=== PATIENT | female | born 1960 | race Caucasian/White ===

== ENCOUNTER → 2017-08-24 12:14 | Outpatient (CLI) | payer MEDICAID, SELFPAY ==
--- NOTE | 2017-08-24 12:15 | STE_ITS ---
Reason For Study: CHF/SOB Stress Results Protocol: Art Protocol Maximum Predicted HR: 164 bpm Target HR: 139 bpm% Max imum Predicted HR: 109 % DurationHeart Rate Stage (mm:ss) (bpm) BP BASELINE 96 142/88 STAGE 1 3:00 15 7 180/92 STAGE 2 3:00 17 9 182/90 RECOVERY 115 152/9 8 Stress Duration: 6:00 mm:ss Maximum Stress HR: 179 bpm Baseline Echocardiogram Findings The estimated ejection fraction is 40 %. Stress Echo Wall motion Data Resting WMIntermediate WMStress WM Wall Motion Stress Anterio-Basal: Severely hypokinetic. Mid-Anterior : Severely Hypokinetic. Anterior [place] : Severly Hypokinetic. EKG Data Normal intervals are noted. The patient exercised according to the regular Art protocol for a total duration of 6:00. The maximum heart rate attained was 179 beats per minute. This was 109% of maximum predicted heart rate. The patient exercised into stage 3 of the Art protocol. During stress, there were no ST or T wave changes noted to suggest ischemia. No clinical angina was noted. Interpretation Summary The estimated ejection fraction is 40 %. Mid-Anterior : Severely Hypokinetic. Anterior [place] : Severly Hypokinetic. Abnormal, adequate, treadmill echocardiogram. Positive for ischemia of the anterior, anteroseptal and apical parish at peak exercise. Below average exercise capacity for age. Hypertensive blood pressure response to exercise. Rare PACs during exercise and into recovery. Baseline abnormal echocardiogram with an EF around 40%. Test terminated due to leg fatigue. No anginal symptoms noted. Final LVEF of 30%. Ordering Physician: Good Sparrow Referring Physician: Good Sparrow Performed By: Scarlet Castillo, RDCS, RVT
== END ==
PROVIDERS: Visit Provider Internal Medicine Cardiovascular Disease
DX: I11.0 Hypertensive heart disease with heart failure (principal); I50.21 Acute systolic (congestive) heart failure; I43 Cardiomyopathy in diseases classified elsewhere; E78.5 Hyperlipidemia, unspecified
CPT/HCPCS: 93017; 93350; Q9957; A4216

== ENCOUNTER → 2017-09-07 15:44 | Outpatient (CLI) | payer MEDICAID, SELFPAY ==
--- NOTE | 2017-09-07 15:46 | RAD_ITS ---
STUDY: X-RAY CHEST REASON FOR EXAM: Female, 56 years old. Shortness of breath TECHNIQUE: Frontal and lateral views of the chest COMPARISON: None. FINDINGS: The lungs are clear. There are no pleural effusions. There is no pneumothorax. The heart is normal in size. The visualized osseous structures are within normal limits. RAD/Chest PA and Lateral IMPRESSION: Clear lungs. Electronically Signed: Priyank Bae, at 23:34 EDT Tel , Service support ,
== END ==
PROVIDERS: Visit Provider Internal Medicine Cardiovascular Disease
DX: R06.02 Shortness of breath (principal)
CPT/HCPCS: 71046

== ENCOUNTER → 2017-09-16 07:43 | Day surgery (SDC) | payer MEDICAID, SELFPAY ==
[2017-09-14 09:04] VITALS: BMI 27.8
--- NOTE | 2017-09-16 10:37 | CL.D_ITS ---
Patient Name: YULIYA KENDALL Study Date: 09/16/2017 Performing: Good Sparrow MD Ht: 59.05 inches 150 cm : 1960 Wt: 138.89 lbs 63 kg Age: 56 Gender: female BSA: 1.58 PROCEDURE(S) PERFORMED CR91-DII/COR/LV CLINICAL PROFILE AND INDICATIONS Indications: New Onset Angina <= 2 months, Worsening Angina, Suspected CAD, LV Dysfunction Heart Failure: NYHA Class: 2, Newly Diagnosed: Yes, Heart Failure Type: Systolic Stress/Imaging Stress Echocardiogram: Yes Result: Positive Intermediate RiskStress Echocardiogram : Positive Intermediate Risk Angina Classification Anginal Classification w/in 2 Weeks: CCS II CAD Presentations: Unstable angina. CONCLUSIONS Non obstructive coronary arteries Global LV systolic dysfunction- Mild Elevated Left Ventricular End Diastolic Pressure RECOMMENDATIONS Risk factor modification Increase toprol to 25mg po bid. Start cozaar 25mg po daily. BP check in 2 weeks. D/c plavix. DESCRIPTION OF PROCEDURE The patient arrived to the procedure lab. The risks and benefits of the procedure as well as a full d escription of our services here and current unavailability of surgical backup were fully explained to the patient and/or their significant other prior to the catheterization. The Timeout was completed, verifying the correct patient and procedure. The patient's procedural site was prepped and draped in the usual fashion. Local anesthetic was given subcutaneously to right groin region with Lidocaine 2%. Using a modified Seldinger technique, arterial access was obtained via the right femoral artery, a 4 Fr sheath was inserted Left Coronary Artery selective angiography was performed in multiple views us ing a 4 Fr. JL5 catheter. Right Coronary Artery selective angiography was then performed in multiple views using a 4 Fr. 3DRC catheter. Left Ventriculography was performed in ESTRADA projection using a 4 Fr . Pigtail catheter. LV to AO pullback pressures were then recorded.The arterial sheath was pulled and manual compression applied until hemostasis is achieved. CORONARY ANGIOGRAPHY DOMINANCE: Right Dominant LEFT HEART ASSESSMENT Left Ventricular Ejection Fraction: by LV Gram 45-50 % Global Hypokinesis - Mild Depressed Left Ventricular systolic function LVEDP: 24 mmHg LEFT MAIN: Angiographically normal LEFT ANTERIOR DECENDING ARTERY: Angiographically normal CIRCUMFLEX ARTERY: PROX CIRC: Mild luminal irregularities less than 30% RIGHT CORONARY ARTERY: Angiographically normal COMPLICATIONS No Complications PROCEDURE MEDICATIONS Oxygen: 2 L/min via nasal cannula SUMMARY OF HEMODYNAMIC DATA Time AIR REST ECG 08:08:54 AO 134/86 (108) SA 10:18:17 LV 131/-3, 20 10:24:05 LV 128/0, 24 10:24:11 LVp 125/0, 20 10:24:16 AOp 124/68 (91) 10:24:22 Signed By Good Sparrow MD On 09/16/2017 10:36:40 Good Sparrow MD
== END ==
PROVIDERS: Visit Provider Internal Medicine Cardiovascular Disease
DX: I50.21 Acute systolic (congestive) heart failure (principal); E78.5 Hyperlipidemia, unspecified; I10 Essential (primary) hypertension; Z85.3 Personal history of malignant neoplasm of breast; Z90.13 Acquired absence of bilateral breasts and nipples; I42.9 Cardiomyopathy, unspecified
CPT/HCPCS: 93458; J7040; A4216; C1769; C1894; Q9967

== ENCOUNTER 2018-05-10 05:25 | Day surgery (SDC) | payer MEDICAID, SELFPAY ==
[2018-04-06 15:54] VITALS: BMI 28.9
--- NOTE | 2018-05-09 15:19 | RAD_ITS ---
STUDY: X-RAY CHEST REASON FOR EXAM: Female, 57 years old. Preoperative evaluation. TECHNIQUE: PA and lateral views of the chest. COMPARISON: Comparison is made with prior study dated September 07, 2017. FINDINGS: The patient is status post left mastectomy and left axillary karyna dissection. Stable mild degree of increased markings in the lingular segment of the left upper lobe suggestive of probable scarring. The right lung is clear. There is no demonstrated pleural abnormality. Normal size heart. Normal mediastinum and jer[place]. Normal visualized pulmonary arteries. Normal visualized aortic arch and descending thoracic aorta. Normal visualized thoracic spine. Normal visualized ribs, clavicles, and shoulders. There is no demonstrated abnormality of the visualized soft tissue structures of the upper abdomen. RAD/Chest PA and Lateral IMPRESSION: The patient is status post left mastectomy and left axillary karyna dissection. Stable increased markings in the lingular segment of the left upper lobe suggesting mild scarring. Electronically Signed: Boby Hamilton MD at 15:54 EST , Service support ,
[2018-05-09 16:28] LABS: Hematocrit 45.6 % (37-47); Hemoglobin 14.3 g/dl (12.0-15.0); Mean Corp Hgb Conc 31.4 g/gl (32-36); Mean Corpuscular Hgb 29.1 pg (27.0-32.0); Mean Corpuscular Volume 92.7 fL (81-99); Mean Platelet Vol. 11.3 fl (6.2-12.0); Platelet Count 252 K/mm3 (150-450); RBC Distribution Width SD 47.3 fl (35.1-43.9); Red Blood Count 4.92 M/mm3 (4.2-5.4)
[2018-05-09 16:33] LABS: Prothrombin Time (Protime)PT. 12.7 SECONDS (11.7-14.9)
[2018-05-09 16:34] LABS: Partial Thromboplast Time 26.9 Seconds (24.1-36.2)
[2018-05-09 16:41] LABS: Scan Indicated on CBC? Y/N NO
[2018-05-09 16:50] LABS: AST(SGOT) 23 U/L (15-37); Alanine Aminotransfer ALT/SGPT 35 U/L (13-56); Albumin, Serum 3.7 g/dL (3.2-5.0); Alkaline Phosphatase 107 U/L (45-117); Anion Gap 9 (5-15); BUN 18 mg/dL (7-18); BUN/Creat Ratio 20.4 RATIO (10-20); Bilirubin, Direct 0.08 mg/dL (0.00-0.30); Calcium,Total 9.4 mg/dL (8.5-10.1); Chloride 105 mmol/L (98-107); Creatinine, Serum 0.88 mg/dL (0.55-1.02); EST Glomerular Filtration Rate 70 mL/min (>60); Est Glom Filt Rate - Afr Amer 85 mL/min (>60); Glucose 104 mg/dL (74-106); Potassium 3.8 mmol/L (3.5-5.1); Protein, Total 7.7 g/dL (6.4-8.2); Sodium Level 142 mmol/L (136-145)
--- NOTE | 2018-05-09 22:01 | PCM.HP.BLA ---
History and Physical Date of Admission: 05/10/18 HISTORY OF PRESENT ILLNESS 57 year old female who presents for evaluation for breast reconstruction. She developed left breast cancer in July 2015. She underwent bilateral mastectomies in August 2015 with a prophylactic one on the right. Pathology showed invasive ductal carcinoma left breast with positive lymph nodes and focal angiolymphatic invasion noted. 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 She then proceeded with chemotherapy and radiation therapy for the left breast cancer. At present, she denies fever. She denies breast pain. She is currently taking Anastrozole. PAST MEDICAL HISTORY Hypertension Hyperlipidemia Acute systolic congestive heart failure Bilateral pleural effusion Cardiomyopathy in diseases classified elsewhere Estrogen receptor positive status (ER+) Malignant neoplasm of left female breast Asthma Back problem Bone fracture GERD (gastroesophageal reflux disease) Hearing problem PAST SURGICAL HISTORY bilateral mastectomy ALLERGIES lisinopril Penicillins MEDICATIONS Loratadine [Claritin] acyclovir albuterol sulfate anastrozole venlafaxine ER fluticasone-vilanterol calcium carbonate furosemide metoprolol succinate ER potassium chloride ER losartan alendronate atorvastatin clopidogrel FAMILY HISTORY Mother - Diabetes Sister - Breast cancer, Diabetes Sister - Cancer Other - Asthma SOCIAL HISTORY Smoking Status: Never smoker alcohol intake: never substance use type: does not use REVIEW OF SYSTEMS General - Denies fever, fatigue, and weight loss. Eyes - Denies cataracts and glaucoma. ENT - Denies nasal congestion. Has sore throat. Endocrine - Denies excessive thirst and urination. Has a history of left breast cancer with bilateral mastectomy 08/28. Has had chemotherapy and radiation therapy. Skin - Denies suspicious lesions and skin cancer. Musculoskeletal - Complains of joint pain, joint stiffness, weakness of muscles and joints, back pain. Denies arthritis. Neuro - Denies headaches. Cardiovascular - Denies chest pain, fatigue. Has a history of CHF, hypertension and hyperlipidemia. Has shortness of breath with activity. Psych - Denies anxiety and depression. Respiratory - Denies chronic cough. Has history of asthma and sleep apnea and shortness of breath. Gastrointestinal - Denies nausea, vomiting, diarrhea. Has a history of constipation and GERD. Hematologic - Has a history of easily bruising and bleeding easily. Is on Plavix. Genitourinary - Denies hematuria and urinary frequency. PHYSICAL EXAMINATION General - Alert and oriented. Bra size was 38 D prior to the mastectomies. HEENT - PERRL. EOMI. Throat is clear. Neck - Supple and non-tender. No cervical adenopathy. Breasts - Bilateral mastectomy incisions are well healed. Minimal discoloration seen on the left breast after the radiation therapy. Some firmness noted on the left breast due to radiation fibrosis. Skin is not adherent to the chest wall on the left. No breast masses palpable. No axillary adenopathy. Breast width is 15 cm bilaterally. Some redundant skin contour deformity present bilaterally. Lungs- Clear to auscultation. Heart - Regular rate and rhythm. Abdomen - Soft and non distended. There is redundant skin and subcutaneous tissue between the umbilicus and the pubic area. There is a lower midline scar from previous hysterectomy. Extremities - FROM. No axillary adenopathy. Radial pulses are palpable. Neuro - CN II-XII grossly intact. Psych - Normal mood and affect. ASSESSMENT 1. Invasive ductal carcinoma left breast, s/p mastectomy. 2. Ductal carcinoma in situ right breast, s/p mastectomy. 3. Acquired absence bilateral breasts. 4. Disproportion reconstructed breasts. 5. Deformity reconstructed breasts. 6. Late effect radiation left breast. 7. Soft tissue radionecrosis left breast. 8. Estrogen receptor positive status. 9. Family history of breast cancer. PLAN Discussed the various breast reconstruction options with the patient. These include a range between using a saline tissue gummed tape press operator followed by cohesive gel implants or using your own tissue such as the TRAM flap or the latissimus dorsi flap or a combination of the two. Since she has had radiation therapy to the left breast, will need to bring in nonradiated tissue for the reconstruction. She is interested in the TRAM flap. Because of the radiation therapy, will proceed initially with a TRAM flap delay to increase the vascularity to the flap. Due to the potential defect that is created after excising any radiation soft tissue necrosis, a bipedicled flap may be necessary to help provide additional tissue. After healing has occurred, will determine at that time if enough tissue is present when combined with the opposite left breast or if a small cohesive gel implant may be necessary for symmetry. For the opposite left breast, will initially place a submuscular saline tissue gummed tape press operator along with acellular dermal matrix graft for inferior coverage. After expansion has occurred, will remove the gummed tape press operator with replacement cohesive gel implant. After healing has occurred, can discuss further nipple reconstruction. The initial surgery will be done under general anesthesia and an overnight stay at the hospital. She will have drains in for a few days and be maintained on antibiotics until the drains are removed. She will wear an SIRISHA wrap for chest wall compression and be maintained on a lifting restriction as well during the healing process. After the first stage delay, will wait at least 3 weeks before proceeding with the TRAM flap surgery. That surgery will be done under general anesthesia and a 5-7 day inpatient stat in the hospital. She will have drains for several days and be maintained on antibiotics until the drains are removed. She will wear an abdominal binder and a surgical bra as well. She will have dietary restrictions with no chocolate, no caffeine, no coffee, no decaf, no tea, for 6 weeks. Also there is no smoking for 6 weeks. The patient was informed of the risks and complications of the procedure including alternatives to surgery. These were discussed with the patient personally. The patient voices understanding and wishes to proceed. Some of the risks and complications were included in a form from the [employer].
[2018-05-10] VITALS (13 sets, daily range): BP systolic 95–163; BP diastolic 47–87; PULSE 63–94; RESP 14–18; TEMP 36–37; O2SAT 94–100; BMI 24.5; BMI 35.7
[2018-05-10] MEDS: Methylene Blue 1% 100 MG/10 ML VIAL (08:50)
--- NOTE | 2018-05-10 10:38 | PCM.OPRPT ---
Report of Operation Date of Procedure: 05/10/18 Pre-Operative Diagnosis: 1. Invasive ductal carcinoma left breast, s/p mastectomy. 2. Ductal carcinoma in situ right breast, s/p mastectomy. 3. Acquired absence bilateral breasts. 4. Disproportion reconstructed breasts. 5. Deformity reconstructed breasts. 6. Late effect radiation left breast. 7. Soft tissue radionecrosis left breast. 8. Estrogen receptor positive status. 9. Family history of breast cancer. Post-Operative Diagnosis: Same. Surgery/Procedure Performed:: 1. First stage delayed left breast reconstruction with bipedicled TRAM flap delay. 2. First stage delayed right breast reconstruction with placement of submuscular saline tissue 4 h youth development specialist (650 ml). Description of Surgical Findings:: 57 year old female who presents for evaluation for breast reconstruction. She developed left breast cancer in July 2015. She underwent bilateral mastectomies in August 2015 with a prophylactic one on the right. Pathology showed invasive ductal carcinoma left breast with positive lymph nodes and focal angiolymphatic invasion noted. 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 She then proceeded with chemotherapy and radiation therapy for the left breast cancer. At present, she denies fever. She denies breast pain. She is currently taking Anastrozole. Patient was informed of the risks and complications of the procedure including alternatives to surgery. These were discussed with the patient personally. Patient voices understanding and wishes to proceed. Some of the risks and complications were included in a form from the [employer]. IV Fluids - 1700 ml. Urine Output - 170 ml. I used [employer] Ultra High Profile, Smooth, Breast Tissue Scheduling Analyst, Suture Tabs, Integral Injection Dome, (650 ml). Reference Number - [id number]. Lot Number - [id number]. Serial Number - [id number]. Expiration - November 15, 2021. I used Rosina absorbable hemostat, (I used 2 vials, one in the right breast and one in the abdominal wall). Reference Number - [id number]. Lot Number - [id number]. Expiration - February 09, 2023. warehouse associate driver: Anna Peoples. Type of Anesthesia:: General Specimen's removed: None. Drains: Jemal. Estimated Blood Loss (mL): 50 ml. Fluids Replaced: 1870 ml (IV Fluids 1700 ml, Urine Output 170 ml). Description of Procedure: Patient was taken to OR in supine position and was placed under general anesthesia. The breasts and abdomen were prepped and draped in the usual fashion. SCD's were placed for DVT prophylaxis. Perioperative antibiotics were given intravenously. A baker catheter was placed. Using xylocaine with epinephrine, the mastectomy incision on the right was infiltrated and the abdominal wall skin crease was infiltrated. After waiting 5 minutes for the anesthetic to take effect, I made an incision through the horizontal mastectomy incision on the right down through the subcutaneous tissue until the muscle was seen. I dissected underneath the pectoralis muscle superiorly to the clavicle, medially to the sternum, inferiorly to the inframammary fold, and laterally to the anterior axillary line. I freed up some of the inferior muscle fibers to aid in creating the submuscular pocket. Hemostasis was obtained with electrocautery. The wound was irrigated with saline. I measured the pocket and felt a 650 ml [place] [employer] Ultra High Profile Smooth Breast Tissue Scheduling Analyst would fit. The air was removed from the 4 h youth development specialist. I injected 30 ml of saline and squeezed the 4 h youth development specialist. No leaks were noted. I placed a size 15 Jemal drain into the breast wound through a separate stab incision inferiorly and laterally and secured to the skin with 3-0 Nylon suture. The wound was sprayed with Rosina absorbable hemostat to minimize seroma formation. When I placed the 4 h youth development specialist into the submuscular pocket, I secured the 4 h youth development specialist to the chest wall through the suture tabs inferiorly with 3-0 Vicryl sutures. There were 5 suture tabs. The pocket was secure enough that I felt I didn't need an acellular dermal matrix graft sling at this time. At the time of the implant replacement, I will place this sling. The wound was then closed in a layered fashion with 3-0 Vicryl interrupted sutures for the deep subcutaneous tissue at the level of the muscle. The deep dermis and subcutaneous tissue was approximated with 3-0 Monocryl interrupted sutures. The skin was approximated with 4-0 V-lock unidirectional barbed running subcuticular suture. This was followed by Histoacryl skin tissue adhesive. Gauze dressing was applied. This will be followed by an SIRISHA wrap for compression at the end of the procedure. I then made a horizontal incision in the abdominal wall skin crease for the delay procedure. Incisions were carried down through Kareem's fascia until the abdominal wall fascia was seen. The superficial epigastric veins were ligated with 3-0 Silk suture. I made horizontal incisions in the rectus abdominis fascia until the muscle was seen. I retracted the muscle medially on both the left and right sides. I dissected out the inferior epigastric vascular pedicles. There were two veins and one artery on each side. They were individually dissected free and ligated with 3-0 Silk suture and surgical clips. The wound was irrigated with saline. Hemostasis was obtained with electrocautery. The fascia was then closed with 0 Novafil simple running suture. I then sprayed the wound with Rosina absorbable hemostat to minimize seroma formation. Kareem's fascia was approximated with 3-0 Vicryl simple running suture. The deep dermis and subcutaneous tissue was approximated with 3-0 Monocryl sutures. The skin was approximated with 3-0 V-lock unidirectional barbed running subcuticular suture. This was followed by Histoacryl skin tissue adhesive. Gauze dressing was applied. This was followed by an abdominal wall binder. Patient tolerated the procedure well and was sent to PACU in satisfactory condition. Patient will be sent upstairs for continued postop care. Grafts/Implants Used: [place] saline tissue 4 h youth development specialist. - Complications None. - Admit VTE Documentation VTE Present on Admission: No VTE Mechan Device Prophylaxis: SCD's VTE Pharm Prophylaxis ordered?: Yes Code Visit Surgery Charges CPT - 83470 ICD-10 - C50.912, D05.11, Z90.13, N65.1, N65.0, T66.xxxS, L59.8, Z80.3, Z17.0 [id number] C50.912, D05.11, Z90.13, N65.1, N65.0, T66.xxxS, L59.8, Z80.3, Z17.0
[2018-05-10] MEDS: Lactated Ringers 1,000 ML 60 ML IV (12:08)
--- NOTE | 2018-05-10 12:43 | CON.PCM_ITS ---
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 (5) Hypertension Status: Chronic Qualifiers: Hypertension type: essential hypertension Qualified Code(s): I10 - Essential (primary) hypertension (6) Hyperlipidemia Status: Chronic (7) Acute systolic congestive heart failure Status: Chronic Comment: may 2017 (8) Bilateral pleural effusion Status: Chronic (9) Cardiomyopathy in diseases classified elsewhere Status: Chronic Comment: EF decreased from 62% per echo 2015 to 30-35% per echo May 2017 @ [place], [place] (10) History of bilateral mastectomy Status: Chronic Comment: August 2015 (11) Estrogen receptor positive status (ER+) Status: Chronic Comment: Z17.0 (12) Disproportion of reconstructed breast Status: Chronic Comment: N65.1 disproportion reconstructed breasts (13) Family history of breast cancer Status: Chronic Comment: Z80.3 (14) 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 Comment: Z90.13 modified radical mastectomy on the left prophylactic mastectomy on the right (15) Malignant neoplasm of left female breast Status: Chronic Qualifiers: Breast location: unspecified site of breast Qualified Code(s): C50.912 - Malignant neoplasm of unspecified site of left female breast Comment: C50.912 Reason for Consult Date of Consultation: 05/10/18 Reason for Consultation: Management of patient medical comorbidities History of Present Illness: The patient is a 57 year old F with history of breast CA diagnosed in July 2015 for which she underwent bilateral mastectomies in August 2015 with subsequent neoadjuvant chemo and radiation therapy currently on anastrozole admitted by 's lady for first stage delayed left breast reconstruction. The hospitalist service was consulted to assist in management of patient medical comorbidities including nonischemic cardiomyopathy and hypertension. 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 Hypertension (Chronic) Hyperlipidemia (Chronic) Acute systolic congestive heart failure (Chronic) may 2017 Bilateral pleural effusion (Chronic) Cardiomyopathy in diseases classified elsewhere (Chronic) EF decreased from 62% per echo 2016 to 30-35% per echo May 2017 @ [place], [place] History of bilateral mastectomy (Chronic) August 2015 Estrogen receptor positive status (ER+) (Chronic) Z17.0 Disproportion of reconstructed breast (Chronic) N65.1 disproportion reconstructed breasts Family history of breast cancer (Chronic) Z80.3 Acquired absence of bilateral breasts and nipples (Chronic) Z90.13 modified radical mastectomy on the left prophylactic mastectomy on the right Malignant neoplasm of left female breast (Chronic) C50.912 Medical History: Medical History (Last Reviewed 05/10/18 @ 13:24 by Alberto Dueñas MD) Hypertension (Chronic) I10 Hyperlipidemia (Chronic) E78.5 Acute systolic congestive heart failure (Chronic) I50.02 june 2017 Bilateral pleural effusion (Chronic) J90 Cardiomyopathy in diseases classified elsewhere (Chronic) I43 EF decreased from 62% per echo 2016 to 30-35% per echo May 2017 @ [place], [place] Estrogen receptor positive status (ER+) (Chronic) Z17.0 Z17.0 Malignant neoplasm of left female breast (Chronic) C50.912 C50.912 Asthma J45.909 Back problem M53.9 Bone fracture T14.8XXA GERD (gastroesophageal reflux disease) K21.9 Hearing problem H91.90 Allergies lisinopril Allergy (Severe, Verified 05/10/18 06:11) tongue and face swelling Penicillins Allergy (Verified 05/10/18 06:11) Anaphylaxis Home Medications: Ambulatory Orders Medication Instructions Recorded Loratadine [Claritin] 10 mg PO DAILY 08/22/15 acyclovir 200 mg capsule 200 mg PO QDAY cap 07/03/17 albuterol sulfate 2.5 mg/3 mL 2.5 mg INHALATION TID PRN ml 07/03/17 (0.083 %) solution for nebulization anastrozole 1 mg tablet 1 mg PO QDAY 07/03/17 venlafaxine ER 37.5 mg 37.5 mg PO BID cap 07/03/17 capsule,extended release 24 hr fluticasone 100 mcg-vilanterol 25 1 puff INHALATION DAILY 07/06/17 mcg/dose powder for inhalation calcium carbonate 500 mg (1,250 1 tab PO BID 01/13/18 mg)-vitamin D3 200 unit tablet furosemide 20 mg tablet 20 mg PO QDAY PRN 01/13/18 metoprolol succinate ER 25 mg 37.5 mg PO DAILY tab 01/13/18 tablet,extended release 24 hr potassium chloride ER 20 mEq 20 meq PO QDAY PRN 01/13/18 tablet,extended release losartan 25 mg tablet 50 mg PO QDAY tab 01/14/18 alendronate 70 mg tablet 70 mg PO QWEEK 03/28/18 atorvastatin 20 mg tablet 40 mg PO DAILY tab 03/28/18 clopidogrel 75 mg tablet 75 mg PO DAILY 03/28/18 Surgical History: Surgical History (Last Reviewed 05/10/18 @ 12:42 by Alberto Dueñas MD) History of bilateral mastectomy (Chronic) Z90.26 August 2015 Smoking Status: Never smoker Tobacco Use: Non-smoker - *Family History Sibling Family History: Family History (Last Reviewed 05/10/18 @ 12:44 by Alberto Dueñas MD) Father No problems noted. Mother Diabetes Sister Breast cancer Diabetes Sister Cancer Other Asthma Paternal Family History: Family History (Last Reviewed 05/10/18 @ 12:44 by Alberto Dueñas MD) Father No problems noted. Mother Diabetes Sister Breast cancer Diabetes Sister Cancer Other Asthma Review of Systems Constitutional: Denies: Anorexia, Chills, Fever, Night Sweats, Weight Change HEENT: Denies: Head Aches, Sinus Congestion, Sinus Drainage Cardiovascular: Denies: Chest Pain, Orthopnea, Palpitations, Paroxysmal Noc. Dyspnea Respiratory: Denies: Cough, Shortness of breath at rest, Shortness of breath upon exertion, Sputum production Gastrointestinal: Denies: Abdominal Pain, Hematemesis, Hematochezia, Nausea, Melena, Vomiting Genitourinary: Denies: Dysuria, Frequency, Hematuria, Urgency Musculoskeletal: Denies: Joint Pain, Joint Tenderness Skin: Denies: Rash Neurological: Reports: Numbness. Denies: Focal weakness, Tingling Psychiatric: Denies: Homicidal Ideations, Suicidal Ideations Hematologic/ Lymphatic: Denies: Easy Bruising, Easy Bleeding Objective: GENERAL: cooperative HEENT: Atraumatic; EYES; Anicteric, Normal Conjunctiva NECK; supple, normal thyroid, RESPIRATORY: Diminished to auscultation bilaterally, CARDIOVASCULAR: Regular S1 S2, GI: soft, non-tender, normoactive bowel sounds, : No Renal angle tenderness; EXTREMITIES: No edema, no clubbing, no cyanosis. NEURO: Awake; no lateralizing signs. SKIN: No Rash PSYCH; flat affect - Physical Exam Vital Signs Temp Pulse Resp BP Pulse Ox 96.9 F L 63 14 97/65 96 05/10/18 12:02 05/10/18 12:02 05/10/18 12:02 05/10/18 12:02 05/10/18 12:02 Oxygen Flow Rate (L/min) 4 Oxygen Delivery Method Room Air Weight: 64.8 kg Body Mass Index (BMI) 24.5 Intake and Output for Last 24 Hours 05/08/18 05/09/18 05/10/18 23:59 23:59 23:59 Intake Total 1999 / 1999 Output Total 207 / 207 Balance 1793 / 1793 Laboratory Tests Past 24 Hrs 05/09/18 05/09/18 05/09/18 14:46 14:46 14:46 WBC 6.0 RBC 4.92 Hgb 14.3 Hct 45.6 MCV 92.7 MCH 29.1 MCHC 31.4 L RDW 14.0 RDW Differential 47.3 H Plt Count 252 MPV 11.3 PT 12.7 INR 1.0 APTT 26.9 Sodium 142 Potassium 3.8 Chloride 105 Carbon Dioxide 28.0 Anion Gap 9 BUN 18 Creatinine 0.88 Est GFR (MDRD) Af Amer 85 Est GFR (MDRD) Non-Af 70 BUN/Creatinine Ratio 20.4 H Glucose 104 Calcium 9.4 Total Bilirubin 0.30 Direct Bilirubin 0.08 AST 23 ALT 35 Alkaline Phosphatase 107 Total Protein 7.7 Albumin 3.7 Globulin 4.0 Assessment/Plan The patient is a 57 year old F with history of breast CA diagnosed in July 2015 for which she underwent bilateral mastectomies in August 2015 with subsequent neoadjuvant chemo and radiation therapy currently on anastrozole admitted by Dr. Murillo for first stage delayed left breast reconstruction. The hospitalist service was consulted to assist in management of patient medical comorbidities including nonischemic cardiomyopathy and hypertension. 1. Status post First stage delayed left breast reconstruction with bipedicled TRAM flap delay. 2. First stage delayed right breast reconstruction with placement of submuscular saline tissue extractor filler on 05/10/[address] Murillo. Patient postoperative orders regarding pain management and wound care deferred to primary service 2. History of breast CA initially involving the left breast and later found to be present in the right diagnosed in July 2015 patient underwent bilateral mastectomy with neoadjuvant chemo and radiation therapy. Patient remains on anastrozole 3. History of nonischemic cardiomyopathy 4. Hypertension-blood pressure controlled, home medications continued with dose adjustment as needed 5. Dyslipidemia-patient is on statin therapy, continued at home dose 6. Depression patient is on SSRI 7. DVT prophylaxis will recommend low molecular weight heparin if there is no contraindication will defer decision to start chemoprophylaxis to admitting service Code Visit Office Visits / Consults: [id number] IP Consult L5
[2018-05-10] MEDS: oxyCODONE 5 MG Tablet 10 MG PO ×2 (12:48→23:30)
[2018-05-10] MEDS: Albuterol 2.5 MG/3 ML VIAL.NEB. INHALATION ×2 (13:46→18:50)
[2018-05-10] MEDS: Acyclovir 200 MG Capsule PO (15:08)
[2018-05-10] MEDS: Loratadine 10 MG Tablet PO (15:08)
[2018-05-10] MEDS: Anastrozole 1 MG Tablet PO (15:10)
[2018-05-10] MEDS: HYDROmorphone 1 MG/ML Syringe IV (15:20)
[2018-05-10] MEDS: 0.9% NaCl Peripheral Flush Adult/Peds IV (15:21)
[2018-05-10] MEDS: Calcium Carb/Vitamin D 1 TABLET Tablet PO (16:51)
[2018-05-10] MEDS: Budesonide Respules 0.5 MG/2 ML AMPUL.NEB. INHALATION (18:50)
[2018-05-10] MEDS: Venlafaxine HCl 25 MG Tablet 37.5 MG PO (21:36)
[2018-05-10] MEDS: Docusate Sodium 100 MG Capsule PO (21:36)
[2018-05-10] MEDS: Atorvastatin Calcium 40 MG Tablet PO (21:36)
[2018-05-11] MEDS: oxyCODONE 5 MG Tablet 10 MG PO ×2 (05:39→13:30)
[2018-05-11] MEDS: Lactated Ringers 1,000 ML 60 ML IV (05:39)
[2018-05-11] MEDS: Enoxaparin 30 MG/0.3 ML Syringe SC (05:40)
[2018-05-11 06:00] VITALS: BP 141/72; PULSE 86; RESP 16; TEMP 36.6; O2SAT 94
[2018-05-11 06:08] LABS: Hematocrit 41.9 % (37-47); Hemoglobin 13.1 g/dl (12.0-15.0); Mean Corp Hgb Conc 31.3 g/gl (32-36); Mean Corpuscular Hgb 29.7 pg (27.0-32.0); Mean Platelet Vol. 11.1 fl (6.2-12.0); Platelet Count 200 K/mm3 (150-450); RBC Distribution Width CV 14.5 % (11.6-14.6); RBC Distribution Width SD 50.9 fl (35.1-43.9); Red Blood Count 4.41 M/mm3 (4.2-5.4); White Blood Count 12.3 K/mm3 (4.4-11.0)
[2018-05-11 06:10] LABS: Scan Indicated on CBC? Y/N NO
[2018-05-11 06:51] VITALS: PULSE 79; RESP 16; O2SAT 94
[2018-05-11] MEDS: Albuterol 2.5 MG/3 ML VIAL.NEB. INHALATION ×2 (06:51→14:08)
[2018-05-11] MEDS: Budesonide Respules 0.5 MG/2 ML AMPUL.NEB. INHALATION (06:51)
[2018-05-11 07:03] LABS: Anion Gap 10 (5-15); BUN 17 mg/dL (7-18); BUN/Creat Ratio 23.9 RATIO (10-20); Calcium,Total 9.1 mg/dL (8.5-10.1); Chloride 107 mmol/L (98-107); Creatinine, Serum 0.71 mg/dL (0.55-1.02); EST Glomerular Filtration Rate 90 mL/min (>60); Est Glom Filt Rate - Afr Amer 109 mL/min (>60); Estimated Creatinine Clearance 89.43 ml/min; Glucose 115 mg/dL (74-106); Potassium 4.7 mmol/L (3.5-5.1); Prealbumin 23.4 mg/dL (20.0-40.0); Sodium Level 139 mmol/L (136-145)
[2018-05-11 07:53] VITALS: BP 136/67; PULSE 78; RESP 18; TEMP 36.6; O2SAT 95
--- NOTE | 2018-05-11 07:56 | PN_ITS ---
Subjective: The patient is a 57 year old F with history of breast CA diagnosed in July 2015 for which she underwent bilateral mastectomies in August 2015 with subsequent neoadjuvant chemo and radiation therapy currently on anastrozole admitted by Dr. Murillo for first stage delayed left breast reconstruction. The hospitalist service was consulted to assist in management of patient medical comorbidities including nonischemic cardiomyopathy and hypertension. 05/11/2018: Patient seen complains of itching all over. There is also a slight bump in her WBC count. An order was given for Benadryl to be used as needed. Objective: GENERAL: cooperative HEENT: Atraumatic; EYES; Anicteric, Normal Conjunctiva NECK; supple, normal thyroid, RESPIRATORY: Diminished to auscultation bilaterally, CARDIOVASCULAR: Regular S1 S2, GI: soft, non-tender, normoactive bowel sounds, : No Renal angle tenderness; EXTREMITIES: No edema, no clubbing, no cyanosis. NEURO: Awake; no lateralizing signs. SKIN: No Rash PSYCH; flat affect Vitals/I&O's: Vital Signs Temp Pulse Resp BP Pulse Ox 97.9 F 78 18 136/67 H 95 05/11/18 07:53 05/11/18 07:53 05/11/18 07:53 05/11/18 07:53 05/11/18 07:53 Oxygen Flow Rate (L/min) 1 Oxygen Delivery Method Room Air Weight: 64.8 kg Body Mass Index (BMI) 35.7 Intake and Output for Last 24 Hours 05/09/18 05/10/18 05/11/18 23:59 23:59 23:59 Intake Total 3435 / 3435 492 / 492 Output Total 1087 / 1087 630 / 630 Balance 2348 / 2348 -138 / -138 Laboratory Results 05/11/18 05:35: WBC 12.3 H, RBC 4.41, Hgb 13.1, Hct 41.9, MCV 95.0, MCH 29.7, MCHC 31.3 L, RDW 14.5, RDW Differential 50.9 H, Plt Count 200, MPV 11.1 05/11/18 05:35: Sodium 139, Potassium 4.7, Chloride 107, Carbon Dioxide 22.0, Anion Gap 10, BUN 17, Creatinine 0.71, Estim Creat Clear Calc 89.43, Est GFR (MDRD) Af Amer 109, Est GFR (MDRD) Non-Af 90, BUN/Creatinine Ratio 23.9 H, Glucose 115 H, Calcium 9.1, Prealbumin 23.4 Current Medications Acyclovir (Zovirax) 200 mg PO DAILY [facility] Last Admin: 05/10/18 15:08 Dose: 200 mg Albuterol Sulfate (Ventolin Aerosols) 2.5 mg INHALATION .TID PRN PRN Reason: Bronchospasm Albuterol Sulfate (Ventolin Aerosols) 2.5 mg INHALATION Q6HWA.RT [facility] Last Admin: 05/11/18 06:51 Dose: 2.5 mg Alendronate Sodium (Fosamax) 70 mg PO Mo@0600 [facility] Anastrozole (Arimidex) 1 mg PO DAILY [facility] Last Admin: 05/10/18 15:10 Dose: 1 mg Atorvastatin Calcium (Lipitor) 40 mg PO DAILY@2200 [facility] Last Admin: 05/10/18 21:36 Dose: 40 mg Budesonide (Pulmicort Aerosol) 0.5 mg INHALATION Q12H.RT [facility] Last Admin: 05/11/18 06:51 Dose: 0.5 mg Calcium/Vitamin D (Os-Lavon 500mg + D) 1 tablet PO BIDCM [facility] Last Admin: 05/10/18 16:51 Dose: 1 tablet Clopidogrel Bisulfate (Plavix) 75 mg PO DAILY [facility] Diazepam (Valium) 5 mg PO 4X/DAY PRN PRN PRN Reason: SPASMS Docusate Sodium (Colace) 100 mg PO BID [facility] Last Admin: 05/10/18 21:36 Dose: 100 mg Enoxaparin Sodium (Lovenox) 30 mg SC DAILY@0600 [facility] Last Admin: 05/11/18 05:40 Dose: 30 mg Furosemide (Lasix) 20 mg PO DAILY PRN PRN Reason: EDEMA Hydromorphone HCl (Dilaudid Inj) 1 mg IV Q3H PRN PRN PRN Reason: SEVERE PAIN (6-10/10) Last Admin: 05/10/18 15:20 Dose: 1 mg Clindamycin Phosphate 600 mg/ (Dextrose) 54 mls @ 162 mls/hr IV Q8 [facility] Last Admin: 05/11/18 05:40 Dose: 162 mls/hr Lactated Ringer's () 1,000 mls @ 60 mls/hr IV .[id number] [facility] Last Admin: 05/11/18 05:39 Dose: 60 mls/hr Loratadine (Claritin) 10 mg PO DAILY [facility] Last Admin: 05/10/18 15:08 Dose: 10 mg Losartan Potassium (Cozaar) 50 mg PO DAILY [facility] Metoprolol Succinate (Toprol Xl (Beta Qi)) 37.5 mg PO DAILY [facility] Nutritional Formula ([place] - [place] Flavor) [facility] Last Admin: 05/10/18 16:51 Dose: 1 packet Ondansetron HCl (Zofran) 4 mg IV Q6H PRN PRN PRN Reason: NAUSEA Oxycodone HCl (Oxyir) 10 mg PO Q4H PRN PRN PRN Reason: SEVERE PAIN (6-10/10) Last Admin: 05/11/18 05:39 Dose: 10 mg Potassium Chloride (K-Dur) 20 meq PO DAILY PRN PRN Reason: takes with lasix Promethazine HCl (Phenergan Tablet) 25 mg PO Q4H PRN PRN PRN Reason: NAUSEA/VOMITING Sodium Chloride () 5 - 15 ml IV UD PRN PRN Reason: SALINE FLUSH Last Admin: 05/10/18 15:21 Dose: 10 ml Venlafaxine HCl (Effexor) 37.5 mg PO BID [facility] Last Admin: 05/10/18 21:36 Dose: 37.5 mg Medical Necessity - Tobacco Use Smoking Status: Never smoker Tobacco Use: Non-smoker Assessment/Plan The patient is a 57 year old F with history of breast CA diagnosed in July 2015 for which she underwent bilateral mastectomies in August 2015 with subsequent neoadjuvant chemo and radiation therapy currently on anastrozole admitted by Dr. Murillo for first stage delayed left breast reconstruction. The hospitalist service was consulted to assist in management of patient medical comorbidities including nonischemic cardiomyopathy and hypertension. 1. Status post First stage delayed left breast reconstruction with bipedicled TRAM flap delay. 2. First stage delayed right breast reconstruction with placement of submuscular saline tissue accounting officer on 05/10/[address] Murillo. Patient postoperative orders regarding pain management and wound care deferred to primary service 2. History of breast CA initially involving the left breast and later found to be present in the right diagnosed in July 2015 patient underwent bilateral mastectomy with neoadjuvant chemo and radiation therapy. Patient remains on anastrozole 3. History of nonischemic cardiomyopathy 4. Hypertension-blood pressure controlled, home medications continued with dose adjustment as needed 5. Dyslipidemia-patient is on statin therapy, continued at home dose 6. Depression patient is on SSRI 7. DVT prophylaxis SC Lovenox Active Medications Acyclovir (Zovirax) 200 mg PO DAILY [facility] Last Admin: 05/10/18 15:08 Dose: 200 mg Albuterol Sulfate (Ventolin Aerosols) 2.5 mg INHALATION .TID PRN PRN Reason: Bronchospasm Albuterol Sulfate (Ventolin Aerosols) 2.5 mg INHALATION Q6HWA.RT [facility] Last Admin: 05/11/18 06:51 Dose: 2.5 mg Alendronate Sodium (Fosamax) 70 mg PO Mo@0600 [facility] Anastrozole (Arimidex) 1 mg PO DAILY [facility] Last Admin: 05/10/18 15:10 Dose: 1 mg Atorvastatin Calcium (Lipitor) 40 mg PO DAILY@2200 [facility] Last Admin: 05/10/18 21:36 Dose: 40 mg Budesonide (Pulmicort Aerosol) 0.5 mg INHALATION Q12H.RT [facility] Last Admin: 05/11/18 06:51 Dose: 0.5 mg Calcium/Vitamin D (Os-Lavon 500mg + D) 1 tablet PO BIDCM [facility] Last Admin: 05/10/18 16:51 Dose: 1 tablet Clopidogrel Bisulfate (Plavix) 75 mg PO DAILY [facility] Diazepam (Valium) 5 mg PO 4X/DAY PRN PRN PRN Reason: SPASMS Docusate Sodium (Colace) 100 mg PO BID [facility] Last Admin: 05/10/18 21:36 Dose: 100 mg Enoxaparin Sodium (Lovenox) 30 mg SC DAILY@0600 [facility] Last Admin: 05/11/18 05:40 Dose: 30 mg Furosemide (Lasix) 20 mg PO DAILY PRN PRN Reason: EDEMA Hydromorphone HCl (Dilaudid Inj) 1 mg IV Q3H PRN PRN PRN Reason: SEVERE PAIN (6-10/10) Last Admin: 05/10/18 15:20 Dose: 1 mg Clindamycin Phosphate 600 mg/ (Dextrose) 54 mls @ 162 mls/hr IV Q8 [facility] Last Admin: 05/11/18 05:40 Dose: 162 mls/hr Lactated Ringer's () 1,000 mls @ 60 mls/hr IV .[id number] [facility] Last Admin: 05/11/18 05:39 Dose: 60 mls/hr Loratadine (Claritin) 10 mg PO DAILY [facility] Last Admin: 05/10/18 15:08 Dose: 10 mg Losartan Potassium (Cozaar) 50 mg PO DAILY [facility] Metoprolol Succinate (Toprol Xl (Beta Qi)) 37.5 mg PO DAILY [facility] Nutritional Formula ([place] - [place] Flavor) [facility] Last Admin: 05/10/18 16:51 Dose: 1 packet Ondansetron HCl (Zofran) 4 mg IV Q6H PRN PRN PRN Reason: NAUSEA Oxycodone HCl (Oxyir) 10 mg PO Q4H PRN PRN PRN Reason: SEVERE PAIN (6-10/10) Last Admin: 05/11/18 05:39 Dose: 10 mg Potassium Chloride (K-Dur) 20 meq PO DAILY PRN PRN Reason: takes with lasix Promethazine HCl (Phenergan Tablet) 25 mg PO Q4H PRN PRN PRN Reason: NAUSEA/VOMITING Sodium Chloride () 5 - 15 ml IV UD PRN PRN Reason: SALINE FLUSH Last Admin: 05/10/18 15:21 Dose: 10 ml Venlafaxine HCl (Effexor) 37.5 mg PO BID [facility] Last Admin: 05/10/18 21:36 Dose: 37.5 mg Code Visit Inpatient E&M: [id number] [facility] Hosp L3
[2018-05-11] MEDS: Docusate Sodium 100 MG Capsule PO (09:42)
[2018-05-11] MEDS: Loratadine 10 MG Tablet PO (09:42)
[2018-05-11] MEDS: Calcium Carb/Vitamin D 1 TABLET Tablet PO (09:42)
[2018-05-11] MEDS: Anastrozole 1 MG Tablet PO (09:42)
[2018-05-11 09:43] VITALS: BP 136/67; PULSE 78
[2018-05-11] MEDS: Metoprolol(XL)Succ 25 MG Tablet 37.5 MG PO (09:43)
[2018-05-11] MEDS: Venlafaxine HCl 25 MG Tablet 37.5 MG PO (09:43)
[2018-05-11] MEDS: Losartan Potassium 50 MG Tablet PO (09:43)
[2018-05-11] MEDS: Clopidogrel Bisulfate 75 MG Tablet PO (09:43)
[2018-05-11] MEDS: DiphenhydrAMINE 25 MG Capsule PO (09:44)
[2018-05-11] MEDS: Acyclovir 200 MG Capsule PO (09:44)
--- NOTE | 2018-05-11 12:18 | PCM.PN.SRG ---
Subjective: Postop #1 Patient is resting comfortably. - Physical Exam General: Alert, Oriented x3 HEENT: PERRLA, EOMI Oral: Moist Mucosa Neck: Supple Abdomen: Soft, Non-Distended Skin: Incision - right breast incision dry and intact. No clinical evidence of hematoma. lower anterior abdominal wall incision dry and intact. No clinical evidence of hematoma. Neurological: Cranial nerves II-XII grossly intact Psych/Mental Status: Normal Affect, Appropriate Vital Signs Temp Pulse Resp BP Pulse Ox 97.9 F 78 18 136/67 H 95 05/11/18 07:53 05/11/18 09:43 05/11/18 07:53 05/11/18 09:43 05/11/18 07:53 Oxygen Flow Rate (L/min) 1 Oxygen Delivery Method Room Air Weight: 142 lb 13.753 oz Body Mass Index (BMI) 35.7 Intake and Output for Last 24 Hours 05/09/18 05/10/18 05/11/18 23:59 23:59 23:59 Intake Total 3435 / 3435 492 / 492 Output Total 1087 / 1087 630 / 630 Balance 2348 / 2348 -138 / -138 Drainage 65 ml yesterday, 30 ml today. Laboratory Tests Past 24 Hrs 05/11/18 05/11/18 05:35 05:35 WBC 12.3 H RBC 4.41 Hgb 13.1 Hct 41.9 MCV 95.0 MCH 29.7 MCHC 31.3 L RDW 14.5 RDW Differential 50.9 H Plt Count 200 MPV 11.1 Sodium 139 Potassium 4.7 Chloride 107 Carbon Dioxide 22.0 Anion Gap 10 BUN 17 Creatinine 0.71 Estim Creat Clear Calc 89.43 Est GFR (MDRD) Af Amer 109 Est GFR (MDRD) Non-Af 90 BUN/Creatinine Ratio 23.9 H Glucose 115 H Calcium 9.1 Prealbumin 23.4 Medical Necessity - Tobacco Use Smoking Status: Never smoker Tobacco Use: Non-smoker Assessment/Plan 1. Invasive ductal carcinoma left breast, s/p mastectomy. 2. Ductal carcinoma in situ right breast, s/p mastectomy. 3. Acquired absence bilateral breasts. 4. Disproportion reconstructed breasts. 5. Deformity reconstructed breasts. 6. Late effect radiation left breast. 7. Soft tissue radionecrosis left breast. 8. Estrogen receptor positive status. 9. Family history of breast cancer. 10. s/p first stage delayed left breast reconstruction with bipedicled TRAM flap delay and first stage delayed right breast reconstruction with placement of submuscular saline tissue coupon collection clerk (650 ml). Incisions are dry and intact. No clinical evidence of hematoma. She is tolerating po analgesia. Prealbumin was 23.4. Encourage nutritional supplementation with protein to help the healing process. Continue SIRISHA wrap chest wall compression and abdominal binder. Discharge home. Keep head elevated. Continue lifting restriction. Followup office one week. Will maintain on antibiotics until the drain is removed in the office. Wrote scripts for Cleocin for 10 days and for Acidophilus. Wrote scripts for Percocet for pain (50 tabs) and for Valium for spasm (30 tabs). Wrote scripts for Phenergan for nausea (30 tabs) with a refill and for Colace for constipation (60 tabs). Next stage TRAM flap is tentatively scheduled for 3 weeks. Will discuss HBO treatments after her surgery for her radiation damage to the left breast.
--- NOTE | 2018-05-11 12:41 | PCM.DC ---
You will use the following diet at home:: No restrictions Discharge Activity: May not drive while taking narcotic pain medications., May Not Shower - until the drain is removed., - - keep head elevated. no heavy lifting. May shower in (days): 10 - may shower after the drain is removed. May resume sexual activity in: 10-14 days Weight Bearing Status: Weight bearing as tolerated Lifting Restrictions: 20 lbs. Keep extremity elevated above heart level: - - elevate head. Call your doctor if your incision/area has: Continuous Slow Oozing, Sudden Increased Bleeding, Increased Pain/ Swelling, Increased Redness, Foul Smelling Discharge, Swelling at the incision site Call your doctor if you observe: Fever of 101 or Higher, Coldness, Increased Pain, Shortness of breath, Chest pain, Calf discomfort, Uncontrolled pain Suture Line Care: - - dry dressing to incisions daily. May also wear t-shirt underneath the ligia wrap and binder as well. Change Dressing in (Days):: 1 Drain: Suction - sheridan drain to bulb suction. empty and record output daily. Allergies/Adverse Reactions: Allergies lisinopril Allergy (Severe, Verified 05/10/18 06:11) tongue and face swelling Penicillins Allergy (Verified 05/10/18 06:11) Anaphylaxis Medications to take at Discharge Loratadine [Claritin] 10 mg PO DAILY 08/22/15 acyclovir 200 mg capsule 200 mg PO QDAY cap 07/03/17 albuterol sulfate 2.5 mg/3 mL (0.083 %) solution for nebulization 2.5 mg INHALATION TID PRN ml 07/03/17 anastrozole 1 mg tablet 1 mg PO QDAY 07/03/17 venlafaxine ER 37.5 mg capsule,extended release 24 hr 37.5 mg PO BID cap 07/03/17 fluticasone 100 mcg-vilanterol 25 mcg/dose powder for inhalation 1 puff INHALATION DAILY 07/06/17 calcium carbonate 500 mg (1,250 mg)-vitamin D3 200 unit tablet 1 tab PO BID 01/13/18 furosemide 20 mg tablet 20 mg PO QDAY PRN 01/13/18 metoprolol succinate ER 25 mg tablet,extended release 24 hr 37.5 mg PO DAILY tab 01/13/18 potassium chloride ER 20 mEq tablet,extended release 20 meq PO QDAY PRN 01/13/18 losartan 25 mg tablet 50 mg PO QDAY tab 01/14/18 alendronate 70 mg tablet 70 mg PO QWEEK 03/28/18 atorvastatin 20 mg tablet 40 mg PO DAILY tab 03/28/18 clopidogrel 75 mg tablet 75 mg PO DAILY 03/28/18 Albuterol Aerosols [Ventolin Aerosols] 2.5 mg INHALATION Q6HWA.RT vial.neb. 05/11/18 Budesonide Aerosol [Pulmicort Respules] 0.5 mg INHALATION Q12H.RT ampul.neb. 05/11/18 Clindamycin HCl [Cleocin] 300 mg PO TID #30 cap 05/11/18 Diazepam [Valium] 5 mg PO 4X/DAY PRN PRN #30 tab 05/11/18 Docusate Sodium [Colace] 100 mg PO BID #60 cap 05/11/18 Lactobacillus Acidophilus/Fos [Acidophilus Probiotic Tablet] 1 ea PO BID #20 tab 05/11/18 Oxycodone HCl/Acetaminophen [Percocet 5/325] 1 - 2 tab PO 4X/DAY PRN PRN 7 Days #50 tab 05/11/18 proMETHazine tablet [Phenergan tablet] 25 mg PO 4X/DAY PRN PRN #30 tab 05/11/18 The following prescriptions were given: Diazepam [Valium] 5 mg PO 4X/DAY PRN PRN #30 tab PRN Reason: Spasms Oxycodone HCl/Acetaminophen [Percocet 5/325] 1 - 2 tab PO 4X/DAY PRN PRN 7 Days #50 tab PRN Reason: Pain proMETHazine tablet [Phenergan tablet] 25 mg PO 4X/DAY PRN PRN #30 tab PRN Reason: NAUSEA/VOMITING Docusate Sodium [Colace] 100 mg PO BID #60 cap Lactobacillus Acidophilus/Fos [Acidophilus Probiotic Tablet] 1 ea PO BID #20 tab Clindamycin HCl [Cleocin] 300 mg PO TID #30 cap Primary Care Physician: Nevaeh Hawkins DO [Primary Care Provider] - Test Results: Test results from this visit will be discussed in further detail at your follow-up appointment, if applicable. Please Follow Up With: Jann Murillo MD When: one week. call [phone] for appt. Proposed Discharge Date: 05/11/18
--- NOTE | 2018-05-11 12:44 | DCINST_ITS ---
You will use the following diet at home:: No restrictions Discharge Activity: May not drive while taking narcotic pain medications., May Not Shower - until the drain is removed., - - keep head elevated. no heavy lifting. May shower in (days): 10 - may shower after the drain is removed. May resume sexual activity in: 10-14 days Weight Bearing Status: Weight bearing as tolerated Lifting Restrictions: 20 lbs. Keep extremity elevated above heart level: - - elevate head. Call your doctor if your incision/area has: Continuous Slow Oozing, Sudden Increased Bleeding, Increased Pain/ Swelling, Increased Redness, Foul Smelling Discharge, Swelling at the incision site Call your doctor if you observe: Fever of 101 or Higher, Coldness, Increased Pain, Shortness of breath, Chest pain, Calf discomfort, Uncontrolled pain Suture Line Care: - - dry dressing to incisions daily. May also wear t-shirt underneath the ligia wrap and binder as well. Change Dressing in (Days):: 1 Drain: Suction - sheridan drain to bulb suction. empty and record output daily. Allergies/Adverse Reactions: Allergies lisinopril Allergy (Severe, Verified 05/10/18 06:11) tongue and face swelling Penicillins Allergy (Verified 05/10/18 06:11) Anaphylaxis Medications to take at Discharge Loratadine [Claritin] 10 mg PO DAILY 08/22/15 acyclovir 200 mg capsule 200 mg PO QDAY cap 07/03/17 albuterol sulfate 2.5 mg/3 mL (0.083 %) solution for nebulization 2.5 mg I NHALATION TID PRN ml 07/03/17 anastrozole 1 mg tablet 1 mg PO QDAY 07/03/17 venlafaxine ER 37.5 mg capsule,extended release 24 hr 37.5 mg PO BID cap 07/03/17 fluticasone 100 mcg-vilanterol 25 mcg/dose powder for inhalation 1 puff INHALATION DAILY 07/06/17 calcium carbonate 500 mg (1,250 mg)-vitamin D3 200 unit tablet 1 tab PO BID 01/13/18 furosemide 20 mg tablet 20 mg PO QDAY PRN 01/13/18 metoprolol succinate ER 25 mg tablet,extended release 24 hr 37.5 mg PO DAILY tab 01/13/18 potassium chloride ER 20 mEq tablet,extended release 20 meq PO QDAY PRN 01/13/18 losartan 25 mg tablet 50 mg PO QDAY tab 01/14/18 alendronate 70 mg tablet 70 mg PO QWEEK 03/28/18 atorvastatin 20 mg tablet 40 mg PO DAILY tab 03/28/18 clopidogrel 75 mg tablet 75 mg PO DAILY 03/28/18 Albuterol Aerosols [Ventolin Aerosols] 2.5 mg INHALATION Q6HWA.RT vial.neb. 05/11/18 Budesonide Aerosol [Pulmicort Respules] 0.5 mg INHALATION Q12H.RT ampul.neb. 05/11/18 Clindamycin HCl [Cleocin] 300 mg PO TID #30 cap 05/11/18 Diazepam [Valium] 5 mg PO 4X/DAY PRN PRN #30 tab 05/11/18 Docusate Sodium [Colace] 100 mg PO BID #60 cap 05/11/18 Lactobacillus Acidophilus/Fos [Acidophilus Probiotic Tablet] 1 ea PO BID #20 tab 05/11/18 Oxycodone HCl/Acetaminophen [Percocet 5/325] 1 - 2 tab PO 4X/DAY PRN PRN 7 Days #50 tab 05/11/18 proMETHazine tablet [Phenergan tablet] 25 mg PO 4X/DAY PRN PRN #30 tab 05/11/18 The following prescriptions were given: Diazepam [Valium] 5 mg PO 4X/DAY PRN PRN #30 tab PRN Reason: Spasms Oxycodone HCl/Acetaminophen [Percocet 5/325] 1 - 2 tab PO 4X/DAY PRN PRN 7 Days #50 tab PRN Reason: Pain proMETHazine tablet [Phenergan tablet] 25 mg PO 4X/DAY PRN PRN #30 tab PRN Reason: NAUSEA/VOMITING Docusate Sodium [Colace] 100 mg PO BID #60 cap Lactobacillus Acidophilus/Fos [Acidophilus Probiotic Tablet] 1 ea PO BID #20 tab Clindamycin HCl [Cleocin] 300 mg PO TID #30 cap Primary Care Physician: Nevaeh Hawkins DO [Primary Care Provider] - Test Results: Test results from this visit will be discussed in further detail at your follow- up appointment, if applicable. Please Follow Up With: Jann Murillo MD When: one week. call [phone] for appt. Proposed Discharge Date: 05/11/18
[2018-05-11 13:25] VITALS: BP 117/64; PULSE 82; RESP 18; TEMP 36.7; O2SAT 96
[2018-05-11 15:20] VITALS: BP 117/64; PULSE 82; RESP 18; TEMP 36.7; O2SAT 96
== END 2018-05-11 15:20 | disposition home or self-care (01) ==
LOC: SDC 05:25 → AC 05:25 → MS2 09:24
PROVIDERS: Anesthesiology; Referring Provider Surgery; Visit Provider Internal Medicine
PROC: (CPT 15600; principal; 2018-05-10 07:45)
DX: C50.912 Malignant neoplasm of unspecified site of left female breast (principal); Z90.13 Acquired absence of bilateral breasts and nipples; N65.1 Disproportion of reconstructed breast; N65.0 Deformity of reconstructed breast; N64.1 Fat necrosis of breast; L59.8 Other specified disorders of the skin and subcutaneous tissue related to radiation; Z17.0 Estrogen receptor positive status [ER+]; Z80.3 Family history of malignant neoplasm of breast; I42.9 Cardiomyopathy, unspecified; I10 Essential (primary) hypertension; E78.5 Hyperlipidemia, unspecified; F32.9 Major depressive disorder, single episode, unspecified; C50.011 Malignant neoplasm of nipple and areola, right female breast; I50.21 Acute systolic (congestive) heart failure; J90 Pleural effusion, not elsewhere classified; H91.90 Unspecified hearing loss, unspecified ear; K21.9 Gastro-esophageal reflux disease without esophagitis; J45.909 Unspecified asthma, uncomplicated
CPT/HCPCS: 15600; 19357; 36415; 71046; 80048; 80076; 84134; 85027; 85610; 85730; 93005; 94640; 94762; J7120; A4216

== ENCOUNTER 2018-05-31 06:17 | Inpatient (IN) | payer MEDICAID, SELFPAY ==
[2018-05-10 06:13] VITALS: BMI 24.5
[2018-05-26 16:26] VITALS: BMI 35.7
[2018-05-31] VITALS (13 sets, daily range): BP systolic 69–138; BP diastolic 46–75; PULSE 67–91; RESP 16–18; TEMP 36.1–36.7; O2SAT 87–100; BMI 24.2; BMI 35.3
--- NOTE | 2018-05-31 08:00 | BREAST_PTH ---
PATIENT: YULIYA KENDALL LOC: [facility] U#:[id number] AGE/SX: 57/F ROOM: [facility] RE05/31/[address]: Dr. Jann Murillo MD : 1960 BED: 1 DIS: 06/07/2018 SPEC #: [id number] RECD: 06/01/18 07:25 STATUS: [place] REQ #: [id number] KISHOR: 05/31/18 08:[address]: Jann Murillo DEPT: SURGICAL PATHOLOGY RECD BY: Ricco Laughlin ENTERED: 06/01/18 13:37 SP TYPE: BREAST OTHR DR: Dr. 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 See comment. VALDO:peng 06/02/18 COMMENT Breast tissue is not identified in the sections examined. MICROSCOPIC DESCRIPTION Slides are reviewed. GROSS DESCRIPTION Received in fixative is one container labeled with the patient's name and designated left breast radiation fibrosis. The specimen consists of 18 fragments of torres-yellow fibrofatty tissue with several containing adherent fragments of light torres skin with no cutaneous lesions. Serial sections do not reveal mass lesions. Primary Care Physician sections are submitted in five cassettes. / AM:peng 06/01/18 TC:5 CPT: 86464
[2018-05-31] MEDS: MethylPREDNISolone 125 MG/2 ML Vial (11:25)
--- NOTE | 2018-05-31 18:17 | PCM.OPRPT ---
Report of Operation Date of Procedure: 05/31/18 Pre-Operative Diagnosis: 1. Invasive ductal carcinoma left breast, s/p mastectomy. 2. Ductal carcinoma in situ right breast, s/p mastectomy. 3. Acquired absence bilateral breasts. 4. Disproportion reconstructed breasts. 5. Deformity reconstructed breasts. 6. Late effect radiation left breast. 7. Soft tissue radionecrosis left breast. 8. Estrogen receptor positive status. 9. Family history of breast cancer. Post-Operative Diagnosis: 1. Invasive ductal carcinoma left breast, s/p mastectomy. 2. Ductal carcinoma in situ right breast, s/p mastectomy. 3. Acquired absence bilateral breasts. 4. Disproportion reconstructed breasts. 5. Deformity reconstructed breasts. 6. Late effect radiation left breast. 7. Soft tissue radionecrosis left breast. 8. Estrogen receptor positive status. 9. Family history of breast cancer. 10. Abdominal wall hernia from bipedicled TRAM flap breast reconstruction. Surgery/Procedure Performed:: 1. Revision left breast reconstruction with excision radiation fibrosis scar contour deformity and multiple W-plasty (18 cm2). 2. Second stage delayed left breast reconstruction with bipedicled TRAM flap. 3. Complex abdominal wall reconstruction with repair of fascial defects with components separation technique using bilateral external oblique myofascial advancement flaps and placement MTF FlexHD acellular dermal matrix graft (320 cm2). 4. Saline injection 300 ml into tissue mica paster right breast reconstruction (650 ml mica paster). Description of Surgical Findings:: 57 year old female who presents for evaluation for breast reconstruction. She developed left breast cancer in July 2015. She underwent bilateral mastectomies in August 2015 with a prophylactic one on the right. Pathology showed invasive ductal carcinoma left breast with positive lymph nodes and focal angiolymphatic invasion noted. 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 She then proceeded with chemotherapy and radiation therapy for the left breast cancer. At present, she denies fever. She denies breast pain. She is currently taking Anastrozole. On 05/10/18 she underwent first stage delayed left breast reconstruction with bipedicled TRAM flap delay and first stage delayed right breast reconstruction with placement of submuscular saline tissue mica paster (650 ml). Today she will continue the next stage of her breast reconstruction process. Patient was informed of the risks and complications of the procedure including alternatives to surgery. These were discussed with the patient personally. Patient voices understanding and wishes to proceed. Some of the risks and complications were included in a form from the [employer]. IV Fluids - 4500 ml. Urine Output - 520 ml. I used MTF FlexHD Acellular Dermal Matrix Graft, (16 x 20 cm, thick). Item Number - [id number]. Serial Number - [id number]. Expiration - April 12, 2021. I used Rosina absorbable hemostat, (I used 4 vials, 2 in the abdomen and 2 in the left breast). Reference Number - [id number]. Lot Number - [id number]. Expiration - February 09, 2023. Size of the multiple W-plasties left breast reconstruction - 12 x 1.5 cm. television tube inspector: Nevaeh Garza. television tube inspector: Carmelita Schuster. Type of Anesthesia:: General Specimen's removed: Left breast radiation fibrosis tissue to Pathology. Drains: Jemal x4 (2 in the left breast and 2 in the abdomen). Estimated Blood Loss (mL): 150 ml. Fluids Replaced: 5020 ml (IV Fluids 4500 ml, Urine Output 520 ml). Description of Procedure: In the preop area, the patient stood up and in the standing position, preoperative markings were made. The sternum midline was marked down to the umbilicus. The inframammary folds were marked bilaterally. I then francis a horizontal ellipse on the abdominal wall for the TRAM flap. I francis a superior line in the supraumbilical area and the inferior line in the pubic area. Lower line will be determined by the ability to close the superior line down with the patient in the sitting position during the procedure. The patient was then taken to the OR in the supine position and placed under general anesthesia and her breasts and abdomen were prepped and draped in usual fashion. SCDs were placed for DVT prophylaxis. Perioperative antibiotics were given intravenously. The antibiotics were repeated later in the case. A Miller catheter was then placed. Initially, I infiltrated the previous scar on the left breast. I also infiltrated the markings on the abdominal wall with 1% Xylocaine and epinephrine. I initially made an incision through the horizontal scar on the radiated left breast. In order to have a better contour between the radiated skin and the TRAM flap, I went ahead and marked in a zigzag fashion the skin edges on the left breast reconstruction, which will soften up the skin edges from the radiation fibrosis and allow better contour. I dissected down to the chest wall. There was a lot of fibrosis in the subcutaneous tissue and on the muscle and the fibrotic tissue was excised and sent to Pathology for analysis to rule out carcinoma. Some of the dense radiation fibrosis had extended lateral to the pectoralis muscle up toward the axilla. The breast pocket was a lot softer after the excision of the dense fibrotic radiation tissue. No evidence of infection was noted in the breast pocket. Hemostasis was obtained with electrocautery. Dry gauze was placed in the left breast pocket. I then made a horizontal incision in the supraumbilical area down through Kareem's fascia down to the abdominal wall fascia. I then elevated the abdominal wall skin flap up toward the inframammary fold on the left side. I made a subcutaneous pocket extending up to the inframammary fold on the left in the medial aspect. When I connected the abdominal wall area with the breast pocket, the subcutaneous tunnel was able to fit all five fingers in there and I felt that it was a large enough tunnel for the placement of the TRAM. I then sat the patient up and I was not able to bring the leading edge of the abdominal wall flap down to the abdominal wall skin crease that I marked in the standing position. This was the incision that I used for the initial delay procedure three weeks ago. I felt there was too much tension and I was able to close the abdominal wall flap to an area just superior to the previous incision about 2 cm. I was able to suture it together temporarily without too much tension. I went ahead and made the inferior incision. I then made a ian-shaped incision in the umbilical area. I then took out a Doppler to ivory out the placement of the vascular perforators on both of the rectus muscles. I was able to locate vascular perforators on both sides. The patient has good skin elasticity. I will start with using the unilateral left sided pedicle first. Once I place the tissue into the breast pocket, if that is enough soft tissue, then will not use the contralateral right sided pedicle as a combined double pedicle flap. The reason I am them is because there is a vertical scar in the flap. Therefore I cannot use any tissue on the other side of the scar with one pedicle. Both pedicles would have to be used if additional tissue is needed. Since the scar needs to be revised anyway, I will incise it now and it will be a little easier to inset the tissue independently on both pedicles. Therefore, I made a vertical incision in the left rectus sheath and dissected off the rectus muscle on the left side down to the TRAM flap. I then elevated the TRAM flap on the left side from the lateral side in toward the lateral rectus sheath. Vascular perforators were ligated using surgical clips. After elevating the portion of the TRAM flap to the lateral side of the muscle, I then carefully went a little bit more medially and dissected out the perforators and ligated them with surgical clips. I also went a little bit laterally from the midline and ligated any vascular perforators with surgical clips. I then francis a vertical ellipse from my initial vertical incision on the rectus sheath to encompass the TRAM flap to the lower portion of the incision. Incision was made and I then continued to dissect out the rectus muscle from the rectus sheath, but that a portion of the rectus muscle was still attached to the TRAM flap skin and subcutaneous tissue. I then incised the rectus muscle on the left side in the pubic area. I dissected out the deep inferior epigastric artery and ligated using surgical clips. Also, I dissected out the accompanying veins and ligated that with surgical clips as well. There were 2 veins accompanying the artery. Once the muscle was incised distally, I then elevated it off of the posterior rectus sheath to the subcostal margin. I placed some 3-0 Vicryl sutures from the TRAM flap through the fascia into the muscle to give extra security to this flap to minimize shearing when I transfer the flap through the subcutaneous tunnel into the left breast pocket. I then dissected around the umbilicus to free up the TRAM flap. Care was taken to leave some tissue to keep the umbilicus from necrosing, but I did not want to leave too much tissue because I wanted to take some of the umbilical perforators with the TRAM flap. Once this was completed, the patient was given 250 mg of Solu-Medrol IV to minimize swelling in the vascular pedicle. I then rotated the TRAM flap through the subcutaneous tissue into the left breast wound in a counterclockwise direction. I looked to see that there was no kinking on the muscles and the vascular pedicle. Once, I rotated it into the breast pocket, I secured the skin edges to the TRAM flap temporally using 3-0 Monocryl suture. I then made a vertical incision in the right rectus sheath and dissected off the rectus muscle on the right side down to the TRAM flap. I then elevated the TRAM flap on the right side from the lateral side in toward the lateral rectus sheath. Vascular perforators were ligated using surgical clips. After elevating the portion of the TRAM flap to the lateral side of the muscle, I then carefully went a little bit more medially and dissected out the perforators and ligated them with surgical clips. I also went a little bit laterally from the midline and ligated any vascular perforators with surgical clips. I then francis a vertical ellipse from my initial vertical incision on the rectus sheath to encompass the TRAM flap to the lower portion of the incision. Incision was made and I then continued to dissect out the rectus muscle from the rectus sheath, but that a portion of the rectus muscle was still attached to the TRAM flap skin and subcutaneous tissue. I then incised the rectus muscle on the right side in the pubic area. I dissected out the deep inferior epigastric artery and ligated using surgical clips. Also, I dissected out the accompanying veins and ligated that with surgical clips as well. There were 2 veins accompanying the artery. Once the muscle was incised distally, I then elevated it off of the posterior rectus sheath to the subcostal margin. I placed some 3-0 Vicryl sutures from the TRAM flap through the fascia into the muscle to give extra security to this flap to minimize shearing when I transfer the flap through the subcutaneous tunnel into the left breast pocket. I then dissected around the umbilicus to free up the TRAM flap. Care was taken to leave some tissue to keep the umbilicus from necrosing, but I did not want to leave too much tissue because I wanted to take some of the umbilical perforators with the TRAM flap. I then rotated the TRAM flap through the subcutaneous tissue into the left breast wound in a counterclockwise direction. I looked to see that there was no kinking on the muscles and the vascular pedicle. Once, I rotated it into the breast pocket, I secured the skin edges to the TRAM flap temporally using 3-0 Monocryl suture. I then closed the bilateral fascial defects using 0 Surgipro [id number] interrupted sutures. Prior to closing the rectus fascial defects, I made sure that the inferior rectus muscle stump was dry with no evidence of bleeding problems. Any bleeding seen was cauterized. Her fascia was weak and there was some ripping with the sutures. Also I could not close some of the fascial defects bilaterally inferior to the umbilicus. These fascial defects need to be repaired, I proceeded with complex abdominal wall reconstruction with repair of fascial defects with components separation technique using bilateral external oblique myofascial advancement flaps. Will re-enforce this complex abdominal wall reconstruction with MTF FlexHD acellular dermal matrix graft. I made longitudinal incisions lateral to the lateral rectus sheath in the area of the external oblique muscles. By mobilizing the external oblique myofascial flaps, I was able to close the central defects primarily with 0 Surgipro figure of eight interrupted sutures. This maneuver transferred the defects from the central area to the lateral flank areas. I freed up the lateral fascia and was able to close these lateral fascial defects with 0 Surgipro figure of eight interrupted sutures. The right lateral fascial defect was able to be closed. The left lateral fascial defect was almost closed as there was a residual 2 cm defect in the left lateral fascial area. Therefore I re-enforced the abdominal wall reconstruction with a piece of MTF FlexHD acellular dermal matrix graft. It was a size 16 x 20 cm. I was able to close the abdominal wall from lateral to lateral and from superior to inferior with the superior edge located at the level of the muscle transfer through the subcutaneous tissue. This should help to minimize hernia formation in this area. The acellular dermal matrix graft was secured to the fascia using 2-0 Novafil and Prolene simple interrupted sutures. A ian shaped cutout was made in the center for the umbilicus. I then excised the sub-Kareem's fat inferiorly where the delay procedure was done. There was some fat necrosis present which was excised as well as the previous operative cavity which had started to form serous tissue which was excised as well. This lower abdominal area was irrigated with saline and hemostasis was obtained with electrocautery. I then placed two size 15 Jemal drains through separate stab incisions inferiorly to the abdominal incision and secured to the skin with 3-0 Nylon sutures. I elevated the abdominal wall skin flap and removed some of the excess sub Kareem's fat to aid in the contouring of the abdominal wall at wound closure. I then irrigated the abdominal wall with Irrisept which is 0.05% Chlorhexidine and let it sit for 60 seconds before irrigating with saline. Hemostasis was obtained using electrocautery. I then placed the patient in the sitting position about 40-50 degrees and I temporarily closed the abdominal wall incision centrally using 2-0 Vicryl suture. I then made an upside down cruciate incision where the umbilicus is to be brought through. An incision was made and some of the excess subcutaneous tissue was also removed to help with the inward appearance of the umbilicus. I then placed 4 stay sutures from the dermis of the abdominal wall flap to the abdominal rectus abdominal wall fascia and then to the dermis of the umbilicus. These sutures will be sutured later. I then removed the sutures in the abdominal wall closure to free up the abdominal wall flap at this time and then I sprayed the abdominal wall with Rosina absorbable hemostat. I used 2 vials for the abdomen and I will use 2 vials for the left breast. Once again, I looked up where the muscle went through the subcutaneous tunnel, and there was no evidence of kinking of the muscle and no evidence of bleeding. I then closed the abdominal wall in multiple layers using 2-0 Vicryl [id number] interrupted sutures for Kareem's fascia layer. The deep dermis and subcutaneous tissue was approximated using 2-0 Vicryl interrupted sutures Skin was approximated using 3-0 V-Loc unidirectional barbed running subcuticular suture. The 3-0 Vicryl sutures were used to cinch down the umbilicus. Between these 4 stay sutures, I used a 3-0 Vicryl suture for simple interrupted sutures. Good inward appearance was noted on the umbilicus. I then reshaped the TRAM flap in the breast pocket. The radiated skin edges were excised in a zigzag fashion in preparation for a W-plasties reconstruction. The size of the W-plasties reconstruction is 12 x 1.5 cm or 18 cm2. The W-plasties are being done to minimize the radiation scar contour deformity that develops between radiated skin and non-radiated skin. I went ahead and made markings on the TRAM flap after it was reshaped in the breast pocket. Good shape and contour were noted. No evidence of vascular compromise was seen on the flap. I then cut out my sutures and made incisions where there was excess skin that was covered up the breast skin. This excess skin was deepithelialized. Once the TRAM flap was out of the breast wall pocket, I then irrigated out the breast pocket with Irrisept 0.05% Chlorhexidine for 60 seconds and then irrigated with saline. Any bleeding was controlled with hemostasis with electrocautery. I placed a 2 Jemal drains through separate stab incisions laterally and secured to the skin using 3-0 nylon suture. Good hemostasis was noted. No bleeding was noted in the subcutaneous tunnel. Good bleeding was noted in the epithelized areas. No vascular compromise was noted on the TRAM flap. I then sprayed Rosina absorbable hemostat into the breast wound. I used 2 vials. I then placed the TRAM flap back into the wound and closed the breast incisions with 3-0 Monocryl interrupted sutures for deep dermis and subcutaneous tissue. The skin incisions both in the abdomen and the breasts were then reinforced with Histoacryl skin tissue adhesive. Antibiotic ointment was applied to the drain sites. Dry gauze dressings were applied both to the abdomen and the TRAM flap. At the end of the procedure, the TRAM flap was pink and soft with no evidence of vascular compromise. I then placed an SIRISHA wrap for compression on the breast and abdominal wall binder. The patient tolerated the procedure well and will be sent to the recovery room in satisfactory condition. She will be admitted for several days. Initially, she will stay in bed tonight and she will then dangle at the bedside in the morning. The next step will be ambulating within the room and then after that will be ambulating in the hallway with assistance. She will have the drains in for several days and be maintained on antibiotics until the drains are removed. She will be on a lifting restriction as well and wearing her SIRISHA wrap as a compression bra and abdominal binder. She will keep her head elevated during the initial postoperative care. It is important that she is on no caffeine, no decaf, no tea, no chocolate diet for 6 weeks. I will continue the Solumedrol for 24 hours to minimize swelling on the vascular pedicle. Also postoperatively as long as the BP > 110, I will give daily Procardia XL to minimize spasm in the vascular pedicle. At the end of the procedure before placing the operative dressing, I went ahead and injected saline into the right breast saline tissue mica paster to minimize how many times it is done in the office before the next breast reconstruction surgery. I located the port without difficulty and injected 300 ml saline into the mica paster for a total of 300 ml in a 650 ml mica paster. Grafts/Implants Used: MTF FlexHD acellular dermal matrix graft. - Complications None. - Admit VTE Documentation VTE Present on Admission: No VTE Mechan Device Prophylaxis: SCD's VTE Pharm Prophylaxis ordered?: Yes Code Visit Surgery Charges CPT - 14722-33 ICD-10 - C50.912, D05.11, Z90.13, N65.1, N65.0, T66.xxxS, L59.8, Z80.3, Z17.0 [id number] C50.912, D05.11, Z90.13, N65.1, N65.0, T66.xxxS, L59.8, Z80.3, Z17.0 [id number] C50.912, D05.11, Z90.13, N65.1, N65.0, T66.xxxS, L59.8, Z80.3, Z17.0 [id number] C50.912, D05.11, K43.9, Z90.13, N65.1, N65.0, T66.xxxS, L59.8, Z80.3, Z17.0 32707 C50.912, D05.11, K43.9, Z90.13, N65.1, N65.0, T66.xxxS, L59.8, Z80.3, Z17.0
--- NOTE | 2018-05-31 18:20 | OP.PCM_ITS ---
Report of Operation Date of Procedure: 05/31/18 Pre-Operative Diagnosis: 1. Invasive ductal carcinoma left breast, s/p ma stectomy. 2. Ductal carcinoma in situ right breast, s/p mastectomy. 3. Acquired absence bilateral breasts. 4. Disproportion reconstructed breasts. 5. Deformity reconstructed breasts. 6. Late effect radiation left breast. 7. Soft tissue radionecrosis left breast. 8. Estrogen receptor positive status. 9. Family history of breast cancer. Post-Operative Diagnosis: 1. Invasive ductal carcinoma left breast, s/p mastectomy. 2. Ductal carcinoma in situ right breast, s/p mastectomy. 3. Acquired absence bilateral breasts. 4. Disproportion reconstructed breasts. 5. Deformity reconstructed breasts. 6. Late effect radiation left breast. 7. Soft tissue radionecrosis left breast. 8. Estrogen receptor positive status. 9. Family history of breast cancer. 10. Abdominal wall hernia from bipedicled TRAM flap breast reconstruction. Surgery/Procedure Performed:: 1. Revision left breast reconstruction with excision radiation fibrosis scar contour deformity and multiple W-plasty (18 cm2). 2. Second stage delayed left breast reconstruction with bipedicled TRAM flap. 3. Complex abdominal wall reconstruction with repair of fascial defects with components separation technique using bilateral external oblique myofascial advancement flaps and placement MTF FlexHD acellular dermal matrix graft (320 cm2). 4. Saline injection 300 ml into tissue emt intermediate right breast reconstruction (650 ml emt intermediate). Description of Surgical Findings:: 57 year old female who presents for evaluation for breast reconstruction. She developed left breast cancer in July 2015. She underwent bilateral mastectomies in August 2015 with a prophylactic one on the right. Pathology showed invasive ductal carcinoma left breast with positive lymph nodes and focal angiolymphatic invasion noted. 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 She then proceeded with chemotherapy and radiation therapy for the left breast cancer. At present, she denies fever. She denies breast pain. She is currently taking Anastrozole. On 05/10/18 she underwent first stage delayed left breast reconstruction with bipedicled TRAM flap delay and first stage delayed right breast reconstruction with placement of submuscular saline tissue emt intermediate (650 ml). Today she will c ontinue the next stage of her breast reconstruction process. Patient was informed of the risks and complications of the procedure including alternatives to surgery. These were discussed with the patient personally. Patient voices understanding and wishes to proceed. Some of the risks and complications were included in a form from the [employer]. IV Fluids - 4500 ml. Urine Output - 520 ml. I used MTF FlexHD Acellular Dermal Matrix Graft, (16 x 20 cm, thick). Item Number - [id number]. Serial Number - [id number]. Expiration - April 12, 2021. I used Rosina absorbable hemostat, (I used 4 vials, 2 in the abdomen and 2 in the left breast). Reference Number - [id number]. Lot Number - [id number]. Expiration - February 09, 2023. Size of the multiple W-plasties left breast reconstruction - 12 x 1.5 cm. selling underwriter: Nevaeh Garza. selling underwriter: Carmelita Schuster. Type of Anesthesia:: General Specimen's removed: Left breast radiation fibrosis tissue to Pathology. Drains: Jemal x4 (2 in the left breast and 2 in the abdomen). Estimated Blood Loss (mL): 150 ml. Fluids Replaced: 5020 ml (IV Fluids 4500 ml, Urine Output 520 ml). Description of Procedure: In the preop area, the patient stood up and in the standing position, preoperative markings were made. The sternum midline was marked down to the umbilicus. The inframammary folds were marked bilaterally. I then francis a horizontal ellipse on the abdominal wall for the TRAM flap. I francis a superior line in the supraumbilical area and the inferior line in the pubic area. Lower line will be determined by the ability to close the superior line down with the patient in the sitting position during the procedure. The patient was then taken to the OR in the supine position and placed under general anesthesia and her breasts and abdomen were prepped and draped in usual fashion. SCDs were placed for DVT prophylaxis. Perioperative antibiotics were given intravenously. The antibiotics were repeated later in the case. A Miller catheter was then placed. Initially, I infiltrated the previous scar on the left breast. I also infiltrated the markings on the abdominal wall with 1% Xylocaine and epinephrine. I initially made an incision through the horizontal scar on the radiated left breast. In order to have a better contour between the radiated skin and the TRAM flap, I went ahead and marked in a zigzag fashion the skin edges on the left breast reconstruction, which will soften up the skin edges from the radiation fibrosis and allow better contour. I dissected down to the chest wall. There was a lot of fibrosis in the subcutaneous tissue and on the muscle and the fibrotic tissue was excised and sent to Pathology for analysis to rule out carcinoma. Some of the dense radiation fibrosis had extended lateral to the pectoralis muscle up toward the axilla. The breast pocket was a lot softer after the excision of the dense fibrotic radiation tissue. No evidence of infection was noted in the breast pocket. Hemostasis was obtained with electrocautery. Dry gauze was placed in the left breast pocket. I then made a horizontal incision in the supraumbilical area down through Kareem's fascia down to the abdominal wall fascia. I then elevated the abdominal wall skin flap up toward the inframammary fold on the left side. I made a subcutaneous pocket extending up to the inframammary fold on the left in the medial aspect. When I connected the abdominal wall area with the breast pocket, the subcutaneous tunnel was able to fit all five fingers in there and I felt that it was a large enough tunnel for the placement of the TRAM. I then sat the patient up and I was not able to bring the leading edge of the abdominal wall flap down to the abdominal wall skin crease that I marked in the standing position. This was the incision that I used for the initial delay procedure three weeks ago. I felt there was too much tension and I was able to close the abdominal wall flap to an area just superior to the previous incision about 2 cm. I was able to suture it together temporarily without too much tension. I went ahead and made the inferior incision. I then made a ian-shaped incision in the umbilical area. I then took out a Doppler to ivory out the placement of the vascular perforators on both of the rectus muscles. I was able to locate vascular perforators on both sides. The patient has good skin elasticity. I will start with using the unilateral left sided pedicle first. Once I place the tissue into the breast pocket, if that is enough soft tissue, then will not use the contralateral right sided pedicle as a combined double pedicle flap. The reason I am them is because there is a vertical scar in the flap. Therefore I cannot use any tissue on the other side of the scar with one pedicle. Both pedicles would have to be used if additional tissue is needed. Since the scar needs to be revised anyway, I will incise it now and it will be a little easier to inset the tissue independently on both pedicles. Therefore, I made a vertical incision in the left rectus sheath and dissected off the rectus muscle on the left side down to the TRAM flap. I then elevated the TRAM flap on the left side from the lateral side in toward the lateral rectus sheath. Vascular perforators were ligated using surgical clips. After elevating the portion of the TRAM flap to the lateral side of the muscle, I then carefully went a little bit more medially and dissected out the perforators and ligated them with surgical clips. I also went a little bit laterally from the midline and ligated any vascular perforators with surgical clips. I then francis a vertical ellipse from my initial vertical incision on the rectus sheath to encompass the TRAM flap to the lower portion of the incision. Incision was made and I then continued to dissect out the rectus muscle from the rectus sheath, but that a portion of the rectus muscle was still attached to the TRAM flap skin and subcutaneous tissue. I then incised the rectus muscle on the left side in the pubic area. I dissected out the deep inferior epigastric artery and ligated using surgical clips. Also, I dissected out the accompanying veins and ligated that with surgical clips as well. There were 2 veins accompanying the artery. Once the muscle was incised distally, I then elevated it off of the posterior rectus sheath to the subcostal margin. I placed some 3- 0 Vicryl sutures from the TRAM flap through the fascia into the muscle to give extra security to this flap to minimize shearing when I transfer the flap through the subcutaneous tunnel into the left breast pocket. I then dissected around the umbilicus to free up the TRAM flap. Care was taken to leave some tissue to keep the umbilicus from necrosing, but I did not want to leave too much tissue because I wanted to take some of the umbilical perforators with the TRAM flap. Once this was completed, the patient was given 250 mg of Solu-Medrol IV to minimize swelling in the vascular pedicle. I then rotated the TRAM flap through the subcutaneous tissue into the left breast wound in a counterclockwise direction. I looked to see that there was no kinking on the muscles and the vascular pedicle. Once, I rotated it into the breast pocket, I secured the skin edges to the TRAM flap temporally using 3-0 Monocryl suture. I then made a vertical incision in the right rectus sheath and dissected off the rectus muscle on the right side down to the TRAM flap. I then elevated the TRAM flap on the right side from the lateral side in toward the lateral rectus sheath. Vascular perforators were ligated using surgical clips. After elevating the portion of the TRAM flap to the lateral side of the muscle, I then carefully went a little bit more medially and dissected out the perforators and ligated them with surgical clips. I also went a little bit laterally from the midline and ligated any vascular perforators with surgical clips. I then francis a vertical ellipse from my initial vertical incision on the rectus sheath to encompass the TRAM f lap to the lower portion of the incision. Incision was made and I then continued to dissect out the rectus muscle from the rectus sheath, but that a portion of the rectus muscle was still attached to the TRAM flap skin and subcutaneous tissue. I then incised the rectus muscle on the right side in the pubic area. I dissected out the deep inferior epigastric artery and ligated using surgical clips. Also, I dissected out the accompanying veins and ligated that with surgical clips as well. There were 2 veins accompanying the artery. Once the muscle was incised distally, I then elevated it off of the posterior rectus sheath to the subcostal margin. I placed some 3-0 Vicryl sutures from the TRAM flap through the fascia into the muscle to give extra security to this flap to minimize shearing when I transfer the flap through the subcutaneous tunnel into the left breast pocket. I then dissected around the umbilicus to free up the TRAM flap. Care was taken to leave some tissue to keep the umbilicus from necrosing, but I did not want to leave too much tissue because I wanted to take some of the umbilical perforators with the TRAM flap. I then rotated the TRAM flap through the subcutaneous tissue into the left breast wound in a counterclockwise direction. I looked to see that there was no kinking on the muscles and the vascular pedicle. Once, I rotated it into the breast pock et, I secured the skin edges to the TRAM flap temporally using 3-0 Monocryl suture. I then closed the bilateral fascial defects using 0 Surgipro [id number] interrupted sutures. Prior to closing the rectus fascial defects, I made sure that the inferior rectus muscle stump was dry with no evidence of bleeding problems. Any bleeding seen was cauterized. Her fascia was weak and there was some ripping with the sutures. Also I could not close some of the fascial defects bilaterally inferior to the umbilicus. These fascial defects need to be repaired, I proceeded with complex abdominal wall reconstruction with repair of fascial defects with components separation technique using bilateral external oblique myofascial advancement flaps. Will re-enforce this complex abdominal wall reconstruction with MTF FlexHD acellular dermal matrix graft. I made longitudinal incisions lateral to the lateral rectus sheath in the area of the external oblique muscles. By mobilizing the external oblique myofascial flaps, I was able to close the central defects primarily with 0 Surgipro figure of eight interrupted sutures. This maneuver transferred the defects from the central area to the lateral flank areas. I freed up the lateral fascia and was able to close these lateral fascial defects with 0 Surgipro figure of eight interrupted sutures. The right lateral fascial defect was able to be closed. The left lateral fascial defect was almost closed as there was a residual 2 cm defect in the left lateral fascial area. Therefore I re-enforced the abdominal wall reconstruction with a piece of MTF FlexHD acellular dermal matrix graft. It was a size 16 x 20 cm. I was able to close the abdominal wall from lateral to lateral and from superior to inferior with the superior edge located at the level of the muscle transfer through the subcutaneous tissue. This should help to minimize hernia formation in this area. The acellular dermal matrix graft was secured to the fascia using 2-0 Novafil and Prolene simple interrupted sutures. A ian shaped cutout was made in the center for the umbilicus. I then excised the sub-Kareem's fat inferiorly where the delay procedure was done. There was some fat necrosis present which was excised as well as the previous operative cavity which had started to form serous tissue which was excised as well. This lower abdominal area was irrigated with saline and hemostasis was obtained with electrocautery. I then placed two size 15 Jemal drains through separate stab incisions inferiorly to the abdominal incision and secured to the skin with 3-0 Nylon sutures. I elevated the abdominal wall skin flap and removed some of the excess sub Kareem's fat to aid in the contouring of the abdominal wall at wound closure. I then irrigated the abdominal wall with Irrisept which is 0.05% Chlorhexidine and let it sit for 60 seconds before irrigating with saline. Hemostasis was obtained using electrocautery. I then placed the patient in the sitting position about 40-50 degrees and I temporarily closed the abdominal wall incision centrally using 2-0 Vicryl suture. I then made an upside down cruciate incision where the umbilicus is to be brought through. An incision was made and some of the excess subcutaneous tissue was also removed to help with the inward appearance of the umbilicus. I then placed 4 stay sutures from the dermis of the abdominal wall flap to the abdominal rectus abdominal wall fascia and then to the dermis of the umbilicus. These sutures will be sutured later. I then removed the sutures in the abdominal wall closure to free up the abdominal wall flap at this time and then I sprayed the abdominal wall with Rosina absorbable hemostat. I used 2 vials for the abdomen and I will use 2 vials for the left breast. Once again, I looked up where the muscle went through the subcutaneous tunnel, and there was no evidence of kinking of the muscle and no evidence of bleeding. I then closed the abdominal wall in mul tiple layers using 2-0 Vicryl [id number] interrupted sutures for Kareem's fascia layer. The deep dermis and subcutaneous tissue was approximated using 2- 0 Vicryl interrupted sutures Skin was approximated using 3-0 V-Loc unidirectional barbed running subcuticular suture. The 3-0 Vicryl sutures were used to cinch down the umbilicus. Between these 4 stay sutures, I used a 3-0 Vicryl suture for simple interrupted sutures. Good inward appearance was noted on the umbilicus. I then reshaped the TRAM flap in the breast pocket. The radiated skin edges were excised in a zigzag fashion in preparation for a W- plasties reconstruction. The size of the W-plasties reconstruction is 12 x 1.5 cm or 18 cm2. The W-plasties are being done to minimize the radiation scar contour deformity that develops between radiated skin and non-radiated skin. I went ahead and made markings on the TRAM flap after it was reshaped in the breast pocket. Good shape and contour were noted. No evidence of vascular compromise was seen on the flap. I then cut out my sutures and made incisions where there was excess skin that was covered up the breast skin. This excess skin was deepithelialized. Once the TRAM flap was out of the breast wall pocket, I then irrigated out the breast pocket with Irrisept 0.05% Chlorhexidine for 60 seconds and then irrigated with saline. Any bleeding was controlled with hemostasis with electrocautery. I placed a 2 Jemal drains through separate stab incisions laterally and secured to the skin using 3-0 nylon suture. Good hemostasis was noted. No bleeding was noted in the subcutaneous tunnel. Good bleeding was noted in the epithelized areas. No vascular compromise was noted on the TRAM flap. I then sprayed Rosina absorbable hemostat into the breast wound. I used 2 vials. I then placed the TRAM flap back into the wound and closed the breast incisions with 3-0 Monocryl interrupted sutures for deep dermis and subcutaneous tissue. The skin incisions both in the abdomen and the breasts were then reinforced with Histoacryl skin tissue adhesive. Antibiotic ointment was applied to the drain sites. Dry gauze dressings were applied both to the abdomen and the TRAM flap. At the end of the procedure, the TRAM flap was pink and soft with no evidence of vascular compromise. I then placed an SIRISHA wrap for compression on the breast and abdominal wall binder. The patient tolerated the procedure well and will be sent to the recovery room in satisfactory condition. She will be admitted for several days. Initially, she will stay in bed tonight and she will then dangle at the bedside in the morning. The next step will be ambulating within the room and then after that will be ambulating in the hallway with assistance. She will have the drains in for several days and be maintained on antibiotics until the drains are removed. She will be on a lifting restriction as well and wearing her SIRISHA wrap as a compression bra and abdominal binder. She will keep her head elevated during the initial postoperative care. It is important that she is on no caffeine, no decaf, no tea, no chocolate diet for 6 weeks. I will continue the Solumedrol for 24 hours to minimize swelling on the vascular pedicle. Also postoperatively as long as the BP > 110, I will give daily Procardia XL to minimize spasm in the vascular pedicle. At the end of the procedure before placing the operative dressing, I went ahead and injected saline into the right breast saline tissue emt intermediate to minimize how many times it is done in the office before the next breast reconstruction surgery. I located the port without difficulty and injected 300 ml saline into the emt intermediate for a total of 300 ml in a 650 ml emt intermediate. Grafts/Implants Used: MTF FlexHD acellular dermal matrix graft. - Complications None. - Admit VTE Documentation VTE Present on Admission: No VTE Mechan Device Prophylaxis: SCD's VTE Pharm Prophylaxis ordered?: Yes Code Visit Surgery Charges CPT - 17040-28 ICD-10 - C50.912, D05.11, Z90.13, N65.1, N65.0, T66.xxxS, L59.8, Z80.3, Z17.0 [id number] C50.912, D05.11, Z90.13, N65.1, N65.0, T66.xxxS, L59.8, Z80.3, Z17.0 [id number] C50.912, D05.11, Z90.13, N65.1, N65.0, T66.xxxS, L59.8, Z80.3, Z17.0 [id number] C50.912, D05.11, K43.9, Z90.13, N65.1, N65.0, T66.xxxS, L59.8, Z80.3, Z17.0 [id number] C50.912, D05.11, K43.9, Z90.13, N65.1, N65.0, T66.xxxS, L59.8, Z80.3, Z17.0
[2018-05-31] MEDS: Lactated Ringers 1,000 ML 60 ML IV (20:10)
[2018-05-31] MEDS: HYDROmorphone 1 MG/ML Syringe IV (22:38)
[2018-05-31] MEDS: Albuterol 2.5 MG/3 ML VIAL.NEB. INHALATION (23:09)
[2018-06-01] VITALS (10 sets, daily range): BP systolic 92–143; BP diastolic 58–99; PULSE 78–98; RESP 16–18; TEMP 36.4–37.2; O2SAT 90–97
[2018-06-01] MEDS: oxyCODONE 5 MG Tablet 10 MG PO ×2 (00:44→21:50)
[2018-06-01] MEDS: diazePAM 5 MG Tablet PO (01:40)
[2018-06-01] MEDS: HYDROmorphone 1 MG/ML Syringe IV ×3 (04:23→23:17)
[2018-06-01 05:33] LABS: Hematocrit 31.5 % (37-47); Hemoglobin 9.8 g/dl (12.0-15.0); Mean Corp Hgb Conc 31.1 g/gl (32-36); Mean Corpuscular Hgb 28.8 pg (27.0-32.0); Mean Corpuscular Volume 92.6 fL (81-99); Mean Platelet Vol. 10.5 fl (6.2-12.0); Platelet Count 336 K/mm3 (150-450); RBC Distribution Width CV 14.2 % (11.6-14.6); RBC Distribution Width SD 46.6 fl (35.1-43.9); White Blood Count 14.9 K/mm3 (4.4-11.0)
[2018-06-01 05:50] LABS: Scan Indicated on CBC? Y/N NO
[2018-06-01 05:54] LABS: Anion Gap 7 (5-15); BUN 17 mg/dL (7-18); BUN/Creat Ratio 15.9 RATIO (10-20); Calcium,Total 8.2 mg/dL (8.5-10.1); Chloride 106 mmol/L (98-107); Creatinine, Serum 1.07 mg/dL (0.55-1.02); EST Glomerular Filtration Rate 56 mL/min (>60); Est Glom Filt Rate - Afr Amer 68 mL/min (>60); Estimated Creatinine Clearance 58.65 ml/min; Glucose 150 mg/dL (74-106); Potassium 4.7 mmol/L (3.5-5.1); Prealbumin 18.7 mg/dL (20.0-40.0); Sodium Level 137 mmol/L (136-145)
[2018-06-01] MEDS: Enoxaparin 30 MG/0.3 ML Syringe SC (05:57)
--- NOTE | 2018-06-01 11:15 | CASEMGMT ---
RN CM Face to Face with patient for initial transition planning/care coordination assessment. RN CM introduced self and role at [facility]. Patient lying in bed, alert and oriented. Patient willing to participate in assessment and is able to answer all questions appropriately. Care providers, pharmacy, and demographics verified. Patient wishes to discharge home will monitor for needs at discharge, patient unsure of needs at this time. Patient states she has no further needs or concerns at this time. CM to follow for discharge planning needs that may arise. PCP: Shruthi Specialists: Chidi Correia Pharmacy: [facility] Insurance: [facility] Community plan Prescription Benefit: yes Living Will/HPOA: none LNOK: Significant Other Living Arrangements: Patient lives with significant other in 2 story home with bed and bath on first floor. Patient states she was independent at home. Transportation: Significant Other DME/HHC: Patient states she has cane, crutches, and nebulizer at home. No previous HHC or SNF. Patient not sure of needs at this time Disposition Plan: Patient to discharge home with family support and follow-up plans in place. Will monitor for HHC or DME at discharge. Abi CANDELARIAN, RN, CM
[2018-06-01] MEDS: Acyclovir 200 MG Capsule PO (11:17)
[2018-06-01] MEDS: Venlafaxine HCl 25 MG Tablet 37.5 MG PO ×2 (11:17→21:50)
[2018-06-01] MEDS: NIFEdipine 30 MG Tablet PO (11:17)
[2018-06-01] MEDS: Docusate Sodium 100 MG Capsule PO ×2 (11:18→21:51)
[2018-06-01] MEDS: Calcium Carb/Vitamin D 1 TABLET Tablet PO ×2 (11:18→17:38)
[2018-06-01] MEDS: Loratadine 10 MG Tablet PO (11:18)
[2018-06-01] MEDS: Metoprolol(XL)Succ 25 MG Tablet 37.5 MG PO (11:21)
[2018-06-01] MEDS: Losartan Potassium 50 MG Tablet PO (11:22)
[2018-06-01] MEDS: 0.9% NaCl Peripheral Flush Adult/Peds IV (11:23)
[2018-06-01] MEDS: Lactated Ringers 1,000 ML 60 ML IV (13:11)
--- NOTE | 2018-06-01 14:27 | NURSING ---
student nurses charting reviewed and used for educational learning purposes. adrianne
--- NOTE | 2018-06-01 15:18 | PCA ---
in with pt
--- NOTE | 2018-06-01 17:09 | PCM.PN.SRG ---
Subjective: Postop #1 Patient is resting comfortably. Dangled at the bedside today without difficulty. - Physical Exam General: Alert, Oriented x3 HEENT: PERRLA, EOMI Oral: Moist Mucosa Neck: Supple Abdomen: Soft, Non-Distended Extremities: Edema - mild edema in lower extremities. Skin: Incision - Breast incision dry and intact. Flap is pink and soft and viable. No clinical evidence of hematoma. Abdominal incision dry and intact. Neurological: Cranial nerves II-XII grossly intact Psych/Mental Status: Normal Affect, Appropriate Vital Signs Temp Pulse Resp BP Pulse Ox 97.7 F L 98 18 107/58 L 93 06/01/18 13:35 06/01/18 13:35 06/01/18 13:35 06/01/18 13:35 06/01/18 13:37 Oxygen Flow Rate (L/min) 1 Oxygen Delivery Method Room Air Weight: 141 lb 3 oz Body Mass Index (BMI) 35.3 Intake and Output for Last 24 Hours 05/30/18 05/31/18 06/01/18 23:59 23:59 23:59 Intake Total 5342 / 5342 1490 / 1490 Output Total 1085 / 1085 885 / 885 Balance 4257 / 4257 605 / 605 Drainage 225 ml yesterday, 185 ml today. Laboratory Tests Past 24 Hrs 06/01/18 06/01/18 05:08 05:08 WBC 14.9 H RBC 3.40 L Hgb 9.8 L Hct 31.5 L MCV 92.6 MCH 28.8 MCHC 31.1 L RDW 14.2 RDW Differential 46.6 H Plt Count 336 MPV 10.5 Sodium 137 Potassium 4.7 Chloride 106 Carbon Dioxide 24.0 Anion Gap 7 BUN 17 Creatinine 1.07 H Estim Creat Clear Calc 58.65 Est GFR (MDRD) Af Amer 68 Est GFR (MDRD) Non-Af 56 L BUN/Creatinine Ratio 15.9 Glucose 150 H Calcium 8.2 L Prealbumin 18.7 L Medical Necessity - Tobacco Use Smoking Status: Never smoker Tobacco Use: Non-smoker Assessment/Plan 1. Invasive ductal carcinoma left breast, s/p mastectomy. 2. Ductal carcinoma in situ right breast, s/p mastectomy. 3. Acquired absence bilateral breasts. 4. Disproportion reconstructed breasts. 5. Deformity reconstructed breasts. 6. Late effect radiation left breast. 7. Soft tissue radionecrosis left breast. 8. Estrogen receptor positive status. 9. Family history of breast cancer. 10. s/p revision left breast reconstruction with excision radiation fibrosis scar contour deformity and multiple W-plasty (18 cm2) and second stage delayed left breast reconstruction with bipedicled TRAM flap and complex abdominal wall reconstruction with repair of fascial defects with components separation technique using bilateral external oblique myofascial advancement flaps and placement MTF FlexHD acellular dermal matrix graft (320 cm2) and saline injection 300 ml into tissue dynamite shooter right breast reconstruction (650 ml dynamite shooter). Patient is resting comfortably. Breast incision is dry and intact. Breast is soft and pink and viable. No clinical evidence of hematoma. Abdominal wall incision is dry and intact. Dangling at the bedside today. Plan on ambulation with assist in the room tomorrow. Prealbumin is 18.7. Encourage nutritional supplementation with protein to help the healing process.
[2018-06-01] MEDS: Atorvastatin Calcium 40 MG Tablet PO (21:51)
--- NOTE | 2018-06-01 23:40 | NURSING ---
continuous SpO2 85% on R/A after Dilaudid, placed on 2l nc
[2018-06-02] VITALS (9 sets, daily range): BP systolic 93–145; BP diastolic 53–73; PULSE 84–116; RESP 16–20; TEMP 36.8–37.2; O2SAT 92–100
[2018-06-02] MEDS: Enoxaparin 30 MG/0.3 ML Syringe SC (06:27)
--- NOTE | 2018-06-02 06:30 | NURSING ---
Increased swelling right arm with redness and warm to touch. Dr. Murillo notified. Doppler ordered
[2018-06-02] MEDS: Albuterol 2.5 MG/3 ML VIAL.NEB. INHALATION ×3 (06:40→19:05)
[2018-06-02] MEDS: Budesonide Respules 0.5 MG/2 ML AMPUL.NEB. INHALATION ×2 (06:40→19:06)
[2018-06-02] MEDS: Calcium Carb/Vitamin D 1 TABLET Tablet PO (08:24)
[2018-06-02] MEDS: Acyclovir 200 MG Capsule PO (08:25)
[2018-06-02] MEDS: Loratadine 10 MG Tablet PO (08:25)
[2018-06-02] MEDS: Venlafaxine HCl 25 MG Tablet 37.5 MG PO ×2 (08:25→21:32)
[2018-06-02] MEDS: Metoprolol(XL)Succ 25 MG Tablet 37.5 MG PO (08:25)
[2018-06-02] MEDS: Losartan Potassium 50 MG Tablet PO (08:26)
[2018-06-02] MEDS: NIFEdipine 30 MG Tablet PO (08:26)
[2018-06-02] MEDS: Docusate Sodium 100 MG Capsule PO ×2 (08:27→21:31)
[2018-06-02] MEDS: Lactated Ringers 1,000 ML 60 ML IV (08:27)
[2018-06-02] MEDS: Anastrozole 1 MG Tablet PO (08:28)
--- NOTE | 2018-06-02 13:25 | PCM.PN.SRG ---
Subjective: Postop #2 Patient is resting comfortably. - Physical Exam General: Alert, Oriented x3 HEENT: PERRLA, EOMI Oral: Moist Mucosa Neck: Supple Abdomen: Soft, Non-Distended Extremities: Edema - mild edema in lower extremities. Skin: Incision - Breast incision dry and intact. Flap is pink and soft and viable. Minor bruising is seen at some areas of the suture line probably from suture manipulation during closure. Will observe. No clinical evidence of hematoma. Abdominal incision dry and intact. No clinical evidence of hematoma. Neurological: Cranial nerves II-XII grossly intact Psych/Mental Status: Normal Affect, Appropriate Vital Signs Temp Pulse Resp BP Pulse Ox 98.5 F 98 18 93/53 L 93 06/02/18 08:18 06/02/18 13:00 06/02/18 13:00 06/02/18 08:18 06/02/18 08:18 Oxygen Flow Rate (L/min) 2 Oxygen Delivery Method Room Air Weight: 141 lb 3 oz Body Mass Index (BMI) 35.3 Intake and Output for Last 24 Hours 05/31/18 06/01/18 06/02/18 23:59 23:59 23:59 Intake Total 5342 / 5342 2045 / 2045 1374 / 1374 Output Total 1085 / 1085 1305 / 1305 1205 / 1205 Balance 4257 / 4257 740 / 740 169 / 169 Drainage 305 ml yesterday, 355 ml today. Medical Necessity - Tobacco Use Smoking Status: Never smoker Tobacco Use: Non-smoker Assessment/Plan 1. Invasive ductal carcinoma left breast, s/p mastectomy. 2. Ductal carcinoma in situ right breast, s/p mastectomy. 3. Acquired absence bilateral breasts. 4. Disproportion reconstructed breasts. 5. Deformity reconstructed breasts. 6. Late effect radiation left breast. 7. Soft tissue radionecrosis left breast. 8. Estrogen receptor positive status. 9. Family history of breast cancer. 10. s/p revision left breast reconstruction with excision radiation fibrosis scar contour deformity and multiple W-plasty (18 cm2) and second stage delayed left breast reconstruction with bipedicled TRAM flap and complex abdominal wall reconstruction with repair of fascial defects with components separation technique using bilateral external oblique myofascial advancement flaps and placement MTF FlexHD acellular dermal matrix graft (320 cm2) and saline injection 300 ml into tissue fuel testing technician right breast reconstruction (650 ml fuel testing technician). Patient is resting comfortably. Pain is reasonably controlled. Breast incision is dry and intact. Breast is soft and pink and viable. No clinical evidence of hematoma. Abdominal wall incision is dry and intact. No clinical evidence of hematoma. Dangling at the bedside today. Can ambulate with assist in the room today. Will do later today. Prealbumin is 18.7. Encourage nutritional supplementation with protein to help the healing process.
[2018-06-02] MEDS: Metoprolol(XL)Succ 25 MG Tablet PO (21:31)
[2018-06-02] MEDS: Atorvastatin Calcium 40 MG Tablet PO (21:31)
[2018-06-02] MEDS: oxyCODONE 5 MG Tablet 10 MG PO (23:26)
[2018-06-03] VITALS (10 sets, daily range): BP systolic 106–127; BP diastolic 46–86; PULSE 93–116; RESP 16–20; TEMP 36.7–37.3; O2SAT 93–100
[2018-06-03] MEDS: oxyCODONE 5 MG Tablet 10 MG PO ×2 (05:45→13:30)
[2018-06-03 06:02] LABS: Mean Corpuscular Hgb 29.5 pg (27.0-32.0); Mean Corpuscular Volume 92.3 fL (81-99); Mean Platelet Vol. 11.1 fl (6.2-12.0); Platelet Count 258 K/mm3 (150-450); RBC Distribution Width CV 14.9 % (11.6-14.6); RBC Distribution Width SD 49.6 fl (35.1-43.9); Red Blood Count 2.71 M/mm3 (4.2-5.4); White Blood Count 11.4 K/mm3 (4.4-11.0)
[2018-06-03] MEDS: Enoxaparin 30 MG/0.3 ML Syringe SC (06:09)
[2018-06-03 06:10] LABS: Anion Gap 8 (5-15); BUN 29 mg/dL (7-18); BUN/Creat Ratio 37.2 RATIO (10-20); Calcium,Total 8.8 mg/dL (8.5-10.1); Chloride 106 mmol/L (98-107); Creatinine, Serum 0.78 mg/dL (0.55-1.02); EST Glomerular Filtration Rate 81 mL/min (>60); Est Glom Filt Rate - Afr Amer 98 mL/min (>60); Estimated Creatinine Clearance 80.45 ml/min; Glucose 106 mg/dL (74-106); Sodium Level 140 mmol/L (136-145)
[2018-06-03 06:11] LABS: Scan Indicated on CBC? Y/N NO
[2018-06-03] MEDS: HYDROmorphone 1 MG/ML Syringe IV (06:37)
--- NOTE | 2018-06-03 06:56 | VDUE_ITS ---
Reason For Study: RUE swelling Right Proximal Right jugular vein is spontaneous, widely patent, phasic, with no intraluminal echogenicity noted. Right subclavian vein is spontaneous, widely patent, phasic, with no intraluminal echogenicity noted. Right Lower Arm Right radial vein is compressible. Right ulnar vein is very small, had to rely on color doppler for assessment. Flow was noted in Right ulnar vein. Right Arm Right axillary vein is spontaneous, patent, phasic, competent, compressible and demonstrates augmentation. Right brachial vein is compressible. Right cephalic vein is compressible. Right basilic vein is compressible. Interpretation Summary Deep veins of the right upper extremity are patent and compressible segmentally. There is no evidence of deep vein thrombosis. The superficial veins of the right upper extremity, the basilic and cephalic veins, are patent and compressible. There is no evidence of right upper extremity superficial thrombophlebitis involving the veins imaged. The right ulnar vein is small, but appears to be patent. Ordering Physician: Jann Murillo Referring Physician: Nevaeh Hawkins Performed By: Ramona Dailey, ENMA, RVT ?
[2018-06-03] MEDS: Budesonide Respules 0.5 MG/2 ML AMPUL.NEB. INHALATION ×2 (07:01→17:30)
[2018-06-03] MEDS: Albuterol 2.5 MG/3 ML VIAL.NEB. INHALATION ×3 (07:02→17:31)
[2018-06-03] MEDS: Calcium Carb/Vitamin D 1 TABLET Tablet PO ×2 (08:47→16:11)
[2018-06-03] MEDS: Metoprolol(XL)Succ 25 MG Tablet PO (08:47)
[2018-06-03] MEDS: Anastrozole 1 MG Tablet PO (08:48)
[2018-06-03] MEDS: Venlafaxine HCl 25 MG Tablet 37.5 MG PO ×2 (08:48→21:40)
[2018-06-03] MEDS: Docusate Sodium 100 MG Capsule PO ×2 (08:48→21:39)
[2018-06-03] MEDS: Loratadine 10 MG Tablet PO (08:48)
[2018-06-03] MEDS: NIFEdipine 30 MG Tablet PO (08:48)
[2018-06-03] MEDS: Acyclovir 200 MG Capsule PO (08:49)
[2018-06-03] MEDS: Lactated Ringers 1,000 ML 60 ML IV (08:51)
[2018-06-03] MEDS: Losartan Potassium 25 MG Tablet PO (08:52)
[2018-06-03] MEDS: Furosemide 20 MG Tablet PO (16:11)
[2018-06-03] MEDS: diazePAM 5 MG Tablet PO ×2 (16:11→22:21)
--- NOTE | 2018-06-03 17:25 | PCM.PN.SRG ---
Subjective: Postop #3 Patient complains of some right upper extremity swelling. - Physical Exam General: Alert, Oriented x3 HEENT: PERRLA, EOMI Oral: Moist Mucosa Neck: Supple Abdomen: Soft, Non-Distended Extremities: Edema - mild edema in lower extremities. Right upper extremity shows a little more swelling., - - She can make a fist. Her rocket propellant plant supervisor is a little weaker secondary to the swelling. Skin: Incision - Breast incision dry and intact. Flap is pink and soft and viable laterally. The medial flap is soft and a little less pink. Will apply Nitropaste to the medial aspect of the flap. Minor bruising is seen at some areas of the suture line probably from suture manipulation during closure. Will observe. No clinical evidence of hematoma. Abdominal incision dry and intact. No clinical evidence of hematoma. Neurological: Cranial nerves II-XII grossly intact Psych/Mental Status: Normal Affect, Appropriate Vital Signs Temp Pulse Resp BP Pulse Ox 98.5 F 99 16 106/61 97 06/03/18 16:09 06/03/18 16:09 06/03/18 16:09 06/03/18 16:09 06/03/18 16:09 Oxygen Flow Rate (L/min) 2 Oxygen Delivery Method Room Air Weight: 141 lb 3 oz Body Mass Index (BMI) 35.3 Intake and Output for Last 24 Hours 06/01/18 06/02/18 06/03/18 23:59 23:59 23:59 Intake Total 2045 / 2045 1851 / 1851 1743 / 1743 Output Total 1305 / 1305 1335 / 1335 1370 / 1370 Balance 740 / 740 516 / 516 373 / 373 Drainage 485 ml yesterday, 220 ml today. Laboratory Tests Past 24 Hrs 06/03/18 06/03/18 05:00 05:00 WBC 11.4 H RBC 2.71 L Hgb 8.0 L Hct 25.0 L MCV 92.3 MCH 29.5 MCHC 32.0 RDW 14.9 H RDW Differential 49.6 H Plt Count 258 MPV 11.1 Sodium 140 Potassium 4.0 Chloride 106 Carbon Dioxide 26.0 Anion Gap 8 BUN 29 H Creatinine 0.78 Estim Creat Clear Calc 80.45 Est GFR (MDRD) Af Amer 98 Est GFR (MDRD) Non-Af 81 BUN/Creatinine Ratio 37.2 H Glucose 106 Calcium 8.8 Medical Necessity - Tobacco Use Smoking Status: Never smoker Tobacco Use: Non-smoker Assessment/Plan 1. Invasive ductal carcinoma left breast, s/p mastectomy. 2. Ductal carcinoma in situ right breast, s/p mastectomy. 3. Acquired absence bilateral breasts. 4. Disproportion reconstructed breasts. 5. Deformity reconstructed breasts. 6. Late effect radiation left breast. 7. Soft tissue radionecrosis left breast. 8. Estrogen receptor positive status. 9. Family history of breast cancer. 10. s/p revision left breast reconstruction with excision radiation fibrosis scar contour deformity and multiple W-plasty (18 cm2) and second stage delayed left breast reconstruction with bipedicled TRAM flap and complex abdominal wall reconstruction with repair of fascial defects with components separation technique using bilateral external oblique myofascial advancement flaps and placement MTF FlexHD acellular dermal matrix graft (320 cm2) and saline injection 300 ml into tissue special certificate dictator right breast reconstruction (650 ml special certificate dictator). 11. Anemia of chronic disease, acute on chronic. Patient had complaints of increasing right upper extremity swelling. A Venous Doppler study was done today which was negative for blood clot. Will give Lasix daily to help with the edema. Pain is reasonably controlled. Using less IV analgesia. Breast incision dry and intact. Flap is pink and soft and viable laterally. The medial flap is soft and a little less pink. Will apply Nitropaste to the medial aspect of the flap as long as SBP < 110. Minor bruising is seen at some areas of the suture line probably from suture manipulation during closure. Will observe. No clinical evidence of hematoma. Abdominal incision dry and intact. No clinical evidence of hematoma. Hgb has decreased from 9.8 to 8.0. Has anemia of chronic disease, acute on chronic. There is no clinical evidence of hematoma. There was 150 ml blood loss during surgery. Most of her decrease is from IV dilution as her I's/O's are positive 5900 ml. She was started on Iron supplementation. Ambulate with assist today. Did ok. She is a little unsteady on her feet today. Prealbumin is 18.7. Encourage nutritional supplementation with protein to help the healing process.
[2018-06-03] MEDS: Atorvastatin Calcium 40 MG Tablet PO (21:40)
[2018-06-03] MEDS: Nitroglycerin Oint 1 INCH PACKET 0.5 INCH TRANSDERM. (23:42)
[2018-06-04] VITALS (22 sets, daily range): BP systolic 98–139; BP diastolic 52–80; PULSE 100–117; RESP 16–20; TEMP 36.5–37.5; O2SAT 91–100
[2018-06-04] MEDS: Lactated Ringers 1,000 ML 60 ML IV (03:34)
[2018-06-04] MEDS: oxyCODONE 5 MG Tablet 10 MG PO ×3 (03:49→14:42)
[2018-06-04] MEDS: Enoxaparin 30 MG/0.3 ML Syringe SC (06:49)
[2018-06-04] MEDS: Albuterol 2.5 MG/3 ML VIAL.NEB. INHALATION ×3 (07:01→18:58)
[2018-06-04] MEDS: Budesonide Respules 0.5 MG/2 ML AMPUL.NEB. INHALATION ×2 (07:01→18:58)
[2018-06-04 07:05] LABS: Hematocrit 26.1 % (37-47); Hemoglobin 7.7 g/dl (12.0-15.0); Mean Corp Hgb Conc 29.5 g/gl (32-36); Mean Corpuscular Hgb 28.2 pg (27.0-32.0); Mean Corpuscular Volume 95.6 fL (81-99); Mean Platelet Vol. 11.3 fl (6.2-12.0); Platelet Count 270 K/mm3 (150-450); RBC Distribution Width CV 14.4 % (11.6-14.6); RBC Distribution Width SD 47.3 fl (35.1-43.9); Red Blood Count 2.73 M/mm3 (4.2-5.4); White Blood Count 8.7 K/mm3 (4.4-11.0)
[2018-06-04 07:40] LABS: Scan Indicated on CBC? Y/N NO
[2018-06-04] MEDS: Venlafaxine HCl 25 MG Tablet 37.5 MG PO ×2 (08:47→22:02)
[2018-06-04] MEDS: Furosemide 20 MG Tablet PO (08:48)
[2018-06-04] MEDS: Metoprolol(XL)Succ 25 MG Tablet PO (08:48)
[2018-06-04] MEDS: Loratadine 10 MG Tablet PO (08:48)
[2018-06-04] MEDS: Acyclovir 200 MG Capsule PO (08:48)
[2018-06-04] MEDS: NIFEdipine 30 MG Tablet PO (08:48)
[2018-06-04] MEDS: Calcium Carb/Vitamin D 1 TABLET Tablet PO ×2 (08:48→16:03)
[2018-06-04] MEDS: Losartan Potassium 25 MG Tablet PO (08:48)
[2018-06-04] MEDS: Docusate Sodium 100 MG Capsule PO ×2 (08:48→22:02)
[2018-06-04] MEDS: Iron Polysaccharide Complex 150 MG CAPSULE PO (08:49)
[2018-06-04] MEDS: Anastrozole 1 MG Tablet PO (08:51)
--- NOTE | 2018-06-04 12:54 | PCM.PN.SRG ---
Subjective: Postop #4 Patient is resting comfortably. She feels tired after ambulation. She also has chronic back pain that is being aggravated by her lack of mobility from the surgery. - Physical Exam General: Alert, Oriented x3 HEENT: PERRLA, EOMI Oral: Moist Mucosa Neck: Supple Abdomen: Soft, Non-Distended Skin: Incision - Breast incision dry and intact. Flap is pink and soft and viable laterally. The medial flap is soft and a little less pink. Will apply Nitropaste to the medial aspect of the flap. Minor bruising is seen at some areas of the suture line probably from suture manipulation during closure. Some bruising is seen inferiorly in the inframammary fold. The abdominal binder had been pushing on the inframammary fold area. It is a four panel binder. I cut one of the panels to make it less likely to ride up and put undue compression on the inframammary fold area. Will observe. No clinical evidence of hematoma. Abdominal incision dry and intact. No clinical evidence of hematoma. Neurological: Cranial nerves II-XII grossly intact Psych/Mental Status: Normal Affect, Appropriate Vital Signs Temp Pulse Resp BP Pulse Ox 97.7 F L 110 H 18 128/75 H 98 06/04/18 09:10 06/04/18 09:10 06/04/18 09:10 06/04/18 09:10 06/04/18 09:10 Oxygen Flow Rate (L/min) 1 Oxygen Delivery Method Room Air Weight: 141 lb 3 oz Body Mass Index (BMI) 35.3 Intake and Output for Last 24 Hours 06/02/18 06/03/18 06/04/18 23:59 23:59 23:59 Intake Total 1851 / 1851 2509 / 2509 454 / 454 Output Total 1335 / 1335 2140 / 2140 610 / 610 Balance 516 / 516 369 / 369 -156 / -156 Drainage 390 ml yesterday Laboratory Tests Past 24 Hrs 06/04/18 06/04/18 06:10 10:35 WBC 8.7 RBC 2.73 L Hgb 7.7 L Hct 26.1 L MCV 95.6 MCH 28.2 MCHC 29.5 L RDW 14.4 RDW Differential 47.3 H Plt Count 270 MPV 11.3 Blood Type Pending Antibody Screen Pending Crossmatch See Detail Medical Necessity - Tobacco Use Smoking Status: Never smoker Tobacco Use: Non-smoker Assessment/Plan All Active Problems (Last Reviewed 05/10/18 @ 13:24 by Alberto Dueñas MD) Abdominal wall hernia (Acute) 1. Invasive ductal carcinoma left breast, s/p mastectomy. 2. Ductal carcinoma in situ right breast, s/p mastectomy. 3. Acquired absence bilateral breasts. 4. Disproportion reconstructed breasts. 5. Deformity reconstructed breasts. 6. Late effect radiation left breast. 7. Soft tissue radionecrosis left breast. 8. Estrogen receptor positive status. 9. Family history of breast cancer. 10. s/p revision left breast reconstruction with excision radiation fibrosis scar contour deformity and multiple W-plasty (18 cm2) and second stage delayed left breast reconstruction with bipedicled TRAM flap and complex abdominal wall reconstruction with repair of fascial defects with components separation technique using bilateral external oblique myofascial advancement flaps and placement MTF FlexHD acellular dermal matrix graft (320 cm2) and saline injection 300 ml into tissue rail switchman right breast reconstruction (650 ml rail switchman). 11. Anemia of chronic disease, acute on chronic. Continue Lasix daily to help with the edema. Her I's/O's are positive over 5 liters. Pain is reasonably controlled. Using less IV analgesia. Breast incision dry and intact. Flap is pink and soft and viable laterally. The medial flap is soft and a little less pink. Will apply Nitropaste to the medial aspect of the flap as long as SBP < 110. Minor bruising is seen at some areas of the suture line probably from suture manipulation during closure. Some bruising is seen inferiorly in the inframammary fold. The abdominal binder had been pushing on the inframammary fold area. It is a four panel binder. I cut one of the panels to make it less likely to ride up and put undue compression on the inframammary fold area. Will observe. No clinical evidence of hematoma. Abdominal incision dry and intact. No clinical evidence of hematoma. Hgb has decreased from 8.0 to 7.7. Has anemia of chronic disease, acute on chronic. There is no clinical evidence of hematoma. There was 150 ml blood loss during surgery. Most of her decrease is from IV dilution as her I's/O's are positive over 5 liters. She was started on Iron supplementation. She has cardiomyopathy. A low Hgb will affect healing as well. Will transfuse PRBC to take stress off her heart and to improve her energy level and improve healing. Ambulate with assist today. Did ok. She is a little unsteady on her feet today. Prealbumin is 18.7. Encourage nutritional supplementation with protein to help the healing process.
[2018-06-04] MEDS: Nitroglycerin Oint 1 INCH PACKET 0.5 INCH TRANSDERM. ×2 (17:07→23:56)
[2018-06-04] MEDS: Atorvastatin Calcium 40 MG Tablet PO (22:02)
[2018-06-05] VITALS (10 sets, daily range): BP systolic 120–142; BP diastolic 59–73; PULSE 101–114; RESP 14–18; TEMP 36.8–37.4; O2SAT 94–96
[2018-06-05] MEDS: oxyCODONE 5 MG Tablet 10 MG PO ×3 (00:34→17:42)
[2018-06-05] MEDS: Enoxaparin 30 MG/0.3 ML Syringe SC (05:48)
[2018-06-05] MEDS: Nitroglycerin Oint 1 INCH PACKET 0.5 INCH TRANSDERM. ×3 (05:49→17:43)
[2018-06-05 06:13] LABS: Hematocrit 33.3 % (37-47); Hemoglobin 10.5 g/dl (12.0-15.0); Mean Corp Hgb Conc 31.5 g/gl (32-36); Mean Corpuscular Hgb 28.8 pg (27.0-32.0); Mean Corpuscular Volume 91.2 fL (81-99); Platelet Count 240 K/mm3 (150-450); RBC Distribution Width CV 14.8 % (11.6-14.6); RBC Distribution Width SD 47.9 fl (35.1-43.9); Red Blood Count 3.65 M/mm3 (4.2-5.4); White Blood Count 8.3 K/mm3 (4.4-11.0)
[2018-06-05 06:17] LABS: Scan Indicated on CBC? Y/N NO
[2018-06-05] MEDS: Budesonide Respules 0.5 MG/2 ML AMPUL.NEB. INHALATION ×2 (07:04→19:08)
[2018-06-05] MEDS: Albuterol 2.5 MG/3 ML VIAL.NEB. INHALATION ×2 (07:04→19:07)
[2018-06-05] MEDS: Acyclovir 200 MG Capsule PO (08:36)
[2018-06-05] MEDS: NIFEdipine 30 MG Tablet PO (08:37)
[2018-06-05] MEDS: Metoprolol(XL)Succ 25 MG Tablet PO (08:37)
[2018-06-05] MEDS: Loratadine 10 MG Tablet PO (08:37)
[2018-06-05] MEDS: Venlafaxine HCl 25 MG Tablet 37.5 MG PO ×2 (08:38→21:49)
[2018-06-05] MEDS: Furosemide 20 MG Tablet PO (08:38)
[2018-06-05] MEDS: Losartan Potassium 25 MG Tablet PO (08:39)
[2018-06-05] MEDS: Anastrozole 1 MG Tablet PO (08:40)
[2018-06-05] MEDS: Iron Polysaccharide Complex 150 MG CAPSULE PO (08:41)
[2018-06-05] MEDS: Calcium Carb/Vitamin D 1 TABLET Tablet PO ×2 (08:41→17:43)
[2018-06-05] MEDS: Docusate Sodium 100 MG Capsule PO ×2 (08:43→21:49)
--- NOTE | 2018-06-05 13:15 | PN.SURG_ITS ---
Subjective: Postop #5 Patient is resting comfortably. She feels unsteady on her feet with ambulation. She feels tired after ambulation. Her chronic back pain that is aggravated by her lack of mobility from the surgery is better with the use of a heating pad. - Physical Exam General: Alert, Oriented x3 HEENT: PERRLA, EOMI Oral: Moist Mucosa Neck: Supple Abdomen: Soft, Non-Distended Skin: Incision - Breast incision dry and intact. Flap is pink and soft and viable laterally. The medial flap is soft and is a little more pink since applying Nitropaste to the medial aspect of the flap. Minor bruising is seen at some areas of the suture line probably from suture manipulation during closure. Some bruising is seen inferiorly in the inframammary fold. The abdominal binder had been pushing on the inframammary fold area. It is a four panel binder. I cut one of the panels to make it less likely to ride up and put undue compression on the inframammary fold area. Will observe. No clinical evidence of hematoma. Abdominal incision dry and intact. No clinical evidence of hematoma. Neurological: Cranial nerves II-XII grossly intact Psych/Mental Status: Normal Affect, Appropriate Vital Signs Temp Pulse Resp BP Pulse Ox 98.3 F 113 H 16 138/65 H 96 06/05/18 08:34 06/05/18 08:45 06/05/18 08:34 06/05/18 11:42 06/05/18 08:45 Oxygen Flow Rate (L/min) 1 Oxygen Delivery Method Room Air Weight: 141 lb 3 oz Body Mass Index (BMI) 35.3 Intake and Output for Last 24 Hours 06/03/18 06/04/18 06/05/18 23:59 23:59 23:59 Intake Total 2509 / 2509 2563 / 2563 1593 / 1593 Output Total 2140 / 2140 3455 / 3455 1471 / 1471 Balance 369 / 369 -892 / -892 122 / 122 Drainage 1855 ml yesterday, 351 ml today Laboratory Tests Past 24 Hrs 06/04/18 06/05/18 10:35 05:23 WBC 8.3 RBC 3.65 L Hgb 10.5 L Hct 33.3 L MCV 91.2 MCH 28.8 MCHC 31.5 L RDW 14.8 H RDW Differential 47.9 H Plt Count 240 MPV 11.0 Blood Type O POSITIVE Antibody Screen NEGATIVE Crossmatch See Detail Medical Necessity - Tobacco Use Smoking Status: Never smoker Tobacco Use: Non-smoker Assessment/Plan All Active Problems (Last Reviewed 05/10/18 @ 13:24 by Alberto Dueñas MD) Abdominal wall hernia (Acute) 1. Invasive ductal carcinoma left breast, s/p mastectomy. 2. Ductal carcinoma in situ right breast, s/p mastectomy. 3. Acquired absence bilateral breasts. 4. Disproportion reconstructed breasts. 5. Deformity reconstructed breasts. 6. Late effect radiation left breast. 7. Soft tissue radionecrosis left breast. 8. Estrogen receptor positive status. 9. Family history of breast cancer. 10. s/p revision left breast reconstruction with excision radiation fibrosis scar contour deformity and multiple W-plasty (18 cm2) and second stage delayed left breast reconstruction with bipedicled TRAM flap and complex abdominal wall reconstruction with repair of fascial defects with components separation technique using bilateral external oblique myofascial advancement flaps and placement MTF FlexHD acellular dermal matrix graft (320 cm2) and saline injection 300 ml into tissue client services specialist right breast reconstruction (650 ml client services specialist). 11. Anemia of chronic disease, acute on chronic, stable after PRBC. Continue Lasix daily to help with the edema. Her positive I's/O's are slowly decreasing. Pain is reasonably controlled. Using less IV analgesia. Breast incision dry and intact. Flap is pink and soft and viable laterally. The medial flap is soft and is a little more pink since applying Nitropaste to the medial aspect of the flap as long as SBP < 110. Minor bruising is seen at some areas of the suture line probably from suture manipulation during closure. Some bruising is seen inferiorly in the inframammary fold. The abdominal binder had been pushing on the inframammary fold area. It is a four panel binder. I cut one of the panels to make it less likely to ride up and put undue compression on the inframammary fold area. Will observe. No clinical evidence of hematoma. Abdominal incision dry and intact. No clinical evidence of hematoma. Hgb has increased from 7.7 to 10.5 since getting the PRBC. Has anemia of chronic disease, acute on chronic. There is no clinical evidence of hematoma. There was 150 ml blood loss during surgery. Most of her decrease is from IV dilution as her I's/O's are positive about 5 liters and is slowly decreasing. She was started on Iron supplementation. Continue ambulation with assist today. She is a little unsteady on her feet today. Prealbumin is 18.7. Encourage nutritional supplementation with protein to help the healing process.
[2018-06-05] MEDS: Lactated Ringers 1,000 ML 30 ML IV (19:24)
[2018-06-05] MEDS: Atorvastatin Calcium 40 MG Tablet PO (21:49)
[2018-06-06] VITALS (10 sets, daily range): BP systolic 101–125; BP diastolic 60–77; PULSE 104–123; RESP 14–16; TEMP 37–37.7; O2SAT 94–95
[2018-06-06] MEDS: Nitroglycerin Oint 1 INCH PACKET 0.5 INCH TRANSDERM. ×4 (00:09→18:26)
[2018-06-06 05:14] LABS: Hematocrit 33.8 % (37-47); Hemoglobin 10.5 g/dl (12.0-15.0); Mean Corp Hgb Conc 31.1 g/gl (32-36); Mean Corpuscular Hgb 28.8 pg (27.0-32.0); Mean Corpuscular Volume 92.9 fL (81-99); Mean Platelet Vol. 10.4 fl (6.2-12.0); Platelet Count 244 K/mm3 (150-450); RBC Distribution Width CV 14.9 % (11.6-14.6); RBC Distribution Width SD 48.1 fl (35.1-43.9); Red Blood Count 3.64 M/mm3 (4.2-5.4); White Blood Count 8.6 K/mm3 (4.4-11.0)
[2018-06-06 05:21] LABS: Scan Indicated on CBC? Y/N NO
[2018-06-06 05:51] LABS: Anion Gap 6 (5-15); BUN 17 mg/dL (7-18); BUN/Creat Ratio 33.7 RATIO (10-20); Chloride 102 mmol/L (98-107); EST Glomerular Filtration Rate 133 mL/min (>60); Est Glom Filt Rate - Afr Amer 161 mL/min (>60); Glucose 111 mg/dL (74-106); Potassium 3.6 mmol/L (3.5-5.1); Sodium Level 139 mmol/L (136-145)
[2018-06-06] MEDS: Enoxaparin 30 MG/0.3 ML Syringe SC (06:02)
[2018-06-06] MEDS: Iron Polysaccharide Complex 150 MG CAPSULE PO (08:13)
[2018-06-06] MEDS: Calcium Carb/Vitamin D 1 TABLET Tablet PO ×2 (08:14→16:25)
[2018-06-06] MEDS: Acyclovir 200 MG Capsule PO (08:22)
[2018-06-06] MEDS: Metoprolol(XL)Succ 25 MG Tablet PO (08:22)
[2018-06-06] MEDS: Anastrozole 1 MG Tablet PO (08:22)
[2018-06-06] MEDS: NIFEdipine 30 MG Tablet PO (08:23)
[2018-06-06] MEDS: Losartan Potassium 25 MG Tablet PO (08:23)
[2018-06-06] MEDS: Furosemide 20 MG Tablet PO (08:23)
[2018-06-06] MEDS: Alendronate Sodium 70 MG Tablet PO (08:23)
[2018-06-06] MEDS: Docusate Sodium 100 MG Capsule PO ×2 (08:23→21:45)
[2018-06-06] MEDS: Venlafaxine HCl 25 MG Tablet 37.5 MG PO ×2 (08:24→21:45)
[2018-06-06] MEDS: Loratadine 10 MG Tablet PO (08:24)
[2018-06-06] MEDS: oxyCODONE 5 MG Tablet 10 MG PO ×2 (08:37→18:18)
--- NOTE | 2018-06-06 14:22 | PCM.PN.SRG ---
Subjective: Postop #6 Patient is resting comfortably. - Physical Exam General: Alert, Oriented x3 HEENT: PERRLA, EOMI Oral: Moist Mucosa Neck: Supple Abdomen: Soft, Non-Distended Skin: Incision - Breast incision dry and intact. Flap is pink and soft and viable laterally. The medial flap is soft and is a little more pink since applying Nitropaste to the medial aspect of the flap. Minor bruising is seen at some areas of the suture line probably from suture manipulation during closure. Some bruising is seen inferiorly in the inframammary fold. The abdominal binder had been pushing on the inframammary fold area. It is a four panel binder. I cut one of the panels to make it less likely to ride up and put undue compression on the inframammary fold area. Will observe. No clinical evidence of hematoma. Abdominal incision dry and intact. No clinical evidence of hematoma. Neurological: Cranial nerves II-XII grossly intact Psych/Mental Status: Normal Affect, Appropriate Vital Signs Temp Pulse Resp BP Pulse Ox 98.6 F 123 H 16 119/61 95 06/06/18 08:25 06/06/18 12:49 06/06/18 08:25 06/06/18 12:49 06/06/18 08:25 Oxygen Flow Rate (L/min) 1 Oxygen Delivery Method Room Air Weight: 141 lb 3 oz Body Mass Index (BMI) 35.3 Intake and Output for Last 24 Hours 06/04/18 06/05/18 06/06/18 23:59 23:59 23:59 Intake Total 2563 / 2563 2157 / 2157 880 / 880 Output Total 3455 / 3455 1551 / 1551 898 / 898 Balance -892 / -892 606 / 606 -18 / -18 Drainage 351 ml yesterday, 98 ml today. Laboratory Tests Past 24 Hrs 06/06/18 06/06/18 05:02 05:02 WBC 8.6 RBC 3.64 L Hgb 10.5 L Hct 33.8 L MCV 92.9 MCH 28.8 MCHC 31.1 L RDW 14.9 H RDW Differential 48.1 H Plt Count 244 MPV 10.4 Sodium 139 Potassium 3.6 Chloride 102 Carbon Dioxide 31.0 Anion Gap 6 BUN 17 Creatinine 0.50 L Estim Creat Clear Calc 125.50 Est GFR (MDRD) Af Amer 161 Est GFR (MDRD) Non-Af 133 BUN/Creatinine Ratio 33.7 H Glucose 111 H Calcium 9.0 Medical Necessity - Tobacco Use Smoking Status: Never smoker Tobacco Use: Non-smoker Assessment/Plan All Active Problems (Last Reviewed 05/10/18 @ 13:24 by Alberto Dueñas MD) Abdominal wall hernia (Acute) 1. Invasive ductal carcinoma left breast, s/p mastectomy. 2. Ductal carcinoma in situ right breast, s/p mastectomy. 3. Acquired absence bilateral breasts. 4. Disproportion reconstructed breasts. 5. Deformity reconstructed breasts. 6. Late effect radiation left breast. 7. Soft tissue radionecrosis left breast. 8. Estrogen receptor positive status. 9. Family history of breast cancer. 10. s/p revision left breast reconstruction with excision radiation fibrosis scar contour deformity and multiple W-plasty (18 cm2) and second stage delayed left breast reconstruction with bipedicled TRAM flap and complex abdominal wall reconstruction with repair of fascial defects with components separation technique using bilateral external oblique myofascial advancement flaps and placement MTF FlexHD acellular dermal matrix graft (320 cm2) and saline injection 300 ml into tissue clinical appeals specialist right breast reconstruction (650 ml clinical appeals specialist). 11. Anemia of chronic disease, acute on chronic, stable after PRBC. Continue Lasix daily to help with the edema. Her positive I's/O's are slowly decreasing. Pain is reasonably controlled. Using less IV analgesia. Breast incision dry and intact. Flap is pink and soft and viable laterally. The medial flap is soft and is a little more pink since applying Nitropaste to the medial aspect of the flap as long as SBP < 110. Minor bruising is seen at some areas of the suture line probably from suture manipulation during closure. Some bruising is seen inferiorly in the inframammary fold. The abdominal binder had been pushing on the inframammary fold area. It is a four panel binder. I cut one of the panels to make it less likely to ride up and put undue compression on the inframammary fold area. Will observe. No clinical evidence of hematoma. Abdominal incision dry and intact. No clinical evidence of hematoma. Hgb stable at 10.5 since getting the PRBC. Has anemia of chronic disease, acute on chronic. There is no clinical evidence of hematoma. There was 150 ml blood loss during surgery. Most of her decrease is from IV dilution as her I's/O's are positive about 5 liters and is slowly decreasing. She was started on Iron supplementation. Continue ambulation with assist today. She is a little unsteady on her feet today. I would like her to be more steady on her feet with ambulation for discharge. Anticipate discharge tomorrow. Prealbumin is 18.7. Encourage nutritional supplementation with protein to help the healing process.
[2018-06-06] MEDS: Lactated Ringers 1,000 ML 15 ML IV (16:24)
[2018-06-06] MEDS: diazePAM 5 MG Tablet PO (18:26)
[2018-06-06] MEDS: Atorvastatin Calcium 40 MG Tablet PO (21:45)
[2018-06-07] VITALS (11 sets, daily range): BP systolic 109–123; BP diastolic 62–68; PULSE 120–129; RESP 16–18; TEMP 36.8–37.7; O2SAT 94–96
[2018-06-07] MEDS: Nitroglycerin Oint 1 INCH PACKET 0.5 INCH TRANSDERM. ×3 (00:19→11:15)
[2018-06-07] MEDS: Enoxaparin 30 MG/0.3 ML Syringe SC (06:13)
[2018-06-07] MEDS: oxyCODONE 5 MG Tablet 10 MG PO ×2 (06:26→11:14)
[2018-06-07] MEDS: Venlafaxine HCl 25 MG Tablet 37.5 MG PO (08:34)
[2018-06-07] MEDS: Iron Polysaccharide Complex 150 MG CAPSULE PO (08:35)
[2018-06-07] MEDS: NIFEdipine 30 MG Tablet PO (08:35)
[2018-06-07] MEDS: Calcium Carb/Vitamin D 1 TABLET Tablet PO ×2 (08:35→16:58)
[2018-06-07] MEDS: Docusate Sodium 100 MG Capsule PO (08:36)
[2018-06-07] MEDS: Loratadine 10 MG Tablet PO (08:36)
[2018-06-07] MEDS: Anastrozole 1 MG Tablet PO (08:36)
[2018-06-07] MEDS: Acyclovir 200 MG Capsule PO (08:37)
[2018-06-07] MEDS: Furosemide 20 MG Tablet PO (08:37)
[2018-06-07] MEDS: Losartan Potassium 25 MG Tablet PO (08:37)
[2018-06-07] MEDS: Metoprolol(XL)Succ 25 MG Tablet PO (08:40)
[2018-06-07 08:58] LABS: Hematocrit 33.7 % (37-47); Hemoglobin 10.9 g/dl (12.0-15.0); Mean Corp Hgb Conc 32.3 g/gl (32-36); Mean Corpuscular Hgb 29.1 pg (27.0-32.0); Mean Corpuscular Volume 89.9 fL (81-99); Mean Platelet Vol. 10.3 fl (6.2-12.0); Platelet Count 292 K/mm3 (150-450); RBC Distribution Width CV 14.9 % (11.6-14.6); RBC Distribution Width SD 48.6 fl (35.1-43.9); Red Blood Count 3.75 M/mm3 (4.2-5.4); White Blood Count 8.8 K/mm3 (4.4-11.0)
[2018-06-07 08:59] LABS: Scan Indicated on CBC? Y/N NO
[2018-06-07 09:18] LABS: Anion Gap 6 (5-15); BUN 18 mg/dL (7-18); BUN/Creat Ratio 30.9 RATIO (10-20); Calcium,Total 9.2 mg/dL (8.5-10.1); Chloride 102 mmol/L (98-107); Creatinine, Serum 0.58 mg/dL (0.55-1.02); EST Glomerular Filtration Rate 113 mL/min (>60); Est Glom Filt Rate - Afr Amer 137 mL/min (>60); Estimated Creatinine Clearance 108.19 ml/min; Glucose 122 mg/dL (74-106); Potassium 3.8 mmol/L (3.5-5.1); Sodium Level 137 mmol/L (136-145)
[2018-06-07 10:24] LABS: Bacteria 0 SEEN /hpf (None Seen); Mucous, Urine 0 SEEN /hpf (<or=2+); Red Blood Cells-Urine 0 SEEN /hpf (0-5); Squamous Epithelial Cells - UA 0 SEEN /hpf (5-10)
[2018-06-07 10:28] LABS: Color, Urine Yellow (Yellow); Glucose, Dipstick Normal (Normal); Ketone-Dipstick 5 mg/dl (Negative); Leukocyte Esterase-Dipstick 100 /ul (Negative); Nitrite-Dipstick Negative (Negative); Occult Blood-Urine 25 /ul (Negative); Protein-Dipstick 30 mg/dl (Negative); Specific Gravity, Urine 1.015 (1.002-1.030); Urine Bilirubin Dipstick Negative (Negative); Urine Clarity Clear (Clear); Urine Urobilinogen Normal (Normal)
[2018-06-07 10:35] LABS: Amorphous Sediment 1+; White Blood Cells 5-10 SEEN /hpf (0-5)
--- NOTE | 2018-06-07 15:00 | RAD_ITS ---
STUDY: X-RAY CHEST REASON FOR EXAM: Female, 57 years old. Chest pain x1 week TECHNIQUE: PA and lateral views of the chest. COMPARISON: Prior study of 05/09/2018 FINDINGS: Tubes are seen overlying the left lower hemithorax. Implant is seen overlying the right lung base. The lungs are clear and expanded. There is no demonstrated pleural abnormality. Normal size heart. Normal mediastinum and jeramie. Normal visualized pulmonary arteries. Normal visualized aortic arch and descending thoracic aorta. Normal visualized thoracic spine. Normal visualized ribs, clavicles, and shoulders. There is no demonstrated abnormality of the visualized soft tissue structures of the upper abdomen. RAD/Chest PA and Lateral IMPRESSION: No acute cardiopulmonary disease process seen. Electronically Signed: Jesse Reynoso MD at 16:11 EDT , Service support ,
--- NOTE | 2018-06-07 17:36 | PCM.PN.SRG ---
Subjective: Postop #7 Patient is resting comfortably. Is more steady on her feet with ambulation. Has no respiratory complaints. Has no voiding problems. - Physical Exam General: Alert, Oriented x3 HEENT: PERRLA, EOMI Oral: Moist Mucosa Neck: Supple Lungs: Clear to auscultation Cardiovascular: Regular rate, Regular Rhythm Abdomen: Soft, Non-Distended Skin: Incision - Breast incision dry and intact. Flap is pink and soft and viable laterally. The medial flap is soft and is a little more pink since applying Nitropaste to the medial aspect of the flap. Minor bruising is seen at some areas of the suture line probably from suture manipulation during closure. Some bruising is seen inferiorly in the inframammary fold. The abdominal binder had been pushing on the inframammary fold area. It is a four panel binder. I cut one of the panels to make it less likely to ride up and put undue compression on the inframammary fold area. Will observe. No clinical evidence of hematoma. Abdominal incision dry and intact. No clinical evidence of hematoma. Mild swelling in pubic area. Umbilicus is viable. Neurological: Cranial nerves II-XII grossly intact Psych/Mental Status: Normal Affect, Appropriate Vital Signs Temp Pulse Resp BP Pulse Ox 98.3 F 120 H 18 109/68 95 06/07/18 16:55 06/07/18 16:55 06/07/18 16:55 06/07/18 16:55 06/07/18 16:55 Tmax 100 F 06/07/18 06:00 Oxygen Flow Rate (L/min) 1 Oxygen Delivery Method Room Air Weight: 141 lb 3 oz Body Mass Index (BMI) 35.3 Intake and Output for Last 24 Hours 06/05/18 06/06/18 06/07/18 23:59 23:59 23:59 Intake Total 2157 / 2157 880 / 880 1235 / 1235 Output Total 1551 / 1551 898 / 898 979 / 979 Balance 606 / 606 -18 / -18 256 / 256 Drainage 98 ml yesterday, 29 ml today. Laboratory Tests Past 24 Hrs 06/07/18 06/07/18 06/07/18 08:30 08:30 10:15 WBC 8.8 RBC 3.75 L Hgb 10.9 L Hct 33.7 L MCV 89.9 MCH 29.1 MCHC 32.3 RDW 14.9 H RDW Differential 48.6 H Plt Count 292 MPV 10.3 Sodium 137 Potassium 3.8 Chloride 102 Carbon Dioxide 29.0 Anion Gap 6 BUN 18 Creatinine 0.58 Estim Creat Clear Calc 108.19 Est GFR (MDRD) Af Amer 137 Est GFR (MDRD) Non-Af 113 BUN/Creatinine Ratio 30.9 H Glucose 122 H Calcium 9.2 Urine Color Yellow Urine Clarity Clear Urine pH 6.0 Ur Specific [place] 1.015 Urine Protein 30 H Urine Glucose (UA) Normal Urine Ketones 5 H Urine Occult Blood 25 H Urine Nitrite Negative Urine Bilirubin Negative Urine Urobilinogen Normal Ur Leukocyte Esterase 100 H Urine RBC 0 SEEN Urine WBC 5-10 SEEN Ur Squamous Epith Cells 0 SEEN Amorphous Sediment 1+ Urine Bacteria 0 SEEN Urine Mucus 0 SEEN Diagnostic Data Chest X-Ray 06/07/18 15:00 IMPRESSION: No acute cardiopulmonary disease process seen. Electronically Signed: Jesse Reynoso MD at 16:11 EDT , Service support , Medical Necessity - Tobacco Use Smoking Status: Never smoker Tobacco Use: Non-smoker Assessment/Plan All Active Problems (Last Reviewed 05/10/18 @ 13:24 by Alberto Dueñas MD) Abdominal wall hernia (Acute) 1. Invasive ductal carcinoma left breast, s/p mastectomy. 2. Ductal carcinoma in situ right breast, s/p mastectomy. 3. Acquired absence bilateral breasts. 4. Disproportion reconstructed breasts. 5. Deformity reconstructed breasts. 6. Late effect radiation left breast. 7. Soft tissue radionecrosis left breast. 8. Estrogen receptor positive status. 9. Family history of breast cancer. 10. s/p revision left breast reconstruction with excision radiation fibrosis scar contour deformity and multiple W-plasty (18 cm2) and second stage delayed left breast reconstruction with bipedicled TRAM flap and complex abdominal wall reconstruction with repair of fascial defects with components separation technique using bilateral external oblique myofascial advancement flaps and placement MTF FlexHD acellular dermal matrix graft (320 cm2) and saline injection 300 ml into tissue concrete finisher right breast reconstruction (650 ml concrete finisher). 11. Anemia of chronic disease, acute on chronic, stable after PRBC. 12. Early UTI. Patient had a Tmax of 100 early this morning. Now she is afebrile. CXR showed no acute cardiopulmonary disease process. Urinalysis showed some WBC and no Bacteria. Urine Culture is pending. She will be discharged on Levaquin. A positive culture may necessitate antibiotic modification. Will recheck a Urinalysis as an outpatient. Continue Lasix daily to help with the edema. Her positive I's/O's are slowly decreasing. Her K was 3.8. Will recheck her K while on Lasix as an outpatient. Pain is reasonably controlled. Tolerating po analgesia. Breast incision dry and intact. Flap is pink and soft and viable laterally. The medial flap is soft and is a little more pink since applying Nitropaste to the medial aspect of the flap as long as SBP < 110. Minor bruising is seen at some areas of the suture line probably from suture manipulation during closure. Some bruising is seen inferiorly in the inframammary fold. The abdominal binder had been pushing on the inframammary fold area. It is a four panel binder. I cut one of the panels to make it less likely to ride up and put undue compression on the inframammary fold area. Will observe. No clinical evidence of hematoma. Abdominal incision dry and intact. No clinical evidence of hematoma. Mild swelling noted in the pubic area which is not unexpected since this area is the most dependent. Hgb had slight increase from 10.5 to 10.9. Had received PRBC earlier in her hospital stay. Has anemia of chronic disease, acute on chronic, which is stable. There is no clinical evidence of hematoma. There was 150 ml blood loss during surgery. Most of her decrease is from IV dilution as her I's/O's are positive about 5 liters and is slowly decreasing. She will continue Iron supplementation as an outpatient. Prealbumin is 18.7. Encourage nutritional supplementation with protein to help the healing process. She is more steady on her feet with ambulation. Discharge home today. Wrote scripts for Levaquin and for Acidophilus. Wrote scripts for Percocet for pain (50 tabs) and for Valium for spasm (30 tabs). Wrote scripts for Phenergan for nausea (30 tabs) and a refill and for Colace for constipation (60 tabs). Wrote script for Lasix, 20mg, for 14 days. Wrote script for Iron supplementation (30 tabs) and 2 refills. Followup office Wednesday06/10/18. Will discuss postop HBO treatments at [facility] because of her radiation damage.
--- NOTE | 2018-06-07 17:53 | PCM.DC ---
You will use the following diet at home:: Other - No caffeine, No decaf, No tea, No chocolate diet for 6 weeks. Discharge Activity: May not drive while taking narcotic pain medications., May Not Shower - until the drains are removed. May shower in (days): 14 - may shower after the drains are removed. May resume sexual activity in: 10-14 days Weight Bearing Status: Weight bearing as tolerated Lifting Restrictions: 20 lbs. Keep extremity elevated above heart level: Legs, - - elevate head and elevate legs when sitting. Additional Activity Instructions:: Minimize standing around. When you get to your destination, please sit and elevate your legs. Call your doctor if your incision/area has: Continuous Slow Oozing, Sudden Increased Bleeding, Increased Pain/ Swelling, Increased Redness, Foul Smelling Discharge, Swelling at the incision site, - - skin turns black. Call your doctor if you observe: Fever of 101 or Higher, Coldness, Increased Pain, Shortness of breath, Chest pain, Uncontrolled pain Suture Line Care: - - dry dressings daily. apply small 2x2 gauze into umbilicus area after first wiping out any moisture with a cotton tipped applicator. Change Dressing in (Days):: 1 - dry dressings daily. Cleanse incision/area with: - - may get incisions wet in the shower after the drains are removed. Drain: Suction - sheridan drain x4 to bulb suction. empty and record output daily. Additional Dressing/Incision Instructions:: Wear abdominal binder. wear ligia wrap around the breasts. Allergies/Adverse Reactions: Allergies lisinopril Allergy (Severe, Verified 05/26/18 16:25) tongue and face swelling Penicillins Allergy (Verified 05/26/18 16:25) Anaphylaxis Medications to take at Discharge Loratadine [Claritin] 10 mg PO DAILY 08/22/15 acyclovir 200 mg capsule 200 mg PO QDAY cap 07/03/17 anastrozole 1 mg tablet 1 mg PO QDAY 07/03/17 venlafaxine ER 37.5 mg capsule,extended release 24 hr 37.5 mg PO BID cap 07/03/17 fluticasone 100 mcg-vilanterol 25 mcg/dose powder for inhalation 1 puff INHALATION DAILY 07/06/17 calcium carbonate 500 mg (1,250 mg)-vitamin D3 200 unit tablet 1 tab PO BID 01/13/18 metoprolol succinate ER 25 mg tablet,extended release 24 hr 25 mg PO DAILY tab 01/13/18 potassium chloride ER 20 mEq tablet,extended release 20 meq PO QDAY PRN 01/13/18 losartan 25 mg tablet 25 mg PO QDAY tab 01/14/18 alendronate 70 mg tablet 70 mg PO QWEEK 03/28/18 atorvastatin 20 mg tablet 40 mg PO DAILY tab 03/28/18 clopidogrel 75 mg tablet 75 mg PO DAILY 03/28/18 Albuterol Aerosols [Ventolin Aerosols] 2.5 mg INHALATION Q6HWA.RT PRN 05/26/18 Albuterol Inhaler [Ventolin Hfa] 1 puff INHALATION Q6H PRN PRN 05/26/18 Albuterol Aerosols [Ventolin Aerosols] 2.5 mg INHALATION Q6HWA.RT vial.neb. 06/07/18 Diazepam [Valium] 5 mg PO 4X/DAY PRN PRN #30 tab 06/07/18 Docusate Sodium [Colace] 100 mg PO BID #60 cap 06/07/18 Furosemide [Lasix] 20 mg PO QDAY PRN #14 tab 06/07/18 Iron Polysaccharide Complex [Ferrex 150] 150 mg PO DAILYCM #30 cap 06/07/18 Lactobacillus Acidophilus/Fos [Acidophilus Probiotic Tablet] 1 ea PO BID #60 tab 06/07/18 Oxycodone HCl/Acetaminophen [Oxycodone-Acetaminophen 5-325] 1 - 2 tab PO 4X/DAY PRN 7 Days #50 tab 06/07/18 levoFLOXacin tablet [Levaquin tablet] 500 mg PO DAILY #21 tab 06/07/18 proMETHazine tablet [Phenergan tablet] 25 mg PO 4X/DAY PRN PRN #30 tab 06/07/18 The following prescriptions were given: Diazepam [Valium] 5 mg PO 4X/DAY PRN PRN #30 tab PRN Reason: Spasms Furosemide [Lasix] 20 mg PO QDAY PRN #14 tab PRN Reason: edema Iron Polysaccharide Complex [Ferrex 150] 150 mg PO DAILYCM #30 cap levoFLOXacin tablet [Levaquin tablet] 500 mg PO DAILY #21 tab proMETHazine tablet [Phenergan tablet] 25 mg PO 4X/DAY PRN PRN #30 tab PRN Reason: NAUSEA/VOMITING Docusate Sodium [Colace] 100 mg PO BID #60 cap Lactobacillus Acidophilus/Fos [Acidophilus Probiotic Tablet] 1 ea PO BID #60 tab Oxycodone HCl/Acetaminophen [Oxycodone-Acetaminophen 5-325] 1 - 2 tab PO 4X/DAY PRN 7 Days #50 tab PRN Reason: pain Orders to be completed after discharge: Potassium Time Frame: 2 Weeks, [facility], Complete Time Frame: 1 Week, Facility: [facility], Location: [facility], [place] Primary Care Physician: Nevaeh Hawkins DO [Primary Care Provider] - Test Results: Test results from this visit will be discussed in further detail at your follow-up appointment, if applicable. Please Follow Up With: Jann Murillo MD When: wednesday06/10/18. call [phone] for appt. Please Follow Up With: Jann Murillo MD When: one week at wound center to discuss HBO. Proposed Discharge Date: 06/07/18
--- NOTE | 2018-06-07 17:57 | DCINST_ITS ---
You will use the following diet at home:: Other - No caffeine, No decaf, No tea, No chocolate diet for 6 weeks. Discharge Activity: May not drive while taking narcotic pain medications., May Not Shower - until the drains are removed. May shower in (days): 14 - may shower after the drains are removed. May resume sexual activity in: 10-14 days Weight Bearing Status: Weight bearing as tolerated Lifting Restrictions: 20 lbs. Keep extremity elevated above heart level: Legs, - - elevate head and elevate legs when sitting. Additional Activity Instructions:: Minimize standing around. When you get to your destination, please sit and elevate your legs. Call your doctor if your incision/area has: Continuous Slow Oozing, Sudden Increased Bleeding, Increased Pain/ Swelling, Increased Redness, Foul Smelling Discharge, Swelling at the incision site, - - skin turns black. Call your doctor if you observe: Fever of 101 or Higher, Coldness, Increased Pain, Shortness of breath, Chest pain, Uncontrolled pain Suture Line Care: - - dry dressings daily. apply small 2x2 gauze into umbilicus area after first wiping out any moisture with a cotton tipped applicator. Change Dressing in (Days):: 1 - dry dressings daily. Cleanse incision/area with: - - may get incisions wet in the shower after the drains are removed. Drain: Suction - sheridan drain x4 to bulb suction. empty and record output daily. Additional Dressing/Incision Instructions:: Wear abdominal binder. wear ligia wrap around the breasts. Allergies/Adverse Reactions: Allergies lisinopril Allergy (Severe, Verified 05/26/18 16:25) tongue and face swelling Penicillins Allergy (Verified 05/26/18 16:25) Anaphylaxis Medications to take at Discharge Loratadine [Claritin] 10 mg PO DAILY 08/22/15 acyclovir 200 mg capsule 200 mg PO QDAY cap 07/03/17 anastrozole 1 mg tablet 1 mg PO QDAY 07/03/17 venlafaxine ER 37.5 mg capsule,extended release 24 hr 37.5 mg PO BID cap 07/03/17 fluticasone 100 mcg-vilanterol 25 mcg/dose powder for inhalation 1 puff INHALATION DAILY 07/06/17 calcium carbonate 500 mg (1,250 mg)-vitamin D3 200 unit tablet 1 tab PO BID 01/13/18 metoprolol succinate ER 25 mg tablet,extended release 24 hr 25 mg PO DAILY tab 01/13/18 potassium chloride ER 20 mEq tablet,extended release 20 meq PO QDAY PRN 01/13/18 losartan 25 mg tablet 25 mg PO QDAY tab 01/14/18 alendronate 70 mg tablet 70 mg PO QWEEK 03/28/18 atorvastatin 20 mg tablet 40 mg PO DAILY tab 03/28/18 clopidogrel 75 mg tablet 75 mg PO DAILY 03/28/18 Albuterol Aerosols [Ventolin Aerosols] 2.5 mg INHALATION Q6HWA.RT PRN 05/26/18 Albuterol Inhaler [Ventolin Hfa] 1 puff INHALATION Q6H PRN PRN 05/26/18 Albuterol Aerosols [Ventolin Aerosols] 2.5 mg INHALATION Q6HWA.RT vial.neb. 06/07/18 Diazepam [Valium] 5 mg PO 4X/DAY PRN PRN #30 tab 06/07/18 Docusate Sodium [Colace] 100 mg PO BID #60 cap 06/07/18 Furosemide [Lasix] 20 mg PO QDAY PRN #14 tab 06/07/18 Iron Polysaccharide Complex [Ferrex 150] 150 mg PO DAILYCM #30 cap 06/07/18 Lactobacillus Acidophilus/Fos [Acidophilus Probiotic Tablet] 1 ea PO BID #60 tab 06/07/18 Oxycodone HCl/Acetaminophen [Oxycodone-Acetaminophen 5-325] 1 - 2 tab PO 4X/DAY PRN 7 Days #50 tab 06/07/18 levoFLOXacin tablet [Levaquin tablet] 500 mg PO DAILY #21 tab 06/07/18 proMETHazine tablet [Phenergan tablet] 25 mg PO 4X/DAY PRN PRN #30 tab 06/07/18 The following prescriptions were given: Diazepam [Valium] 5 mg PO 4X/DAY PRN PRN #30 tab PRN Reason: Spasms Furosemide [Lasix] 20 mg PO QDAY PRN #14 tab PRN Reason: edema Iron Polysaccharide Complex [Ferrex 150] 150 mg PO DAILYCM #30 cap levoFLOXacin tablet [Levaquin tablet] 500 mg PO DAILY #21 tab proMETHazine tablet [Phenergan tablet] 25 mg PO 4X/DAY PRN PRN #30 tab PRN Reason: NAUSEA/VOMITING Docusate Sodium [Colace] 100 mg PO BID #60 cap Lactobacillus Acidophilus/Fos [Acidophilus Probiotic Tablet] 1 ea PO BID #60 tab Oxycodone HCl/Acetaminophen [Oxycodone-Acetaminophen 5-325] 1 - 2 tab PO 4X/DAY PRN 7 Days #50 tab PRN Reason: pain Orders to be completed after discharge: Potassium Time Frame: 2 Weeks, [facility], Complete Time Frame: 1 Week, Facility: [facility], Location: [facility], [place] Primary Care Physician: Nevaeh Hawkins DO [Primary Care Provider] - Test Results: Test results from this visit will be discussed in further detail at your follow- up appointment, if applicable. Please Follow Up With: Jann Murillo MD When: wednesday06/10/18. call [phone] for appt. Please Follow Up With: Jann Murillo MD When: one week at wound center to discuss HBO. Proposed Discharge Date: 06/07/18
--- NOTE | 2018-06-07 18:07 | PCM.DC.SUM ---
Discharge Date and Diagnosis Date of Admission: 05/31/18 Date of Discharge: 06/07/18 - Primary Discharge Diagnosis Invasive ductal carcinoma left breast, s/p mastectomy. Ductal carcinoma in situ right breast, s/p mastectomy. Acquired absence bilateral breasts. Disproportion reconstructed breasts. Deformity reconstructed breasts. Late effect radiation left breast. Anemia of chronic disease, acute on chronic, stable after PRBC. Early UTI. - Secondary Discharge Diagnosis Hypertension Hyperlipidemia Acute systolic congestive heart failure Bilateral pleural effusion Cardiomyopathy in diseases classified elsewhere Estrogen receptor positive status (ER+) Family history of breast cancer Soft tissue radionecrosis left breast. Hospital Course and Treatment Imaging Results: Venous Duplex US, Unilateral 06/03/18 08:13 Deep veins of the right upper extremity are patent and compressible segmentally. There is no evidence of deep vein thrombosis. The superficial veins of the right upper extremity, the basilic and cephalic veins, are patent and compressible. There is no evidence of right upper extremity superficial thrombophlebitis involving the veins imaged. The right ulnar vein is small, but appears to be patent. Chest X-Ray 06/07/18 15:00 IMPRESSION: No acute cardiopulmonary disease process seen. Electronically Signed: Jesse Reynoso MD at 16:11 EDT , Service support , CONSULTATIONS None. Operations: - - 05/31/18 - 1. Revision left breast reconstruction with excision radiation fibrosis scar contour deformity and multiple W-plasty (18 cm2). 2. Second stage delayed left breast reconstruction with bipedicled TRAM flap. 3. Complex abdominal wall reconstruction with repair of fascial defects with components separation technique using bilateral external oblique myofascial advancement flaps and placement MTF FlexHD acellular dermal matrix graft (320 cm2). 4. Saline injection 300 ml into tissue pediatric immunologist right breast reconstruction (650 ml pediatric immunologist). Description of Surgical Findings:: Procedures: Blood transfusion Summary of Care Provided: 57 year old female who presents for evaluation for breast reconstruction. She developed left breast cancer in July 2015. She underwent bilateral mastectomies in August 2015 with a prophylactic one on the right. Pathology showed invasive ductal carcinoma left breast with positive lymph nodes and focal angiolymphatic invasion noted. 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 She then proceeded with chemotherapy and radiation therapy for the left breast cancer. At present, she denies fever. She denies breast pain. She is currently taking Anastrozole. She was taken to surgery on 05/31/18 where she underwent first stage delayed left breast reconstruction with bipedicled TRAM flap delay and first stage delayed right breast reconstruction with placement of submuscular saline tissue pediatric immunologist (650 ml). Patient tolerated the procedure well. She was treated with Cleocin perioperatively. The first postop day she dangled at the bedside and tolerated that. Her Prealbumin was 18.7. Encouraged nutritional supplementation with protein to help the healing process. The next day she was able to ambulate with assist. She was unsteady on her feet initially. With the ambulation the baker was removed. Initially the flap was pink and soft and viable. The abdominal incision was dry and intact. On the second postop day, there was some minor bruising seen at some areas of the suture line probably from suture manipulation during closure. On the third postop day, there was increased swelling in the right upper extremity. A venous duplex scan was done which was negative for DVT. With her increased edema, her I's/O's were positive 5 liters, Lasix was started. Her Potassium was stable during her hospital stay and it was 3.8 at discharge. Will repeat The flap was pink and soft and viable laterally. The medial flap is soft and a little less pink. Nitropaste was applied to the medial aspect of the flap to try and improve blood flow in the skin perforators. Her Hgb was 9.8 postop and decreased to 7.7 on the fourth postop day. She was given PRBC. Her Hgb increased to 10.5 and then increased to 10.9 at discharge. She was started on Iron supplementation and will continue them as an outpatient. On the 7th postop day early in the morning, her Temp increased to 100. Her WBC was normal throughout her postop course. CXR was done which showed no acute cardiopulmonary disease process. Urinalysis was done which showed some WBC and no Bacteria, an early UTI. Her antibiotics were changed to Levaquin. The Urine Culture was pending at discharge. A positive culture may necessitate antibiotic modification. Will repeat a Urinalysis as an outpatient. After her temp of 100 early in the morning, she was afebrile the rest of the day. She is more steady on her feet with ambulation and was discharged home. At discharge, the flap was pink and soft and viable laterally. The medial flap was soft and was a little more pink since applying Nitropaste to the medial aspect of the flap. Minor bruising was seen at some areas of the suture line probably from suture manipulation during closure. Some bruising was seen inferiorly in the inframammary fold. The abdominal binder had been pushing on the inframammary fold area. It is a four panel binder. I cut one of the panels to make it less likely to ride up and put undue compression on the inframammary fold area. Will observe. No clinical evidence of hematoma. Abdominal incision dry and intact. No clinical evidence of hematoma. Mild swelling noted in the pubic area which is not unexpected since this area is the most dependent. She will keep her head elevated at home with a lifting restriction. Will continue the SIRISHA wrap for breast compression and the abdominal binder. She will elevate her legs when sitting. She will continue her diet with no caffeine, no decaf, no tea, and no chocolate. Will remove her drains in the office. Wrote scripts for Levaquin and for Acidophilus. Wrote scripts for Percocet for pain (50 tabs) and for Valium for spasm (30 tabs). Wrote scripts for Phenergan for nausea (30 tabs) and a refill and for Colace for constipation (60 tabs). Wrote script for Lasix, 20mg, for 14 days. Wrote script for Iron supplementation (30 tabs) and 2 refills. Followup office Wednesday06/10/18. Will discuss postop HBO treatments at the [facility] because of her radiation damage. - Physical Exam General: Alert, Oriented x3 HEENT: PERRLA, EOMI Oral: Moist Mucosa Neck: Supple Lungs: Clear to auscultation Cardiovascular: Regular rate, Regular Rhythm Abdomen: Soft, Non-Distended Skin: Incision - Breast incision dry and intact. Flap is pink and soft and viable laterally. The medial flap is soft and is a little more pink since applying Nitropaste to the medial aspect of the flap. Minor bruising is seen at some areas of the suture line probably from suture manipulation during closure. Some bruising is seen inferiorly in the inframammary fold. The abdominal binder had been pushing on the inframammary fold area. It is a four panel binder. I cut one of the panels to make it less likely to ride up and put undue compression on the inframammary fold area. Will observe. No clinical evidence of hematoma. Abdominal incision dry and intact. No clinical evidence of hematoma. Mild swelling in pubic area. Umbilicus is viable. Neurological: Cranial nerves II-XII grossly intact Psych/Mental Status: Normal Affect, Appropriate Vital Signs Temp Pulse Resp BP Pulse Ox 98.3 F 120 H 18 109/68 95 06/07/18 16:55 06/07/18 16:55 06/07/18 16:55 06/07/18 16:55 06/07/18 16:55 Oxygen Flow Rate (L/min) 1 Oxygen Delivery Method Room Air Weight: 141 lb 3 oz Body Mass Index (BMI) 35.3 Intake and Output for Last 24 Hours 06/05/18 06/06/18 06/07/18 23:59 23:59 23:59 Intake Total 2157 / 2157 880 / 880 1235 / 1235 Output Total 1551 / 1551 898 / 898 979 / 979 Balance 606 / 606 -18 / -18 256 / 256 Laboratory Tests Past 24 Hrs 06/07/18 06/07/18 06/07/18 08:30 08:30 10:15 WBC 8.8 RBC 3.75 L Hgb 10.9 L Hct 33.7 L MCV 89.9 MCH 29.1 MCHC 32.3 RDW 14.9 H RDW Differential 48.6 H Plt Count 292 MPV 10.3 Sodium 137 Potassium 3.8 Chloride 102 Carbon Dioxide 29.0 Anion Gap 6 BUN 18 Creatinine 0.58 Estim Creat Clear Calc 108.19 Est GFR (MDRD) Af Amer 137 Est GFR (MDRD) Non-Af 113 BUN/Creatinine Ratio 30.9 H Glucose 122 H Calcium 9.2 Urine Color Yellow Urine Clarity Clear Urine pH 6.0 Ur Specific Bagley 1.015 Urine Protein 30 H Urine Glucose (UA) Normal Urine Ketones 5 H Urine Occult Blood 25 H Urine Nitrite Negative Urine Bilirubin Negative Urine Urobilinogen Normal Ur Leukocyte Esterase 100 H Urine RBC 0 SEEN Urine WBC 5-10 SEEN Ur Squamous Epith Cells 0 SEEN Amorphous Sediment 1+ Urine Bacteria 0 SEEN Urine Mucus 0 SEEN Discharge Diet: - - No caffeine, No decaf, No tea, No chocolate diet for 6 weeks. Discharge Activity: May not drive while taking narcotic pain medications., May Not Shower - until the drains are removed. May shower in (days): 14 - may shower after the drains are removed. May resume sexual activity in: 10-14 days Weight Bearing Status: Weight bearing as tolerated Keep extremity elevated above heart level: Legs, - - elevate head and elevate legs when sitting. Additional Activity Instructions:: Minimize standing around. When you get to your destination, please sit and elevate your legs. Call your doctor if your incision/area has: Continuous Slow Oozing, Sudden Increased Bleeding, Increased Pain/ Swelling, Increased Redness, Foul Smelling Discharge, Swelling at the incision site, - - skin turns black. Call your doctor if you observe: Fever of 101 or Higher, Coldness, Increased Pain, Shortness of breath, Chest pain, Uncontrolled pain Suture Line Care: - - dry dressings daily. apply small 2x2 gauze into umbilicus area after first wiping out any moisture with a cotton tipped applicator. Change Dressing in (Days):: 1 - dry dressings daily. Cleanse incision/area with: - - may get incisions wet in the shower after the drains are removed. Drain: Suction - sheridan drain x4 to bulb suction. empty and record output daily. Additional Dressing/Incision Instructions:: Wear abdominal binder. wear sirisha wrap around the breasts. Home Medications: Medications to take at Discharge Loratadine [Claritin] 10 mg PO DAILY 08/22/15 acyclovir 200 mg capsule 200 mg PO QDAY cap 07/03/17 anastrozole 1 mg tablet 1 mg PO QDAY 07/03/17 venlafaxine ER 37.5 mg capsule,extended release 24 hr 37.5 mg PO BID cap 07/03/17 fluticasone furoate 100 mcg-vilanterol 25 mcg/dose inhalation powder 1 puff INHALATION DAILY 07/06/17 calcium carbonate 500 mg (1,250 mg)-vitamin D3 200 unit tablet 1 tab PO BID 01/13/18 metoprolol succinate ER 25 mg tablet,extended release 24 hr 25 mg PO DAILY tab 01/13/18 potassium chloride ER 20 mEq tablet,extended release 20 meq PO QDAY PRN 01/13/18 losartan 25 mg tablet 25 mg PO QDAY tab 01/14/18 alendronate 70 mg tablet 70 mg PO QWEEK 03/28/18 atorvastatin 20 mg tablet 40 mg PO DAILY tab 03/28/18 clopidogrel 75 mg tablet 75 mg PO DAILY 03/28/18 Albuterol Aerosols [Ventolin Aerosols] 2.5 mg INHALATION Q6HWA.RT PRN 05/26/18 Albuterol Inhaler [Ventolin Hfa] 1 puff INHALATION Q6H PRN PRN 05/26/18 Albuterol Aerosols [Ventolin Aerosols] 2.5 mg INHALATION Q6HWA.RT vial.neb. 06/07/18 Diazepam [Valium] 5 mg PO 4X/DAY PRN PRN #30 tab 06/07/18 Docusate Sodium [Colace] 100 mg PO BID #60 cap 06/07/18 Furosemide [Lasix] 20 mg PO QDAY PRN #14 tab 06/07/18 Iron Polysaccharide Complex [Ferrex 150] 150 mg PO DAILYCM #30 cap 06/07/18 Lactobacillus Acidophilus/Fos [Acidophilus Probiotic Tablet] 1 ea PO BID #60 tab 06/07/18 Oxycodone HCl/Acetaminophen [Oxycodone-Acetaminophen 5-325] 1 - 2 tab PO 4X/DAY PRN 7 Days #50 tab 06/07/18 levoFLOXacin tablet [Levaquin tablet] 500 mg PO DAILY #21 tab 06/07/18 proMETHazine tablet [Phenergan tablet] 25 mg PO 4X/DAY PRN PRN #30 tab 06/07/18 doxycycline monohydrate 100 mg capsule 100 mg PO BID #60 cap 06/09/18 Following Prescrptions Were Given to Patient: Diazepam [Valium] 5 mg PO 4X/DAY PRN PRN #30 tab PRN Reason: Spasms Furosemide [Lasix] 20 mg PO QDAY PRN #14 tab PRN Reason: edema Iron Polysaccharide Complex [Ferrex 150] 150 mg PO DAILYCM #30 cap levoFLOXacin tablet [Levaquin tablet] 500 mg PO DAILY #21 tab proMETHazine tablet [Phenergan tablet] 25 mg PO 4X/DAY PRN PRN #30 tab PRN Reason: NAUSEA/VOMITING Docusate Sodium [Colace] 100 mg PO BID #60 cap Lactobacillus Acidophilus/Fos [Acidophilus Probiotic Tablet] 1 ea PO BID #60 tab Oxycodone HCl/Acetaminophen [Oxycodone-Acetaminophen 5-325] 1 - 2 tab PO 4X/DAY PRN 7 Days #50 tab PRN Reason: pain Other Amb Orders: Potassium Time Frame: 2 Weeks, [facility], Complete Time Frame: 1 Week, Facility: [facility], Location: Laboratory, [place] Primary Care Physician: Nevaeh Hawkins DO [Primary Care Provider] - Please Follow Up With: Jann Murillo MD When: wednesday06/10/18. call [phone] for appt. Please Follow Up With: Jann Murillo MD When: one week at wound center to discuss HBO. Disposition: Home Minutes spent on discharge:: 35 Patient Condition:: Stable Medical Necessity - Tobacco Use Smoking Status: Never smoker Tobacco Use: Non-smoker Meaningful Use Info Meaningful Use Diagnoses (Choose all that apply): None applicable
--- NOTE | 2018-06-08 13:44 | CASEMGMT ---
SHERRON SOLARES Discharge Follow-Up Phone Call. Zulema: Tracey Strata: 3 Discharge Date: 06/07/18 Adm Dx: Breast CA reconstruction. Call placed to pt to inquire about how she has been doing since she was discharged from the hospital. Pt states she's a little slow getting to where I need to go, but I'm handling it. She states she was able to get all of her prescriptions and denies having any questions about the discharge instructions or medications. She stated she did have a questions about a cream and if she should apply it, but that she has already called in to Dr Murillo's office and spoke with the nurse. She states she has no further questions. She has an appt with Dr Murillo on Wednesday @ 2 PM. Inquired if pt has any recommendations for [facility] and she stated, No, I was treated very well. I couldn't have asked for anything better. SHERRON SOLARES thanked pt for choosing [facility]. Angelia ODELL RN, CM
== END 2018-06-07 18:37 | disposition home or self-care (01) | DRG 363 ==
PROVIDERS: Admitting Provider Surgery; Referring Provider Surgery; Visit Provider Surgery
PROC: 0KXL0Z6 Transfer Left Abdomen Muscle, Transverse Rectus Abdominis Myocutaneous Flap, Open Approach (ICD-10-PCS; principal; 2018-05-31 07:30)
DX: N65.0 Deformity of reconstructed breast (principal); N65.1 Disproportion of reconstructed breast; Y84.2 Radiological procedure and radiotherapy as the cause of abnormal reaction of the patient, or of later complication, without mention of misadventure at the time of the procedure; L59.8 Other specified disorders of the skin and subcutaneous tissue related to radiation; C50.912 Malignant neoplasm of unspecified site of left female breast; Z17.0 Estrogen receptor positive status [ER+]; D05.11 Intraductal carcinoma in situ of right breast; Z79.811 Long term (current) use of aromatase inhibitors; Z80.3 Family history of malignant neoplasm of breast; I42.9 Cardiomyopathy, unspecified; D63.8 Anemia in other chronic diseases classified elsewhere; G89.29 Other chronic pain; M54.9 Dorsalgia, unspecified; N39.0 Urinary tract infection, site not specified; E78.5 Hyperlipidemia, unspecified; I10 Essential (primary) hypertension
CPT/HCPCS: 36415; 71046; 80048; 81001; 84134; 85027; 86850; 86900; 86920; 86922; 87077; 87086; 87088; 87186; 88304; 88305; 93971; 94640; 94762; J7120; P9016; A4216; J2405; J2930; J3475; J3490; Q9968

== ENCOUNTER → 2018-06-16 19:17 | Outpatient (CLI) | payer MEDICAID, SELFPAY ==
[2018-06-16 16:07] VITALS: BMI 35.3
== END ==
PROVIDERS: Referring Provider Surgery; Visit Provider Surgery
DX: C50.912 Malignant neoplasm of unspecified site of left female breast (principal); T81.89XA Other complications of procedures, not elsewhere classified, initial encounter; T66.XXXS Radiation sickness, unspecified, sequela; T86.828 Other complications of skin graft (allograft) (autograft)
CPT/HCPCS: 87070; 87075; 87077; 87186; 87205

== ENCOUNTER 2018-06-21 15:23 | Inpatient (IN) | payer MEDICAID, SELFPAY ==
[2018-06-20 16:58] VITALS: BMI 35.3
[2018-06-21] VITALS (11 sets, daily range): BP systolic 97–129; BP diastolic 37–70; PULSE 108–124; RESP 16–20; TEMP 36.3–37.1; O2SAT 94–100; BMI 24.6
--- NOTE | 2018-06-21 12:13 | HP.PCM_ITS ---
History and Physical Date of Admission: 06/21/18 HISTORY OF PRESENT ILLNESS 57 year old female initially presented for her delayed bilateral breast reconstruction on where she underwent first stage delayed left breast reconstruction with bipedicled TRAM flap delay and first stage delayed right breast reconstruction with placement of submuscular saline tissue donkey engine firer/fireman (650 ml). After waiting three weeks for the delay, she went back to surgery on 05/31/18 where she underwent revision left breast reconstruction with excision radiation fibrosis scar contour deformity and multiple W-plasty (18 cm2) and second stage delayed left breast reconstruction with bipedicled TRAM flap and complex abdominal wall reconstruction with repair of fascial defects with components separation technique using bilateral external oblique myofascial advancement flaps and placement MTF FlexHD acellular dermal matrix graft (320 cm2) and saline injection 300 ml into tissue donkey engine firer/fireman right breast reconstruction (650 ml donkey engine firer/fireman). She did well initially postop and was discharged from the hospital on 06/07/18. She states she was very tired postop and forgot some of the instructions that she was told such as using the abdominal binder and keeping her head elevated. About 2 weeks postop, she came to the office with some drainage from her abdominal incision and a small amount from her umbilical inicision. I opened up the central part of the incision where the drainage was in order to pack the wound easier. I started daily Saline Kerlix gauze dressing changes. Also reiterated the importance of the binder and keeping her head elevated. The wound stabilized as the swelling improved a little with the binder. However it was discussed with the patient that the rest of the incision would need to be opened up to get better control of the wound and to apply the VAC. The left breast reconstruction also developed some drainage issues as well. She had some bruising inferiorly on the flap at the inframammary fold possibly from the binder in the hospital riding up onto the breast and causing pressure on the inferior portion of the flap while in the hospital. The binder was then shortened which helped minimize the pressure problem. Some debridement of the inferior bruising was done in the office to help with wound care and control of the drainage. There was also a small area of eschar superiorly at the incision that also was debrided in the office to allow better control of the wound with packing. Saline gauze dressing was used for the breast packing as well as Silver dressing. Today when the abdominal wound has been opened up and stabilized, I will also debride the left breast reconstruction as well. She denies fever. At the time of the office debridements, wound cultures were done. The breast wound culture showed MRSE. The abdominal wound culture showed Corynebacterium amycolatum. At the time of the office debridement, she had been on Doxycycline for a hospital urine culture showing MRSE. Levaquin and Flagyl were added and are almost finished. PAST MEDICAL HISTORY Hypertension Hyperlipidemia Acute systolic congestive heart failure Bilateral pleural effusion Cardiomyopathy in diseases classified elsewhere Estrogen receptor positive status (ER+) Malignant neoplasm of left female breast Asthma Back problem Bone fracture GERD (gastroesophageal reflux disease) Hearing problem PAST SURGICAL HISTORY bilateral mastectomy first stage delayed left breast reconstruction with bipedicled TRAM flap delay and first stage delayed right breast reconstruction with placement of submuscular saline tissue donkey engine firer/fireman (650 ml) - 05/10/18 revision left breast reconstruction with excision radiation fibrosis scar contour deformity and multiple W-plasty (18 cm2) and second stage delayed left breast reconstruction with bipedicled TRAM flap and complex abdominal wall reconstruction with repair of fascial defects with components separation technique using bilateral external oblique myofascial advancement flaps and placement MTF FlexHD acellular dermal matrix graft (320 cm2) and saline injection 300 ml into tissue donkey engine firer/fireman right breast reconstruction (650 ml donkey engine firer/fireman) - 05/31/18 ALLERGIES lisinopril Penicillins MEDICATIONS Loratadine [Claritin] acyclovir albuterol sulfate anastrozole venlafaxine ER fluticasone-vilanterol calcium carbonate furosemide metoprolol succinate ER potassium chloride ER losartan alendronate atorvastatin clopidogrel Doxycycline Levaquin Flagyl FAMILY HISTORY Mother - Diabetes Sister - Breast cancer, Diabetes Sister - Cancer Other - Asthma SOCIAL HISTORY Smoking Status: Never smoker alcohol intake: never substance use type: does not use REVIEW OF SYSTEMS General - Denies fever, fatigue, and weight loss. Eyes - Denies cataracts and glaucoma. ENT - Denies nasal congestion. Has sore throat. Endocrine - Denies excessive thirst and urination. Has a history of left breast cancer with bilateral mastectomy 08/28. Has had chemotherapy and radiation therapy. Skin - Denies suspicious lesions and skin cancer. Musculoskeletal - Complains of joint pain, joint stiffness, weakness of muscles and joints, back pain. Denies arthritis. Neuro - Denies headaches. Cardiovascular - Denies chest pain, fatigue. Has a history of CHF, hypertension and hyperlipidemia. Has shortness of breath with activity. Psych - Denies anxiety and depression. Respiratory - Denies chronic cough. Has history of asthma and sleep apnea and shortness of breath. Gastrointestinal - Denies nausea, vomiting, diarrhea. Has a history of constipation and GERD. Hematologic - Has a history of easily bruising and bleeding easily. Is on Plavix. Genitourinary - Denies hematuria and urinary frequency. PHYSICAL EXAMINATION General - Alert and oriented. Bra size was 38 D prior to the mastectomies. HEENT - PERRL. EOMI. Throat is clear. Neck - Supple and non-tender. No cervical adenopathy. Breasts - Right breast incision healed. Left breast shows a TRAM flap with some compromise inferiorly and a small area superiorly, about 15% compromised. These areas of compromise were debrided in the office, and the wounds are stable with some residual skin edge eschar. Remaining breast flap is soft and pink and viable. Lungs- Clear to auscultation. Heart - Regular rate and rhythm. Abdomen - Soft and non distended. There is a nonhealing surgical wound on the lower abdominal wall TRAM donor incision in the central aspect. There is a small wound opening in the umbilicus as well. Serous drainage is noted on the dressing changes. Wounds are stable as the gauze dressing is absorbing the drainage thus keeping the surrounding skin dry. There is still draining seroma present. Extremities - FROM. No axillary adenopathy. Radial pulses are palpable. Neuro - CN II-XII grossly intact. Psych - Normal mood and affect. ASSESSMENT 1. Invasive ductal carcinoma left breast, s/p mastectomy. 2. Ductal carcinoma in situ right breast, s/p mastectomy. 3. Mild compromise left breast reconstruction TRAM flap wound(15%). 4. Nonhealing surgical wound lower abdominal wall TRAM donor incision. 5. Seroma abdominal wall. 6. MRSE. 7. Acquired absence bilateral breasts. 8. Disproportion reconstructed breasts. 9. Deformity reconstructed breasts. 10. Late effect radiation left breast. 11. Soft tissue radionecrosis left breast. 12. Estrogen receptor positive status. 13. Family history of breast cancer. PLAN The daily saline dressing changes and Silver dressing changes are stabilizing the wounds. But the wounds will not heal with continued seroma drainage. Recommend operative intervention with incision and drainage of the seroma. Doubt I will able to close the wound with a complex secondary wound closure because of the swelling and inflammation of the tissue. I don't think the sutures would hold in the inflamed tissue. The safer bet is to begin the wound care with the VAC. After the drainage has been controlled and the inflammation has subsided, may consider delayed secondary wound closure in the future. While under anesthesia, I will also debride the left breast reconstruction TRAM flap. Will then proceed with daily Silver dressing changes to the breast. Once the wounds are stabilized and the inflammation has subsided, may consider revision reconstructed breast with rotation of the TRAM flap and/or bringing in additional nonradiated tissue such as the latissimus dorsi flap. The wound culture showed MRSE and she has been on Doxycycline for that. Will treat her perioperatively with Vancomycin. Additional wound cultures will be obtained today. A positive culture may necessitate antibiotic modification. Patient was informed of the risks and complications of the procedure including alternatives to surgery. These were discussed with the patient personally. Patient voices understanding and wishes to proceed. Some of the risks and complications were included in a form from the [employer].
[2018-06-21] MEDS: Vancomycin IV 1,000 MG/200 ML BAG 200 MG IV (13:15)
--- NOTE | 2018-06-21 14:25 | BR_PTH ---
PATIENT: YULIYA KENDALL LOC: MS3 U#:[id number] AGE/SX: 57/F RO[facility]: [facility] RE[facility]/21/[address]: Dr. Jann Murillo MD : [id number] BED: 1 DIS: 06/24/2018 SPEC #: [id number] RECD: 06/22/18 07:17 STATUS: GATITO REMara #: [id number] KISHOR: 06/21/18 14:[address]: Jann Murillo DEPT: SURGICAL PATHOLOGY RECD BY: Rafael Grijalva ENTERED: 06/22/18 10:48 SP TYPE: MAMOPLASTY OTHR DR: Dr. 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 Abdominal wall seroma and tissue, B. Left breast tissue MICROSCOPIC DIAGNOSIS A. Tissue from abdominal wall seroma, biopsy: Fat necrosis, fibrosis and associated chronic and mild acute inflammation. Granulation and fibrinopurulent material. B. Left breast tissue, excision: Skin with ulceration and associated acute and chronic inflammation and granulation. Focal changes suggestive of microabscess formation. Fibrinopurulent material adherent to fibrous tissue. AM:peng 06/23/18 MICROSCOPIC DESCRIPTION Slides are reviewed. GROSS DESCRIPTION A - Received in fixative is one container labeled with the patient's name and designated abdominal wall seroma and tissue. The specimen consists of multiple irregular fragments of torres-white to light brown soft tissue that in aggregate measure 6 x 6 x 1.5 cm. No mass lesion is identified. Telegraph Service Clerk sections are submitted in two cassettes. B - Received in fixative is one container labeled with the patient's name and designated left breast tissue. The specimen consists of multiple pieces of skin and soft tissue that in aggregate measure 6 x 5 x 2 cm. The skin surface shows a focal area of ulceration with brownish-black surface. No mass lesion is identified. Telegraph Service Clerk sections are submitted in two cassettes. / SJ:peng 06/22/18 TC:2 CPT: 96038 x2
--- NOTE | 2018-06-21 15:22 | OP.PCM_ITS ---
Report of Operation Date of Procedure: 06/21/18 Pre-Operative Diagnosis: 1. Invasive ductal carcinoma left breast, s/p ma stectomy. 2. Ductal carcinoma in situ right breast, s/p mastectomy. 3. Mild compromise left breast reconstruction TRAM flap wound(15%). 4. Nonhealing surgical wound lower abdominal wall TRAM donor incision. 5. Seroma abdominal wall. 6. MRSE. 7. Acquired absence bilateral breasts. 8. Disproportion reconstructed breasts. 9. Deformity reconstructed breasts. 10. Late effect radiation left breast. 11. Soft tissue radionecrosis left breast. 12. Estrogen receptor positive status. 13. Family history of breast cancer. Post-Operative Diagnosis: Same. Surgery/Procedure Performed:: 1. Incision and drainage complex abdominal wall infected seroma. 2. Surgical preparation left breast with excisional debridement and revision reconstructed compromised TRAM flap wound infection (156 cm2). Description of Surgical Findings:: 57 year old female initially presented for her delayed bilateral breast reconstr uction on where she underwent first stage delayed left breast reconstruction with bipedicled TRAM flap delay and first stage delayed right breast reconstruction with placement of submuscular saline tissue licensed practical vocational nurse (650 ml). After waiting three weeks for the delay, she went back to surgery on 05/31/18 where she underwent revision left breast reconstruction with excision radiation fibrosis scar contour deformity and multiple W-plasty (18 cm2) and second stage delayed left breast reconstruction with bipedicled TRAM flap and complex abdominal wall reconstruction with repair of fascial defects with components separation technique using bilateral external oblique myofascial advancement flaps and placement MTF FlexHD acellular dermal matrix graft (320 cm2) and saline injection 300 ml into tissue licensed practical vocational nurse right breast reconstruction (650 ml licensed practical vocational nurse). She did well initially postop and was discharged from the hospital on 06/07/18. She states she was very tired postop and forgot some of the instructions that she was told such as using the abdominal binder and keeping her head elevated. About 2 weeks postop, she came to the office with some drainage from her abdominal incision and a small amount from her umbilical inicision. I opened up the central part of the incision where the drainage was in order to pack the wound easier. I started daily Saline Kerlix gauze dressing changes. Also reiterated the importance of the binder and keeping her head elevated. The wound stabilized as the swelling improved a little with the binder. However it was discussed with the patient that the rest of the incision would need to be opened up to get better control of the wound and to apply the VAC. The left breast reconstruction also developed some drainage issues as well. She had some bruising inferiorly on the flap at the inframammary fold possibly from the binder in the hospital riding up onto the breast and causing pressure on the inferior portion of the flap while in the hospital. The binder was then shortened which helped minimize the pressure problem. Some debridement of the inferior bruising was done in the office to help with wound care and control of the drainage. There was also a small area of eschar superiorly at the incision that also was debrided in the office to allow better control of the wound with packing. Saline gauze dressing was used for the breast packing as well as Silver dressing. Today when the abdominal wound has been opened up and stabilized, I will also debride the left breast reconstruction as well. She denies fever. At the time of the office debridements, wound cultures were done. The breast wound culture showed MRSE. The abdominal wound culture showed Corynebacterium amycolatum. At the time of the office debridement, she had been on Doxycycline for a hospital urine culture showing MRSE. Levaquin and Flagyl were added and are almost finished. Perioperatively will treat with Vancomycin along with Flagyl and Levaquin Patient was informed of the risks and complications of the procedure including alternatives to surgery. These were discussed with the patient personally. Patient voices understanding and wishes to proceed. Some of the risks and complications were included in a form from the [employer]. IV Fluids - 500 ml. Size of defect abdominal wall - 30 x 8 x 2 cm. Size of defect umbilical area - 2.5 x 1 x 2 cm. Size of defect left breast - 12 x 13 x 4 cm. supply chain technician: None Type of Anesthesia:: General Specimen's removed: 1. Abdominal wall tissue and infected seroma to Pathology and Microbiology. 2. Left breast reconstruction tissue to Pathology and Microbiology. Drains: None. Estimated Blood Loss (mL): 50 ml. Fluids Replaced: 500 ml IV Fluids. Description of Procedure: Patient was taken to OR in supine position and was placed under general anesthesia. The abdominal wall and left breast areas were prepped and draped in the usual fashion. SCD's were placed for DVT prophylaxis. Perioperative ant ibiotics were given intravenously. Using a scalpel I went through the abdominal wall incision to get access to the abdominal wall seroma. I also incised around the umbilicus as well. A lot of serous fluid was present. A lot of exudate was present. A lot of fat necrosis was noted laterally. Some of the fat necrosis was excised and debrided. Tissue was sent to Pathology for analysis and to Microbiology for culture. A positive culture may necessitate antibiotic modification. It was noted that most of the biologic graft was intact except for the central area inferior to the umbilicus. Either there was extra granulation tissue forming in the area secondary to the presence of the seroma or it was starting to breakdown secondary to the seroma fluid bathing the graft. Either way after the wound has stabilized and during a later breast reconstruction procedure, I anticipate increased weakness in this area or even a hernia and additional reinforcement with biologic graft would be necessary. In the meantime, the VAC and the abdominal binder will provide stability during the healing process. I then proceeded with revision of the reconstructed left breast with excision and debridement of the left breast wound of any residual areas of eschar. Using a curette the subcutaneous tissue was debrided and very good bleeding was noted. After the excision and debridement, the remaining TRAM flap (about 85%) was pink and soft and viable. Tissue that was debrided was sent to Pathology for analysis and to Microbiology for culture. A positive culture may necessitate antibiotic modification. The breast wound was irrigated with saline. Hemostasis was obtained with gentle pressure and mild electrocautery. The size of the abdominal wall wound was 30 x 8 x 2 cm. The size of the u mbilical wound was 2.5 x 1 x 2 cm. The size of the left breast wound was 12 x 13 x 4 cm. The wounds were dressed with Mepitel nonadherent dressing followed by Kerlix gauze and Betadine followed by dry Kerlix gauze and ABD pads for compression. SIRISHA wrap was applied for breast compression. An abdominal binder was applied. Patient tolerated the procedure well and was sent to PACU in satisfactory c ondition. Patient will be sent upstairs for continued postop care. The VAC will be applied tomorrow. With the presence of resistant Staph already, will plan on IV antibiotics after discharge. Will place a PICC line. Also after discharge, will have her evaluated for HBO treatments for radiation soft tissue radionecrosis. Grafts/Implants Used: None. - Complications None. - Admit VTE Documentation VTE Present on Admission: No VTE Mechan Device Prophylaxis: SCD's VTE Pharm Prophylaxis ordered?: Yes Code Visit Surgery Charges CPT - 77758 ICD-10 - C50.912, T86.828, T66.xxxS, L59.8, N65.0, N65.1, Z90.13, Z80.3, Z17.0 78345 C50.912, T81.89xA, T66.xxxS, L59.8, N65.0, N65.1, Z90.13, Z80.3, Z17.0
[2018-06-21] MEDS: Calcium Carb/Vitamin D 1 TABLET Tablet PO (18:41)
[2018-06-21] MEDS: Metoprolol(XL)Succ 25 MG Tablet PO (18:42)
[2018-06-21] MEDS: Budesonide Respules 0.5 MG/2 ML AMPUL.NEB. INHALATION (18:48)
[2018-06-21] MEDS: Albuterol 2.5 MG/3 ML VIAL.NEB. INHALATION (18:48)
[2018-06-21 19:42] LABS: Bacteria 0 SEEN /hpf (None Seen); Mucous, Urine 0 SEEN /hpf (<or=2+); Red Blood Cells-Urine 0 SEEN /hpf (0-5)
[2018-06-21 19:49] LABS: Color, Urine Yellow (Yellow); Glucose, Dipstick 50 mg/dl (Normal); Ketone-Dipstick Negative (Negative); Leukocyte Esterase-Dipstick 25 /ul (Negative); Nitrite-Dipstick Negative (Negative); Occult Blood-Urine 10 /ul (Negative); Protein-Dipstick 30 mg/dl (Negative); Urine Bilirubin Dipstick Negative (Negative); Urine Clarity Clear (Clear); Urine Urobilinogen Normal (Normal)
[2018-06-21 19:51] LABS: Squamous Epithelial Cells - UA 0-5 SEEN /hpf (5-10); White Blood Cells 0-5 SEEN /hpf (0-5)
[2018-06-21 19:52] LABS: Red Cell Cast 0-5 SEEN /lpf (None Seen)
--- NOTE | 2018-06-21 20:52 | PCM.RX.CS ---
Consult Pharmacy has been consulted to manage selected antiobiotic: Vancomycin Type of Consult: New start Suspected Infection: Skin/Soft tissue Prior Doses of Antibiotics Received/Current Regimen: Vancomycin 1000mg IV x1 preop 06/21/18 at 1315 Weight used for dosin kg Estimated Creatinine Clearance: 108ml/min Goal Trough: 10-15 mcg/mL Pharmacy Plan for Drug Dosin57 year old F receiving Vancomycin for MRSE + wound/surgery. Pt did receive Vancomycin 1gm preop on 06/21/18. Goal trough for the pt is 10-15. Initial dosing recommendation is for Vancomycin 1gm IV q12h starting 06/22/18 at 0100. A trough will be drawn before the 4th dose on 06/23/18. SrCr and CrCl were calculate using lab values from 14 days prior (06/07/18). Pharmacy Service will continue to monitor and adjust dosing as required. Follow-Up Labs: Trough Vancomycin - 06/23/18 at 0030
[2018-06-21] MEDS: metroNIDAZOLE 500 MG Tablet PO (22:44)
[2018-06-21] MEDS: Docusate Sodium 100 MG Capsule PO (22:44)
[2018-06-21] MEDS: Venlafaxine HCl 75 MG Tablet 37.5 MG PO (22:45)
[2018-06-21] MEDS: Losartan Potassium 25 MG Tablet PO (23:33)
[2018-06-21] MEDS: oxyCODONE 5 MG Tablet 10 MG PO (23:33)
[2018-06-22] VITALS (22 sets, daily range): BP systolic 88–137; BP diastolic 39–78; PULSE 102–140; RESP 16–18; TEMP 36.4–37.5; O2SAT 93–99
[2018-06-22] MEDS: Lactated Ringers 1,000 ML 100 ML IV ×2 (01:02→10:00)
[2018-06-22] MEDS: Vancomycin IV 1,000 MG/200 ML BAG 200 MG IV ×2 (01:04→13:01)
[2018-06-22] MEDS: Alendronate Sodium 70 MG Tablet PO (06:16)
[2018-06-22] MEDS: metroNIDAZOLE 500 MG Tablet PO ×3 (06:16→22:30)
[2018-06-22] MEDS: Enoxaparin 30 MG/0.3 ML Syringe SC (06:17)
[2018-06-22 06:21] LABS: Hematocrit 27.6 % (37-47); Hemoglobin 8.4 g/dl (12.0-15.0); Mean Corp Hgb Conc 30.4 g/gl (32-36); Mean Corpuscular Hgb 27.2 pg (27.0-32.0); Mean Corpuscular Volume 89.3 fL (81-99); Mean Platelet Vol. 9.7 fl (6.2-12.0); Platelet Count 520 K/mm3 (150-450); RBC Distribution Width CV 15.7 % (11.6-14.6); RBC Distribution Width SD 50.2 fl (35.1-43.9); Red Blood Count 3.09 M/mm3 (4.2-5.4); White Blood Count 10.6 K/mm3 (4.4-11.0)
[2018-06-22 06:22] LABS: Scan Indicated on CBC? Y/N NO
[2018-06-22 06:50] LABS: Anion Gap 7 (5-15); BUN 14 mg/dL (7-18); BUN/Creat Ratio 21.5 RATIO (10-20); Calcium,Total 8.5 mg/dL (8.5-10.1); Chloride 103 mmol/L (98-107); Creatinine, Serum 0.65 mg/dL (0.55-1.02); EST Glomerular Filtration Rate 99 mL/min (>60); Est Glom Filt Rate - Afr Amer 120 mL/min (>60); Estimated Creatinine Clearance 75.52 ml/min; Glucose 110 mg/dL (74-106); Potassium 3.8 mmol/L (3.5-5.1); Prealbumin 11.5 mg/dL (20.0-40.0); Sodium Level 138 mmol/L (136-145)
[2018-06-22] MEDS: Budesonide Respules 0.5 MG/2 ML AMPUL.NEB. INHALATION ×2 (06:55→18:44)
[2018-06-22] MEDS: Albuterol 2.5 MG/3 ML VIAL.NEB. INHALATION ×2 (06:55→18:44)
[2018-06-22] MEDS: Loratadine 10 MG Tablet PO (07:42)
[2018-06-22] MEDS: Calcium Carb/Vitamin D 1 TABLET Tablet PO ×2 (07:42→17:35)
[2018-06-22] MEDS: Venlafaxine HCl 75 MG Tablet 37.5 MG PO ×2 (07:42→22:29)
[2018-06-22] MEDS: Iron Polysaccharide Complex 150 MG CAPSULE PO (07:43)
[2018-06-22] MEDS: Docusate Sodium 100 MG Capsule PO ×2 (07:44→22:29)
[2018-06-22] MEDS: Atorvastatin Calcium 40 MG Tablet PO (07:44)
[2018-06-22] MEDS: levoFLOXacin 500 MG Tablet PO (07:44)
[2018-06-22] MEDS: Metoprolol(XL)Succ 25 MG Tablet PO (07:44)
[2018-06-22] MEDS: Anastrozole 1 MG Tablet PO (07:45)
[2018-06-22] MEDS: oxyCODONE 5 MG Tablet 10 MG PO (08:09)
--- NOTE | 2018-06-22 09:52 | NURSING ---
wound photo: lower abdomen
--- NOTE | 2018-06-22 09:53 | NURSING ---
wound photo: left breast
--- NOTE | 2018-06-22 14:08 | PN.SURG_ITS ---
Subjective: Postop #1 Patient is resting comfortably. VAC applied today. - Physical Exam General: Alert, Oriented x3 HEENT: PERRLA, EOMI Oral: Moist Mucosa Neck: Supple Abdomen: Soft, Non-Distended Skin: Ulcer/ Wound - abdominal wall and left breast wounds are stable. No active bleeding noted. VAC applied today. Neurological: Cranial nerves II-XII grossly intact Psych/Mental Status: Normal Affect, Appropriate Vital Signs Temp Pulse Resp BP Pulse Ox 99.1 F 119 H 16 95/39 L 93 06/22/18 13:01 06/22/18 13:01 06/22/18 13:01 06/22/18 13:01 06/22/18 13:01 Oxygen Flow Rate (L/min) 2 Oxygen Delivery Method Room Air Weight: 134 lb 14.766 oz Body Mass Index (BMI) 24.6 Intake and Output for Last 24 Hours 06/20/18 06/21/18 06/22/18 23:59 23:59 23:59 Intake Total 700 / 700 2857 / 2857 Output Total 850 / 850 Balance 700 / 700 2006 Microbiology Past 72 Hours 06/21/18 15:36 Gram Stain - Final Tissue - Breast Wound Culture - Preliminary Gram positive organism 06/21/18 15:36 Gram Stain - Final Tissue - Abdominal Wound Culture - Preliminary No growth-Final to follow Laboratory Tests Past 24 Hrs 06/21/18 06/22/18 06/22/18 19:30 05:25 05:25 WBC 10.6 RBC 3.09 L Hgb 8.4 L Hct 27.6 L MCV 89.3 MCH 27.2 MCHC 30.4 L RDW 15.7 H RDW Differential 50.2 H Plt Count 520 H MPV 9.7 Sodium 138 Potassium 3.8 Chloride 103 Carbon Dioxide 28.0 Anion Gap 7 BUN 14 Creatinine 0.65 Estim Creat Clear Calc 75.52 Est GFR (MDRD) Af Amer 120 Est GFR (MDRD) Non-Af 99 BUN/Creatinine Ratio 21.5 H Glucose 110 H Calcium 8.5 Prealbumin 11.5 L Urine Color Yellow Urine Clarity Clear Urine pH 7.0 Ur Specific [place] 1.010 Urine Protein 30 H Urine Glucose (UA) 50 H Urine Ketones Negative Urine Occult Blood 10 H Urine Nitrite Negative Urine Bilirubin Negative Urine Urobilinogen Normal Ur Leukocyte Esterase 25 H Urine RBC 0 SEEN Urine WBC 0-5 SEEN Ur Squamous Epith Cells 0-5 SEEN Urine Bacteria 0 SEEN RBC Casts 0-5 SEEN Urine Mucus 0 SEEN Medical Necessity - Tobacco Use Smoking Status: Never smoker Assessment/Plan All Active Problems (Last Reviewed 05/10/18 @ 13:24 by Alberto Dueñas MD) Partial loss of skin graft (Acute) Nonhealing surgical wound (Acute) Abdominal wall hernia (Acute) 1. Invasive ductal carcinoma left breast, s/p mastectomy. 2. Ductal carcinoma in situ right breast, s/p mastectomy. 3. Mild compromise left breast reconstruction TRAM flap wound(15%). 4. Nonhealing surgical wound lower abdominal wall TRAM donor incision. 5. Seroma abdominal wall. 6. MRSE. 7. Acquired absence bilateral breasts. 8. Disproportion reconstructed breasts. 9. Deformity reconstructed breasts. 10. Late effect radiation left breast. 11. Soft tissue radionecrosis left breast. 12. Estrogen receptor positive status. 13. Family history of breast cancer. 14. s/p incision and drainage complex abdominal wall infected seroma and surgical preparation left breast with excisional debridement and revision reconstructed compromised TRAM flap wound infection (156 cm2). 15. Anemia of chronic disease, acute on chronic. 16. Tachycardia. VAC applied today. To be changed three times per week at 150 mmHg continuous suction. Operative culture shows Gram positive organism. She had MRSE and Anaerobic cocci in a preop culture. Continue Vancomycin, Levaquin, and Flagyl. Will plan on IV antibiotics for at least 2 weeks. A PICC line will be placed. Will reassess after discharge at the Wound Center to determine if we should continue the IV antibiotics or switch to po antibiotics. Prealbumin was 11.5. Encourage nutritional supplementation with protein to help the healing process. Hgb today was 8.4. Patient has anemia of chronic disease, acute on chronic. There was only 50 ml blood loss from the surgery. Her I's/O's are positive 3 liters so there is some IV dilution. She would benefit from PRBC to help the healing process. She is already on Iron supplementation. Patient has persistent tachycardia. She takes Lopressor at home. Will consult Hospitalist Group to help with medical management. After discharge, followup at the Wound Center. Will have her evaluated for HBO treatments for her radiation soft tissue radionecrosis as well as compromised flap.
[2018-06-22] MEDS: Lactated Ringers 1,000 ML 125 ML IV (14:26)
--- NOTE | 2018-06-22 15:36 | PN_ITS ---
Addendum entered and electronically signed by ROSALBA Joseph 06/22/18 15:49: Code Visit addendum: prior wound cultures with MRSE and Corynebacterium amyolatum. Pt is on Vanc. PICC line is in place. Wound vac is in place. Original Note: Subjective: Pt resting comfortably in bed NAD. She is a 57 yo female with a pmhx of breast cancer s/p BL mastectomy, also with a hx of chemo-induced cardiomyopathy, iron deficiency, HTN, HLD, systolic CHF, who underwent surgical debridement of infected tissue following abdominal and breast surgery per Dr. Murillo. She has been on doxy as an outpatient after being found to have increased drainage from her surgical wounds, with levaquin and flagyl added recently. She was taken to the OR yesterday. Today she is more tachycardic. She does have significant anemia. Currently she is resting comfortably in bed NAD. The hospitalists were consulted regarding the tachycardia. - Physical Exam General: Alert, Oriented x3, Cooperative HEENT: Atraumatic, PERRLA, EOMI, Normocephalic Neck: Supple, No JVD, Negative Carotid Bruits Lungs: Clear to auscultation, Normal air movement Cardiovascular: No murmurs, Tachycardic Abdomen: Bowel Sounds Present, Soft, Non Tender Extremities: No edema, Capillary Refill Less than 3 Seconds Skin: No rashes, No breakdown Musculoskeletal: No Tenderness to Palpation of Joints or Extremities Neurological: Cranial nerves II-XII grossly intact Psych/Mental Status: Normal Affect, Appropriate, Alert and oriented to time, place, person, mood and affect Vital Signs Temp Pulse Resp BP Pulse Ox 98.5 F 113 H 16 95/47 L 94 06/22/18 14:37 06/22/18 14:37 06/22/18 14:37 06/22/18 14:37 06/22/18 14:37 Oxygen Flow Rate (L/min) 2 Oxygen Delivery Method Room Air Weight: 134 lb 14.766 oz Body Mass Index (BMI) 24.6 Intake and Output for Last 24 Hours 06/20/18 06/21/18 06/22/18 23:59 23:59 23:59 Intake Total 700 / 700 2857 / 2857 Output Total 850 / 850 Balance 700 / 700 2006 Microbiology Past 72 Hours 06/21/18 15:36 Gram Stain - Final Tissue - Breast Wound Culture - Preliminary Gram positive organism 06/21/18 15:36 Gram Stain - Final Tissue - Abdominal Wound Culture - Preliminary No growth-Final to follow Laboratory Tests Past 24 Hrs 06/21/18 06/22/18 06/22/18 19:30 05:25 05:25 WBC 10.6 RBC 3.09 L Hgb 8.4 L Hct 27.6 L MCV 89.3 MCH 27.2 MCHC 30.4 L RDW 15.7 H RDW Differential 50.2 H Plt Count 520 H MPV 9.7 Sodium 138 Potassium 3.8 Chloride 103 Carbon Dioxide 28.0 Anion Gap 7 BUN 14 Creatinine 0.65 Estim Creat Clear Calc 75.52 Est GFR (MDRD) Af Amer 120 Est GFR (MDRD) Non-Af 99 BUN/Creatinine Ratio 21.5 H Glucose 110 H Calcium 8.5 Prealbumin 11.5 L Urine Color Yellow Urine Clarity Clear Urine pH 7.0 Ur Specific [place] 1.010 Urine Protein 30 H Urine Glucose (UA) 50 H Urine Ketones Negative Urine Occult Blood 10 H Urine Nitrite Negative Urine Bilirubin Negative Urine Urobilinogen Normal Ur Leukocyte Esterase 25 H Urine RBC 0 SEEN Urine WBC 0-5 SEEN Ur Squamous Epith Cells 0-5 SEEN Urine Bacteria 0 SEEN RBC Casts 0-5 SEEN Urine Mucus 0 SEEN Medical Necessity - Tobacco Use Smoking Status: Never smoker Assessment/Plan All Active Problems (Last Reviewed 05/10/18 @ 13:24 by Alberto Dueñas MD) Partial loss of skin graft (Acute) Nonhealing surgical wound (Acute) Abdominal wall hernia (Acute) 1. Post op tachycardia - possibly 2/2 nonischemic CM, anemia. Cycle H/H. T/S. Continue IV fluids. Possibly increase beat nell but BP is borderline. 2. 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 heart cath with Dr. Sparrow 09/16/2017. EF40%. 3. nonhealing surgical wounds s/p debridement post op D#1. prior cx with [facility], was on doxy, now on levaquin/flagyl 4. Hx Breast cancer s/p BL mastectomy - on anastrozole 5. HTN - trending low 6. Hx chronic systolic CHF - restart home lasix when appropriate. Off O2, no SOB. 7. HLD - statin 8. Depression - effexor DVT ppx: lovenox Thank you for the opportunity to participate in the care of this patient. This patient was seen by Jed Edouard PA-C under the supervision of Dr. Morris.
[2018-06-23] VITALS (17 sets, daily range): BP systolic 120–138; BP diastolic 70–84; PULSE 103–117; RESP 16–18; TEMP 36.6–37.2; O2SAT 93–98
[2018-06-23 01:07] LABS: Vancomycin, Trough Level 10.6 ug/mL (5.0-15.0)
[2018-06-23] MEDS: Lactated Ringers 1,000 ML 125 ML IV ×3 (01:09→18:02)
[2018-06-23] MEDS: Vancomycin IV 1,000 MG/200 ML BAG 200 MG IV ×2 (01:09→12:59)
--- NOTE | 2018-06-23 01:28 | PCM.RX.CS ---
Consult Pharmacy has been consulted to manage selected antiobiotic: Vancomycin Type of Consult: Follow-up Suspected Infection: Skin/Soft tissue Prior Doses of Antibiotics Received/Current Regimen: Medications Vancomycin HCl (Vancomycin) 1,000 mg in 200 mls @ 200 mls/hr IV Q12H ADRIAN Last Admin: 06/23/18 01:09 Dose: 200 mls/hr Labs: Sodium 138 mmol/L (136-145) 06/22/18 05:25 Potassium 3.8 mmol/L (3.5-5.1) 06/22/18 05:25 Chloride 103 mmol/L (98-107) 06/22/18 05:25 Carbon Dioxide 28.0 mmol/L (21.0-32.0) 06/22/18 05:25 Anion Gap 7 (5-15) 06/22/18 05:25 BUN 14 mg/dL (7-18) 06/22/18 05:25 Creatinine 0.65 mg/dL (0.55-1.02) 06/22/18 05:25 Est GFR (MDRD) Af Amer 120 mL/min (>60) 06/22/18 05:25 Est GFR (MDRD) Non-Af 99 mL/min (>60) 06/22/18 05:25 BUN/Creatinine Ratio 21.5 RATIO (10-20) H 06/22/18 05:25 Glucose 110 mg/dL (74-106) H 06/22/18 05:25 Vancomycin Trough 10.6 ug/mL (5.0-15.0) 06/23/18 00:39 Microbiology: Microbiology 06/21/18 15:36 Tissue - Breast Gram Stain - Final 06/21/18 15:36 Tissue - Breast Wound Culture - Preliminary Gram positive organism 06/21/18 15:36 Tissue - Abdominal Gram Stain - Final 06/21/18 15:36 Tissue - Abdominal Wound Culture - Preliminary No growth-Final to follow Goal Trough: 10-15 mcg/mL Pharmacy Plan for Drug Dosing: A vancomycin trough was drawn which resulted in a value of 10.6 (drawn ~11.5hrs from last administered dose). This is within the therapeutic trough goal range for this patient. Will continue on current regimen and draw another trough in 4 days to assess dosing at that time. PLAN/RECOMMENDATIONS 1. Continue vancomycin 1000mg IV Q12hrs 2. Trough scheduled for 06/27/18 @0030 to reassess dosing 3. Pharmacy Service will continue to monitor and adjust dosing as required.
[2018-06-23] MEDS: Enoxaparin 30 MG/0.3 ML Syringe SC (05:48)
[2018-06-23] MEDS: metroNIDAZOLE 500 MG Tablet PO ×3 (05:48→21:09)
[2018-06-23] MEDS: Budesonide Respules 0.5 MG/2 ML AMPUL.NEB. INHALATION ×2 (07:14→19:18)
[2018-06-23] MEDS: Albuterol 2.5 MG/3 ML VIAL.NEB. INHALATION ×2 (07:15→19:18)
--- NOTE | 2018-06-23 08:33 | NURSING ---
Home VAC is approved. awaiting to see if patient will be sent home with IV antibiotics. patient can be switched to home VAC when ready for discharge. pt tolerated the VAC changes very well yesterday with PO pain medication. Case Management arranging home health care for home. pt sitting up in chair eating breakfast at this time. no needs voiced.
[2018-06-23] MEDS: Loratadine 10 MG Tablet PO (09:06)
[2018-06-23] MEDS: Calcium Carb/Vitamin D 1 TABLET Tablet PO ×2 (09:06→16:44)
[2018-06-23] MEDS: Losartan Potassium 25 MG Tablet PO (09:06)
[2018-06-23] MEDS: Metoprolol(XL)Succ 25 MG Tablet PO ×2 (09:06→21:10)
[2018-06-23] MEDS: Docusate Sodium 100 MG Capsule PO (09:06)
[2018-06-23] MEDS: Anastrozole 1 MG Tablet PO (09:07)
[2018-06-23] MEDS: Atorvastatin Calcium 40 MG Tablet PO (09:07)
[2018-06-23] MEDS: levoFLOXacin 500 MG Tablet PO (09:07)
[2018-06-23] MEDS: Iron Polysaccharide Complex 150 MG CAPSULE PO (09:07)
[2018-06-23] MEDS: Venlafaxine HCl 75 MG Tablet 37.5 MG PO ×2 (09:07→21:11)
[2018-06-23] MEDS: Acetaminophen 500 MG Tablet PO ×2 (09:33→21:15)
[2018-06-23 11:29] LABS: Hematocrit 34.6 % (37-47); Mean Corp Hgb Conc 31.8 g/gl (32-36); Mean Corpuscular Hgb 27.8 pg (27.0-32.0); Mean Corpuscular Volume 87.4 fL (81-99); Mean Platelet Vol. 8.9 fl (6.2-12.0); Platelet Count 397 K/mm3 (150-450); RBC Distribution Width CV 15.8 % (11.6-14.6); RBC Distribution Width SD 50.7 fl (35.1-43.9); Red Blood Count 3.96 M/mm3 (4.2-5.4); White Blood Count 8.2 K/mm3 (4.4-11.0)
[2018-06-23 11:31] LABS: Scan Indicated on CBC? Y/N NO
[2018-06-23 11:48] LABS: Anion Gap 4 (5-15); BUN 15 mg/dL (7-18); Calcium,Total 8.6 mg/dL (8.5-10.1); Chloride 105 mmol/L (98-107); Creatinine, Serum 0.52 mg/dL (0.55-1.02); EST Glomerular Filtration Rate 130 mL/min (>60); Est Glom Filt Rate - Afr Amer 157 mL/min (>60); Estimated Creatinine Clearance 94.41 ml/min; Glucose 133 mg/dL (74-106); Potassium 3.8 mmol/L (3.5-5.1); Sodium Level 137 mmol/L (136-145)
--- NOTE | 2018-06-23 12:00 | CASEMGMT ---
SHERRON SOLARES updated regarding that bhumika will need IV ATBs and wound vac at discharge. SHERRON SOLARES spoke with patient regarding need and HHC, patient stated she did not have a preference for HHC. Gemma is agreeable. Referral was made to [facility] for IV ATBs 06/22/18. SHERRON SOLARES comfirmed with Eli at [facility] that IV ATBs are covered at 100%. SHERRON SOLARES sent referral to [facility], who is in-network with patient's insurance and near patient. [facility] is able to accept the patient. SHERRON SOLARES spoke with Dr. Murillo regarding discharge. Plan is for patient to discharge Wednesday after [address] Murillo was okay for IV ATBs to start in the home on Sunday 06/25 at 0900 when HHC can initiate care. SHERRON SOLARES updated [facility] regarding planned discharge for Wednesday and start of care for HHC and IV ATBs for Weduday. I will deliver ATBs Wednesday afternoon/evening. SHERRON SOLARES updated patient regarding discharge plans, patient voiced understanding. CM will continue to folllow this patient and plan for a safe discharge.
--- NOTE | 2018-06-23 13:22 | PCM.PN.SRG ---
Subjective: Postop #2 Patient is resting comfortably. VAC in place. PICC line placed. - Physical Exam General: Alert, Oriented x3 HEENT: PERRLA, EOMI Oral: Moist Mucosa Neck: Supple Abdomen: Soft, Non-Distended Skin: Ulcer/ Wound - abdominal wall and left breast wounds are stable. No active bleeding noted. VAC in place. Minimal drainage in the canister. Neurological: Cranial nerves II-XII grossly intact Psych/Mental Status: Normal Affect, Appropriate Vital Signs Temp Pulse Resp BP Pulse Ox 99.0 F 108 H 16 138/72 H 93 06/23/18 08:20 06/23/18 08:20 06/23/18 08:20 06/23/18 08:20 06/23/18 08:20 Oxygen Flow Rate (L/min) 2 Oxygen Delivery Method Room Air Weight: 134 lb 14.766 oz Body Mass Index (BMI) 24.6 Intake and Output for Last 24 Hours 06/22/18 23:59 Intake Total 4807 / 4807 Output Total 1250 / 1250 Balance 3557 / 3557 Microbiology Past 72 Hours 06/21/18 15:36 Gram Stain - Final Tissue - Abdominal Wound Culture - Preliminary Mixed Gram Positive Organisms Anaerobic Culture - Preliminary Checking for anaerobes, further studies to follow. 06/21/18 15:36 Gram Stain - Final Tissue - Breast Wound Culture - Preliminary Mixed Gram Positive Organisms 06/21/18 19:30 Urine Culture - Preliminary Urine, Clean Catch Culture exhibits no growth. Laboratory Tests Past 24 Hrs 06/23/18 06/23/18 11:18 11:18 WBC 8.2 RBC 3.96 L Hgb 11.0 L Hct 34.6 L MCV 87.4 MCH 27.8 MCHC 31.8 L RDW 15.8 H RDW Differential 50.7 H Plt Count 397 MPV 8.9 Sodium 137 Potassium 3.8 Chloride 105 Carbon Dioxide 28.0 Anion Gap 4 L BUN 15 Creatinine 0.52 L Estim Creat Clear Calc 94.41 Est GFR (MDRD) Af Amer 157 Est GFR (MDRD) Non-Af 130 BUN/Creatinine Ratio 29.0 H Glucose 133 H Calcium 8.6 Medical Necessity - Tobacco Use Smoking Status: Never smoker Assessment/Plan All Active Problems (Last Reviewed 05/10/18 @ 13:24 by Alberto Dueñas MD) Partial loss of skin graft (Acute) Nonhealing surgical wound (Acute) Abdominal wall hernia (Acute) 1. Invasive ductal carcinoma left breast, s/p mastectomy. 2. Ductal carcinoma in situ right breast, s/p mastectomy. 3. Mild compromise left breast reconstruction TRAM flap wound(15%). 4. Nonhealing surgical wound lower abdominal wall TRAM donor incision. 5. Seroma abdominal wall. 6. MRSE. 7. Acquired absence bilateral breasts. 8. Disproportion reconstructed breasts. 9. Deformity reconstructed breasts. 10. Late effect radiation left breast. 11. Soft tissue radionecrosis left breast. 12. Estrogen receptor positive status. 13. Family history of breast cancer. 14. s/p incision and drainage complex abdominal wall infected seroma and surgical preparation left breast with excisional debridement and revision reconstructed compromised TRAM flap wound infection (156 cm2). 15. Anemia of chronic disease, acute on chronic, stable after PRBC. 16. Tachycardia, slowly improving. VAC in place. Minimal drainage in the canister. To be changed tomorrow. Operative culture shows mixed Gram positive organisms. She had MRSE and Anaerobic cocci in a preop culture. Continue Vancomycin, Levaquin, and Flagyl. Will plan on IV antibiotics for at least 2 weeks. A PICC line was placed. Will reassess after discharge at the [facility] to determine if we should continue the IV antibiotics or switch to po antibiotics. Prealbumin was 11.5. Encourage nutritional supplementation with protein to help the healing process. Hgb improved from 8.4 to 11.0 after the PRBC. Patient has anemia of chronic disease, acute on chronic. There was only 50 ml blood loss from the surgery. Her I's/O's are positive 3 liters so there is some IV dilution. She is already on Iron supplementation. Patient has persistent tachycardia that is slowly. Her Lopressor was increased. Hospitalist input appreciated. After discharge, followup at the Wound Center. Will have her evaluated for HBO treatments for her radiation soft tissue radionecrosis as well as compromised flap.
--- NOTE | 2018-06-23 18:04 | PCM.PROGNOTE ---
Subjective: Patient was seen and examined today, she still has some tachycardia with heart rates in the 110-120 range. Patient has no complaints of any pain, patient was given 2 units of red blood cells by plastic surgery yesterday. Hemoglobin today is 11 - Physical Exam General: Alert, Oriented x3, Cooperative, No apparent distress, Well developed, Well nourished HEENT: Atraumatic, PERRLA, EOMI, Normocephalic Oral: Moist Mucosa Neck: Supple, No JVD, Trachea Midline, Thyroid Normal Size and Texture Lungs: Clear to auscultation, Normal air movement, No rhonchi, No wheeze, No rales Cardiovascular: Regular rate, Regular Rhythm, Normal S1, Normal S2, No murmurs, No Ectopic Activity, PMI Normal, No rub noted, Tachycardic Abdomen: Bowel Sounds Present, - - There is surgical dressing noted over the abdominal wall Extremities: No clubbing, No cyanosis, No edema, Capillary Refill Less than 3 Seconds Skin: No rashes Neurological: Cranial nerves II-XII grossly intact, Neuro grossly intact, Sensory exam intact to light touch and pain, Coordination normal Psych/Mental Status: Normal Affect, Appropriate, Alert and oriented to time, place, person, mood and affect Vital Signs Temp Pulse Resp BP Pulse Ox 98.9 F 106 H 16 135/72 H 94 06/23/18 14:30 06/23/18 16:00 06/23/18 14:30 06/23/18 14:30 06/23/18 14:30 Oxygen Flow Rate (L/min) 2 Oxygen Delivery Method Room Air Weight: 61.2 kg Body Mass Index (BMI) 24.6 Intake and Output for Last 24 Hours 06/21/18 06/22/18 06/23/18 23:59 23:59 23:59 Intake Total 700 / 700 4807 / 4807 5170 / 5170 Output Total 1250 / 1250 1800 / 1800 Balance 700 / 700 3557 / 3557 3370 / 3370 Microbiology Past 72 Hours 06/21/18 15:36 Gram Stain - Final Tissue - Abdominal Wound Culture - Preliminary Mixed Gram Positive Organisms Anaerobic Culture - Preliminary Checking for anaerobes, further studies to follow. 06/21/18 15:36 Gram Stain - Final Tissue - Breast Wound Culture - Preliminary Mixed Gram Positive Organisms 06/21/18 19:30 Urine Culture - Preliminary Urine, Clean Catch Culture exhibits no growth. Laboratory Tests Past 24 Hrs 06/22/18 06/23/18 06/23/18 15:30 00:39 11:18 WBC 8.2 RBC 3.96 L Hgb 11.0 L Hct 34.6 L MCV 87.4 MCH 27.8 MCHC 31.8 L RDW 15.8 H RDW Differential 50.7 H Plt Count 397 MPV 8.9 Sodium Potassium Chloride Carbon Dioxide Anion Gap BUN Creatinine Estim Creat Clear Calc Est GFR (MDRD) Af Amer Est GFR (MDRD) Non-Af BUN/Creatinine Ratio Glucose Calcium Vancomycin Trough 10.6 Blood Type O POSITIVE Antibody Screen NEGATIVE Crossmatch See Detail 06/23/18 11:18 WBC RBC Hgb Hct MCV MCH MCHC RDW RDW Differential Plt Count MPV Sodium 137 Potassium 3.8 Chloride 105 Carbon Dioxide 28.0 Anion Gap 4 L BUN 15 Creatinine 0.52 L Estim Creat Clear Calc 94.41 Est GFR (MDRD) Af Amer 157 Est GFR (MDRD) Non-Af 130 BUN/Creatinine Ratio 29.0 H Glucose 133 H Calcium 8.6 Vancomycin Trough Blood Type Antibody Screen Crossmatch Medical Necessity - Tobacco Use Smoking Status: Never smoker Assessment/Plan All Active Problems (Last Reviewed 05/10/18 @ 13:24 by Alberto Dueñas MD) Partial loss of skin graft (Acute) Nonhealing surgical wound (Acute) Abdominal wall hernia (Acute) #1 chronic nonischemic cardiomyopathy secondary to radiation and or chemotherapy for breast cancer-patient's beta-nell was increased to metoprolol 25 mg twice daily today #2 essential hypertension #3 anemia secondary to expected blood loss from surgery-patient's hemoglobin today was 11 #4 hyperlipidemia #5 left breast wound infection with staph epidermidis-patient will be set up for IV vancomycin as an outpatient #6 abdominal wound infection with corynebacterium-patient will be set up with outpatient IV vancomycin and Flagyl #7 depression #8 Status post excisional debridement and revision of left breast wound with incision and drainage complex abdominal wall infected seroma-postop day #2 Code Visit Inpatient E&M: 65091 Subs Hosp L2
[2018-06-24] VITALS (9 sets, daily range): BP systolic 121–152; BP diastolic 71–78; PULSE 98–113; RESP 16–18; TEMP 36.6–36.7; O2SAT 92–98
[2018-06-24] MEDS: Vancomycin IV 1,000 MG/200 ML BAG 200 MG IV ×2 (01:20→13:19)
[2018-06-24] MEDS: Lactated Ringers 1,000 ML 125 ML IV (02:58)
[2018-06-24] MEDS: metroNIDAZOLE 500 MG Tablet PO ×2 (06:03→13:19)
[2018-06-24] MEDS: Enoxaparin 30 MG/0.3 ML Syringe SC (06:03)
[2018-06-24] MEDS: Budesonide Respules 0.5 MG/2 ML AMPUL.NEB. INHALATION (06:53)
[2018-06-24] MEDS: Albuterol 2.5 MG/3 ML VIAL.NEB. INHALATION ×2 (06:53→13:04)
--- NOTE | 2018-06-24 08:35 | NURSING ---
This RN called Dr. Hawkins's office at this time and spoke with nurse Reyna. Verified that patient is indeed ordered Plavix 75mg daily. This RN requested complete home med list-- Reyna states she will send same via fax.
[2018-06-24] MEDS: Calcium Carb/Vitamin D 1 TABLET Tablet PO ×2 (08:37→17:06)
[2018-06-24] MEDS: Acetaminophen 500 MG Tablet PO (08:42)
[2018-06-24] MEDS: oxyCODONE 5 MG Tablet 10 MG PO ×2 (09:19→10:27)
[2018-06-24] MEDS: 0.9% NaCl Peripheral Flush Adult/Peds IV ×3 (09:31→14:39)
[2018-06-24 09:50] LABS: Hematocrit 35.9 % (37-47); Hemoglobin 11.6 g/dl (12.0-15.0); Mean Corp Hgb Conc 32.3 g/gl (32-36); Mean Corpuscular Hgb 28.3 pg (27.0-32.0); Mean Corpuscular Volume 87.6 fL (81-99); Mean Platelet Vol. 9.3 fl (6.2-12.0); Platelet Count 418 K/mm3 (150-450); RBC Distribution Width CV 15.4 % (11.6-14.6); RBC Distribution Width SD 49.9 fl (35.1-43.9)
[2018-06-24 09:54] LABS: Scan Indicated on CBC? Y/N NO
[2018-06-24 10:03] LABS: Anion Gap 6 (5-15); BUN 14 mg/dL (7-18); BUN/Creat Ratio 24.4 RATIO (10-20); Calcium,Total 8.7 mg/dL (8.5-10.1); Chloride 107 mmol/L (98-107); Creatinine, Serum 0.57 mg/dL (0.55-1.02); EST Glomerular Filtration Rate 115 mL/min (>60); Est Glom Filt Rate - Afr Amer 139 mL/min (>60); Estimated Creatinine Clearance 86.12 ml/min; Glucose 175 mg/dL (74-106); Potassium 3.5 mmol/L (3.5-5.1); Sodium Level 141 mmol/L (136-145)
[2018-06-24 10:04] LABS: Erythrocyte Sedimentation Rate 94 mm/hr (0-30)
[2018-06-24] MEDS: Loratadine 10 MG Tablet PO (10:30)
[2018-06-24] MEDS: Venlafaxine HCl 75 MG Tablet 37.5 MG PO (10:30)
[2018-06-24] MEDS: levoFLOXacin 500 MG Tablet PO (10:30)
[2018-06-24] MEDS: Losartan Potassium 25 MG Tablet PO (10:30)
[2018-06-24] MEDS: Iron Polysaccharide Complex 150 MG CAPSULE PO (10:30)
[2018-06-24] MEDS: Atorvastatin Calcium 40 MG Tablet PO (10:31)
[2018-06-24] MEDS: Anastrozole 1 MG Tablet PO (10:31)
[2018-06-24] MEDS: Metoprolol(XL)Succ 25 MG Tablet PO (11:12)
--- NOTE | 2018-06-24 13:25 | PCM.DC ---
You will use the following diet at home:: Regular - no caffeine, no decaf, no tea, no chocolate., Other - encourage nutritional supplementation with protein to help the healing process. Discharge Activity: May not drive while taking narcotic pain medications., May Shower - on the days the vac is changed., - - keep head elevated. no heavy lifting. May shower in (days): 2 - on the days the vac is changed. May resume sexual activity in: No Restrictions Weight Bearing Status: Weight bearing as tolerated Lifting Restrictions: 20 lbs. Keep extremity elevated above heart level: - - elevate head. Call your doctor if your incision/area has: Continuous Slow Oozing, Sudden Increased Bleeding, Increased Pain/ Swelling, Increased Redness, Foul Smelling Discharge, Swelling at the incision site Call your doctor if you observe: Fever of 101 or Higher, Coldness, Increased Pain, Shortness of breath, Chest pain, Calf discomfort, Uncontrolled pain Suture Line Care: - - vac changes three times per week at 150 mmHg continuous suction. Change Dressing in (Days):: 2 - vac changes three times per week. Cleanse incision/area with: - - may cleanse the wounds with soap and water at the time of the vac dressing changes. may shower on the days the vac is changed. Additional Instructions: Patient has Percocet at home and will take them as directed. Patient had a medication change from Lopressor 25 mg daily to 25 mg twice a day. Allergies/Adverse Reactions: Allergies lisinopril Allergy (Severe, Verified 06/21/18 12:51) tongue and face swelling Penicillins Allergy (Verified 06/21/18 12:51) Anaphylaxis Medications to take at Discharge Loratadine [Claritin] 10 mg PO DAILY 08/22/15 acyclovir 200 mg capsule 200 mg PO QDAY cap 07/03/17 anastrozole 1 mg tablet 1 mg PO QDAY 07/03/17 venlafaxine ER 37.5 mg capsule,extended release 24 hr 37.5 mg PO BID cap 07/03/17 fluticasone furoate 100 mcg-vilanterol 25 mcg/dose inhalation powder 1 puff INHALATION DAILY 07/06/17 calcium carbonate 500 mg (1,250 mg)-vitamin D3 200 unit tablet 1 tab PO BID 01/13/18 potassium chloride ER 20 mEq tablet,extended release 20 meq PO QDAY PRN 01/13/18 losartan 25 mg tablet 25 mg PO QDAY tab 01/14/18 alendronate 70 mg tablet 70 mg PO QWEEK 03/28/18 atorvastatin 20 mg tablet 40 mg PO DAILY tab 03/28/18 clopidogrel 75 mg tablet 75 mg PO DAILY 03/28/18 Albuterol Aerosols [Ventolin Aerosols] 2.5 mg INHALATION Q6HWA.RT PRN 05/26/18 Albuterol Inhaler [Ventolin Hfa] 1 puff INHALATION Q6H PRN PRN 05/26/18 Docusate Sodium [Colace] 100 mg PO BID #60 cap 06/07/18 Furosemide [Lasix] 20 mg PO QDAY PRN #14 tab 06/07/18 Lactobacillus Acidophilus/Fos [Acidophilus Probiotic Tablet] 1 ea PO BID #60 tab 06/07/18 proMETHazine tablet [Phenergan tablet] 25 mg PO 4X/DAY PRN PRN #30 tab 06/07/18 Vancomycin IV [Vancomycin] 1,000 mg IV Q12H #80 bag 06/22/18 Acetaminophen [Tylenol] 500 mg PO Q4H PRN PRN tablet 06/24/18 Albuterol Aerosols [Ventolin Aerosols] 2.5 mg INHALATION Q6HWA.RT vial.neb. 06/24/18 Diazepam [Valium] 5 mg PO 4X/DAY PRN PRN #30 tab 06/24/18 Iron Polysaccharide Complex [Ferrex 150] 150 mg PO DAILYCM 30 Days #30 cap 06/24/18 Metoprolol(XL)Succ [Toprol Xl (Beta Qi)] 25 mg PO BID #60 tab 06/24/18 The following prescriptions were given: Diazepam [Valium] 5 mg PO 4X/DAY PRN PRN #30 tab PRN Reason: Spasms Iron Polysaccharide Complex [Ferrex 150] 150 mg PO DAILYCM 30 Days #30 cap Vancomycin IV [Vancomycin] 1,000 mg IV Q12H #80 bag Metoprolol(XL)Succ [Toprol Xl (Beta Qi)] 25 mg PO BID #60 tab Primary Care Physician: Nevaeh Hawkins DO [Primary Care Provider] - Test Results: Test results from this visit will be discussed in further detail at your follow-up appointment, if applicable. Please Follow Up With: Jann Murillo MD When: 06/30/18 at 430pm. call [phone] if questions. Please Follow Up With: Jann Murillo MD When: wednesday07/11/18 at [facility]. call [phone] for appt time. Please Follow Up With: Nevaeh Hawkins DO When: 4 weeks because of medication change - Lopressor Proposed Discharge Date: 06/24/18
--- NOTE | 2018-06-24 15:11 | PCM.PN.SRG ---
Subjective: Postop #3 Patient is resting comfortably. VAC changed today. - Physical Exam General: Alert, Oriented x3 HEENT: PERRLA, EOMI Oral: Moist Mucosa Neck: Supple Abdomen: Soft, Non-Distended Skin: Ulcer/ Wound - abdominal wall and left breast wounds are stable. No active bleeding noted. VAC changed today. Neurological: Cranial nerves II-XII grossly intact Psych/Mental Status: Normal Affect, Appropriate Vital Signs Temp Pulse Resp BP Pulse Ox 97.8 F 104 H 16 121/71 H 95 06/24/18 14:50 06/24/18 14:50 06/24/18 14:50 06/24/18 14:50 06/24/18 14:50 Oxygen Flow Rate (L/min) 2 Oxygen Delivery Method Room Air Weight: 134 lb 14.766 oz Body Mass Index (BMI) 24.6 Intake and Output for Last 24 Hours 06/22/18 06/23/18 06/24/18 23:59 23:59 23:59 Intake Total 4807 / 4807 5170 / 5170 2865 / 2865 Output Total 1250 / 1250 1800 / 1800 2400 / 2400 Balance 3557 / 3557 3370 / 3370 465 / 465 Microbiology Past 72 Hours 06/21/18 15:36 Gram Stain - Final Tissue - Abdominal Wound Culture - Preliminary Gram Positive Cocci Gram positive roberto Anaerobic Culture - Final No anaerobic bacteria isolated. 06/21/18 15:36 Gram Stain - Final Tissue - Breast Wound Culture - Preliminary Gram Positive Cocci Gram positive roberto Gram positive organism Anaerobic Culture - Preliminary Checking for anaerobes, further studies to follow. 06/21/18 19:30 Urine Culture - Final Urine, Clean Catch Culture exhibits no growth. Laboratory Tests Past 24 Hrs 06/24/18 06/24/18 04:25 04:25 WBC 8.0 RBC 4.10 L Hgb 11.6 L Hct 35.9 L MCV 87.6 MCH 28.3 MCHC 32.3 RDW 15.4 H RDW Differential 49.9 H Plt Count 418 MPV 9.3 ESR 94 H Sodium 141 Potassium 3.5 Chloride 107 Carbon Dioxide 28.0 Anion Gap 6 BUN 14 Creatinine 0.57 Estim Creat Clear Calc 86.12 Est GFR (MDRD) Af Amer 139 Est GFR (MDRD) Non-Af 115 BUN/Creatinine Ratio 24.4 H Glucose 175 H Calcium 8.7 C-React Prot Ext Range 98.10 H Medical Necessity - Tobacco Use Smoking Status: Never smoker Assessment/Plan All Active Problems (Last Reviewed 05/10/18 @ 13:24 by Alberto Dueñas MD) Partial loss of skin graft (Acute) Nonhealing surgical wound (Acute) Abdominal wall hernia (Acute) 1. Invasive ductal carcinoma left breast, s/p mastectomy. 2. Ductal carcinoma in situ right breast, s/p mastectomy. 3. Mild compromise left breast reconstruction TRAM flap wound(15%). 4. Nonhealing surgical wound lower abdominal wall TRAM donor incision. 5. Seroma abdominal wall. 6. MRSE. 7. Acquired absence bilateral breasts. 8. Disproportion reconstructed breasts. 9. Deformity reconstructed breasts. 10. Late effect radiation left breast. 11. Soft tissue radionecrosis left breast. 12. Estrogen receptor positive status. 13. Family history of breast cancer. 14. s/p incision and drainage complex abdominal wall infected seroma and surgical preparation left breast with excisional debridement and revision reconstructed compromised TRAM flap wound infection (156 cm2). 15. Anemia of chronic disease, acute on chronic, stable after PRBC. 16. Tachycardia, slowly improving. VAC changed today. Tolerated well. To be changed three times per week at 150 mmHg continuous suction. Operative culture shows Gram positive cocci and Gram positive roberto in both the abdomen and the breast. She had MRSE and Anaerobic cocci in a preop culture. Continue Vancomycin at discharge. Will stop the Levaquin, and Flagyl. Will plan on IV antibiotics for at least 2 weeks. A PICC line was placed. Will reassess after discharge at the [facility]ound Center to determine if we should continue the IV antibiotics or switch to po antibiotics. Prealbumin was 11.5. Encourage nutritional supplementation with protein to help the healing process. Hgb improved from 11.0 to 11.6. Patient has anemia of chronic disease, acute on chronic. There was only 50 ml blood loss from the surgery. Her I's/O's are positive 7 liters so there is some IV dilution. She is already on Iron supplementation. Patient has persistent tachycardia that is slowly improving. Her Lopressor was increased. Discharge home today. Vancomycin for at least 2 weeks. Will get weekly labs. Pharmacy to dose. Wrote script for Valium for spasm (30 tabs). She states she has Percocet at home for now. Wrote script for Iron supplementation with 2 refills. Wrote script for increased Lopressor to 25mg twice a day, (60 tabs) and a refill. She will followup with her PCP in 2-4 weeks to evaluate the change in medication. Followup office one week. Followup Wound Center in 2 weeks. Will have her evaluated for HBO treatments for her radiation soft tissue radionecrosis as well as compromised flap.
--- NOTE | 2018-06-24 15:18 | PCM.DC.SUM ---
Discharge Date and Diagnosis Date of Admission: 06/21/18 Date of Discharge: 06/24/18 - Primary Discharge Diagnosis Invasive ductal carcinoma left breast, s/p mastectomy. Mild compromise left breast reconstruction TRAM flap wound(15%). Nonhealing surgical wound lower abdominal wall TRAM donor incision. Seroma abdominal wall. MRSE. Acquired absence bilateral breasts. Disproportion reconstructed breasts. Deformity reconstructed breasts. Late effect radiation left breast. Soft tissue radionecrosis left breast. Anemia of chronic disease, acute on chronic. Tachycardia. - Secondary Discharge Diagnosis Ductal carcinoma in situ right breast, s/p mastectomy. Hypertension Hyperlipidemia Acute systolic congestive heart failure Bilateral pleural effusion Cardiomyopathy in diseases classified elsewhere Estrogen receptor positive status (ER+) Family history of breast cancer History of UTI. Hospital Course and Treatment Imaging Results: None. Consultations 06/22/18 06:35 Consult: Onc/Wound/director of parks and recreation Routine Comment: Reason for Consult:: wound [facility] Hospitalist Group - Dr. Morris. Operations: - - 06/21/18 - 1. Incision and drainage complex abdominal wall infected seroma. 2. Surgical preparation left breast with excisional debridement and revision reconstructed compromised TRAM flap wound infection (156 cm2). Procedures: Blood transfusion, PICC line placement, Wound vac placement Summary of Care Provided: 57 year old female initially presented for her delayed bilateral breast reconstruction on 05/10/18 where she underwent first stage delayed left breast reconstruction with bipedicled TRAM flap delay and first stage delayed right breast reconstruction with placement of submuscular saline tissue leadite man (650 ml). After waiting three weeks for the delay, she went back to surgery on 05/31/18 where she underwent revision left breast reconstruction with excision radiation fibrosis scar contour deformity and multiple W-plasty (18 cm2) and second stage delayed left breast reconstruction with bipedicled TRAM flap and complex abdominal wall reconstruction with repair of fascial defects with components separation technique using bilateral external oblique myofascial advancement flaps and placement MTF FlexHD acellular dermal matrix graft (320 cm2) and saline injection 300 ml into tissue leadite man right breast reconstruction (650 ml leadite man). She did well initially postop and was discharged from the hospital on 06/07/18. She states she was very tired postop and forgot some of the instructions that she was told such as using the abdominal binder and keeping her head elevated. About 2 weeks postop, she came to the office with some drainage from her abdominal incision and a small amount from her umbilical inicision. I opened up the central part of the incision where the drainage was in order to pack the wound easier. I started daily Saline Kerlix gauze dressing changes. Also reiterated the importance of the binder and keeping her head elevated. The wound stabilized as the swelling improved a little with the binder. However it was discussed with the patient that the rest of the incision would need to be opened up to get better control of the wound and to apply the VAC. The left breast reconstruction also developed some drainage issues as well. She had some bruising inferiorly on the flap at the inframammary fold possibly from the binder in the hospital riding up onto the breast and causing pressure on the inferior portion of the flap while in the hospital. The binder was then shortened which helped minimize the pressure problem. Some debridement of the inferior bruising was done in the office to help with wound care and control of the drainage. There was also a small area of eschar superiorly at the incision that also was debrided in the office to allow better control of the wound with packing. Saline gauze dressing was used for the breast packing as well as Silver dressing. Today when the abdominal wound has been opened up and stabilized, I will also debride the left breast reconstruction as well. She denies fever. At the time of the office debridements, wound cultures were done. The breast wound culture showed MRSE. The abdominal wound culture showed Corynebacterium amycolatum. At the time of the office debridement, she had been on Doxycycline for a hospital urine culture showing MRSE. Levaquin and Flagyl were added and are almost finished. Perioperatively will treat with Vancomycin along with Flagyl and Levaquin Patient was taken to surgery on 06/21/18 where she underwent incision and drainage complex abdominal wall infected seroma and surgical preparation left breast with excisional debridement and revision reconstructed compromised TRAM flap wound infection (156 cm2). She tolerated the procedure well. On the first postop day, her Hgb dropped to 8.4. She had 50 ml blood loss and has positive I's/O's with IV dilution. She was given PRBC. She also continued her Iron supplementation. She was treated perioperatively with Vancomycin, Levaquin, and Flagyl. Her preop culture showed MRSE and Anaerobic cocci. Because of the MRSE, will treat with IV Vancomycin after discharge for at least 2 weeks. At discharge her operative cultures showed Gram positive cocci and Gram positive roberto in both the breast and the abdomen. Her Prealbumin was 11.5. Encourage nutritional supplementation with protein to help the healing process. After her last surgery she had a UTI that was treated after discharge. A repeat Urinalysis was done which was ok. The urine culture was negative. Postoperatively she had persistent tachycardia as high as 140. She takes Lopressor at home. Hospitalist consult was obtained for medical management. They increased the Lopressor to twice a day. After discharge, the patient will followup with her PCP regarding this medication change. On the second postop day, her Hgb had improved to 11.0. A PICC line was placed. Her tachycardia improved a little. IV antibiotics were being arranged with the infusion [facility]. The VAC received approval and Home Health was arranged. So by the third postop day when all the arrangements were made, she was discharged home. Her Hgb continued to improve to 11.6. The antibiotic she will be discharged on is Vancomycin. Once the final culture is available, antibiotic modification may be necessary. With the Vancomycin, will check weekly labs (CBC, CMP, ESR, CRP,Vancomycin Trough). Pharmacy will dose the Vancomycin. She has pain meds at home. Wrote a script for Valium for spasm (30 tabs). Wrote script for Iron supplementation (30 tabs) with 2 refills. Wrote script for Lopressor twice a day (60 tabs) with a refill. She will followup with her PCP in 4 weeks because of this medication change. She will keep her head elevated. She will continue her SIRISHA wrap for breast compression and the abdominal binder. Continue 20 lb lifting restriction. Continue diet restrictions of no caffeine, no decaf, no tea, and no chocolate. Followup office one week. Followup Wound Center in 2 weeks. Will discuss HBO treatments to help with healing because of her soft tissue radionecrosis. Condition upon discharge is stable. - Physical Exam Vital Signs Temp Pulse Resp BP Pulse Ox 97.8 F 104 H 16 121/71 H 95 06/24/18 14:50 06/24/18 14:50 06/24/18 14:50 06/24/18 14:50 06/24/18 14:50 Oxygen Flow Rate (L/min) 2 Oxygen Delivery Method Room Air Weight: 134 lb 14.766 oz Body Mass Index (BMI) 24.6 Intake and Output for Last 24 Hours 06/22/18 06/23/18 06/24/18 23:59 23:59 23:59 Intake Total 4807 / 4807 5170 / 5170 2865 / 2865 Output Total 1250 / 1250 1800 / 1800 2400 / 2400 Balance 3557 / 3557 3370 / 3370 465 / 465 Microbiology Past 72 Hours 06/21/18 15:36 Gram Stain - Final Tissue - Abdominal Wound Culture - Preliminary Gram Positive Cocci Gram positive roberto Anaerobic Culture - Final No anaerobic bacteria isolated. 06/21/18 15:36 Gram Stain - Final Tissue - Breast Wound Culture - Preliminary Gram Positive Cocci Gram positive roberto Gram positive organism Anaerobic Culture - Preliminary Checking for anaerobes, further studies to follow. 06/21/18 19:30 Urine Culture - Final Urine, Clean Catch Culture exhibits no growth. Laboratory Tests Past 24 Hrs 06/24/18 06/24/18 04:25 04:25 WBC 8.0 RBC 4.10 L Hgb 11.6 L Hct 35.9 L MCV 87.6 MCH 28.3 MCHC 32.3 RDW 15.4 H RDW Differential 49.9 H Plt Count 418 MPV 9.3 ESR 94 H Sodium 141 Potassium 3.5 Chloride 107 Carbon Dioxide 28.0 Anion Gap 6 BUN 14 Creatinine 0.57 Estim Creat Clear Calc 86.12 Est GFR (MDRD) Af Amer 139 Est GFR (MDRD) Non-Af 115 BUN/Creatinine Ratio 24.4 H Glucose 175 H Calcium 8.7 C-React Prot Ext Range 98.10 H Discharge Diet: - - no caffeine, no decaf, no tea, no chocolate. Encourage nutritional supplementation with protein to help the healing process. Discharge Activity: May not drive while taking narcotic pain medications., May Shower - on the days the vac is changed., - - keep head elevated. no heavy lifting. May shower in (days): 2 - on the days the vac is changed. May resume sexual activity in: No Restrictions Weight Bearing Status: Weight bearing as tolerated Lifting Restrict to (lbs):: 20 Keep extremity elevated above heart level: - - elevate head. Call your doctor if your incision/area has: Continuous Slow Oozing, Sudden Increased Bleeding, Increased Pain/ Swelling, Increased Redness, Foul Smelling Discharge, Swelling at the incision site Call your doctor if you observe: Fever of 101 or Higher, Coldness, Increased Pain, Shortness of breath, Chest pain, Calf discomfort, Uncontrolled pain Suture Line Care: - - vac changes three times per week at 150 mmHg continuous suction. Change Dressing in (Days):: 2 - vac changes three times per week. Cleanse incision/area with: - - may cleanse the wounds with soap and water at the time of the vac dressing changes. may shower on the days the vac is changed. Additional Dressing/Incision Instructions:: Patient has Percocet at home and will take them as directed. Home Medications: Medications to take at Discharge Loratadine [Claritin] 10 mg PO DAILY 08/22/15 acyclovir 200 mg capsule 200 mg PO QDAY cap 07/03/17 anastrozole 1 mg tablet 1 mg PO QDAY 07/03/17 venlafaxine ER 37.5 mg capsule,extended release 24 hr 37.5 mg PO BID cap 07/03/17 fluticasone furoate 100 mcg-vilanterol 25 mcg/dose inhalation powder 1 puff INHALATION DAILY 07/06/17 calcium carbonate 500 mg (1,250 mg)-vitamin D3 200 unit tablet 1 tab PO BID 01/13/18 potassium chloride ER 20 mEq tablet,extended release 20 meq PO QDAY PRN 01/13/18 losartan 25 mg tablet 25 mg PO QDAY tab 01/14/18 alendronate 70 mg tablet 70 mg PO QWEEK 03/28/18 atorvastatin 20 mg tablet 40 mg PO DAILY tab 03/28/18 clopidogrel 75 mg tablet 75 mg PO DAILY 03/28/18 Albuterol Aerosols [Ventolin Aerosols] 2.5 mg INHALATION Q6HWA.RT PRN 05/26/18 Albuterol Inhaler [Ventolin Hfa] 1 puff INHALATION Q6H PRN PRN 05/26/18 Docusate Sodium [Colace] 100 mg PO BID #60 cap 06/07/18 Furosemide [Lasix] 20 mg PO QDAY PRN #14 tab 06/07/18 Lactobacillus Acidophilus/Fos [Acidophilus Probiotic Tablet] 1 ea PO BID #60 tab 06/07/18 proMETHazine tablet [Phenergan tablet] 25 mg PO 4X/DAY PRN PRN #30 tab 06/07/18 Vancomycin IV [Vancomycin] 1,000 mg IV Q12H #80 bag 06/22/18 Acetaminophen [Tylenol] 500 mg PO Q4H PRN PRN tablet 06/24/18 Albuterol Aerosols [Ventolin Aerosols] 2.5 mg INHALATION Q6HWA.RT vial.neb. 06/24/18 Diazepam [Valium] 5 mg PO 4X/DAY PRN PRN #30 tab 06/24/18 Iron Polysaccharide Complex [Ferrex 150] 150 mg PO DAILYCM 30 Days #30 cap 06/24/18 Metoprolol(XL)Succ [Toprol Xl (Beta Qi)] 25 mg PO BID #60 tab 06/24/18 Following Prescrptions Were Given to Patient: Diazepam [Valium] 5 mg PO 4X/DAY PRN PRN #30 tab PRN Reason: Spasms Iron Polysaccharide Complex [Ferrex 150] 150 mg PO DAILYCM 30 Days #30 cap Vancomycin IV [Vancomycin] 1,000 mg IV Q12H #80 bag Metoprolol(XL)Succ [Toprol Xl (Beta Qi)] 25 mg PO BID #60 tab Primary Care Physician: Nevaeh Hawkins DO [Primary Care Provider] - Please follow up with your Primary Care Physician in: 4 weeks because of medication change - Lopressor Please Follow Up With: Jann Murillo MD When: 06/30/18 at 430pm. call [phone] if questions. Please Follow Up With: Jann Murillo MD When: wednesday07/11/18 at [facility]. call [phone] for appt time. Please Follow Up With: Nevaeh Hawkins DO When: 4 weeks because of medication change - Lopressor Disposition: Home with Home Health Minutes spent on discharge:: 35 Patient Condition:: Stable Medical Necessity - Tobacco Use Smoking Status: Never smoker Meaningful Use Info Meaningful Use Diagnoses (Choose all that apply): None applicable
--- NOTE | 2018-06-24 16:40 | PCM.PROGNOTE ---
Subjective: Patient was seen and examined today, her heart rate has remained in the low 100s, she is asymptomatic. Patient is going to be released home by surgery. Patient has no complaints to this examiner of any chest pain or shortness of breath. - Physical Exam General: Alert, Oriented x3, Cooperative, No apparent distress, Well developed HEENT: Atraumatic, PERRLA, EOMI, Normocephalic Oral: Moist Mucosa Neck: Supple, No Nuchal Rigidity, Trachea Midline, Thyroid Normal Size and Texture Lungs: Clear to auscultation, Normal air movement, No rhonchi, No wheeze Cardiovascular: Regular rate, Regular Rhythm, Normal S1, Normal S2, No murmurs, No Ectopic Activity, PMI Normal, No rub noted, Tachycardic Abdomen: Bowel Sounds Present, Soft, Non-Distended Extremities: No clubbing, No cyanosis, No edema, Capillary Refill Less than 3 Seconds Skin: No rashes, No breakdown Musculoskeletal: No Tenderness to Palpation of Joints or Extremities Neurological: Cranial nerves II-XII grossly intact, Neuro grossly intact, Sensory exam intact to light touch and pain, Coordination normal Psych/Mental Status: Normal Affect, Appropriate, Alert and oriented to time, place, person, mood and affect Vital Signs Temp Pulse Resp BP Pulse Ox 97.8 F 104 H 16 121/71 H 95 06/24/18 14:50 06/24/18 14:50 06/24/18 14:50 06/24/18 14:50 06/24/18 14:50 Oxygen Flow Rate (L/min) 2 Oxygen Delivery Method Room Air Weight: 61.2 kg Body Mass Index (BMI) 24.6 Intake and Output for Last 24 Hours 06/22/18 06/23/18 06/24/18 23:59 23:59 23:59 Intake Total 4807 / 4807 5170 / 5170 2865 / 2865 Output Total 1250 / 1250 1800 / 1800 2400 / 2400 Balance 3557 / 3557 3370 / 3370 465 / 465 Microbiology Past 72 Hours 06/21/18 15:36 Gram Stain - Final Tissue - Abdominal Wound Culture - Preliminary Gram Positive Cocci Gram positive roberto Anaerobic Culture - Final No anaerobic bacteria isolated. 06/21/18 15:36 Gram Stain - Final Tissue - Breast Wound Culture - Preliminary Gram Positive Cocci Gram positive roberto Gram positive organism Anaerobic Culture - Preliminary Checking for anaerobes, further studies to follow. 06/21/18 19:30 Urine Culture - Final Urine, Clean Catch Culture exhibits no growth. Laboratory Tests Past 24 Hrs 06/24/18 06/24/18 04:25 04:25 WBC 8.0 RBC 4.10 L Hgb 11.6 L Hct 35.9 L MCV 87.6 MCH 28.3 MCHC 32.3 RDW 15.4 H RDW Differential 49.9 H Plt Count 418 MPV 9.3 ESR 94 H Sodium 141 Potassium 3.5 Chloride 107 Carbon Dioxide 28.0 Anion Gap 6 BUN 14 Creatinine 0.57 Estim Creat Clear Calc 86.12 Est GFR (MDRD) Af Amer 139 Est GFR (MDRD) Non-Af 115 BUN/Creatinine Ratio 24.4 H Glucose 175 H Calcium 8.7 C-React Prot Ext Range 98.10 H Medical Necessity - Tobacco Use Smoking Status: Never smoker Assessment/Plan All Active Problems (Last Reviewed 05/10/18 @ 13:24 by Alberto Dueñas MD) Partial loss of skin graft (Acute) Nonhealing surgical wound (Acute) Abdominal wall hernia (Acute) #1 chronic nonischemic cardiomyopathy secondary to radiation and or chemotherapy for breast cancer-patient remains stable at this time #2 essential hypertension #3 anemia secondary to expected blood loss from surgery-patient's hemoglobin today was 11.6 #4 hyperlipidemia #5 left breast wound infection with staph epidermidis-patient will be set up for IV vancomycin as an outpatient #6 abdominal wound infection with corynebacterium-patient was up with outpatient IV vancomycin #7 depression #8 Status post excisional debridement and revision of left breast wound with incision and drainage complex abdominal wall infected seroma-postop day #2 Code Visit Inpatient E&M: 67497 Subs Hosp L2
== END 2018-06-24 17:41 | disposition home health service (06) | DRG 721 ==
LOC: MS3 15:45
PROVIDERS: Admitting Provider Surgery; Referring Provider Surgery; Visit Provider Surgery
PROC: 0JB80ZZ Excision of Abdomen Subcutaneous Tissue and Fascia, Open Approach (ICD-10-PCS; CPT 19020; principal; 2018-06-21 14:10)
DX: T81.49XA Infection following a procedure, other surgical site, initial encounter (principal); L76.34 Postprocedural seroma of skin and subcutaneous tissue following other procedure; I11.0 Hypertensive heart disease with heart failure; I50.22 Chronic systolic (congestive) heart failure; C50.919 Malignant neoplasm of unspecified site of unspecified female breast; D63.8 Anemia in other chronic diseases classified elsewhere; E78.5 Hyperlipidemia, unspecified; F32.9 Major depressive disorder, single episode, unspecified; Y83.8 Other surgical procedures as the cause of abnormal reaction of the patient, or of later complication, without mention of misadventure at the time of the procedure; Z17.0 Estrogen receptor positive status [ER+]; Z79.811 Long term (current) use of aromatase inhibitors; Z92.3 Personal history of irradiation; Z92.21 Personal history of antineoplastic chemotherapy; Z80.3 Family history of malignant neoplasm of breast; Z87.440 Personal history of urinary (tract) infections; L59.8 Other specified disorders of the skin and subcutaneous tissue related to radiation; Y84.2 Radiological procedure and radiotherapy as the cause of abnormal reaction of the patient, or of later complication, without mention of misadventure at the time of the procedure; B95.7 Other staphylococcus as the cause of diseases classified elsewhere
CPT/HCPCS: 36415; 36569; 80048; 80202; 81001; 84134; 85027; 85652; 86140; 86850; 86900; 86920; 86922; 87015; 87070; 87075; 87077; 87086; 87102; 87116; 87186; 87205; 87206; 88305; 94640; 97802; J7040; J7120; P9016; A4216; J2405

== ENCOUNTER 2018-07-11 12:00 | Outpatient (RCR) | payer MEDICAID, SELFPAY ==
[2018-06-30 16:15] VITALS: BMI 24.6
[2018-07-05 14:02] VITALS: TEMP 37; BMI 24.6
--- NOTE | 2018-07-05 16:59 | PN.PCM_ITS ---
(1) Partial loss of skin graft Status: Acute Current Visit: Yes Code(s): T86.828 - Other complications of skin graft (allograft) (autograft) Comment: compromised TRAM flap left breast (2) Nonhealing surgical wound Status: Acute Current Visit: Yes Code(s): T81.89XA - Other complications of procedures, not elsewhere classified, initial encounter Comment: lower anterior abdominal wall wound left breast reconstruction wound (3) Soft tissue radionecrosis Status: Chronic Current Visit: Yes Code(s): L59.8 - Other specified disorders of the skin and subcutaneous tissue related to radiation; Y84.2 - Radiological procedure and radiotherapy as the cause of abnormal reaction of the patient, or of later complication, without mention of misadventure at the time of the procedure Comment: left breast (4) Late effect of radiation Status: Chronic Current Visit: Yes Code(s): T66.XXXS - Radiation sickness, unspecified, sequela Comment: left breast (5) Staphylococcus epidermidis infection Status: Acute Current Visit: Yes Code(s): B95.7 - Other staphylococcus as the cause of diseases classified elsewhere Comment: MRSE (6) Deformity of reconstructed breast Status: Acute Current Visit: Yes Code(s): N65.0 - Deformity of reconstructed breast Type of Wound Chief Complaint: Left breast and abdominal wound. History of Wound: Postop visit from her recent surgery on 06/21/18 where she underwent incision and drainage complex abdominal wall infected seroma and surgical preparation left breast with excisional debridement and revision reconstructed compromised TRAM flap wound infection (156 cm2). Her abdominal wall wound culture showed MRSE and Corynebacterium amycolatum/xer. Her left breast wound culture showed MRSE and Corynebacterium amycolatum/xer and Corynebacterium minutissimum. She is currently on Vancomycin. She was discharged from the hospital on 06/24/18. Postop visit from her recent surgery on 05/31/18 where she underwent revision left breast reconstruction with excision radiation fibrosis scar contour deformity and multiple W-plasty (18 cm2) and second stage delayed left breast reconstruction with bipedicled TRAM flap and complex abdominal wall reconstruction with repair of fascial defects with components separation technique using bilateral external oblique myofascial advancement flaps and placement MTF FlexHD acellular dermal matrix graft (320 cm2) and saline injection 300 ml into tissue seam press operator right breast reconstruction (650 ml seam press operator). She was discharged from the hospital on 06/07/18. Postop visit from her surgery on 05/10/18 where she underwent first stage delayed left breast reconstruction with bipedicled TRAM flap delay and first stage delayed right breast reconstruction with placement of submuscular saline tissue seam press operator (650 ml). She was discharged from the hospital on 05/11/18. Wound care is a wound VAC with home health helping change it 2-3 times per week. Progress of Wound: Stable. - Physical Exam Vital Signs Temp 98.6 F 07/05/18 14:02 General: Alert, Cooperative, No apparent distress HEENT: Atraumatic, PERRLA, TM's Clear Oral: Moist Mucosa Lungs: Clear to auscultation, Normal air movement Cardiovascular: Regular rate, Regular Rhythm Abdomen: Bowel Sounds Present, Soft Extremities: No edema, Capillary Refill Less than 3 Seconds Skin: Ulcer/ Wound - Left breast wound and lower abdominal opened surgical wound Wound Measurements and Assessment WC - Nurse 1 - General Ulcer Measurement Start: 07/05/18 13:38 Freq: Status: Active Protocol: Activity Type Activity Date Activity User E-Sign Co-Sign Detail Recorded Client Recorded Date Recorded By Document 07/05/18 14:02 DV [id number] 07/05/18 14:53 DV 07/05/18 14:02 Wound Center Nurse 1 [Ulcer Assessment] #2 Lower Abdomen -Combined with other wound No -Current Size (cm) - Length 30.0 -Current Size (cm) - Width 5.0 -Current Size (cm) - Depth 0.3 -Total Square Cm 150.00 -Date of Last Picture (Recall this 07/05/18 field) -Photo Taken Yes -Epithelialization Medium 34-66% -Tunneling No -Undermining/Tunneling No -Circular Undermining No -Classification - Thickness Full Thickness with Exposed Support Structure -Exudate Amt Large -Exudate Type Serosanguineous -Wound Margin Thickened & Rolled Under -Granulation Amt Medium (34-66%) -Granulation Quality Pale [place] Red -Slough/Fibrin Yes -Necrosis Amt Large (67-100%) -Necrotic Tissue Type Adherent Slough -Structure Exposed Fat Layer Exposed -Texture (Tierney-wound Skin Appearance) Assessed Scarring -Moisture (Tierney-wound Skin Appearance Assessed ) Weeping -Color (Tierney-wound Skin Appearance) Assessed Erythema -Temperature (Tierney-wound Skin No Abnormality Appearance) (Pt Warm) -Tenderness on Palpation (Tierney-wound No Skin Appearance) -Ulcer Cleansing Rinsed/ Irrigated with Saline -Foul Odor after Cleansing No -Anesthetic Used 4% Lidocaine Solution #1 Left Breast -Combined with other wound No -Current Size (cm) - Length 13.0 -Current Size (cm) - Width 13.5 -Current Size (cm) - Depth 4.5 -Total Square Cm 175.50 -Photo Taken No -Epithelialization Small 1-33% -Tunneling No -Undermining/Tunneling No -Circular Undermining No -Classification - Thickness Full Thickness with Exposed Support Structure -Exudate Amt Large -Exudate Type Serosanguineous -Wound Margin Thickened & Rolled Under -Granulation Amt Medium (34-66%) -Granulation Quality Pale Valencia Red -Slough/Fibrin Yes -Necrosis Amt Large (67-100%) -Necrotic Tissue Type Adherent Slough -Structure Exposed Fat Layer Exposed -Texture (Tierney-wound Skin Appearance) Assessed Scarring -Moisture (Tierney-wound Skin Appearance Assessed ) Weeping -Color (Tierney-wound Skin Appearance) Assessed Erythema -Temperature (Tierney-wound Skin No Abnormality Appearance) (Pt Warm) -Tenderness on Palpation (Tierney-wound No Skin Appearance) -Ulcer Cleansing Rinsed/ Irrigated with Saline -Foul Odor after Cleansing No -Anesthetic Used 4% Lidocaine Solution WC - Nurse 2 - General Ulcer CM Notes Start: 07/05/18 13:38 Freq: Status: Active Protocol: Activity Type Activity Date Activity User E-Sign Co-Sign Detail Recorded Client Recorded Date Recorded By Document 07/05/18 15:41 [email or web address] [id number] 07/05/18 15:44 BIRGIT 07/05/18 15:41 Wound Center Nurse 2 [Procedure/Treatment] #2 Lower Abdomen -Time 15:42 -Correct Patient Yes -Correct Side, Site, Position Yes -Correct Procedure Yes -Procedure Performed Yes -Type of Procedure Debridement -Clinical Debridement Subcutaneous -Post Debridement Size (cm) - Length 30.0 -Post Debridement Size (cm) - Width 5 -Post Debridement Size (cm) - Depth 3 -Total Square Cm 150.0 -Wound/Ulcer Outcome Not Healed -Ulcer Cleansing Rinsed/ Irrigated with Saline -Foul Odor after Cleansing No -Bioengineered Tissue No -Bleeding Controlled with Pressure -Offloading No -Treatment Response Procedure Tolerated Well #1 Left Breast -Time 15:42 -Correct Patient Yes -Correct Side, Site, Position Yes -Correct Procedure Yes -Procedure Performed Yes -Type of Procedure Debridement -Clinical Debridement Muscle -Post Debridement Size (cm) - Length 13.1 -Post Debridement Size (cm) - Width 13.5 -Post Debridement Size (cm) - Depth 4.5 -Total Square Cm 176.85 -Wound/Ulcer Outcome Not Healed -Ulcer Cleansing Rinsed/ Irrigated with Saline -Foul Odor after Cleansing No -Bioengineered Tissue No -Bleeding Controlled with Pressure -Offloading No -Treatment Response Procedure Tolerated Well [See Physician Procedure note for Specifics] Pain Scale: 0-10 Numeric [Pain] -Is Patient Pain Free? Yes Musculoskeletal: No Tenderness to Palpation of Joints or Extremities Neurological: Neuro grossly intact Psych/Mental Status: Normal Affect, Flat Affect Debridement Note Post-Debridement Measurements/Treatment WC - Nurse 2 - General Ulcer CM Notes Start: 07/05/18 13:38 Freq: Status: Active Protocol: Activity Type Activity Date Activity User E-Sign Co-Sign Detail Recorded Client Recorded Date Recorded By Document 07/05/18 15:41 BIRGIT [id number] 07/05/18 15:44 BIRGIT 07/05/18 15:41 Wound Center Nurse 2 #2 Lower Abdomen -Time 15:42 -Correct Patient Yes -Correct Side, Site, Position Yes -Correct Procedure Yes -Procedure Performed Yes -Type of Procedure Debridement -Clinical Debridement Subcutaneous -Post Debridement Size (cm) - Length 30.0 -Post Debridement Size (cm) - Width 5 -Post Debridement Size (cm) - Depth 3 -Total Square Cm 150.0 -Wound/Ulcer Outcome Not Healed -Ulcer Cleansing Rinsed/ Irrigated with Saline -Foul Odor after Cleansing No -Bioengineered Tissue No -Bleeding Controlled with Pressure -Offloading No -Treatment Response Procedure Tolerated Well #1 Left Breast -Time 15:42 -Correct Patient Yes -Correct Side, Site, Position Yes -Correct Procedure Yes -Procedure Performed Yes -Type of Procedure Debridement -Clinical Debridement Muscle -Post Debridement Size (cm) - Length 13.1 -Post Debridement Size (cm) - Width 13.5 -Post Debridement Size (cm) - Depth 4.5 -Total Square Cm 176.85 -Wound/Ulcer Outcome Not Healed -Ulcer Cleansing Rinsed/ Irrigated with Saline -Foul Odor after Cleansing No -Bioengineered Tissue No -Bleeding Controlled with Pressure -Offloading No -Treatment Response Procedure Tolerated Well Pain Scale: 0-10 Numeric Is Patient Pain Free? Yes Wound debrided: Left breast Laterality: Left Type of Debridement: Excisional debridement Anesthesia Used: 4% Lidocaine Solution Depth: Down to and including healthy tissue, in the subcutaneous layer Percentage of wound debrided: 100 Instrument Used: 7mm curette Tissue Removed: Subcutaneous tissue and slough Severity: Fat Layer Exposed Amount of bleeding with debridement: Mild Bleeding Controlled with: Pressure Patient tolerated procedure well - Additional Wound Wound debrided: Lower abdominal Laterality: Not Applicable Type of Debridement: Excisional debridement Anesthesia Used: 4% Lidocaine Solution Depth: Down to and including healthy tissue, in the subcutaneous layer Percentage of wound debrided: 100 Instrument Used: 7mm curette Tissue Removed: Subcutaneous tissue and slough Severity: Fat Layer Exposed Amount of bleeding with debridement: Mild Bleeding Controlled with: Pressure Patient tolerated procedure: Patient tolerated procedure well Assessment/Plan Active Problems (Last Reviewed 05/10/18 @ 13:24 by Alberto Dueñas MD) Staphylococcus epidermidis infection (Acute) MRSE Partial loss of skin graft (Acute) compromised TRAM flap left breast Nonhealing surgical wound (Acute) lower anterior abdominal wall wound left breast reconstruction wound Deformity of reconstructed breast (Acute) 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 Partial loss of skin graft - compromised TRAM flap left breast. 2. Nonhealing surgical wound lower anterior abdominal wall wound and left breast reconstruction wound. 3. Deformity of reconstructed breast. 4. Soft tissue radionecrosis left breast. 5. Late effect of radiation left breast. 6. Staphylococcus epidermidis infection MRSE Plan: Patient was seen and evaluated in the wound center today. Wound care will continue to be the wound VAC at 150 mmHg. Patient would benefit from HBO therapy due to soft tissue radionecrosis to her left breast. She also has a compromised TRAM flap to the left breast. She will need a minimum of HBOT 5 days a week for 40 treatments. Chest x-ray on 06/07/18 was unremarkable. Cardiac Cath 09/16/17 showed an EF = 45-50%. Patient will follow up in one week. Code Visit [id number]
[2018-07-11 12:30] VITALS: BP 145/85; PULSE 109; RESP 16; TEMP 36.4; BMI 24.6
--- NOTE | 2018-07-11 13:46 | PCM.WC.PN ---
Type of Wound Date of Service: 07/11/18 Chief Complaint: Compromised TRAM flap left breast and nonhealing surgical wound abdominal wall. History of Wound: Surgery 06/21/18 - Incision and drainage complex abdominal wall infected seroma and surgical preparation left breast with excisional debridement and revision reconstructed compromised TRAM flap wound infection (156 cm2). Surgery 05/31/18 - Revision left breast reconstruction with excision radiation fibrosis scar contour deformity and multiple W-plasty (18 cm2) and second stage delayed left breast reconstruction with bipedicled TRAM flap and complex abdominal wall reconstruction with repair of fascial defects with components separation technique using bilateral external oblique myofascial advancement flaps and placement MTF FlexHD acellular dermal matrix graft (320 cm2) and saline injection 300 ml into tissue pin game machine inspector right breast reconstruction (650 ml pin game machine inspector). Wound care - VAC. Operative culture - MRSE, and Corynebacterium amycolatum/xer, and Corynebacterium minutissimum. She is being treated with Vancomycin. She was also on Flagyl for a previous Anaerobic cocci culture and has finished them. Prealbumin from 06/22/18 was 11.5. Encourage nutritional supplementation with protein to help the healing process. Today she denies fever. Her appetite is ok. Patient has a history of radiation therapy after her mastectomy for left breast cancer and has developed soft tissue radionecrosis. She would benefit from HBO treatments. Awaiting HBO approval. Progress of Wound: Improved. - Physical Exam Vital Signs Temp Pulse Resp BP 97.5 F L 109 H 16 145/85 H 07/11/18 12:30 07/11/18 12:30 07/11/18 12:30 07/11/18 12:30 Wound Measurements and Assessment WC - Nurse 1 - General Ulcer Measurement Start: 07/05/18 13:38 Freq: Status: Active Protocol: Activity Type Activity Date Activity User E-Sign Co-Sign Detail Recorded Client Recorded Date Recorded By Document 07/11/18 12:30 MW [id number] 07/11/18 12:45 MW 07/11/18 12:30 Wound Center Nurse 1 [Ulcer Assessment] #2 Lower Abdomen -Combined with other wound No -Current Size (cm) - Length 30.5 -Current Size (cm) - Width 5.5 -Current Size (cm) - Depth 1.0 -Total Square Cm 167.75 -Photo Taken No -Epithelialization None Present -Tunneling No -Undermining/Tunneling No -Circular Undermining No -Exudate Amt Medium -Exudate Type Serosanguineous -Wound Margin Epibole -Granulation Amt Large (67-100%) -Granulation Quality Red -Slough/Fibrin Yes -Necrosis Amt Small (1-33%) -Necrotic Tissue Type Adherent Slough -Structure Exposed N/A -Texture (Tierney-wound Skin Appearance) No Abnormality Assessed -Moisture (Tierney-wound Skin Appearance No Abnormality ) Assessed -Color (Tierney-wound Skin Appearance) No Abnormality Assessed -Temperature (Tierney-wound Skin No Abnormality Appearance) (Pt Warm) -Tenderness on Palpation (Tierney-wound Yes Skin Appearance) -Ulcer Cleansing soap and water -Anesthetic Used 4% Lidocaine Solution #1 Left Breast -Combined with other wound No -Current Size (cm) - Length 11.0 -Current Size (cm) - Width 10.2 -Current Size (cm) - Depth 4.5 -Total Square Cm 112.20 -Photo Taken No -Epithelialization None Present -Tunneling No -Undermining/Tunneling No -Circular Undermining No -Exudate Amt Medium -Exudate Type Serosanguineous -Wound Margin Distinct, Outline Attached -Granulation Amt Medium (34-66%) -Granulation Quality Red -Slough/Fibrin Yes -Necrosis Amt Medium (34-66%) -Necrotic Tissue Type Adherent Slough -Structure Exposed N/A -Texture (Tierney-wound Skin Appearance) Assessed Scarring -Moisture (Tierney-wound Skin Appearance No Abnormality ) Assessed -Color (Tierney-wound Skin Appearance) No Abnormality Assessed -Temperature (Tierney-wound Skin No Abnormality Appearance) (Pt Warm) -Tenderness on Palpation (Tierney-wound No Skin Appearance) -Ulcer Cleansing soap and water -Foul Odor after Cleansing No -Anesthetic Used 4% Lidocaine Solution [Edema Assessment] -Lower Limb Edema Present No WC - Nurse 2 - General Ulcer CM Notes Start: 07/05/18 13:38 Freq: Status: Active Protocol: Activity Type Activity Date Activity User E-Sign Co-Sign Detail Recorded Client Recorded Date Recorded By Document 07/11/18 13:37 AN [id number] 07/11/18 13:46 AN 07/11/18 13:37 Wound Center Nurse 2 [Procedure/Treatment] #2 Lower Abdomen -Time 13:39 -Correct Patient Yes -Correct Side, Site, Position Yes -Correct Procedure Yes -Procedure Performed Yes -Type of Procedure Debridement -Clinical Debridement Subcutaneous -Post Debridement Size (cm) - Length 30.6 -Post Debridement Size (cm) - Width 5.6 -Post Debridement Size (cm) - Depth 1.0 -Total Square Cm 171.36 -Wound/Ulcer Outcome Not Healed -Ulcer Cleansing Rinsed/ Irrigated with Saline -Foul Odor after Cleansing No -Bioengineered Tissue No -Bleeding Controlled with Pressure -Offloading No -Treatment Response Procedure Tolerated Well #1 Left Breast -Time 13:41 -Correct Patient Yes -Correct Side, Site, Position Yes -Correct Procedure Yes -Procedure Performed Yes -Type of Procedure Debridement -Clinical Debridement Subcutaneous -Post Debridement Size (cm) - Length 11.1 -Post Debridement Size (cm) - Width 10.3 -Post Debridement Size (cm) - Depth 4.6 -Total Square Cm 114.33 -Wound/Ulcer Outcome Not Healed -Ulcer Cleansing Rinsed/ Irrigated with Saline -Foul Odor after Cleansing No -Bioengineered Tissue No -Bleeding Controlled with Pressure -Offloading No -Treatment Response Procedure Tolerated Well [See Physician Procedure note for Specifics] Pain Scale: 0-10 Numeric [Pain] -Is Patient Pain Free? Yes Debridement Note Post-Debridement Measurements/Treatment WC - Nurse 2 - General Ulcer CM Notes Start: 07/05/18 13:38 Freq: Status: Active Protocol: Activity Type Activity Date Activity User E-Sign Co-Sign Detail Recorded Client Recorded Date Recorded By Document 07/05/18 15:41 [id number] 07/05/18 15:44 Document 07/11/18 13:37 AN [id number] 07/11/18 13:46 AN 07/05/18 07/11/18 15:41 13:37 Wound Center Nurse 2 #2 Lower Abdomen -Time 15:42 13:39 -Correct Patient Yes Yes -Correct Side, Site, Position Yes Yes -Correct Procedure Yes Yes -Procedure Performed Yes Yes -Type of Procedure Debridement Debridement -Clinical Debridement Subcutaneous Subcutaneous -Post Debridement Size (cm) - Length 30.0 30.6 -Post Debridement Size (cm) - Width 5 5.6 -Post Debridement Size (cm) - Depth 3 1.0 -Total Square Cm 150.0 171.36 -Wound/Ulcer Outcome Not Healed Not Healed -Ulcer Cleansing Rinsed/ Rinsed/ Irrigated with Irrigated with Saline Saline -Foul Odor after Cleansing No No -Bioengineered Tissue No No -Bleeding Controlled with Pressure Pressure -Offloading No No -Treatment Response Procedure Procedure Tolerated Well Tolerated Well #1 Left Breast -Time 15:42 13:41 -Correct Patient Yes Yes -Correct Side, Site, Position Yes Yes -Correct Procedure Yes Yes -Procedure Performed Yes Yes -Type of Procedure Debridement Debridement -Clinical Debridement Muscle Subcutaneous -Post Debridement Size (cm) - Length 13.1 11.1 -Post Debridement Size (cm) - Width 13.5 10.3 -Post Debridement Size (cm) - Depth 4.5 4.6 -Total Square Cm 176.85 114.33 -Wound/Ulcer Outcome Not Healed Not Healed -Ulcer Cleansing Rinsed/ Rinsed/ Irrigated with Irrigated with Saline Saline -Foul Odor after Cleansing No No -Bioengineered Tissue No No -Bleeding Controlled with Pressure Pressure -Offloading No No -Treatment Response Procedure Procedure Tolerated Well Tolerated Well Pain Scale: 0-10 Numeric Is Patient Pain Free? Yes Yes Wound debrided: #1 Left breast. Laterality: Left Wound Grade/Stage: 2. Type of Debridement: Excisional debridement Anesthesia Used: 4% Lidocaine Solution Depth: Down to and including healthy tissue, in the subcutaneous layer Percentage of wound debrided: 100 Instrument Used: 5mm curette Tissue Removed: subcutaneous tissue. Severity: Fat Layer Exposed Amount of bleeding with debridement: Mild Bleeding Controlled with: Pressure Patient tolerated procedure well - Additional Wound Wound debrided: #2 Abdominal wall. Laterality: Not Applicable Wound Grade/Stage: 2. Type of Debridement: Excisional debridement Anesthesia Used: 4% Lidocaine Solution Depth: Down to and including healthy tissue, in the subcutaneous layer Percentage of wound debrided: 100 Instrument Used: 7mm curette Tissue Removed: subcutaneous tissue. Severity: Fat Layer Exposed Amount of bleeding with debridement: Mild Bleeding Controlled with: Pressure Patient tolerated procedure: Patient tolerated procedure well Assessment/Plan Assessment: 1. Invasive ductal carcinoma left breast, s/p mastectomy. 2. Ductal carcinoma in situ right breast, s/p mastectomy. 3. Mild compromise left breast reconstruction TRAM flap wound(15%). 4. Nonhealing surgical wound lower abdominal wall TRAM donor incision. 5. Seroma abdominal wall. 6. MRSE. 7. Acquired absence bilateral breasts. 8. Disproportion reconstructed breasts. 9. Deformity reconstructed breasts. 10. Late effect radiation left breast. 11. Soft tissue radionecrosis left breast. 12. Estrogen receptor positive status. 13. Family history of breast cancer. Plan: Continue VAC to the left breast and abdominal wall. Continue Vancomycin for the operative culture that showed MRSE. Prealbumin from 06/22/18 was 11.5. Encourage nutritional supplementation with protein to help the healing process. 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 She would benefit from HBO treatments to help soften up the soft tissue radionecrosis and fibrosis and help the healing process. Anticipate 40-60 treatments. Followup one week.
--- NOTE | 2018-07-12 17:46 | PN.PCM_ITS ---
Type of Wound Date of Service: 07/11/18 Chief Complaint: Compromised TRAM flap left breast and nonhealing surgical wound abdominal wall. History of Wound: Surgery 06/21/18 - Incision and drainage complex abdominal wall infected seroma and surgical preparation left breast with excisional debridement and revision reconstructed compromised TRAM flap wound infection (156 cm2). Surgery 05/31/18 - Revision left breast reconstruction with excision radiation fibrosis scar contour deformity and multiple W-plasty (18 cm2) and second stage delayed left breast reconstruction with bipedicled TRAM flap and complex abdominal wall reconstruction with repair of fascial defects with components separation technique using bilateral external oblique myofascial advancement flaps and placement MTF FlexHD acellular dermal matrix graft (320 cm2) and saline injection 300 ml into tissue clean out driller helper right breast reconstruction (650 ml clean out driller helper). Wound care - VAC. Operative culture - MRSE, and Corynebacterium amycolatum/xer, and Corynebacterium minutissimum. She is being treated with Vancomycin. She was also on Flagyl for a previous Anaerobic cocci culture and has finished them. Prealbumin from 06/22/18 was 11.5. Encourage nutritional supplementation with protein to help the healing process. Today she denies fever. Her appetite is ok. Patient has a history of radiation therapy after her mastectomy for left breast cancer and has developed soft tissue radionecrosis. She would benefit from HBO treatments. Awaiting HBO approval. Progress of Wound: Improved. - Physical Exam Vital Signs Temp Pulse Resp BP 97.5 F L 109 H 16 145/85 H 07/11/18 12:30 07/11/18 12:30 07/11/18 12:30 07/11/18 12:30 Wound Measurements and Assessment WC - Nurse 1 - General Ulcer Measurement Start: 07/05/18 13:38 Freq: Status: Active Protocol: Activity Type Activity Date Activity User E-Sign Co-Sign Detail Recorded Client Recorded Date Recorded By Document 07/11/18 12:30 MW [id number] 07/11/18 12:45 MW 07/11/18 12:30 Wound Center Nurse 1 [Ulcer Assessment] #2 Lower Abdomen -Combined with other wound No -Current Size (cm) - Length 30.5 -Current Size (cm) - Width 5.5 -Current Size (cm) - Depth 1.0 -Total Square Cm 167.75 -Photo Taken No -Epithelialization None Present -Tunneling No -Undermining/Tunneling No -Circular Undermining No -Exudate Amt Medium -Exudate Type Serosanguineous -Wound Margin Epibole -Granulation Amt Large (67-100%) -Granulation Quality Red -Slough/Fibrin Yes -Necrosis Amt Small (1-33%) -Necrotic Tissue Type Adherent Slough -Structure Exposed N/A -Texture (Tierney-wound Skin Appearance) No Abnormality Assessed -Moisture (Tierney-wound Skin Appearance No Abnormality ) Assessed -Color (Tierney-wound Skin Appearance) No Abnormality Assessed -Temperature (Tierney-wound Skin No Abnormality Appearance) (Pt Warm) -Tenderness on Palpation (Tierney-wound Yes Skin Appearance) -Ulcer Cleansing soap and water -Anesthetic Used 4% Lidocaine Solution #1 Left Breast -Combined with other wound No -Current Size (cm) - Length 11.0 -Current Size (cm) - Width 10.2 -Current Size (cm) - Depth 4.5 -Total Square Cm 112.20 -Photo Taken No -Epithelialization None Present -Tunneling No -Undermining/Tunneling No -Circular Undermining No -Exudate Amt Medium -Exudate Type Serosanguineous -Wound Margin Distinct, Outline Attached -Granulation Amt Medium (34-66%) -Granulation Quality Red -Slough/Fibrin Yes -Necrosis Amt Medium (34-66%) -Necrotic Tissue Type Adherent Slough -Structure Exposed N/A -Texture (Tierney-wound Skin Appearance) Assessed Scarring -Moisture (Tierney-wound Skin Appearance No Abnormality ) Assessed -Color (Tierney-wound Skin Appearance) No Abnormality Assessed -Temperature (Tierney-wound Skin No Abnormality Appearance) (Pt Warm) -Tenderness on Palpation (Tierney-wound No Skin Appearance) -Ulcer Cleansing soap and water -Foul Odor after Cleansing No -Anesthetic Used 4% Lidocaine Solution [Edema Assessment] -Lower Limb Edema Present No WC - Nurse 2 - General Ulcer CM Notes Start: 07/05/18 13:38 Freq: Status: Active Protocol: Activity Type Activity Date Activity User E-Sign Co-Sign Detail Recorded Client Recorded Date Recorded By Document 07/11/18 13:37 AN [id number] 07/11/18 13:46 AN 07/11/18 13:37 Wound Center Nurse 2 [Procedure/Treatment] #2 Lower Abdomen -Time 13:39 -Correct Patient Yes -Correct Side, Site, Position Yes -Correct Procedure Yes -Procedure Performed Yes -Type of Procedure Debridement -Clinical Debridement Subcutaneous -Post Debridement Size (cm) - Length 30.6 -Post Debridement Size (cm) - Width 5.6 -Post Debridement Size (cm) - Depth 1.0 -Total Square Cm 171.36 -Wound/Ulcer Outcome Not Healed -Ulcer Cleansing Rinsed/ Irrigated with Saline -Foul Odor after Cleansing No -Bioengineered Tissue No -Bleeding Controlled with Pressure -Offloading No -Treatment Response Procedure Tolerated Well #1 Left Breast -Time 13:41 -Correct Patient Yes -Correct Side, Site, Position Yes -Correct Procedure Yes -Procedure Performed Yes -Type of Procedure Debridement -Clinical Debridement Subcutaneous -Post Debridement Size (cm) - Length 11.1 -Post Debridement Size (cm) - Width 10.3 -Post Debridement Size (cm) - Depth 4.6 -Total Square Cm 114.33 -Wound/Ulcer Outcome Not Healed -Ulcer Cleansing Rinsed/ Irrigated with Saline -Foul Odor after Cleansing No -Bioengineered Tissue No -Bleeding Controlled with Pressure -Offloading No -Treatment Response Procedure Tolerated Well [See Physician Procedure note for Specifics] Pain Scale: 0-10 Numeric [Pain] -Is Patient Pain Free? Yes Debridement Note Post-Debridement Measurements/Treatment WC - Nurse 2 - General Ulcer CM Notes Start: 07/05/18 13:38 Freq: Status: Active Protocol: Activity Type Activity Date Activity User E-Sign Co-Sign Detail Recorded Client Recorded Date Recorded By Document 07/05/18 15:41 [id number] 07/05/18 15:44 Document 07/11/18 13:37 AN [id number] 07/11/18 13:46 AN 07/05/18 07/11/18 15:41 13:37 Wound Center Nurse 2 #2 Lower Abdomen -Time 15:42 13:39 -Correct Patient Yes Yes -Correct Side, Site, Position Yes Yes -Correct Procedure Yes Yes -Procedure Performed Yes Yes -Type of Procedure Debridement Debridement -Clinical Debridement Subcutaneous Subcutaneous -Post Debridement Size (cm) - Length 30.0 30.6 -Post Debridement Size (cm) - Width 5 5.6 -Post Debridement Size (cm) - Depth 3 1.0 -Total Square Cm 150.0 171.36 -Wound/Ulcer Outcome Not Healed Not Healed -Ulcer Cleansing Rinsed/ Rinsed/ Irrigated with Irrigated with Saline Saline -Foul Odor after Cleansing No No -Bioengineered Tissue No No -Bleeding Controlled with Pressure Pressure -Offloading No No -Treatment Response Procedure Procedure Tolerated Well Tolerated Well #1 Left Breast -Time 15:42 13:41 -Correct Patient Yes Yes -Correct Side, Site, Position Yes Yes -Correct Procedure Yes Yes -Procedure Performed Yes Yes -Type of Procedure Debridement Debridement -Clinical Debridement Muscle Subcutaneous -Post Debridement Size (cm) - Length 13.1 11.1 -Post Debridement Size (cm) - Width 13.5 10.3 -Post Debridement Size (cm) - Depth 4.5 4.6 -Total Square Cm 176.85 114.33 -Wound/Ulcer Outcome Not Healed Not Healed -Ulcer Cleansing Rinsed/ Rinsed/ Irrigated with Irrigated with Saline Saline -Foul Odor after Cleansing No No -Bioengineered Tissue No No -Bleeding Controlled with Pressure Pressure -Offloading No No -Treatment Response Procedure Procedure Tolerated Well Tolerated Well Pain Scale: 0-10 Numeric Is Patient Pain Free? Yes Yes Wound debrided: #1 Left breast. Laterality: Left Wound Grade/Stage: 2. Type of Debridement: Excisional debridement Anesthesia Used: 4% Lidocaine Solution Depth: Down to and including healthy tissue, in the subcutaneous layer Percentage of wound debrided: 100 Instrument Used: 5mm curette Tissue Removed: subcutaneous tissue. Severity: Fat Layer Exposed Amount of bleeding with debridement: Mild Bleeding Controlled with: Pressure Patient tolerated procedure well - Additional Wound Wound debrided: #2 Abdominal wall. Laterality: Not Applicable Wound Grade/Stage: 2. Type of Debridement: Excisional debridement Anesthesia Used: 4% Lidocaine Solution Depth: Down to and including healthy tissue, in the subcutaneous layer Percentage of wound debrided: 100 Instrument Used: 7mm curette Tissue Removed: subcutaneous tissue. Severity: Fat Layer Exposed Amount of bleeding with debridement: Mild Bleeding Controlled with: Pressure Patient tolerated procedure: Patient tolerated procedure well Assessment/Plan Assessment: 1. Invasive ductal carcinoma left breast, s/p mastectomy. 2. Ductal carcinoma in situ right breast, s/p mastectomy. 3. Mild compromise left breast reconstruction TRAM flap wound(15%). 4. Nonhealing surgical wound lower abdominal wall TRAM donor incision. 5. Seroma abdominal wall. 6. MRSE. 7. Acquired absence bilateral breasts. 8. Disproportion reconstructed breasts. 9. Deformity reconstructed breasts. 10. Late effect radiation left breast. 11. Soft tissue radionecrosis left breast. 12. Estrogen receptor positive status. 13. Family history of breast cancer. Plan: Continue VAC to the left breast and abdominal wall. Continue Vancomycin for the operative culture that showed MRSE. Prealbumin from 06/22/18 was 11.5. Encourage nutritional supplementation with protein to help the healing process. 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 She would benefit from HBO treatments to help soften up the soft tissue radionecrosis and fibrosis and help the healing process. Anticipate 40-60 treatments. Followup one week.
== END 2018-07-12 23:59 ==
LOC: WC 12:00
PROVIDERS: Visit Provider Nurse Practitioner Family
DX: T86.828 Other complications of skin graft (allograft) (autograft) (principal); Y83.8 Other surgical procedures as the cause of abnormal reaction of the patient, or of later complication, without mention of misadventure at the time of the procedure; Y84.2 Radiological procedure and radiotherapy as the cause of abnormal reaction of the patient, or of later complication, without mention of misadventure at the time of the procedure; L59.8 Other specified disorders of the skin and subcutaneous tissue related to radiation; N65.0 Deformity of reconstructed breast; T81.89XA Other complications of procedures, not elsewhere classified, initial encounter; Z86.008 Personal history of in-situ neoplasm of other site; Z85.3 Personal history of malignant neoplasm of breast; Z92.3 Personal history of irradiation; Z17.0 Estrogen receptor positive status [ER+]; Z80.3 Family history of malignant neoplasm of breast; Z90.13 Acquired absence of bilateral breasts and nipples
CPT/HCPCS: 11042; 11043; 11045; 11046; 97606; 99213; G0463

== ENCOUNTER 2018-07-11 16:25 | Emergency (ER) | payer MEDICAID, SELFPAY ==
[2018-07-11 12:30] VITALS: BMI 24.6
[2018-07-11 16:27] VITALS: BP 122/59; BP 135/69; PULSE 112; PULSE 115; RESP 17; TEMP 36.8; O2SAT 100; O2SAT 98; BMI 22.9
--- NOTE | 2018-07-11 16:46 | ED.DCSUM_ITS ---
- ER Visit Summary Date of Service: 07/11/18 Chief Complaint: Wound evaluation History of Present Illness: The patient is a 57 F status post left breast reconstruction surgery who presents for wound evaluation. Patient has short- term memory issues and cannot remember exactly when her surgery was, however she has been having a vacuum wound on her left breast reconstruction area and on her abdomen where the skin graft was taken from. She went to Dr. Murillo's office today for wound change, and she forgot to bring the vacuum phone with her. Thus they packed the area and covered it with regular dressings. Patient states when she got home she noted blood was soaking through the dressing. She covered it with an absorbent pet urine pad and called EMS. She states she began feeling flushed and lightheaded when she noted how much blood was there. She denies any other complaints including pain. Physical Examination: Patient is awake and alert, hemodynamically stable, sitting in bed in no distress. Left breast region is covered in bulky dressings, with the lateral aspect soaked with blood. No active bleeding noted upon visualization of the underlying wound. Patient skin is warm and dry, pink. Remainder of exam unremarkable. Test Results: [] Emergency Department Course and Treatment: Dr. Murillo's nurse was contacted and stated the patient had an appointment with a home health nurse coming to her house to replace the wound VAC tomorrow. They had wanted to trial the patient with just the packing and dressing, and did not wish for us to replace the wound vac in the emergency department. Patient's dressings were taken down on both the breast in the abdomen. There was some bleeding of the upper area of the breast reconstruction, and with packing and re-bandaging, it was well controlled. Patient feels comfortable with discharge home and will keep her appointment with wound care tomorrow. Patient will return if any worsening of the bleeding or any other concerns. Treatment Plan: [] Disposition: [] Impression: Incisional care, hemorrhage of the surgical site This note was generated with [employer] dictation software. It may contain incorrect words, spelling, and punctuation that were not noted in review of the chart prior to signing ED Disposition - Plan for ED Patient: Disposition: Home or Assisted Living Instructions: ED Wound Care Referrals: Nevaeh Hawkins, [Primary Care Provider] - As Needed Additional Instructions: If you have any worsening of your condition or any new concerning symptoms, please return immediately to the emergency department for another evaluation.
--- NOTE | 2018-07-11 16:52 | ED.RN ---
CALLED WOUND CENTER AT THE REQUEST OF DR BEAVERS TO HAVE WOUND VAC PLACED BACK ON TO WOUND. SPOKE WITH TRIXIE, STATES ND PT'S CASE MANAGEMENT AND DR HUITRON. PT IS TO BE DISCHARGED HOME AFTER BLEEDING IS UNDER CONTROL. HOME HEALTH IS ALREADY SET UP TO PLACE WOUND VAC FOR PATIENT TOMORROW.
[2018-07-11 19:39] VITALS: BP 137/89; PULSE 89; RESP 14; O2SAT 99
== END 2018-07-11 19:40 | disposition home or self-care (01) ==
PROVIDERS: Emergency Provider Emergency Medicine
DX: L76.22 Postprocedural hemorrhage of skin and subcutaneous tissue following other procedure (principal); Y83.8 Other surgical procedures as the cause of abnormal reaction of the patient, or of later complication, without mention of misadventure at the time of the procedure; Z85.3 Personal history of malignant neoplasm of breast
CPT/HCPCS: 99285

== ENCOUNTER 2018-07-25 15:30 | Outpatient (RCR) | payer MEDICAID, SELFPAY ==
[2018-07-13 01:54] VITALS: BP 145/85; PULSE 109; RESP 16; TEMP 36.4; BMI 24.6
[2018-07-18 13:30] VITALS: BP 162/85; PULSE 117; RESP 18; TEMP 36.5; BMI 24.6
--- NOTE | 2018-07-18 16:25 | PN.PCM_ITS ---
(1) Deformity of reconstructed breast Status: Chronic Code(s): N65.0 - Deformity of reconstructed breast (2) Nonhealing surgical wound Status: Chronic Code(s): T81.89XA - Other complications of procedures, not elsewhere classified, initial encounter Comment: lower anterior abdominal wall wound left breast reconstruction wound (3) Soft tissue radionecrosis Status: Chronic Code(s): L59.8 - Other specified disorders of the skin and subcutaneous tissue related to radiation; Y84.2 - Radiological procedure and radiotherapy as the cause of abnormal reaction of the patient, or of later complication, without mention of misadventure at the time of the procedure Comment: left breast (4) Late effect of radiation Status: Chronic Code(s): T66.XXXS - Radiation sickness, unspecified, sequela Comment: left breast (5) Status post transverse rectus abdominis muscle flap breast reconstruction Status: Chronic Code(s): Z98.890 - Other specified postprocedural states (6) Disruption or dehiscence of closure of muscle or muscle flap Status: Chronic Code(s): T81.32XA - Disruption of internal operation (peralta rgical) wound, not elsewhere classified, initial encounter Type of Wound Date of Service: 07/18/18 Chief Complaint: Left breast and abdominal wound. History of Wound: Postop visit from her recent surgery on 06/21/18 where she underwent incision and drainage complex abdominal wall infected seroma and surgical preparation left breast with excisional debridement and revision reconstructed compromised TRAM flap wound infection (156 cm2). Her abdominal wall wound culture showed MRSE and Corynebacterium amycolatum/xer. Her left breast wound culture showed MRSE and Corynebacterium amycolatum/xer and Corynebacterium minutissimum. She is currently on Vancomycin. She was discharged from the hospital on 06/24/18. Postop visit from her recent surgery on 05/31/18 where she underwent revision left breast reconstruction with excision radiation fibrosis scar contour deformity and multiple W-plasty (18 cm2) and second stage delayed left breast reconstruction with bipedicled TRAM flap and complex abdominal wall reconstruction with repair of fascial defects with components separation technique using bilateral external oblique myofascial advancement flaps and placement MTF FlexHD acellular dermal matrix graft (320 cm2) and saline injection 300 ml into tissue adult education instructor right breast reconstruction (650 ml adult education instructor). She was discharged from the hospital on 06/07/18. Postop visit from her surgery on 05/10/18 where she underwent first stage delayed left breast reconstruction with bipedicled TRAM flap delay and first stage delayed right breast reconstruction with placement of submuscular saline tissue adult education instructor (650 ml). She was discharged from the hospital on 05/11/18. Wound care is a wound VAC with home health helping change it 2-3 times per week. Progress of Wound: Stable. - Physical Exam Vital Signs Temp Pulse Resp BP 97.7 F L 117 H 18 162/85 H 07/18/18 13:30 07/18/18 13:30 07/18/18 13:30 07/18/18 13:30 General: Alert, Oriented x3, Cooperative HEENT: Atraumatic, PERRLA Oral: Moist Mucosa Lungs: Normal air movement Cardiovascular: Regular rate Extremities: No edema, Capillary Refill Less than 3 Seconds Skin: Ulcer/ Wound - Left breast and abdominal Wound Measurements and Assessment WC - Nurse 1 - General Ulcer Measurement Start: 07/18/18 13:30 Freq: Status: Active Protocol: Activity Type Activity Date Activity User E-Sign Co-Sign Detail Recorded Client Recorded Date Recorded By Document 07/18/18 13:30 MW [id number] 07/18/18 13:47 MW 07/18/18 13:30 Wound Center Nurse 1 [Ulcer Assessment] #2 Lower Abdomen -Current Size (cm) - Length 6.1 -Current Size (cm) - Width 28 -Current Size (cm) - Depth 1 -Total Square Cm 170.8 -Photo Taken No -Exudate Amt Medium -Exudate Type Serosanguineous -Wound Margin Distinct, Outline Attached -Granulation Amt Large (67-100%) -Granulation Quality Red -Necrosis Amt Small (1-33%) -Necrotic Tissue Type Adherent Slough -Structure Exposed N/A -Texture (Tierney-wound Skin Appearance) Scarring -Moisture (Tierney-wound Skin Appearance No Abnormality ) -Color (Tiereny-wound Skin Appearance) No Abnormality -Temperature (Tierney-wound Skin No Abnormality Appearance) (Pt Warm) -Tenderness on Palpation (Tierney-wound No Skin Appearance) -Ulcer Cleansing Wound Cleanser -Foul Odor after Cleansing No -Anesthetic Used 4% Lidocaine Solution #1 Left Breast -Current Size (cm) - Length 9.2 -Current Size (cm) - Width 10.4 -Current Size (cm) - Depth 2.9 -Total Square Cm 95.68 -Photo Taken No -Exudate Amt Medium -Exudate Type Serosanguineous -Wound Margin Distinct, Outline Attached -Granulation Amt Medium (34-66%) -Granulation Quality Red -Necrosis Amt Medium (34-66%) -Necrotic Tissue Type Adherent Slough -Structure Exposed N/A -Texture (Tierney-wound Skin Appearance) Localized Edema Scarring -Moisture (Tierney-wound Skin Appearance No Abnormality ) -Color (Tierney-wound Skin Appearance) No Abnormality -Temperature (Tierney-wound Skin No Abnormality Appearance) (Pt Warm) -Tenderness on Palpation (Tierney-wound No Skin Appearance) -Ulcer Cleansing Wound Cleanser -Foul Odor after Cleansing No -Anesthetic Used 4% Lidocaine Solution WC - Nurse 2 - General Ulcer CM Notes Start: 07/18/18 13:30 Freq: Status: Active Protocol: Activity Type Activity Date Activity User E-Sign Co-Sign Detail Recorded Client Recorded Date Recorded By Document 07/18/18 14:37 [id number] 07/18/18 14:45 [email or web address] 07/18/18 14:37 Wound Center Nurse 2 [Procedure/Treatment] #2 Lower Abdomen -Time 14:39 -Correct Patient Yes -Correct Side, Site, Position Yes -Correct Procedure Yes -Procedure Performed Yes -Type of Procedure Debridement -Clinical Debridement Subcutaneous -Post Debridement Size (cm) - Length 7.5 -Post Debridement Size (cm) - Width 28.5 -Post Debridement Size (cm) - Depth 1.5 -Total Square Cm 213.75 -Wound/Ulcer Outcome Not Healed -Ulcer Cleansing Rinsed/ Irrigated with Saline -Foul Odor after Cleansing No -Bioengineered Tissue No -Bleeding Controlled with Pressure -Offloading No -Treatment Response Procedure Tolerated Well #1 Left Breast -Time 14:41 -Correct Patient Yes -Correct Side, Site, Position Yes -Correct Procedure Yes -Procedure Performed Yes -Type of Procedure Debridement -Clinical Debridement Subcutaneous -Post Debridement Size (cm) - Length 9 -Post Debridement Size (cm) - Width 11.0 -Post Debridement Size (cm) - Depth 3.0 -Total Square Cm 99.0 -Wound/Ulcer Outcome Not Healed -Ulcer Cleansing Rinsed/ Irrigated with Saline -Foul Odor after Cleansing No -Bioengineered Tissue No -Bleeding Controlled with Pressure -Offloading No -Treatment Response Procedure Tolerated Well [See Physician Procedure note for Specifics] Pain Scale: 0-10 Numeric [Pain] -Is Patient Pain Free? Yes Musculoskeletal: No Tenderness to Palpation of Joints or Extremities Neurological: Neuro grossly intact Psych/Mental Status: Normal Affect, Appropriate Debridement Note Post-Debridement Measurements/Treatment WC - Nurse 2 - General Ulcer CM Notes Start: 07/18/18 13:30 Freq: Status: Active Protocol: Activity Type Activity Date Activity User E-Sign Co-Sign Detail Recorded Client Recorded Date Recorded By Document 07/18/18 14:37 [id number] [id number] 07/18/18 14:45 [email or web address] 07/18/18 14:37 Wound Center Nurse 2 #2 Lower Abdomen -Time 14:39 -Correct Patient Yes -Correct Side, Site, Position Yes -Correct Procedure Yes -Procedure Performed Yes -Type of Procedure Debridement -Clinical Debridement Subcutaneous -Post Debridement Size (cm) - Length 7.5 -Post Debridement Size (cm) - Width 28.5 -Post Debridement Size (cm) - Depth 1.5 -Total Square Cm 213.75 -Wound/Ulcer Outcome Not Healed -Ulcer Cleansing Rinsed/ Irrigated with Saline -Foul Odor after Cleansing No -Bioengineered Tissue No -Bleeding Controlled with Pressure -Offloading No -Treatment Response Procedure Tolerated Well #1 Left Breast -Time 14:41 -Correct Patient Yes -Correct Side, Site, Position Yes -Correct Procedure Yes -Procedure Performed Yes -Type of Procedure Debridement -Clinical Debridement Subcutaneous -Post Debridement Size (cm) - Length 9 -Post Debridement Size (cm) - Width 11.0 -Post Debridement Size (cm) - Depth 3.0 -Total Square Cm 99.0 -Wound/Ulcer Outcome Not Healed -Ulcer Cleansing Rinsed/ Irrigated with Saline -Foul Odor after Cleansing No -Bioengineered Tissue No -Bleeding Controlled with Pressure -Offloading No -Treatment Response Procedure Tolerated Well Pain Scale: 0-10 Numeric Is Patient Pain Free? Yes Wound debrided: Left Breast Type of Debridement: Excisional debridement Anesthesia Used: 4% Lidocaine Solution Depth: Down to and including healthy tissue, in the subcutaneous layer Percentage of wound debrided: 100 Instrument Used: 7mm curette Tissue Removed: Subcutaneous tissue and slough Severity: Fat Layer Exposed Amount of bleeding with debridement: Mild Bleeding Controlled with: Pressure, Compression and gauze Patient tolerated procedure well - Additional Wound Wound debrided: Abdominal wound Type of Debridement: Excisional debridement Anesthesia Used: 4% Lidocaine Solution Depth: Down to and including healthy tissue, in the subcutaneous layer Percentage of wound debrided: 100 Instrument Used: 7mm curette Tissue Removed: Subcutaneous tissue and slough Severity: Fat Layer Exposed Amount of bleeding with debridement: Mild Bleeding Controlled with: Pressure Patient tolerated procedure: Patient tolerated procedure well Assessment/Plan Assessment: 1. Partial loss of skin graft - compromised TRAM flap left breast. 2. Nonhealing surgical wound lower anterior abdominal wall wound and left breast reconstruction wound. 3. Deformity of reconstructed breast. 4. Soft tissue radionecrosis left breast. 5. Late effect of radiation left breast. 6. Staphylococcus epidermidis infection MRSE Plan: Patient was seen and evaluated in the wound center today. Wound care will continue to be the wound VAC at 150 mmHg. Patient would benefit from HBO therapy due to soft tissue radionecrosis to her left breast. She also has a compromised TRAM flap to the left breast. She will need a minimum of HBOT 5 days a week for 40 treatments. Chest x-ray on 06/07/18 was unremarkable. Cardiac Cath 09/16/17 showed an EF = 45-50%. Patient will follow up in one week. Code Visit [id number]
[2018-07-25 15:48] VITALS: BP 160/90; PULSE 92; RESP 18; TEMP 35.8; BMI 24.6
--- NOTE | 2018-07-25 16:57 | PCM.WC.PN ---
(1) Deformity of reconstructed breast Status: Chronic Current Visit: Yes Code(s): N65.0 - Deformity of reconstructed breast (2) Nonhealing surgical wound Status: Chronic Current Visit: Yes Code(s): T81.89XA - Other complications of procedures, not elsewhere classified, initial encounter Comment: lower anterior abdominal wall wound left breast reconstruction wound (3) Soft tissue radionecrosis Status: Chronic Current Visit: Yes Code(s): L59.8 - Other specified disorders of the skin and subcutaneous tissue related to radiation; Y84.2 - Radiological procedure and radiotherapy as the cause of abnormal reaction of the patient, or of later complication, without mention of misadventure at the time of the procedure Comment: left breast (4) Late effect of radiation Status: Chronic Current Visit: Yes Code(s): T66.XXXS - Radiation sickness, unspecified, sequela Comment: left breast (5) Status post transverse rectus abdominis muscle flap breast reconstruction Status: Chronic Current Visit: Yes Code(s): Z98.890 - Other specified postprocedural states (6) Disruption or dehiscence of closure of muscle or muscle flap Status: Chronic Current Visit: Yes Code(s): T81.32XA - Disruption of internal operation (surgical) wound, not elsewhere classified, initial encounter Type of Wound Date of Service: 07/25/18 Chief Complaint: Left breast and abdominal wound. History of Wound: Postop visit from her recent surgery on 06/21/18 where she underwent incision and drainage complex abdominal wall infected seroma and surgical preparation left breast with excisional debridement and revision reconstructed compromised TRAM flap wound infection (156 cm2). Her abdominal wall wound culture showed MRSE and Corynebacterium amycolatum/xer. Her left breast wound culture showed MRSE and Corynebacterium amycolatum/xer and Corynebacterium minutissimum. She is currently on Vancomycin. She was discharged from the hospital on 06/24/18. Postop visit from her recent surgery on 05/31/18 where she underwent revision left breast reconstruction with excision radiation fibrosis scar contour deformity and multiple W-plasty (18 cm2) and second stage delayed left breast reconstruction with bipedicled TRAM flap and complex abdominal wall reconstruction with repair of fascial defects with components separation technique using bilateral external oblique myofascial advancement flaps and placement MTF FlexHD acellular dermal matrix graft (320 cm2) and saline injection 300 ml into tissue facilities flight check pilot right breast reconstruction (650 ml facilities flight check pilot). She was discharged from the hospital on 06/07/18. Postop visit from her surgery on 05/10/18 where she underwent first stage delayed left breast reconstruction with bipedicled TRAM flap delay and first stage delayed right breast reconstruction with placement of submuscular saline tissue facilities flight check pilot (650 ml). She was discharged from the hospital on 05/11/18. Wound care is a wound VAC with home health helping change it 2-3 times per week. Do to the amount of fat necrosis of the left breast, will stop the vac on the breast only and start Dakins to help with debridement. Progress of Wound: Abdominal wound improved. Left breast with increased fat necrosis. - Physical Exam Vital Signs Temp Pulse Resp BP 96.4 F L 92 18 160/90 H 07/25/18 15:48 07/25/18 15:48 07/25/18 15:48 07/25/18 15:48 General: Alert, Oriented x3, Cooperative HEENT: Atraumatic Oral: Moist Mucosa Lungs: Normal air movement Cardiovascular: Regular rate Abdomen: Soft, Non Tender, Non-Distended Extremities: No edema Skin: Ulcer/ Wound - Left breast wound with increased fat necrosis and abdominal wound with improvement. Wound Measurements and Assessment WC - Nurse 1 - General Ulcer Measurement Start: 07/18/18 13:30 Freq: Status: Active Protocol: Activity Type Activity Date Activity User E-Sign Co-Sign Detail Recorded Client Recorded Date Recorded By Document 07/25/18 15:48 DV [id number] 07/25/18 16:06 DV 07/25/18 15:48 Wound Center Nurse 1 [Ulcer Assessment] #2 Lower Abdomen -Current Size (cm) - Length 5.0 -Current Size (cm) - Width 23.0 -Total Square Cm 115.00 -Photo Taken No -Epithelialization Large 67-100% -Exudate Amt Medium -Exudate Type Serosanguineous -Wound Margin Distinct, Outline Attached -Granulation Amt Large (67-100%) -Granulation Quality Red -Necrosis Amt Small (1-33%) -Necrotic Tissue Type Adherent Slough -Structure Exposed N/A -Texture (Tierney-wound Skin Appearance) Scarring -Moisture (Tierney-wound Skin Appearance No Abnormality ) -Color (Tierney-wound Skin Appearance) No Abnormality -Temperature (Tierney-wound Skin No Abnormality Appearance) (Pt Warm) -Tenderness on Palpation (Tierney-wound No Skin Appearance) -Ulcer Cleansing Wound Cleanser -Foul Odor after Cleansing No -Anesthetic Used 4% Lidocaine Solution #1 Left Breast -Combined with other wound No -Current Size (cm) - Length 8.2 -Current Size (cm) - Width 9.4 -Current Size (cm) - Depth 1.1 -Total Square Cm 77.08 -Photo Taken No -Exudate Amt Small -Exudate Type Serosanguineous -Wound Margin Distinct, Outline Attached -Granulation Amt Medium (34-66%) -Granulation Quality Red -Necrosis Amt Medium (34-66%) -Necrotic Tissue Type Adherent Slough -Structure Exposed N/A -Texture (Tierney-wound Skin Appearance) Scarring -Moisture (Tierney-wound Skin Appearance No Abnormality ) -Color (Tierney-wound Skin Appearance) No Abnormality -Temperature (Tierney-wound Skin No Abnormality Appearance) (Pt Warm) -Tenderness on Palpation (Tierney-wound No Skin Appearance) -Ulcer Cleansing Wound Cleanser -Foul Odor after Cleansing No -Anesthetic Used 4% Lidocaine Solution WC - Nurse 2 - General Ulcer CM Notes Start: 07/18/18 13:30 Freq: Status: Active Protocol: Activity Type Activity Date Activity User E-Sign Co-Sign Detail Recorded Client Recorded Date Recorded By Document 07/25/18 16:31 BIRGIT [id number] 07/25/18 16:44 BIRGIT 07/25/18 16:31 Wound Center Nurse 2 [Procedure/Treatment] #2 Lower Abdomen -Time 16:32 -Correct Patient Yes -Correct Side, Site, Position Yes -Correct Procedure Yes -Procedure Performed Yes -Type of Procedure Debridement -Clinical Debridement Subcutaneous -Post Debridement Size (cm) - Length 25.0 -Post Debridement Size (cm) - Width 6 -Post Debridement Size (cm) - Depth 1.0 -Total Square Cm 150.0 -Wound/Ulcer Outcome Not Healed -Ulcer Cleansing Rinsed/ Irrigated with Saline -Foul Odor after Cleansing No -Bioengineered Tissue No -Bleeding Controlled with Pressure -Offloading No -Treatment Response Procedure Tolerated Well #1 Left Breast -Time 16:31 -Correct Patient Yes -Correct Side, Site, Position Yes -Correct Procedure Yes -Procedure Performed Yes -Type of Procedure Debridement -Clinical Debridement Subcutaneous -Post Debridement Size (cm) - Length 9.2 -Post Debridement Size (cm) - Width 9.5 -Post Debridement Size (cm) - Depth 3.0 -Total Square Cm 87.40 -Wound/Ulcer Outcome Not Healed -Ulcer Cleansing Rinsed/ Irrigated with Saline -Foul Odor after Cleansing No -Bioengineered Tissue No -Bleeding Controlled with Pressure -Offloading No -Treatment Response Procedure Tolerated Well [See Physician Procedure note for Specifics] Pain Scale: 0-10 Numeric [Pain] -Is Patient Pain Free? Yes Neurological: Neuro grossly intact Psych/Mental Status: Normal Affect, Appropriate Debridement Note Post-Debridement Measurements/Treatment WC - Nurse 2 - General Ulcer CM Notes Start: 07/18/18 13:30 Freq: Status: Active Protocol: Activity Type Activity Date Activity User E-Sign Co-Sign Detail Recorded Client Recorded Date Recorded By Document 07/18/18 14:37 [id number] 07/18/18 14:45 Document 07/25/18 16:31 [id number] 07/25/18 16:44 07/18/18 07/25/18 14:37 16:31 Wound Center Nurse 2 #2 Lower Abdomen -Time 14:39 16:32 -Correct Patient Yes Yes -Correct Side, Site, Position Yes Yes -Correct Procedure Yes Yes -Procedure Performed Yes Yes -Type of Procedure Debridement Debridement -Clinical Debridement Subcutaneous Subcutaneous -Post Debridement Size (cm) - Length 7.5 25.0 -Post Debridement Size (cm) - Width 28.5 6 -Post Debridement Size (cm) - Depth 1.5 1.0 -Total Square Cm 213.75 150.0 -Wound/Ulcer Outcome Not Healed Not Healed -Ulcer Cleansing Rinsed/ Rinsed/ Irrigated with Irrigated with Saline Saline -Foul Odor after Cleansing No No -Bioengineered Tissue No No -Bleeding Controlled with Pressure Pressure -Offloading No No -Treatment Response Procedure Procedure Tolerated Well Tolerated Well #1 Left Breast -Time 14:41 16:31 -Correct Patient Yes Yes -Correct Side, Site, Position Yes Yes -Correct Procedure Yes Yes -Procedure Performed Yes Yes -Type of Procedure Debridement Debridement -Clinical Debridement Subcutaneous Subcutaneous -Post Debridement Size (cm) - Length 9 9.2 -Post Debridement Size (cm) - Width 11.0 9.5 -Post Debridement Size (cm) - Depth 3.0 3.0 -Total Square Cm 99.0 87.40 -Wound/Ulcer Outcome Not Healed Not Healed -Ulcer Cleansing Rinsed/ Rinsed/ Irrigated with Irrigated with Saline Saline -Foul Odor after Cleansing No No -Bioengineered Tissue No No -Bleeding Controlled with Pressure Pressure -Offloading No No -Treatment Response Procedure Procedure Tolerated Well Tolerated Well Pain Scale: 0-10 Numeric Is Patient Pain Free? Yes Yes Wound debrided: Left breast Type of Debridement: Excisional debridement Anesthesia Used: 4% Lidocaine Solution Depth: Down to and including healthy tissue, in the subcutaneous layer Percentage of wound debrided: 100 Instrument Used: 7mm curette, - - Sharp scissors and pick ups used to help debrided the non viable tissue from the left breast. Pressure help to stop the bleeding. Tissue Removed: Subcutaneous tissue, slough and necrotic fat tissue Severity: Fat Layer Exposed Amount of bleeding with debridement: Moderate Bleeding Controlled with: Pressure, Compression and gauze Patient tolerated procedure well - Additional Wound Wound debrided: lower abdominal Laterality: Not Applicable Type of Debridement: Excisional debridement Anesthesia Used: 4% Lidocaine Solution Depth: Down to and including healthy tissue Percentage of wound debrided: 100 Instrument Used: 7mm curette Tissue Removed: Subcutanous tissue and slough Severity: Fat Layer Exposed Amount of bleeding with debridement: Mild Bleeding Controlled with: Pressure Patient tolerated procedure: Patient tolerated procedure well Assessment/Plan Active Problems (Last Reviewed 05/10/18 @ 13:24 by Alberto Dueñas MD) Status post transverse rectus abdominis muscle flap breast reconstruction (Chronic) Disruption or dehiscence of closure of muscle or muscle flap (Chronic) Nonhealing surgical wound (Chronic) lower anterior abdominal wall wound left breast reconstruction wound 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 Partial loss of skin graft - compromised TRAM flap left breast. 2. Nonhealing surgical wound lower anterior abdominal wall wound and left breast reconstruction wound. 3. Deformity of reconstructed breast. 4. Soft tissue radionecrosis left breast. 5. Late effect of radiation left breast. 6. Staphylococcus epidermidis infection MRSE Plan: Patient was seen and evaluated in the wound center today. Wound care will continue to be the wound VAC at 150 mmHg to the lower abdominal wound. We will start Dakin's 03/18 strength to the left breast to help continue to debride to healthy tissue. Patient would benefit from HBO therapy due to soft tissue radionecrosis to her left breast. She also has a compromised TRAM flap to the left breast. She will need a minimum of HBOT 5 days a week for 40 treatments. Chest x-ray on 06/07/18 was unremarkable. Cardiac Cath 09/16/17 showed an EF = 45-50%. Patient will follow up in one week. Code Visit 70072
== END 2018-08-12 23:59 ==
LOC: WC 15:30
PROVIDERS: Visit Provider Nurse Practitioner Family
DX: T86.828 Other complications of skin graft (allograft) (autograft) (principal); L59.8 Other specified disorders of the skin and subcutaneous tissue related to radiation; Y83.8 Other surgical procedures as the cause of abnormal reaction of the patient, or of later complication, without mention of misadventure at the time of the procedure; Y84.2 Radiological procedure and radiotherapy as the cause of abnormal reaction of the patient, or of later complication, without mention of misadventure at the time of the procedure; N65.0 Deformity of reconstructed breast; T81.89XA Other complications of procedures, not elsewhere classified, initial encounter; Z86.008 Personal history of in-situ neoplasm of other site; Z85.3 Personal history of malignant neoplasm of breast; Z92.3 Personal history of irradiation
CPT/HCPCS: 11042; 11045; 97606

== ENCOUNTER 2018-07-25 20:03 | Inpatient (IN) | payer MEDICAID, SELFPAY ==
[2018-07-25 15:48] VITALS: BMI 24.6
[2018-07-25 20:04] VITALS: BP 148/96; PULSE 94; RESP 15; TEMP 36.6; O2SAT 99; BMI 23.7
[2018-07-25 21:00] LABS: Absolute Lymphocyte Count 1.12 X10^3/ul (0.83-4.51); Absolute Neutrophil Count 8.3 X10^3/uL (2.0-7.7); Basophil# 0.06 X10^3/uL; Basophil% 0.6 % (0-1); Eosinophil# 0.34 X10^3/uL; Eosinophils% 3.3 % (0-5); Hematocrit 25.8 % (37-47); Hemoglobin 8.1 g/dl (12.0-15.0); Lymphocyte # 1.12 X10^3/ul (4.0); Mean Corp Hgb Conc 31.4 g/gl (32-36); Mean Corpuscular Hgb 28.1 pg (27.0-32.0); Mean Corpuscular Volume 89.6 fL (81-99); Mean Platelet Vol. 9.1 fl (6.2-12.0); Monocyte# 0.44 X10^3/uL; Monocyte% 4.3 % (0-10); Neutrophil # 8.25 X10^3/uL (2.7-7.7); Neutrophil % 80.7 % (47-70); POSITIVE COUNT NO; POSITIVE DIFFERENTIAL NO; POSITIVE MORPHOLOGY NO; Platelet Count 368 K/mm3 (150-450); RBC Distribution Width CV 16.4 % (11.6-14.6); RBC Distribution Width SD 53.7 fl (35.1-43.9); Red Blood Count 2.88 M/mm3 (4.2-5.4); White Blood Count 10.2 K/mm3 (4.4-11.0)
[2018-07-25 21:06] LABS: International Normalized Ratio 1.1; Prothrombin Time (Protime)PT. 13.6 SECONDS (11.7-14.9)
[2018-07-25 21:07] LABS: Partial Thromboplast Time 26.9 Seconds (24.1-36.2)
[2018-07-25 21:10] LABS: Anion Gap 7 (5-15); BUN 17 mg/dL (7-18); BUN/Creat Ratio 17.8 RATIO (10-20); Calcium,Total 8.8 mg/dL (8.5-10.1); Chloride 105 mmol/L (98-107); Creatinine, Serum 0.95 mg/dL (0.55-1.02); EST Glomerular Filtration Rate 64 mL/min (>60); Est Glom Filt Rate - Afr Amer 78 mL/min (>60); Estimated Creatinine Clearance 51.67 ml/min; Glucose 132 mg/dL (74-106); Potassium 3.4 mmol/L (3.5-5.1); Sodium Level 140 mmol/L (136-145)
--- NOTE | 2018-07-25 21:44 | ED.VISSUMM ---
- ER Visit Summary Date of Service: 07/25/18 Chief Complaint: Left breast wound bleeding History of Present Illness: The patient is a 57 F with history of breast cancer presenting with left breast wound bleeding. Patient had reconstructive surgery per Dr. Murillo on her left breast. She was seen at the wound center today. She has a wound VAC on her lower abdomen. She has packing and dressing to the left breast. She was concerned when bleeding soaked through the dressing tonight. She discussed with Dr. Murillo and he advised her to come into the ED for admission. Physical Examination: Vitals are stable. Patient is afebrile. Alert no acute distress. HEENT exam is unremarkable. Neck is supple. Lungs are clear and equal bilaterally. Left breast wound dressing/packing intact. Heart is regular rate and rhythm. Abdomen is soft nontender nondistended. Extremities are unremarkable. Skin is warm and dry. Remainder of exam is unremarkable. Emergency Department Course and Treatment: CBC normal except for hemoglobin 8.1. Chemistries unremarkable. INR 1.1. Discussed with Dr. Murillo who will admit the patient to his service. Disposition: Admission Impression: Left breast wound This note was generated with [employer] dictation software. It may contain incorrect words, spelling, and punctuation that were not noted in review of the chart prior to signing ED Disposition - Plan for ED Patient: Referrals: Nevaeh Hawkins DO [Primary Care Provider] -
--- NOTE | 2018-07-25 22:38 | PCM.HP.BLA ---
History and Physical Date of Admission: 07/25/18 HISTORY OF PRESENT ILLNESS 57 year old female initially presented for her delayed bilateral breast reconstruction on 05/10/18 where she underwent first stage delayed left breast reconstruction with bipedicled TRAM flap delay and first stage delayed right breast reconstruction with placement of submuscular saline tissue processing spec (650 ml). After waiting three weeks for the delay, she went back to surgery on 05/31/18 where she underwent revision left breast reconstruction with excision radiation fibrosis scar contour deformity and multiple W-plasty (18 cm2) and second stage delayed left breast reconstruction with bipedicled TRAM flap and complex abdominal wall reconstruction with repair of fascial defects with components separation technique using bilateral external oblique myofascial advancement flaps and placement MTF FlexHD acellular dermal matrix graft (320 cm2) and saline injection 300 ml into tissue processing spec right breast reconstruction (650 ml processing spec). She did well initially postop and was discharged from the hospital on 06/07/18. She developed some wound drainage issues in the abdominal wall with a seroma. She developed some compromise to the TRAM flap in the central aspect for the midline scar was. Wound culture showed MRSE. She was on Doxycycline and Levaquin. She failed outpatient therapy and was admitted to the hospital and started on IV Vancomycin. She was taken to surgery on 06/21/18 where she underwent incision and drainage complex abdominal wall infected seroma and surgical preparation left breast with excisional debridement and revision reconstructed compromised TRAM flap wound infection (156 cm2). Postop she had the VAC placed to both the abdominal wound and the left breast reconstruction wound. She was seen at the Wound Center today and had some excisional debridement due to some nonviable tissue present. The patient is on Plavix and when she got home she noticed increased bleeding on her dressing and she came to the ED for evaluation. Her Hgb was 8.1. The dressing was changed in the ED. A couple of small oozing points were noted that were easily controlled with gauze pressure. A compression dressing was applied. Will continue the VAC to the abdominal wall wound. Because of the nonviable tissue that was debrided today, will start Dakin's dressing changes for a little while before going back to the VAC. We are waiting for insurance approval for her soft tissue radionecrosis of her left breast reconstruction. PAST MEDICAL HISTORY Hypertension Hyperlipidemia Acute systolic congestive heart failure Bilateral pleural effusion Cardiomyopathy in diseases classified elsewhere Estrogen receptor positive status (ER+) Malignant neoplasm of left female breast Asthma Back problem Bone fracture GERD (gastroesophageal reflux disease) Hearing problem PAST SURGICAL HISTORY bilateral mastectomy first stage delayed left breast reconstruction with bipedicled TRAM flap delay and first stage delayed right breast reconstruction with placement of submuscular saline tissue processing spec (650 ml) - 05/10/18 revision left breast reconstruction with excision radiation fibrosis scar contour deformity and multiple W-plasty (18 cm2) and second stage delayed left breast reconstruction with bipedicled TRAM flap and complex abdominal wall reconstruction with repair of fascial defects with components separation technique using bilateral external oblique myofascial advancement flaps and placement MTF FlexHD acellular dermal matrix graft (320 cm2) and saline injection 300 ml into tissue processing spec right breast reconstruction (650 ml processing spec) - 05/31/18 incision and drainage complex abdominal wall infected seroma and surgical preparation left breast with excisional debridement and revision reconstructed compromised TRAM flap wound infection (156 cm2) - 06/21/18 ALLERGIES lisinopril Penicillins MEDICATIONS Loratadine [Claritin] acyclovir albuterol sulfate anastrozole venlafaxine ER fluticasone-vilanterol calcium carbonate furosemide metoprolol succinate ER potassium chloride ER losartan alendronate atorvastatin clopidogrel Vancomycin Percocet Valium FAMILY HISTORY Mother - Diabetes Sister - Breast cancer, Diabetes Sister - Cancer Other - Asthma SOCIAL HISTORY Smoking Status: Never smoker alcohol intake: never substance use type: does not use REVIEW OF SYSTEMS General - Denies fever, fatigue, and weight loss. Eyes - Denies cataracts and glaucoma. ENT - Denies nasal congestion. Has sore throat. Endocrine - Denies excessive thirst and urination. Has a history of left breast cancer with bilateral mastectomy 08/28. Has had chemotherapy and radiation therapy. Skin - Denies suspicious lesions and skin cancer. Musculoskeletal - Complains of joint pain, joint stiffness, weakness of muscles and joints, back pain. Denies arthritis. Neuro - Denies headaches. Cardiovascular - Denies chest pain, fatigue. Has a history of CHF, hypertension and hyperlipidemia. Has shortness of breath with activity. Psych - Denies anxiety and depression. Respiratory - Denies chronic cough. Has history of asthma and sleep apnea and shortness of breath. Gastrointestinal - Denies nausea, vomiting, diarrhea. Has a history of constipation and GERD. Hematologic - Has a history of easily bruising and bleeding easily. Is on Plavix. Genitourinary - Denies hematuria and urinary frequency. PHYSICAL EXAMINATION General - Alert and oriented. Bra size was 38 D prior to the mastectomies. HEENT - PERRL. EOMI. Throat is clear. Neck - Supple and non-tender. No cervical adenopathy. Breasts - Right breast incision healed. Left breast shows a TRAM flap with some compromise inferiorly and centrally. The wound is clean with some granulation tissue. Had some nonviable tissue debrided today at the Wound Center. A couple of small oozing points were controlled with gauze pressure. The remaining TRAM flap is soft and viable. About 15% compromise. Lungs- Clear to auscultation. Heart - Regular rate and rhythm. Abdomen - Soft and non distended. There is a nonhealing surgical wound on the lower abdominal wall TRAM donor incision. Good granulation tissue seen with the VAC. Extremities - FROM. No axillary adenopathy. Radial pulses are palpable. Neuro - CN II-XII grossly intact. Psych - Normal mood and affect. ASSESSMENT 1. Invasive ductal carcinoma left breast, s/p mastectomy. 2. Ductal carcinoma in situ right breast, s/p mastectomy. 3. Mild compromise left breast reconstruction TRAM flap wound(15%). 4. Nonhealing surgical wound lower abdominal wall TRAM donor incision. 5. Seroma abdominal wall. 6. Anemia of chronic disease, acute on chronic. 7. MRSE. 8. Acquired absence bilateral breasts. 9. Disproportion reconstructed breasts. 10. Deformity reconstructed breasts. 11. Late effect radiation left breast. 12. Soft tissue radionecrosis left breast. 13. Estrogen receptor positive status. 14. Family history of breast cancer. PLAN Admit to the hospital for more aggressive wound care and for close monitoring of the bleeding wound. With a Hgb of 8.1, will transfuse PRBC tomorrow. Continue her Vancomycin for her MRSE. Will continue the VAC to the lower abdominal wall. Will start quarter strength Dakin's dressing changes to the left breast reconstruction for a few days. When more granulation tissue is seen, will resume the VAC to the left breast. At the time of the dressing change tomorrow, will obtain a wound culture. A positive culture may necessitate antibiotic modification. After the drainage has been controlled and the inflammation has subsided, may consider delayed secondary wound closure in the future. Once the left breast reconstruction wound is stabilized and the inflammation has subsided, may consider revision reconstructed breast with rotation of the TRAM flap and/or bringing in additional nonradiated tissue such as the latissimus dorsi flap.
[2018-07-25 23:00] VITALS: BP 132/56; PULSE 95; RESP 18; TEMP 36.4; O2SAT 97
[2018-07-25 23:16] VITALS: BMI 25.3
[2018-07-25] MEDS: Lactated Ringers 1,000 ML 60 ML IV (23:56)
[2018-07-26] VITALS (20 sets, daily range): BP systolic 117–147; BP diastolic 56–96; PULSE 88–126; RESP 16–20; TEMP 36.1–37.2; O2SAT 95–99
[2018-07-26] MEDS: Venlafaxine XR 37.5 MG Capsule PO ×3 (00:11→21:17)
[2018-07-26] MEDS: Calcium Carb/Vitamin D 1 TABLET Tablet PO ×3 (00:11→16:55)
[2018-07-26 03:03] LABS: Vancomycin, Random Level 17.7 ug/mL (0.0-15.0)
--- NOTE | 2018-07-26 03:23 | PCM.RX.CS ---
Consult Pharmacy has been consulted to manage selected antiobiotic: Vancomycin Type of Consult: New start Labs: Sodium 140 mmol/L (136-145) 07/25/18 20:48 Potassium 3.4 mmol/L (3.5-5.1) L 07/25/18 20:48 Chloride 105 mmol/L (98-107) 07/25/18 20:48 Carbon Dioxide 28.0 mmol/L (21.0-32.0) 07/25/18 20:48 Anion Gap 7 (5-15) 07/25/18 20:48 BUN 17 mg/dL (7-18) 07/25/18 20:48 Creatinine 0.95 mg/dL (0.55-1.02) 07/25/18 20:48 Est GFR (MDRD) Af Amer 78 mL/min (>60) 07/25/18 20:48 Est GFR (MDRD) Non-Af 64 mL/min (>60) 07/25/18 20:48 BUN/Creatinine Ratio 17.8 RATIO (10-20) 07/25/18 20:48 Glucose 132 mg/dL (74-106) H 07/25/18 20:48 Random Vancomycin 17.7 ug/mL (0.0-15.0) H 07/26/18 02:15 Weight used for dosin.8 kg Estimated Creatinine Clearance: 51.67 Goal Trough: 15-20 mcg/mL Pharmacy Plan for Drug Dosing: Pharmacy Service will continue to monitor and adjust dosing as required. Medications Vancomycin HCl (Vancomycin) 1,000 mg in 200 mls @ 200 mls/hr IV Q12H ADRIAN ON VANCO 1G Q12H PRIOR TO ADMISSION. tROUGH AT ADMISSION 17.7. CONTINUE DOSE AND NEXT TROUGH 07/27 @ 1500 Follow-Up Labs: Trough Vancomycin Labs to be done on [date and time ordered]: 07/27 @ 1500
[2018-07-26] MEDS: Vancomycin IV 1,000 MG/200 ML BAG 200 MG IV ×2 (03:26→16:54)
[2018-07-26] MEDS: 0.9% NaCl PICC Flush IV (03:27)
[2018-07-26 05:39] LABS: Erythrocyte Sedimentation Rate 34 mm/hr (0-30)
[2018-07-26 05:40] LABS: Hematocrit 23.7 % (37-47); Hemoglobin 7.2 g/dl (12.0-15.0); Mean Corp Hgb Conc 30.4 g/gl (32-36); Mean Corpuscular Hgb 27.8 pg (27.0-32.0); Mean Corpuscular Volume 91.5 fL (81-99); Mean Platelet Vol. 9.2 fl (6.2-12.0); Platelet Count 341 K/mm3 (150-450); RBC Distribution Width CV 16.2 % (11.6-14.6); RBC Distribution Width SD 52.6 fl (35.1-43.9); Red Blood Count 2.59 M/mm3 (4.2-5.4); White Blood Count 6.7 K/mm3 (4.4-11.0)
[2018-07-26 05:43] LABS: Scan Indicated on CBC? Y/N NO
[2018-07-26 05:47] LABS: ALB/GLOB Ratio 0.7 RATIO (0.9-2.4); AST(SGOT) 15 U/L (15-37); Alanine Aminotransfer ALT/SGPT 13 U/L (13-56); Albumin, Serum 2.5 g/dL (3.2-5.0); Alkaline Phosphatase 89 U/L (45-117); Anion Gap 5 (5-15); BUN 19 mg/dL (7-18); BUN/Creat Ratio 22.2 RATIO (10-20); CRP 9.97 mg/L (0.0-3.0); Chloride 109 mmol/L (98-107); Creatinine, Serum 0.85 mg/dL (0.55-1.02); EST Glomerular Filtration Rate 73 mL/min (>60); Est Glom Filt Rate - Afr Amer 88 mL/min (>60); Estimated Creatinine Clearance 52.45 ml/min; Globulin 3.5 g/dL (2.2-4.2); Glucose 104 mg/dL (74-106); Potassium 3.5 mmol/L (3.5-5.1); Sodium Level 143 mmol/L (136-145)
[2018-07-26] MEDS: Albuterol 2.5 MG/3 ML VIAL.NEB. INHALATION ×3 (06:53→19:59)
[2018-07-26] MEDS: Budesonide Respules 0.5 MG/2 ML AMPUL.NEB. INHALATION ×2 (06:53→19:59)
[2018-07-26] MEDS: Iron Polysaccharide Complex 150 MG CAPSULE PO (07:48)
[2018-07-26] MEDS: Anastrozole 1 MG Tablet PO (09:23)
[2018-07-26] MEDS: Clopidogrel Bisulfate 75 MG Tablet PO (09:24)
[2018-07-26] MEDS: Acyclovir 200 MG Capsule PO (09:24)
[2018-07-26] MEDS: Loratadine 10 MG Tablet PO (09:25)
[2018-07-26] MEDS: Losartan Potassium 25 MG Tablet PO (09:25)
[2018-07-26] MEDS: Silver Nitrate (BKC) TOPICAL (10:30)
--- NOTE | 2018-07-26 10:44 | PCM.PROGNOTE ---
- Physical Exam General: Alert, Oriented x3, Cooperative HEENT: Atraumatic, PERRLA Oral: Moist Mucosa Neck: No JVD Lungs: Normal air movement Cardiovascular: Regular rate Abdomen: Soft, Non Tender Extremities: No edema, Capillary Refill Less than 3 Seconds Skin: Ulcer/ Wound - Left breast wound continues to have area at 10 o'clock with constant ooze even after holding pressure for 20 minutes. Silver nitrate used to stop the bleeding. Lower abdominal wound is clean and beefy pink. Musculoskeletal: No Tenderness to Palpation of Joints or Extremities Neurological: Neuro grossly intact Psych/Mental Status: Normal Affect, Appropriate Vital Signs Temp Pulse Resp BP Pulse Ox 97.0 F L 104 H 18 141/96 H 98 07/26/18 07:42 07/26/18 07:42 07/26/18 07:43 07/26/18 07:42 07/26/18 07:42 Oxygen Delivery Method Room Air Weight: 129 lb 10.109 oz Body Mass Index (BMI) 25.3 Intake and Output for Last 24 Hours 07/24/18 07/25/18 07/26/18 23:59 23:59 23:59 Intake Total 590 / 590 Output Total 300 / 300 Balance 290 / 290 Laboratory Tests Past 24 Hrs 07/25/18 07/25/18 07/25/18 20:48 20:48 20:48 WBC 10.2 RBC 2.88 L Hgb 8.1 L Hct 25.8 L MCV 89.6 MCH 28.1 MCHC 31.4 L RDW 16.4 H RDW Differential 53.7 H Plt Count 368 MPV 9.1 Immature Gran % (Auto) 0.100 Neut % (Auto) 80.7 H Lymph % (Auto) 11.0 L [place] % (Auto) 4.3 Eos % (Auto) 3.3 Baso % (Auto) 0.6 Absolute Neuts (auto) 8.3 H Absolute Lymphs (auto) 1.12 Total Counted Not Reportable ESR PT INR APTT Sodium 140 Potassium 3.4 L Chloride 105 Carbon Dioxide 28.0 Anion Gap 7 BUN 17 Creatinine 0.95 Estim Creat Clear Calc 51.67 Est GFR (MDRD) Af Amer 78 Est GFR (MDRD) Non-Af 64 BUN/Creatinine Ratio 17.8 Glucose 132 H Calcium 8.8 Total Bilirubin AST ALT Alkaline Phosphatase C-React Prot Ext Range Total Protein Albumin Globulin Albumin/Globulin Ratio Prealbumin Random Vancomycin Blood Type O POSITIVE Antibody Screen NEGATIVE 07/25/18 07/26/18 07/26/18 20:48 02:15 05:15 WBC 6.7 RBC 2.59 L Hgb 7.2 L Hct 23.7 L MCV 91.5 MCH 27.8 MCHC 30.4 L RDW 16.2 H RDW Differential 52.6 H Plt Count 341 MPV 9.2 Immature Gran % (Auto) Neut % (Auto) Lymph % (Auto) [place] % (Auto) Eos % (Auto) Baso % (Auto) Absolute Neuts (auto) Absolute Lymphs (auto) Total Counted ESR 34 H PT 13.6 INR 1.1 APTT 26.9 Sodium Potassium Chloride Carbon Dioxide Anion Gap BUN Creatinine Estim Creat Clear Calc Est GFR (MDRD) Af Amer Est GFR (MDRD) Non-Af BUN/Creatinine Ratio Glucose Calcium Total Bilirubin AST ALT Alkaline Phosphatase C-React Prot Ext Range Total Protein Albumin Globulin Albumin/Globulin Ratio Prealbumin Random Vancomycin 17.7 H Blood Type Antibody Screen 07/26/18 05:15 WBC RBC Hgb Hct MCV MCH MCHC RDW RDW Differential Plt Count MPV Immature Gran % (Auto) Neut % (Auto) Lymph % (Auto) [place] % (Auto) Eos % (Auto) Baso % (Auto) Absolute Neuts (auto) Absolute Lymphs (auto) Total Counted ESR PT INR APTT Sodium 143 Potassium 3.5 Chloride 109 H Carbon Dioxide 29.0 Anion Gap 5 BUN 19 H Creatinine 0.85 Estim Creat Clear Calc 52.45 Est GFR (MDRD) Af Amer 88 Est GFR (MDRD) Non-Af 73 BUN/Creatinine Ratio 22.2 H Glucose 104 Calcium 9.0 Total Bilirubin 0.20 AST 15 ALT 13 Alkaline Phosphatase 89 C-React Prot Ext Range 9.97 H Total Protein 6.0 L Albumin 2.5 L Globulin 3.5 Albumin/Globulin Ratio 0.7 L Prealbumin 16.0 L Random Vancomycin Blood Type Antibody Screen Medical Necessity - Tobacco Use Smoking Status: Never smoker Assessment/Plan All Active Problems (Last Reviewed 05/10/18 @ 13:24 by Alberto Dueñas MD) Staphylococcus epidermidis infection (Acute) Partial loss of skin graft (Acute) Abdominal wall hernia (Acute) Patient admitted to the hospital for more aggressive wound care and for close monitoring of the bleeding wound last night. Hgb of 7.2 this morning, down from 8.1 last night, will transfuse PRBC today. Will recheck hemoglobin after transfusions completed. Continue her Vancomycin for her MRSE. Will continue the VAC to the lower abdominal wall. Will start quarter strength Dakin's dressing changes to the left breast reconstruction for a few days. When more granulation tissue is seen, will resume the VAC to the left breast. Left breast continues to have a constant ooze of blood at 10 o'clock even after pressure held for 15-20 minutes. Silver nitrate used to help stop the oozing. Will obtain a wound culture today. A positive culture may necessitate antibiotic modification. After the drainage has been controlled and the inflammation has subsided, Dr. Murillo may consider delayed secondary wound closure in the future. Once the left breast reconstruction wound is stabilized and the inflammation has subsided, may consider revision reconstructed breast with rotation of the TRAM flap and/or bringing in additional nonradiated tissue such as the latissimus dorsi flap.
[2018-07-26] MEDS: oxyCODONE 5 MG Tablet 10 MG PO (11:14)
--- NOTE | 2018-07-26 12:06 | NURSING ---
wound photo: lower abdomen
--- NOTE | 2018-07-26 12:17 | CASEMGMT ---
SHERRON CM Readmission Note/ Assessment Previous admission: 06/21-06/24/18 DX: surgery 06/21 for I/D complex abd wall infected seroma, surgical prep L breast w/excisional debridement and revision reconstructed compromised TRAM flap wound Infection. Wound care, wound vac placement, IV antibiotics. Discharge Plan: Pt returned home with IV antibiotics through [facility], wound vac, and Home Health through [facility]. 07/25/18Presentation: Bleeding L breast reconstruction site. HGB 7.2, HCT 23.7. 2 units PRBC transfusion. PCP: Dr. Hawkins Specialists: Dr. Murillo Preferred Pharmacy: [facility] Insurance: [facility] [employer] Plan Prescription Benefit: yes LNOK: No family listed; pt's S.O. Tony Dumont Living Arrangements: pt states living arrangements unchanged. S.O. assists with care needs. Pt states she has been managing at home with IV antibiotics and wound vac with Home Health nurse. Wishes to return home with same care. Transportation: states no difficulty with having transportation provided. DME: cane, crutches, nebulizer, wound vac. [facility]: [facility]. [facility]. Will need resume order on dc (placed in computer order) PH: [phone] FX: [phone] Patient DC goals: home DC PLAN: Home with resumption of HHS, IV antibiotics and Home Health. Sandrine ODELL RN ACM
--- NOTE | 2018-07-26 20:30 | NURSING ---
Pt placed on cardiac monitoring for first dialysis pre policy.
[2018-07-27] VITALS (7 sets, daily range): BP systolic 150–172; BP diastolic 74–89; PULSE 90–110; RESP 18–22; TEMP 36.7–37.2; O2SAT 98–99
[2018-07-27] MEDS: Lactated Ringers 1,000 ML 60 ML IV ×2 (01:53→16:56)
[2018-07-27] MEDS: Vancomycin IV 1,000 MG/200 ML BAG 200 MG IV (03:21)
--- NOTE | 2018-07-27 04:04 | NURSING ---
0127 L breast dressing changed.
[2018-07-27] MEDS: Budesonide Respules 0.5 MG/2 ML AMPUL.NEB. INHALATION ×2 (06:56→19:13)
[2018-07-27] MEDS: Albuterol 2.5 MG/3 ML VIAL.NEB. INHALATION ×2 (06:56→19:12)
[2018-07-27] MEDS: Iron Polysaccharide Complex 150 MG CAPSULE PO (08:16)
[2018-07-27] MEDS: Calcium Carb/Vitamin D 1 TABLET Tablet PO ×2 (08:16→16:53)
--- NOTE | 2018-07-27 08:38 | NURSING ---
wound photo: left breast
[2018-07-27] MEDS: 0.9% NaCl PICC Flush IV (09:01)
[2018-07-27 09:16] LABS: Hematocrit 30.5 % (37-47); Hemoglobin 9.8 g/dl (12.0-15.0); Mean Corp Hgb Conc 32.1 g/gl (32-36); Mean Corpuscular Hgb 27.9 pg (27.0-32.0); Mean Corpuscular Volume 86.9 fL (81-99); Mean Platelet Vol. 9.3 fl (6.2-12.0); Platelet Count 281 K/mm3 (150-450); RBC Distribution Width CV 16.4 % (11.6-14.6); RBC Distribution Width SD 52.1 fl (35.1-43.9); Red Blood Count 3.51 M/mm3 (4.2-5.4); White Blood Count 5.7 K/mm3 (4.4-11.0)
[2018-07-27 09:17] LABS: Scan Indicated on CBC? Y/N NO
[2018-07-27 09:26] LABS: Anion Gap 6 (5-15); BUN 20 mg/dL (7-18); BUN/Creat Ratio 21.5 RATIO (10-20); Calcium,Total 9.2 mg/dL (8.5-10.1); Chloride 104 mmol/L (98-107); Creatinine, Serum 0.93 mg/dL (0.55-1.02); EST Glomerular Filtration Rate 66 mL/min (>60); Est Glom Filt Rate - Afr Amer 80 mL/min (>60); Estimated Creatinine Clearance 47.94 ml/min; Glucose 111 mg/dL (74-106); Potassium 3.5 mmol/L (3.5-5.1); Sodium Level 142 mmol/L (136-145)
[2018-07-27] MEDS: Loratadine 10 MG Tablet PO (10:48)
[2018-07-27] MEDS: Anastrozole 1 MG Tablet PO (10:48)
[2018-07-27] MEDS: Acyclovir 200 MG Capsule PO (10:49)
[2018-07-27] MEDS: Venlafaxine XR 37.5 MG Capsule PO ×2 (10:49→22:00)
[2018-07-27] MEDS: Clopidogrel Bisulfate 75 MG Tablet PO (10:49)
[2018-07-27] MEDS: Losartan Potassium 25 MG Tablet PO (13:05)
--- NOTE | 2018-07-27 13:51 | PCM.PROGNOTE ---
- Physical Exam General: Alert, Oriented x3, Cooperative HEENT: Atraumatic Oral: Moist Mucosa Lungs: Clear to auscultation, Normal air movement Cardiovascular: Regular rate, Regular Rhythm Abdomen: Bowel Sounds Present, Soft, Non Tender Extremities: No edema Skin: Ulcer/ Wound - Left breast with Dakin's dressing. Good granulation tissue seen. The left breast graft is soft. Lower abdominal with wound VAC in place, there is good granulation tissue present. Musculoskeletal: No Tenderness to Palpation of Joints or Extremities Neurological: Neuro grossly intact Psych/Mental Status: Normal Affect, Appropriate Vital Signs Temp Pulse Resp BP Pulse Ox 98.1 F 104 H 18 150/74 H 99 07/27/18 13:22 07/27/18 13:22 07/27/18 13:22 07/27/18 13:22 07/27/18 13:22 Oxygen Delivery Method Room Air Weight: 129 lb 10.109 oz Body Mass Index (BMI) 25.3 Intake and Output for Last 24 Hours 07/25/18 07/26/18 07/27/18 23:59 23:59 23:59 Intake Total 3200 / 3200 2500 / 2500 Output Total 750 / 750 1100 / 1100 Balance 2450 / 2450 1400 / 1400 Microbiology Past 72 Hours 07/26/18 10:30 Gram Stain - Final Wound - Breast Wound Culture - Preliminary No growth-Final to follow 07/26/18 10:30 Gram Stain - Final Wound - Abdominal Wound Culture - Preliminary Coag Negative Staph Laboratory Tests Past 24 Hrs 07/25/18 07/27/18 07/27/18 20:48 08:57 08:57 WBC 5.7 RBC 3.51 L Hgb 9.8 L Hct 30.5 L MCV 86.9 MCH 27.9 MCHC 32.1 RDW 16.4 H RDW Differential 52.1 H Plt Count 281 MPV 9.3 Sodium 142 Potassium 3.5 Chloride 104 Carbon Dioxide 32.0 Anion Gap 6 BUN 20 H Creatinine 0.93 Estim Creat Clear Calc 47.94 Est GFR (MDRD) Af Amer 80 Est GFR (MDRD) Non-Af 66 BUN/Creatinine Ratio 21.5 H Glucose 111 H Calcium 9.2 Crossmatch See Detail Medical Necessity - Tobacco Use Smoking Status: Never smoker Assessment/Plan All Active Problems (Last Reviewed 05/10/18 @ 13:24 by Alberto Dueñas MD) Staphylococcus epidermidis infection (Acute) Partial loss of skin graft (Acute) Abdominal wall hernia (Acute) Staphylococcus epidermidis infection -PICC line in place and receiving Vancomycin -Wound cultures drawn yesterday. Preliminary results from the left breast culture are currently negative. Preliminary abdominal culture is positive for Coag Negative Staph. A positive culture may necessitate antibiotic modification. Partial loss of skin graft -Left breast dressing with quarter strength Dakin's solution -Lower abdominal opening with wound VAC dressing -No longer having issues with bleeding from her left breast -Received 2 units PRBC's, Hgb 9.8 after transfusion -Recheck hemoglobin tomorrow. Will anticipate discharge tomorrow. -She is unsteady on her feet with ambulation. Will discharge when she is more steady on her feet with ambulation. -Anticipate discharge tomorrow. After the drainage has been controlled and the inflammation has subsided, Dr. Murillo may consider delayed secondary wound closure in the future. Once the left breast reconstruction wound is stabilized and the inflammation has subsided, may consider revision reconstructed breast with rotation of the TRAM flap and/or bringing in additional nonradiated tissue such as the latissimus dorsi flap.
[2018-07-27 16:20] LABS: Vancomycin, Trough Level 22.2 ug/mL (5.0-15.0)
--- NOTE | 2018-07-27 17:11 | PCM.RX.CS ---
Consult Pharmacy has been consulted to manage selected antiobiotic: Vancomycin Type of Consult: Follow-up Suspected Infection: Skin/Soft tissue Prior Doses of Antibiotics Received/Current Regimen: Patient has been on 1gm iv q12h. Labs: Sodium 142 mmol/L (136-145) 07/27/18 08:57 Potassium 3.5 mmol/L (3.5-5.1) 07/27/18 08:57 Chloride 104 mmol/L (98-107) 07/27/18 08:57 Carbon Dioxide 32.0 mmol/L (21.0-32.0) 07/27/18 08:57 Anion Gap 6 (5-15) 07/27/18 08:57 BUN 20 mg/dL (7-18) H 07/27/18 08:57 Creatinine 0.93 mg/dL (0.55-1.02) 07/27/18 08:57 Est GFR (MDRD) Af Amer 80 mL/min (>60) 07/27/18 08:57 Est GFR (MDRD) Non-Af 66 mL/min (>60) 07/27/18 08:57 BUN/Creatinine Ratio 21.5 RATIO (10-20) H 07/27/18 08:57 Glucose 111 mg/dL (74-106) H 07/27/18 08:57 Vancomycin Trough 22.2 ug/mL (5.0-15.0) H 07/27/18 15:16 Random Vancomycin 17.7 ug/mL (0.0-15.0) H 07/26/18 02:15 Microbiology: Microbiology 07/26/18 10:30 Wound - Breast Gram Stain - Final 07/26/18 10:30 Wound - Breast Wound Culture - Preliminary No growth-Final to follow 07/26/18 10:30 Wound - Abdominal Gram Stain - Final 07/26/18 10:30 Wound - Abdominal Wound Culture - Preliminary Coag Negative Staph Weight used for dosin.8 kg Estimated Creatinine Clearance: 48 ml/min Goal Trough: 10-15 mcg/mL Pharmacy Plan for Drug Dosing: Vancomycin trough level on 07.27.18 @1516 was 22.2. Will hold vancomycin for now and get a random level 12hrs after last level. Will review level at that time and reassess for dosing. Pharmacy Service will continue to monitor and adjust dosing as required. Follow-Up Labs: Trough Vancomycin - 5.16.19 @0334
[2018-07-27] MEDS: diazePAM 5 MG Tablet PO (21:36)
[2018-07-28 02:45] VITALS: BP 160/94; PULSE 97; RESP 16; TEMP 36.8; O2SAT 98
[2018-07-28 04:13] LABS: Hematocrit 31.4 % (37-47); Hemoglobin 10.2 g/dl (12.0-15.0); Mean Corp Hgb Conc 32.5 g/gl (32-36); Mean Corpuscular Hgb 28.5 pg (27.0-32.0); Mean Corpuscular Volume 87.7 fL (81-99); Mean Platelet Vol. 9.1 fl (6.2-12.0); Platelet Count 274 K/mm3 (150-450); RBC Distribution Width CV 16.3 % (11.6-14.6); RBC Distribution Width SD 52.4 fl (35.1-43.9); Red Blood Count 3.58 M/mm3 (4.2-5.4); White Blood Count 6.6 K/mm3 (4.4-11.0)
[2018-07-28 04:14] LABS: Scan Indicated on CBC? Y/N NO
[2018-07-28 04:34] LABS: Vancomycin, Trough Level 12.4 ug/mL (5.0-15.0)
[2018-07-28 04:36] LABS: Anion Gap 8 (5-15); BUN 27 mg/dL (7-18); BUN/Creat Ratio 34.4 RATIO (10-20); Calcium,Total 9.3 mg/dL (8.5-10.1); Chloride 105 mmol/L (98-107); Creatinine, Serum 0.79 mg/dL (0.55-1.02); EST Glomerular Filtration Rate 80 mL/min (>60); Est Glom Filt Rate - Afr Amer 97 mL/min (>60); Estimated Creatinine Clearance 56.44 ml/min; Glucose 102 mg/dL (74-106); Sodium Level 141 mmol/L (136-145)
--- NOTE | 2018-07-28 04:53 | PCM.RX.CS ---
Consult Pharmacy has been consulted to manage selected antiobiotic: Vancomycin Type of Consult: Follow-up Suspected Infection: Skin/Soft tissue Prior Doses of Antibiotics Received/Current Regimen: Medications Vancomycin HCl () 500 mg in 100 mls @ 100 mls/hr IV Q12H ADRIAN Discontinued Medications Vancomycin HCl (Vancomycin) 1,000 mg in 200 mls @ 200 mls/hr IV Q12H ADRIAN Last Admin: 07/27/18 16:42 Dose: Not Given Labs: Sodium 141 mmol/L (136-145) 07/28/18 03:50 Potassium 4.0 mmol/L (3.5-5.1) 07/28/18 03:50 Chloride 105 mmol/L (98-107) 07/28/18 03:50 Carbon Dioxide 28.0 mmol/L (21.0-32.0) 07/28/18 03:50 Anion Gap 8 (5-15) 07/28/18 03:50 BUN 27 mg/dL (7-18) H 07/28/18 03:50 Creatinine 0.79 mg/dL (0.55-1.02) 07/28/18 03:50 Est GFR (MDRD) Af Amer 97 mL/min (>60) 07/28/18 03:50 Est GFR (MDRD) Non-Af 80 mL/min (>60) 07/28/18 03:50 BUN/Creatinine Ratio 34.4 RATIO (10-20) H 07/28/18 03:50 Glucose 102 mg/dL (74-106) 07/28/18 03:50 Vancomycin Trough 12.4 ug/mL (5.0-15.0) 07/28/18 03:50 Random Vancomycin 17.7 ug/mL (0.0-15.0) H 07/26/18 02:15 Microbiology: Microbiology 07/26/18 10:30 Wound - Breast Gram Stain - Final 07/26/18 10:30 Wound - Breast Wound Culture - Preliminary No growth-Final to follow 07/26/18 10:30 Wound - Abdominal Gram Stain - Final 07/26/18 10:30 Wound - Abdominal Wound Culture - Preliminary Coag Negative Staph Weight used for dosin.8 kg Estimated Creatinine Clearance: 56 Goal Trough: 10-15 mcg/mL Pharmacy Plan for Drug Dosing: Previous vancomycin dose was held due to high trough level (22.2). The following 24hr level returned at 12.4. Dosing calculator determined a continuing dose of 500mg q12h. Another trough will be drawn prior to 4th dose of new order. Pharmacy Service will continue to monitor and adjust dosing as required. Follow-Up Labs: Trough Vancomycin Labs to be done on [date and time ordered]: 07/29/18 @1700
[2018-07-28] MEDS: Vancomycin IV 500 MG/100 ML BAG 100 MG IV ×2 (05:15→15:00)
[2018-07-28] MEDS: Budesonide Respules 0.5 MG/2 ML AMPUL.NEB. INHALATION (07:40)
[2018-07-28] MEDS: Albuterol 2.5 MG/3 ML VIAL.NEB. INHALATION (07:41)
[2018-07-28 08:20] VITALS: PULSE 90; RESP 16; O2SAT 96
[2018-07-28] MEDS: Iron Polysaccharide Complex 150 MG CAPSULE PO (08:30)
[2018-07-28] MEDS: Calcium Carb/Vitamin D 1 TABLET Tablet PO (08:30)
[2018-07-28] MEDS: Loratadine 10 MG Tablet PO (08:38)
[2018-07-28] MEDS: Anastrozole 1 MG Tablet PO (08:38)
[2018-07-28] MEDS: Venlafaxine XR 37.5 MG Capsule PO (08:38)
[2018-07-28] MEDS: Losartan Potassium 25 MG Tablet PO (08:38)
[2018-07-28] MEDS: Acyclovir 200 MG Capsule PO (08:38)
[2018-07-28] MEDS: Clopidogrel Bisulfate 75 MG Tablet PO (08:38)
[2018-07-28] MEDS: Lactated Ringers 1,000 ML 60 ML IV (08:44)
[2018-07-28 08:45] VITALS: BP 154/80; PULSE 90; RESP 16; TEMP 36.8; O2SAT 98
--- NOTE | 2018-07-28 12:57 | DCINST_ITS ---
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 Discharge Activity: May not drive while taking narcotic pain medications., May Shower - on the days the vac is changed. May shower in (days): 2 - may shower on the days the vac is changed. May resume sexual activity in: No Restrictions Weight Bearing Status: Weight bearing as tolerated Lifting Restrictions: 20 lbs. Keep extremity elevated above heart level: - - elevate head. Call your doctor if your incision/area has: Continuous Slow Oozing, Sudden Incre ased Bleeding, Increased Pain/ Swelling, Increased Redness, Foul Smelling Discharge, Swelling at the incision site Call your doctor if you observe: Fever of 101 or Higher, Coldness, Increased Pain, Shortness of breath, Chest pain, Calf discomfort, Uncontrolled pain Suture Line Care: - - vac changes three times per week to abdominal wall. quarter strength dakins dressings to left breast daily. Change Dressing in (Days):: 2 - vac changes three times per week. dakins dressings daily. Cleanse incision/area with: - - may shower on the days the vac is changed. Allergies/Adverse Reactions: Allergies lisinopril Allergy (Severe, Verified 07/25/18 20:51) tongue and face swelling Penicillins Allergy (Verified 07/25/18 20:51) Anaphylaxis Medications to take at Discharge Loratadine [Claritin] 10 mg PO DAILY 08/22/15 acyclovir 200 mg capsule 200 mg PO QDAY cap 07/03/17 anastrozole 1 mg tablet 1 mg PO QDAY 07/03/17 venlafaxine ER 37.5 mg capsule,extended release 24 hr 37.5 mg PO BID cap 07/03/17 fluticasone furoate 100 mcg-vilanterol 25 mcg/dose inhalation powder 1 puff INHALATION DAILY 07/06/17 calcium carbonate 500 mg (1,250 mg)-vitamin D3 200 unit tablet 1 tab PO BID 01/13/18 potassium chloride ER 20 mEq tablet,extended release 20 meq PO QDAY PRN 01/13/18 losartan 25 mg tablet 25 mg PO QDAY tab 01/14/18 alendronate 70 mg tablet 70 mg PO QWEEK 03/28/18 clopidogrel 75 mg tablet 75 mg PO DAILY 03/28/18 Docusate Sodium [Colace] 100 mg PO BID #60 cap 06/07/18 Furosemide [Lasix] 20 mg PO QDAY PRN #14 tab 06/07/18 Lactobacillus Acidophilus/Fos [Acidophilus Probiotic Tablet] 1 ea PO BID #60 tab 06/07/18 Albuterol Aerosols [Ventolin Aerosols] 2.5 mg INHALATION Q6HWA.RT vial.neb. 06/24/18 Iron Polysaccharide Complex [Ferrex 150] 150 mg PO DAILYCM 30 Days #30 cap 06/24/18 promethazine 25 mg tablet 25 mg PO 4X/DAY PRN PRN #30 tab 06/27/18 Budesonide Aerosol [Pulmicort Respules] 0.5 mg INHALATION Q12H.RT ampul.neb. 07/28/18 Diazepam [Valium] 5 mg PO 4X/DAY PRN PRN #30 tab 07/28/18 Heparin Pf Lock 10 units/ml 50 units IV UD PRN syringe 07/28/18 Oxycodone HCl/Acetaminophen [Percocet 5/325] 1 tab PO Q4H PRN PRN 7 Days #40 tab 07/28/18 Sodium Hypochlorite [Dakins Solution 0.25% (1/2 Strength)] 1 applic TOPICAL BID bottle 07/28/18 Vancomycin IV [Vancomycin] 500 mg IV Q12H #14 bag 07/28/18 The following prescriptions were given: Oxycodone HCl/Acetaminophen [Percocet 5/325] 1 tab PO Q4H PRN PRN 7 Days #40 tab PRN Reason: Pain Diazepam [Valium] 5 mg PO 4X/DAY PRN PRN #30 tab PRN Reason: Spasms Vancomycin IV [Vancomycin] 500 mg IV Q12H #14 bag Primary Care Physician: Nevaeh Hawkins DO [Primary Care Provider] - Test Results: Test results from this visit will be discussed in further detail at your follow- up appointment, if applicable. Please Follow Up With: Jann Murillo MD When: wednesday08/01/18 at the office. call [phone] for appt. Proposed Discharge Date: 07/28/18
[2018-07-28 14:45] VITALS: BP 155/74; PULSE 105; RESP 16; TEMP 37.1; O2SAT 95
--- NOTE | 2018-07-28 15:43 | CASEMGMT ---
SHERRON SOLARES received updated IV ATB script and sent to [facility], who patient was established with. Discharge information faxed to [facility], patient's current [facility]. Patient updated regarding new dose of IV Vancomycin.
--- NOTE | 2018-07-28 17:14 | PCM.PN.SRG ---
Subjective: Patient is resting comfortably. - Physical Exam General: Alert, Oriented x3 HEENT: PERRLA, EOMI Oral: Moist Mucosa Neck: Supple Abdomen: Soft, Non-Distended Skin: Ulcer/ Wound - left breast wound is stable. Good granulation tissue seen. The flap is soft and pink and viable. Continue Dakin's dressing changes. The abdominal wall wound is stable. Good granulation tissue seen. VAC was reapplied. Neurological: Cranial nerves II-XII grossly intact Psych/Mental Status: Normal Affect, Appropriate Vital Signs Temp Pulse Resp BP Pulse Ox 98.7 F 105 H 16 155/74 H 95 07/28/18 14:45 07/28/18 14:45 07/28/18 14:45 07/28/18 14:45 07/28/18 14:45 Oxygen Delivery Method Room Air Weight: 129 lb 10.109 oz Body Mass Index (BMI) 25.3 Intake and Output for Last 24 Hours 07/26/18 07/27/18 07/28/18 23:59 23:59 23:59 Intake Total 3200 / 3200 3660 / 3660 573 / 573 Output Total 750 / 750 1600 / 1600 900 / 900 Balance 2450 / 2450 2060 / 2060 -327 / -327 Microbiology Past 72 Hours 07/26/18 10:30 Gram Stain - Final Wound - Abdominal Wound Culture - Final Coag Negative Staph Yeast 07/26/18 10:30 Gram Stain - Final Wound - Breast Wound Culture - Preliminary No growth-Final to follow Anaerobic Culture - Preliminary No growth in 48 hours. Laboratory Tests Past 24 Hrs 07/28/18 07/28/18 07/28/18 03:50 03:50 03:50 WBC 6.6 RBC 3.58 L Hgb 10.2 L Hct 31.4 L MCV 87.7 MCH 28.5 MCHC 32.5 RDW 16.3 H RDW Differential 52.4 H Plt Count 274 MPV 9.1 Sodium 141 Potassium 4.0 Chloride 105 Carbon Dioxide 28.0 Anion Gap 8 BUN 27 H Creatinine 0.79 Estim Creat Clear Calc 56.44 Est GFR (MDRD) Af Amer 97 Est GFR (MDRD) Non-Af 80 BUN/Creatinine Ratio 34.4 H Glucose 102 Calcium 9.3 Vancomycin Trough 12.4 Medical Necessity - Tobacco Use Smoking Status: Never smoker Assessment/Plan All Active Problems (Last Reviewed 05/10/18 @ 13:24 by Alberto Dueñas MD) Staphylococcus epidermidis infection (Acute) Partial loss of skin graft (Acute) Abdominal wall hernia (Acute) 1. Invasive ductal carcinoma left breast, s/p mastectomy. 2. Ductal carcinoma in situ right breast, s/p mastectomy. 3. Mild compromise left breast reconstruction TRAM flap wound(15%). 4. Nonhealing surgical wound lower abdominal wall TRAM donor incision. 5. Seroma abdominal wall. 6. Anemia of chronic disease, acute on chronic. 7. MRSE. 8. Acquired absence bilateral breasts. 9. Disproportion reconstructed breasts. 10. Deformity reconstructed breasts. 11. Late effect radiation left breast. 12. Soft tissue radionecrosis left breast. 13. Estrogen receptor positive status. 14. Family history of breast cancer. VAC was changed today. Abdominal wall wound is stable with good granulation tissue seen. Dakin's dressing change to left breast reconstruction was done today. Left breast wound is stable with good granulation tissue. Hgb has improved to 10.2 after recent PRBC. She has anemia of chronic disease, acute on chronic. Patient is on Plavix. After [facility], she had persistent bleeding which prompted her return to the ED and admission. Will continue her Vancomycin for an extra week. Her initial wound culture from 06/21/18 showed MRSE. Recent wound culture during this hospitalization showed Coag negative Staph and Yeast in the abdominal wall wound. The left breast wound was negative. Will assess as an outpatient whether to treat her Yeast with Diflucan. Her Prealbumin from 07/26/18 was 16.0. Encourage nutritional supplementation with protein to help the healing process. She is ambulating more steady today. Discharge home today. Followup office 08/01/18. Wrote script for an additional Vancomycin for 7 days. Wrote scripts for Percocet for pain (40 tabs) and for Valium for spasm (30 tabs).
--- NOTE | 2018-07-28 22:00 | PCM.DC.SUM ---
Discharge Date and Diagnosis Date of Admission: 07/25/18 Date of Discharge: 07/28/18 - Primary Discharge Diagnosis Invasive ductal carcinoma left breast, s/p mastectomy. Mild compromise left breast reconstruction TRAM flap wound(15%). Nonhealing surgical wound lower abdominal wall TRAM donor incision. Seroma abdominal wall. Anemia of chronic disease, acute on chronic. MRSE. - Secondary Discharge Diagnosis Ductal carcinoma in situ right breast, s/p mastectomy Hypertension Hyperlipidemia Acute systolic congestive heart failure Bilateral pleural effusion Cardiomyopathy in diseases classified elsewhere Estrogen receptor positive status (ER+) (Chronic) Acquired absence bilateral breasts. Disproportion reconstructed breasts. Deformity reconstructed breasts. Late effect radiation left breast. Soft tissue radionecrosis left breast. Estrogen receptor positive status. Family history of breast cancer. Hospital Course and Treatment Imaging Results: None. Consultations 07/26/18 06:47 Consult: Onc/Wound/apartment coordinator Routine Comment: Reason for Consult:: VAC placement Operations: None Procedures: Blood transfusion, Wound vac placement Summary of Care Provided: 57 year old female initially presented for her delayed bilateral breast reconstruction on 05/10/18 where she underwent first stage delayed left breast reconstruction with bipedicled TRAM flap delay and first stage delayed right breast reconstruction with placement of submuscular saline tissue refrigerating engineer (650 ml). After waiting three weeks for the delay, she went back to surgery on 05/31/18 where she underwent revision left breast reconstruction with excision radiation fibrosis scar contour deformity and multiple W-plasty (18 cm2) and second stage delayed left breast reconstruction with bipedicled TRAM flap and complex abdominal wall reconstruction with repair of fascial defects with components separation technique using bilateral external oblique myofascial advancement flaps and placement MTF FlexHD acellular dermal matrix graft (320 cm2) and saline injection 300 ml into tissue refrigerating engineer right breast reconstruction (650 ml refrigerating engineer). She did well initially postop and was discharged from the hospital on 06/07/18. She developed some wound drainage issues in the abdominal wall with a seroma. She developed some compromise to the TRAM flap in the central aspect for the midline scar was. Wound culture showed MRSE. She was on Doxycycline and Levaquin. She failed outpatient therapy and was admitted to the hospital and started on IV Vancomycin. She was taken to surgery on 06/21/18 where she underwent incision and drainage complex abdominal wall infected seroma and surgical preparation left breast with excisional debridement and revision reconstructed compromised TRAM flap wound infection (156 cm2). Postop she had the VAC placed to both the abdominal wound and the left breast reconstruction wound. She was seen at the [facility] today and had some excisional debridement due to some nonviable tissue present. The patient is on Plavix and when she got home she noticed increased bleeding on her dressing and she came to the ED for evaluation. Her Hgb was 8.1. The dressing was changed in the ED. A couple of small oozing points were noted that were easily controlled with gauze pressure. A compression dressing was applied. Will continue the VAC to the abdominal wall wound. Because of the nonviable tissue that was debrided today, will start Dakin's dressing changes for a little while before going back to the VAC. She was admitted from the ED on 07/25/18 for continuation of her IV antibiotics with Vancomycin and for PRBC because of her blood loss. The next morning the Hgb dropped from 8.1 to 7.2. So 2 units of PRBC were given. Her Hgb stabilized over the next two days to 9.8 and then 10.2 on the day of discharge. She has anemia of chronic disease, acute on chronic. Patient is on Plavix. After recent debridement at the Wound Center, she had persistent bleeding which prompted her return to the ED and admission. She will continue her Iron supplementation at discharge. She continued her Vancomycin for her MRSE culture from 06/21/18. She has another week of treatment. Wound cultures during this hospital stay were negative for the left breast and Coag negative Staph and Yeast for the abdomen. Will assess as an outpatient whether to treat her Yeast with Diflucan. Her wounds were stable during the hospital stay with no more evidence of bleeding. The VAC was changed on the third hospital day in preparation for discharge. She tolerated the Dakin's dressing changes to the left breast which will be continued at home. Abdominal wall wound is stable with good granulation tissue seen. Left breast wound is stable with good granulation tissue seen. When she is re-evaluated after discharge, I will determine when it is ok to go back to the VAC to the left breast wound. Her Prealbumin from 07/26/18 was 16.0. Encourage nutritional supplementation with protein to help the healing process. She was ambulating more steady on the day of discharge. Discharge home on 07/28/18, the third hospital day. Followup office 08/01/18. Wrote script for an additional Vancomycin for 7 days. Wrote scripts for Percocet for pain (40 tabs) and for Valium for spasm (30 tabs). Condition upon discharge was stable. - Physical Exam Vital Signs Temp Pulse Resp BP Pulse Ox 98.7 F 105 H 16 155/74 H 95 07/28/18 14:45 07/28/18 14:45 07/28/18 14:45 07/28/18 14:45 07/28/18 14:45 Oxygen Delivery Method Room Air Weight: 129 lb 10.109 oz Body Mass Index (BMI) 25.3 Intake and Output for Last 24 Hours 07/26/18 07/27/18 07/28/18 23:59 23:59 23:59 Intake Total 3200 / 3200 3660 / 3660 573 / 573 Output Total 750 / 750 1600 / 1600 900 / 900 Balance 2450 / 2450 2060 / 2060 -327 / -327 Microbiology Past 72 Hours 07/26/18 10:30 Gram Stain - Final Wound - Abdominal Wound Culture - Final Coag Negative Staph Yeast 07/26/18 10:30 Gram Stain - Final Wound - Breast Wound Culture - Preliminary No growth-Final to follow Anaerobic Culture - Preliminary No growth in 48 hours. Laboratory Tests Past 24 Hrs 07/28/18 07/28/18 07/28/18 03:50 03:50 03:50 WBC 6.6 RBC 3.58 L Hgb 10.2 L Hct 31.4 L MCV 87.7 MCH 28.5 MCHC 32.5 RDW 16.3 H RDW Differential 52.4 H Plt Count 274 MPV 9.1 Sodium 141 Potassium 4.0 Chloride 105 Carbon Dioxide 28.0 Anion Gap 8 BUN 27 H Creatinine 0.79 Estim Creat Clear Calc 56.44 Est GFR (MDRD) Af Amer 97 Est GFR (MDRD) Non-Af 80 BUN/Creatinine Ratio 34.4 H Glucose 102 Calcium 9.3 Vancomycin Trough 12.4 Discharge Diet: No Restrictions, - - encourage nutritional supplementation with protein to help the healing process. Discharge Activity: May not drive while taking narcotic pain medications., May Shower - on the days the vac is changed. May shower in (days): 2 - may shower on the days the vac is changed. May resume sexual activity in: No Restrictions Weight Bearing Status: Weight bearing as tolerated Lifting Restrict to (lbs):: 20 Keep extremity elevated above heart level: - - elevate head. Call your doctor if your incision/area has: Continuous Slow Oozing, Sudden Increased Bleeding, Increased Pain/ Swelling, Increased Redness, Foul Smelling Discharge, Swelling at the incision site Call your doctor if you observe: Fever of 101 or Higher, Coldness, Increased Pain, Shortness of breath, Chest pain, Calf discomfort, Uncontrolled pain Suture Line Care: - - vac changes three times per week to abdominal wall. quarter strength dakins dressings to left breast daily. Change Dressing in (Days):: 2 - vac changes three times per week. dakins dressings daily. Cleanse incision/area with: - - may shower on the days the vac is changed. Home Medications: Medications to take at Discharge Loratadine [Claritin] 10 mg PO DAILY 08/22/15 acyclovir 200 mg capsule 200 mg PO QDAY cap 07/03/17 anastrozole 1 mg tablet 1 mg PO QDAY 07/03/17 venlafaxine ER 37.5 mg capsule,extended release 24 hr 37.5 mg PO BID cap 07/03/17 fluticasone furoate 100 mcg-vilanterol 25 mcg/dose inhalation powder 1 puff INHALATION DAILY 07/06/17 calcium carbonate 500 mg (1,250 mg)-vitamin D3 200 unit tablet 1 tab PO BID 01/13/18 potassium chloride ER 20 mEq tablet,extended release 20 meq PO QDAY PRN 01/13/18 losartan 25 mg tablet 25 mg PO QDAY tab 01/14/18 alendronate 70 mg tablet 70 mg PO QWEEK 03/28/18 clopidogrel 75 mg tablet 75 mg PO DAILY 03/28/18 Docusate Sodium [Colace] 100 mg PO BID #60 cap 06/07/18 Furosemide [Lasix] 20 mg PO QDAY PRN #14 tab 06/07/18 Lactobacillus Acidophilus/Fos [Acidophilus Probiotic Tablet] 1 ea PO BID #60 tab 06/07/18 Albuterol Aerosols [Ventolin Aerosols] 2.5 mg INHALATION Q6HWA.RT vial.neb. 06/24/18 Iron Polysaccharide Complex [Ferrex 150] 150 mg PO DAILYCM 30 Days #30 cap 04/12/19 promethazine 25 mg tablet 25 mg PO 4X/DAY PRN PRN #30 tab 06/27/18 Budesonide Aerosol [Pulmicort Respules] 0.5 mg INHALATION Q12H.RT ampul.neb. 07/28/18 Diazepam [Valium] 5 mg PO 4X/DAY PRN PRN #30 tab 07/28/18 Heparin Pf Lock 10 units/ml 50 units IV UD PRN syringe 07/28/18 Oxycodone HCl/Acetaminophen [Percocet 5/325] 1 tab PO Q4H PRN PRN 7 Days #40 tab 07/28/18 Sodium Hypochlorite [Dakins Solution 0.25% (1/2 Strength)] 1 applic TOPICAL BID bottle 07/28/18 Vancomycin IV [Vancomycin] 500 mg IV Q12H #14 bag 07/28/18 doxycycline hyclate 100 mg capsule 100 mg PO BID 10 Days #20 cap 07/29/18 Following Prescrptions Were Given to Patient: Oxycodone HCl/Acetaminophen [Percocet 5/325] 1 tab PO Q4H PRN PRN 7 Days #40 tab PRN Reason: Pain Diazepam [Valium] 5 mg PO 4X/DAY PRN PRN #30 tab PRN Reason: Spasms Vancomycin IV [Vancomycin] 500 mg IV Q12H #14 bag Primary Care Physician: Nevaeh Hawkins DO [Primary Care Provider] - Please Follow Up With: Jann Murillo MD When: wednesday08/01/18 at the office. call [phone] for appt. Disposition: Home with Home Health Minutes spent on discharge:: 35 Patient Condition:: Stable Medical Necessity - Tobacco Use Smoking Status: Never smoker Meaningful Use Info Meaningful Use Diagnoses (Choose all that apply): None applicable
--- NOTE | 2018-07-29 10:14 | CASEMGMT ---
SHERRON SOLARES Discharge Follow-Up Phone Call. [place]: 13 Strata: 4 Discharge Date: 07/28/18 Adm Dx: Lt breast reconstruction, infection, and wound bleeding. Call to pt to inquire about how she has been doing since being discharged from the hospital. She states the [facility] nurse is with her at this time d/t her PICC line quit working. Pt states that Dr Murillo was notified and that the nurse just removed her PICC line and they are going to switch her to pill form of antibiotics. She states other than that, she is doing okay. She states she did get her new prescriptions and she is planning on calling to make an appt with her PCP. She is aware of the appt with Dr Murillo and states she will be calling his office to change the time of the appt. She denies having any other questions or concerns at this time. SHERRON SOLARES thanked pt for choosing [facility]. Angelia ODELL RN, CM
== END 2018-07-28 17:00 | disposition home health service (06) | DRG 810 ==
LOC: ED 21:04 → MS3 21:56
PROVIDERS: Emergency Medicine; Admitting Provider Surgery; Emergency Provider Emergency Medicine; Referring Provider Surgery; Visit Provider Surgery
DX: L76.22 Postprocedural hemorrhage of skin and subcutaneous tissue following other procedure (principal); Y83.8 Other surgical procedures as the cause of abnormal reaction of the patient, or of later complication, without mention of misadventure at the time of the procedure; E78.5 Hyperlipidemia, unspecified; Z79.02 Long term (current) use of antithrombotics/antiplatelets; D63.8 Anemia in other chronic diseases classified elsewhere; L59.8 Other specified disorders of the skin and subcutaneous tissue related to radiation; Y84.2 Radiological procedure and radiotherapy as the cause of abnormal reaction of the patient, or of later complication, without mention of misadventure at the time of the procedure; I11.0 Hypertensive heart disease with heart failure; I50.20 Unspecified systolic (congestive) heart failure; Z80.3 Family history of malignant neoplasm of breast; T81.89XA Other complications of procedures, not elsewhere classified, initial encounter
CPT/HCPCS: 11042; 11045; 36415; 36592; 80048; 80053; 80202; 84134; 85025; 85027; 85610; 85652; 85730; 86140; 86850; 86900; 86920; 87070; 87075; 87205; 94640; 97606; 99283; J7040; J7120; P9016; A4216

== ENCOUNTER 2018-10-25 11:28 | Inpatient (IN) | payer MEDICAID, SELFPAY ==
[2018-10-03 16:21] VITALS: BMI 24.7
--- NOTE | 2018-10-24 20:59 | HP.PCM_ITS ---
History and Physical Date of Admission: 10/25/18 HISTORY OF PRESENT ILLNESS 57 year old female initially presented for her delayed bilateral breast reconstruction on 05/10/18 where she underwent first stage delayed left breast reconstruction with bipedicled TRAM flap delay and first stage delayed right breast reconstruction with placement of submuscular saline tissue economic development coordinator (650 ml). After waiting three weeks for the delay, she went back to surgery on 05/31/18 where she underwent revision left breast reconstruction with excision radiation fibrosis scar contour deformity and multiple W-plasty (18 cm2) and second stage delayed left breast reconstruction with bipedicled TRAM flap and complex abdominal wall reconstruction with repair of fascial defects with components separation technique using bilateral external oblique myofascial advancement flaps and placement MTF FlexHD acellular dermal matrix graft (320 cm2) and saline injection 300 ml into tissue economic development coordinator right breast reconstruction (650 ml economic development coordinator). She did well initially postop and was discharged from the hospital on 06/07/18. She developed some wound drainage issues in the abdominal wall with a seroma. She developed some compromise to the TRAM flap in the central aspect for the midline scar was. Wound culture showed MRSE. She was on Doxycycline and Levaquin. She failed outpatient therapy and was admitted to the hospital and started on IV Vancomycin. She was taken to surgery on 06/21/18 where she underwent incision and drainage complex abdominal wall infected seroma and surgical preparation left breast with excisional debridement and revision reconstructed compromised TRAM flap wound infection (156 cm2). Postop she had the VAC placed to both the abdominal wound and the left breast reconstruction wound. Later on the VAC was stopped and the wound care was changed to Dakin's dressing changes. Her wounds have improved to the point she is ready for further operative debridement of abdominal wall wound with skin grafting and revision left breast TRAM flap reconstruction with excision of nonhealing ulcer and painful fat necrosis scar contour deformity and complex secondary wound closure. Will also expand the right side as well. PAST MEDICAL HISTORY Hypertension Hyperlipidemia Acute systolic congestive heart failure Bilateral pleural effusion Cardiomyopathy in diseases classified elsewhere Estrogen receptor positive status (ER+) Malignant neoplasm of left female breast Asthma Back problem Bone fracture GERD (gastroesophageal reflux disease) Hearing problem PAST SURGICAL HISTORY bilateral mastectomy first stage delayed left breast reconstruction with bipedicled TRAM flap delay and first stage delayed right breast reconstruction with placement of submuscular saline tissue economic development coordinator (650 ml) - 05/10/18 revision left breast reconstruction with excision radiation fibrosis scar contour deformity and multiple W-plasty (18 cm2) and second stage delayed left breast reconstruction with bipedicled TRAM flap and complex abdominal wall reconstruction with repair of fascial defects with components separation technique using bilateral external oblique myofascial advancement flaps and placement MTF FlexHD acellular dermal matrix graft (320 cm2) and saline injection 300 ml into tissue economic development coordinator right breast reconstruction (650 ml economic development coordinator) - 05/31/18 incision and drainage complex abdominal wall infected seroma and surgical preparation left breast with excisional debridement and revision reconstructed compromised TRAM flap wound infection (156 cm2) - 06/21/18 ALLERGIES lisinopril Penicillins MEDICATIONS Loratadine [Claritin] acyclovir albuterol sulfate anastrozole venlafaxine ER fluticasone-vilanterol calcium carbonate furosemide metoprolol succinate ER potassium chloride ER losartan alendronate atorvastatin clopidogrel Vancomycin Percocet Valium FAMILY HISTORY Mother - Diabetes Sister - Breast cancer, Diabetes Sister - Cancer Other - Asthma SOCIAL HISTORY Smoking Status: Never smoker alcohol intake: never substance use type: does not use REVIEW OF SYSTEMS General - Denies fever, fatigue, and weight loss. Eyes - Denies cataracts and glaucoma. ENT - Denies nasal congestion. Has sore throat. Endocrine - Denies excessive thirst and urination. Has a history of left breast cancer with bilateral mastectomy 08/28. Has had chemotherapy and radiation therapy. Skin - Denies suspicious lesions and skin cancer. Musculoskeletal - Complains of joint pain, joint stiffness, weakness of muscles and joints, back pain. Denies arthritis. Neuro - Denies headaches. Cardiovascular - Denies chest pain, fatigue. Has a history of CHF, hypertension and hyperlipidemia. Has shortness of breath with activity. Psych - Denies anxiety and depression. Respiratory - Denies chronic cough. Has history of asthma and sleep apnea and shortness of breath. Gastrointestinal - Denies nausea, vomiting, diarrhea. Has a history of constipation and GERD. Hematologic - Has a history of easily bruising and bleeding easily. Is on Plavix. Genitourinary - Denies hematuria and urinary frequency. PHYSICAL EXAMINATION General - Alert and oriented. Bra size was 38 D prior to the mastectomies. HEENT - PERRL. EOMI. Throat is clear. Neck - Supple and non-tender. No cervical adenopathy. Breasts - Right breast incision healed. Left breast shows a TRAM flap with some compromise inferiorly. The wound is clean with some granulation tissue. The remaining TRAM flap is soft and viable and healing satisfactory. On the lateral aspect of the TRAM is a small area of firm fat necrosis. Lungs- Clear to auscultation. Heart - Regular rate and rhythm. Abdomen - Soft and non distended. There is a nonhealing ulcer on the lower abdominal wall TRAM donor incision. Good granulation tissue seen. Extremities - FROM. No axillary adenopathy. Radial pulses are palpable. Neuro - CN II-XII grossly intact. Psych - Normal mood and affect. ASSESSMENT 1. Invasive ductal carcinoma left breast, s/p mastectomy. 2. Ductal carcinoma in situ right breast, s/p mastectomy. 3. Nonhealing TRAM flap left breast reconstruction with painful fat necrosis laterally. 4. Nonhealing ulcer lower abdominal wall TRAM flap donor incision. 5. Anemia of chronic disease, acute on chronic. 6. MRSE. 7. Acquired absence bilateral breasts. 8. Disproportion reconstructed breasts. 9. Deformity reconstructed breasts. 10. Late effect radiation left breast. 11. Soft tissue radionecrosis left breast. 12. Estrogen receptor positive status. 13. Family history of breast cancer. PLAN Recommend operative intervention with excisional debridement nonhealing ulcer abdominal wall with skin grafting. Will also need revision nonhealing ulcer TRAM flap left breast reconstruction with excision painful fat necrosis deformity laterally and excision nonhealing ulcer TRAM flap with complex secondary wound closure. After healing has occurred, will proceed with placement of a saline tissue economic development coordinator. In the meantime, will expand the right side. At present there is 300 ml in a 650 ml economic development coordinator. With her history of MRSE, will treat perioperatively with Vancomycin. After the skin graft will apply a DARNELL NPWT device to assist with healing. For the left breast, will have a drain in for several days. Will send tissue to Pathology for analysis to rule out carcinoma and to Microbiology for culture. A positive culture will necessitate antibiotic therapy. Anticipate increased metabolic demands from the ulcers and from the surgery. Will check a Prealbumin and encourage nutritional supplementation with protein to help the healing process. Surgery will be done under general anesthesia with a surgical observation o vernight stay in the hospital. Patient was informed of the risks and complications of the procedure including alternatives to surgery. These were discussed with the patient personally. Patient voices understanding and wishes to proceed. Some of the risks and complications were included in a form from the [employer].
[2018-10-25] VITALS (14 sets, daily range): BP systolic 105–149; BP diastolic 55–86; PULSE 59–101; RESP 14–18; TEMP 35.7–37.3; O2SAT 94–100; BMI 25.3
[2018-10-25] MEDS: Vancomycin IV 1,000 MG/200 ML BAG 200 MG IV (06:36)
--- NOTE | 2018-10-25 07:30 | BRBX_PTH ---
PATIENT: YULIYA KENDALL LOC: MS3 U#:[id number] AGE/SX: 57/F ROOM: MS309 RE10/26/[address]: Dr. Jann Murillo MD : 1960 BED: 1 DIS: 10/28/2018 SPEC #: [id number] RECD: 10/25/18 13:17 STATUS: SOUYann REQ #: [id number] KISHOR: 10/25/18 07:[address]: Jann Murillo DEPT: SURGICAL PATHOLOGY RECD BY: Ricco Laughlin ENTERED: 10/25/18 13:53 SP TYPE: BREAST BX OTHR DR: Dr. Nevaeh Hawkins, DO Tissues: A - Left breast, NOS B - Abdomen, NOS Procedures: Surgery Specimen Level III Surgery Specimen Level IV HEADER OPERATION: Breast reconstruction tram flap; surgical prep abdominal wall PRE-OP DIAGNOSIS: Invasive ductal CA left breast status post mastectomy; ductal CA in situ right breast status post mastectomy; nonhealing tram flap left breast reconstruction with painful fat necrosis laterally; nonhealing ulcer lower abdominal wall tram flap donor incision; ER positive TISSUE SUBMITTED: A - Left breast tissue, B - Abdominal tissue MICROSCOPIC DIAGNOSIS A. Left breast tissue: Pieces of fibroadipose tissue with fat necrosis, chronic inflammation, foreign body giant cell reaction and reactive changes. See comment. B. Abdominal tissue: Pieces of skin and fibroadipose tissue with focal ulceration, associated inflammation, granulation tissue reaction, fibrosis and reactive changes. SJ:peng 10/27/18 COMMENT A. Breast tissue is not identified. MICROSCOPIC DESCRIPTION Slides are reviewed. GROSS DESCRIPTION A - Received in fixative is one container labeled with the patient's name and designated left breast tissue. The specimen consists of multiple pieces of torres-yellow adipose tissue that in aggregate measure 6 x 5.5 x 2.5 cm. Sections do not reveal any obvious mass lesion. [employer] sections are submitted in four cassettes. B - Received in fixative is one container labeled with the patient's name and designated abdominal tissue. The specimen consists of two variable sized pieces of torres-white skin with underlying tissue measuring 9 x 4 cm and up to 3 cm in thickness and 7 x 3 cm and up to 1 cm in thickness. Also present in the container is a detached piece of torres, indurated tissue measuring 5 x 2.5 x 0.6 cm. Also present in the container are two small pieces of indurated tissue measuring in aggregate 2 x 1.5 x 0.3 cm. No mass lesion is identified. [employer] Reverser sections are submitted in three cassettes. / SJ:peng 10/26/18 TC:5 CPT: 53120, 07121
--- NOTE | 2018-10-25 11:14 | PCM.OPRPT ---
Report of Operation Date of Procedure: 10/25/18 Pre-Operative Diagnosis: 1. Invasive ductal carcinoma left breast, s/p mastectomy. 2. Ductal carcinoma in situ right breast, s/p mastectomy. 3. Nonhealing TRAM flap left breast reconstruction with painful fat necrosis laterally. 4. Nonhealing ulcer lower abdominal wall TRAM flap donor incision. 5. Acquired absence bilateral breasts. 6. Disproportion reconstructed breasts. 7. Deformity reconstructed breasts. 8. Late effect radiation left breast. 9. Soft tissue radionecrosis left breast. 10. Estrogen receptor positive status. 11. Family history of breast cancer. Post-Operative Diagnosis: 1. Invasive ductal carcinoma left breast, s/p mastectomy. 2. Ductal carcinoma in situ right breast, s/p mastectomy. 3. Nonhealing TRAM flap left breast reconstruction with painful fat necrosis laterally. 4. Nonhealing ulcer lower abdominal wall TRAM flap donor incision. 5. Acquired absence bilateral breasts. 6. Disproportion reconstructed breasts. 7. Deformity reconstructed breasts. 8. Late effect radiation left breast. 9. Soft tissue radionecrosis left breast. 10. Estrogen receptor positive status. 11. Family history of breast cancer. 12. Abdominal wall TRAM flap hernia. Surgery/Procedure Performed:: 1. Revision reconstructed left breast TRAM flap with excision nonhealing ulcer and excision painful fat necrosis deformity laterally and 10 cm complex secondary wound closure. 2. Surgical preparation abdominal wall with excision nonhealing ulcer (135 cm2) and 45 cm complex secondary wound closure. 3. Repair of abdominal wall TRAM flap hernia with placement of Strattice Regenerative Tissue Matrix Graft (100 cm2). 4. 150 ml saline tissue expansion right breast reconstruction (450 ml in 650 ml manager payroll). Description of Surgical Findings:: 57 year old female initially presented for her delayed bilateral breast reconstruction on 05/10/18 where she underwent first stage delayed left breast reconstruction with bipedicled TRAM flap delay and first stage delayed right breast reconstruction with placement of submuscular saline tissue manager payroll (650 ml). After waiting three weeks for the delay, she went back to surgery on 05/31/18 where she underwent revision left breast reconstruction with excision radiation fibrosis scar contour deformity and multiple W-plasty (18 cm2) and second stage delayed left breast reconstruction with bipedicled TRAM flap and complex abdominal wall reconstruction with repair of fascial defects with components separation technique using bilateral external oblique myofascial advancement flaps and placement MTF FlexHD acellular dermal matrix graft (320 cm2) and saline injection 300 ml into tissue manager payroll right breast reconstruction (650 ml manager payroll). She did well initially postop and was discharged from the hospital on 06/07/18. She developed some wound drainage issues in the abdominal wall with a seroma. She developed some compromise to the TRAM flap in the central aspect for the midline scar was. Wound culture showed MRSE. She was on Doxycycline and Levaquin. She failed outpatient therapy and was admitted to the hospital and started on IV Vancomycin. She was taken to surgery on 06/21/18 where she underwent incision and drainage complex abdominal wall infected seroma and surgical preparation left breast with excisional debridement and revision reconstructed compromised TRAM flap wound infection (156 cm2). Postop she had the VAC placed to both the abdominal wound and the left breast reconstruction wound. Later on the VAC was stopped and the wound care was changed to Dakin's dressing changes. Her wounds have improved to the point she is ready for further operative debridement of abdominal wall wound with skin grafting and revision left breast TRAM flap reconstruction with excision of nonhealing ulcer and painful fat necrosis scar contour deformity and complex secondary wound closure. Will also expand the right side as well. Patient was informed of the risks and complications of the procedure including alternatives to surgery. These were discussed with the patient personally. Patient voices understanding and wishes to proceed. Some of the risks and complications were included in a form from the [employer]. IV Fluids - 2300 ml. Urine Output - 250 ml. I used Strattice Regenerative Tissue Matrix Graft, Firm, (10 x 10 cm). Reference Number - [id number]. Lot Number - [id number]. Expiration - June 12, 2020. I used Rosina absorbable hemostat, (I used 2 vials in the abdominal wall). Reference Number - [id number]. Lot Number - [id number]. Expiration - June 10, 2023. I used Surgicel absorbable hemostat, (left breast). Reference Number - [id number]. Lot Number - [id number]. Expiration - February 12, 2020. scratcher: Carmelita Schuster. Type of Anesthesia:: General Specimen's removed: 1. Left breast TRAM flap tissue to Pathology and Microbiology. 2. Abdominal wall ulcer tissue to Pathology and Microbiology. Drains: Jemal x3 (2 in abdomen and one in left breast). Estimated Blood Loss (mL): 150 ml. Fluids Replaced: 2550 ml (IV Fluids 2300 ml, Urine Output 250 ml). Description of Procedure: Patient was seen in the preop area and was placed in the sitting position. Preop markings were made. I marked the sternal midline down toward the umbilicus. The midclavicular line was marked to the nipple and then from the nipple to the inframammary fold. The inframammary folds were marked bilaterally. She was placed in supine position and taken to OR and placed under general anesthesia. Her breasts and abdomen were prepped and draped in the usual fashion. SCD's were placed for DVT prophylaxis. Perioperative antibiotics were given intravenously. A baker catheter was then placed. I first expanded the right breast reconstruction tissue manager payroll. I was able to locate the port by palpation. I placed a 20 gauge needle percutaneously into the port and injected 150 ml of sterile saline into the manager payroll thus making it 450 ml in a 650 ml manager payroll. The nonhealing ulcer abdominal wall was almost healed as compared to her recent office visit. Also the surrounding abdominal wall skin was a lot softer than it was in the office. Because of the persistent swelling, I felt it would be safer to proceed with excisional debridement of the nonhealing ulcer followed by skin grafting. With the improvement noted, I felt I could elevate abdominal wall skin flaps a little bit and close the abdominal wall ulcer defect with a complex secondary wound closure and hold off on the skin graft. The ulcerated scar was infiltrated with xylocaine with epinephrine. Incisions were made into the nonhealing ulcer and excision and debridement was done down to the abdominal wall fascia. The dimensions of the wound after excision of the nonhealing ulcer was 45 x 3 cm or 135 cm2. It was noted there was weakness in the lower anterior abdominal wall fascia with herniation secondary to the TRAM flap. I elevated the abdominal wall skin flaps both superiorly and to a lesser extent inferiorly into the pubic area. This helped to define the extent of the herniation. It involved mostly the inferior abdominal wall to the umbilicus and located between the lateral rectus sheath bilaterally. The herniation measured around 7 cm. I went ahead and excised the umbilicus at its stalk and removed the top of the umbilicus with associated skin off the abdominal wall skin flap. I then placed a piece of Strattice Regenerative Tissue Matrix Graft over the abdominal wall fascial defect for repair of the TRAM flap herniation. The piece of Strattice, firm, that measured 10 x 10 cm or 100 cm2. It was secured to the abdominal wall fascia with 2-0 Novafil simple interrupted sutures. The graft was placed on stretch during the inset of the graft over the abdominal wall fascial defect. The abdominal wall wound was irrigated with Irrisept followed by saline. Hemostasis was obtained with electrocautery. Two size 15 Jemal drains were placed through separate stab incisions laterally and secured to the skin with 3-0 Nylon suture. I then sprayed Rosina absorbable hemostat into the abdominal wall to minimize seroma formation postoperatively. I used two vials. The complex secondary wound closure measured 45 cm. The underlying Kareem's fascial layer was approximated with 2-0 Vicryl figure of eight interrupted sutures. The deep dermis and subcutaneous tissue was approximated with 3-0 Monocryl interrupted sutures. The skin was approximated with 3-0 V-lock unidirectional barbed running subcuticular suture and followed with Histoacryl skin tissue adhesive. The nonhealing ulcer on the reconstructed left breast TRAM flap was marked and infiltrated with xylocaine with epinephrine. The nonhealing ulcer was excised down to the muscles on the chest wall which included the pectoralis major muscle and the rectus abdominis muscle attached to the TRAM flap. There was some painful fat necrosis deformity laterally that was also excised down to the muscles on the chest wall. The remaining TRAM flap tissue was soft and viable. Hemostasis was obtained with electrocautery. The wound was irrigated with Irrisept followed by saline. I placed a size 15 Jemal drain through a separate stab incision laterally and secured to the skin with 3-0 Nylon suture. I then sprayed Surgicel powder absorbable hemostat into the left breast wound to help with hemostasis and to minimize seroma formation postoperatively. The complex secondary wound closure measured 10 cm. The left breast TRAM flap wound was then closed in a layered fashion with 3-0 Monocryl interrupted sutures for the deep dermis and subcutaneous tissue. The skin was approximated with 4-0 Prolene vertical mattress interrupted sutures. This was followed by Histoacryl skin tissue adhesive. No vascular compromise was noted on the TRAM flap. Kerlix gauze was applied to the abdominal wall and left breast dressings. This was followed by an abdominal binder and a compression SIRISHA wrap for the breast. Patient tolerated the procedure well and was sent to PACU in satisfactory condition. She will be sent upstairs for postop care. She will be discharged when tolerated po analgesia and when she is more steady on her feet with ambulation. I anticipate 2-3 days. She will have her drains in for up to 14 days. She will be maintained on antibiotics until the drains are removed. She will keep her head elevated during the initial postop period and be on a lifting restriction. Grafts/Implants Used: Strattice RTM Graft. - Complications None. - Admit VTE Documentation VTE Present on Admission: No VTE Mechan Device Prophylaxis: SCD's VTE Pharm Prophylaxis ordered?: Yes Code Visit Surgery Charges CPT - 78641 ICD-10 - C50.912, T86.828, N65.0, T66.xxxS, L59.8, Z90.13, N65.1, Z98.890, Z80.3, Z17.0 36575 C50.912, L98.492, Z98.890, T66.xxxS, L59.8, N65.1, N65.0, Z90.13, Z80.3, Z17.0 14894 C50.912, L98.492, Z98.890, T66.xxxS, L59.8, N65.1, N65.0, Z90.13, Z80.3, Z17.0 39747 C50.912, L98.492, Z98.890 T66.xxxS, L59.8, N65.1, N65.0, Z90.13, Z80.3, Z17.0 13866 C50.912, K43.9, Z98.890, L98.492, T66.xxxS, L59.8, N65.1, N65.0, Z90.13, Z80.3, Z17.0 68239 C50.912, K43.9, Z98.890, L98.492, T66.xxxS, L59.8, N65.1, N65.0, Z90.13, Z80.3, Z17.0
[2018-10-25] MEDS: Lactated Ringers 1,000 ML 60 ML IV (13:06)
[2018-10-25 14:14] LABS: Anion Gap 3 (5-15); BUN 21 mg/dL (7-18); BUN/Creat Ratio 25.6 RATIO (10-20); Chloride 105 mmol/L (98-107); Creatinine, Serum 0.82 mg/dL (0.55-1.02); EST Glomerular Filtration Rate 76 mL/min (>60); Est Glom Filt Rate - Afr Amer 92 mL/min (>60); Estimated Creatinine Clearance 54.37 ml/min; Glucose 144 mg/dL (74-106); Sodium Level 136 mmol/L (136-145)
--- NOTE | 2018-10-25 14:14 | PCM.RX.CS ---
Consult Pharmacy has been consulted to manage selected antiobiotic: Vancomycin Type of Consult: New start Suspected Infection: Skin/Soft tissue Prior Doses of Antibiotics Received/Current Regimen: 1 Labs: TROUGH ORDERED PRIOR TO 3RD DOSE Weight used for dosin.9 kg Estimated Creatinine Clearance: 56.44 Goal Trough: 10-15 mcg/mL - VANCOMYCIN 1 GRAM IVPB Q24H, TROUGH LEVEL ORDERED PRIOR TO 3RD DOSE-10/27/18 @ 060 Pharmacy Plan for Drug Dosing: Pharmacy Service will continue to monitor and adjust dosing as required.
[2018-10-25] MEDS: Acetaminophen 500 MG Tablet PO (15:47)
[2018-10-25] MEDS: oxyCODONE 5 MG Tablet 10 MG PO (15:47)
--- NOTE | 2018-10-25 16:38 | CHAPLAIN ---
Type of Pastoral Visit _x__ Initial Visit ___ Follow-up Visit ___ On-call Visit ___ General Patient Visit ___ Spiritual Assessment ___ Family Conference ___ Bereavement ___ Rapid Response ___ Code Blue ___ Other (describe below) Pastoral Care Referral From _x__ Patient ___ Family ___ Nurse ___ Physician ___ Municipal Court Magistrate ___ Electrical Manufacturing Technician ___ Other (describe below) Sacrament/Intervention ___ Active listening ___ Anointing ___ Restorationism ___ Bereavement ___ Communion ___ Hodan exploration ___ ___ Life review _x__ Prayer ___ Reconciliation ___ Sacrament of Sick _x__ Supportive presence ___ Wedding ___ Other (describe below) Pastoral Comments
[2018-10-25] MEDS: Calcium Carb/Vitamin D 1 TABLET Tablet PO (17:45)
[2018-10-25] MEDS: DiphenhydrAMINE 25 MG Capsule PO (20:24)
[2018-10-25] MEDS: Venlafaxine HCl 75 MG Tablet 37.5 MG PO (22:53)
[2018-10-25] MEDS: Atorvastatin Calcium 20 MG Tablet PO (22:54)
[2018-10-25] MEDS: Docusate Sodium 100 MG Capsule PO (22:54)
[2018-10-26] VITALS (9 sets, daily range): BP systolic 124–144; BP diastolic 65–84; PULSE 79–120; RESP 15–20; TEMP 36.4–36.8; O2SAT 95–98
[2018-10-26] MEDS: Enoxaparin 40 MG/0.4 ML Syringe SC (05:28)
[2018-10-26] MEDS: Lactated Ringers 1,000 ML 60 ML IV ×2 (05:28→23:28)
[2018-10-26] MEDS: DiphenhydrAMINE 25 MG Capsule PO ×2 (05:29→18:27)
[2018-10-26] MEDS: Acetaminophen 500 MG Tablet PO (05:46)
[2018-10-26 05:47] LABS: Hematocrit 35.8 % (37-47); Hemoglobin 11.5 g/dL (12.0-15.0); Mean Corp Hgb Conc 32.1 g/dL (32-36); Mean Corpuscular Hgb 28.4 pg (27.0-32.0); Mean Corpuscular Volume 88.4 fL (81-99); Mean Platelet Vol. 10.4 fl (6.2-12.0); Platelet Count 281 K/mm3 (150-450); RBC Distribution Width CV 14.6 % (11.6-14.6); Red Blood Count 4.05 M/mm3 (4.2-5.4); White Blood Count 11.8 K/mm3 (4.4-11.0)
[2018-10-26 05:49] LABS: Erythrocyte Sedimentation Rate 24 mm/hr (0-30)
[2018-10-26 06:04] LABS: ALB/GLOB Ratio 0.8 RATIO (0.9-2.4); AST(SGOT) 16 U/L (15-37); Alanine Aminotransfer ALT/SGPT 19 U/L (13-56); Albumin, Serum 2.8 g/dL (3.2-5.0); Alkaline Phosphatase 89 U/L (45-117); Anion Gap 5 (5-15); BUN 24 mg/dL (7-18); Calcium,Total 8.9 mg/dL (8.5-10.1); Chloride 108 mmol/L (98-107); Creatinine, Serum 0.89 mg/dL (0.55-1.02); EST Glomerular Filtration Rate 69 mL/min (>60); Est Glom Filt Rate - Afr Amer 84 mL/min (>60); Estimated Creatinine Clearance 50.09 ml/min; Globulin 3.7 g/dL (2.2-4.2); Glucose 128 mg/dL (74-106); Potassium 4.2 mmol/L (3.5-5.1); Prealbumin 22.9 mg/dL (20.0-40.0); Protein, Total 6.5 g/dL (6.4-8.2); Sodium Level 140 mmol/L (136-145)
[2018-10-26] MEDS: Vancomycin IV 1,000 MG/200 ML BAG 200 MG IV (06:28)
[2018-10-26] MEDS: Budesonide Respules 0.5 MG/2 ML AMPUL.NEB. INHALATION ×2 (06:53→19:46)
[2018-10-26] MEDS: Albuterol 2.5 MG/3 ML VIAL.NEB. INHALATION ×3 (06:53→19:46)
[2018-10-26] MEDS: Calcium Carb/Vitamin D 1 TABLET Tablet PO ×2 (08:34→18:21)
[2018-10-26] MEDS: Iron Polysaccharide Complex 150 MG CAPSULE PO (10:42)
[2018-10-26] MEDS: Losartan Potassium 25 MG Tablet PO (10:42)
[2018-10-26] MEDS: Anastrozole 1 MG Tablet PO (10:42)
[2018-10-26] MEDS: Ezetimibe 10 MG Tablet PO (10:42)
[2018-10-26] MEDS: Docusate Sodium 100 MG Capsule PO ×2 (10:42→21:17)
[2018-10-26] MEDS: Acyclovir 200 MG Capsule PO (10:42)
[2018-10-26] MEDS: Loratadine 10 MG Tablet PO (10:42)
[2018-10-26] MEDS: Venlafaxine HCl 75 MG Tablet 37.5 MG PO ×2 (10:42→21:17)
[2018-10-26] MEDS: oxyCODONE 5 MG Tablet 10 MG PO ×2 (12:52→21:17)
--- NOTE | 2018-10-26 12:56 | PN.SURG_ITS ---
Subjective: Postop #1 Patient complains of incisional pain. She is unsteady on her feet with ambulation. - Physical Exam General: Alert, Oriented x3 HEENT: PERRLA, EOMI Oral: Moist Mucosa Neck: Supple Abdomen: Soft, Non-Distended Skin: Incision - abdominal and left breast incisions are dry and intact. No clinical evidence of hematoma. Neurological: Cranial nerves II-XII grossly intact Psych/Mental Status: Normal Affect, Appropriate Vital Signs Temp Pulse Resp BP Pulse Ox 98.1 F 120 H 16 138/75 H 96 10/26/18 08:30 10/26/18 08:40 10/26/18 08:30 10/26/18 08:30 10/26/18 08:30 Oxygen Flow Rate (L/min) 1 Oxygen Delivery Method Room Air Weight: 129 lb 13.636 oz Body Mass Index (BMI) 25.3 Intake and Output for Last 24 Hours 10/24/18 10/25/18 10/26/18 23:59 23:59 23:59 Intake Total 4862 / 4862 1254 / 1254 Output Total 1548 / 1548 710 / 710 Balance 3314 / 3314 544 / 544 Microbiology Past 72 Hours 10/25/18 11:50 Gram Stain - Final Tissue - Abdominal Wound Culture - Preliminary Staphylococcus aureus Gram positive organism 10/25/18 11:50 Gram Stain - Final Tissue - Breast Wound Culture - Preliminary Staphylococcus aureus Drainage 268 ml yesterday, 60 ml today. Laboratory Tests Past 24 Hrs 10/25/18 10/26/18 10/26/18 13:50 05:12 05:12 WBC 11.8 H RBC 4.05 L Hgb 11.5 L Hct 35.8 L MCV 88.4 MCH 28.4 MCHC 32.1 RDW Std Deviation 47.0 H RDW Coeff of Guerrero 14.6 Plt Count 281 MPV 10.4 ESR 24 Sodium 136 140 Potassium 4.0 4.2 Chloride 105 108 H Carbon Dioxide 28.0 27.0 Anion Gap 3 L 5 BUN 21 H 24 H Creatinine 0.82 0.89 Estim Creat Clear Calc 54.37 50.09 Est GFR (MDRD) Af Amer 92 84 Est GFR (MDRD) Non-Af 76 69 BUN/Creatinine Ratio 25.6 H 27.0 H Glucose 144 H 128 H Calcium 9.0 8.9 Total Bilirubin 0.20 AST 16 ALT 19 Alkaline Phosphatase 89 C-React Prot Ext Range 11.30 H Total Protein 6.5 Albumin 2.8 L Globulin 3.7 Albumin/Globulin Ratio 0.8 L Prealbumin 22.9 Medical Necessity - Tobacco Use Smoking Status: Never smoker Tobacco Use: Non-smoker Assessment/Plan All Active Problems (Last Reviewed 05/10/18 @ 13:24 by Alberto Dueñas MD) Staphylococcus epidermidis infection (Acute) Partial loss of skin graft (Acute) Abdominal wall hernia (Acute) 1. Invasive ductal carcinoma left breast, s/p mastectomy. 2. Ductal carcinoma in situ right breast, s/p mastectomy. 3. Nonhealing TRAM flap left breast reconstruction with painful fat necrosis laterally. 4. Nonhealing ulcer lower abdominal wall TRAM flap donor incision. 5. Acquired absence bilateral breasts. 6. Disproportion reconstructed breasts. 7. Deformity reconstructed breasts. 8. Late effect radiation left breast. 9. Soft tissue radionecrosis left breast. 10. Estrogen receptor positive status. 11. Family history of breast cancer. 12. Abdominal wall TRAM flap hernia. 13. s/p revision reconstructed left breast TRAM flap with excision nonhealing ulcer and excision painful fat necrosis deformity laterally and 10 cm complex secondary wound closure and surgical preparation abdominal wall with excision nonhealing ulcer and 45 cm complex secondary wound closure and repair of abdominal wall TRAM flap hernia with placement of Strattice Regenerative Tissue Matrix Graft (100 cm2) and 150 ml saline tissue expansion right breast reconstruction (450 ml in 650 ml data analytics chief scientist). Abdominal and left breast incisions are dry and intact. No clinical evidence of hematoma. Patient has incisional pain. Still needs IV analgesia. Continue Vancomycin. Operative culture shows Staphylococcus aureus in both the abdomen and the left breast. Prealbumin was 22.9. Encourage nutritional supplementation with protein to help the healing process. Patient is a little unsteady on her feet with ambulation. Will discharge home when tolerating po analgesia and more steady on her feet with ambulation. Continue abdominal binder and breast ligia wrap compression. Keep head elevated. Will remove the drains in the office.
[2018-10-26] MEDS: Atorvastatin Calcium 20 MG Tablet PO (21:17)
[2018-10-27] VITALS (7 sets, daily range): BP systolic 125–154; BP diastolic 66–90; PULSE 86–109; RESP 16–18; TEMP 36.8–36.9; O2SAT 93–97
[2018-10-27] MEDS: Enoxaparin 40 MG/0.4 ML Syringe SC (06:16)
[2018-10-27] MEDS: DiphenhydrAMINE 25 MG Capsule PO ×2 (06:16→20:58)
[2018-10-27] MEDS: Vancomycin IV 1,000 MG/200 ML BAG 200 MG IV ×2 (06:16→17:06)
[2018-10-27] MEDS: Acyclovir 200 MG Capsule PO (07:58)
[2018-10-27] MEDS: Venlafaxine HCl 75 MG Tablet 37.5 MG PO ×2 (07:58→20:52)
[2018-10-27] MEDS: Calcium Carb/Vitamin D 1 TABLET Tablet PO ×2 (07:58→17:06)
[2018-10-27] MEDS: Loratadine 10 MG Tablet PO (07:58)
[2018-10-27] MEDS: Losartan Potassium 25 MG Tablet PO (07:58)
[2018-10-27] MEDS: Ezetimibe 10 MG Tablet PO (07:58)
[2018-10-27] MEDS: Docusate Sodium 100 MG Capsule PO ×2 (07:58→20:52)
[2018-10-27] MEDS: Iron Polysaccharide Complex 150 MG CAPSULE PO (07:59)
[2018-10-27] MEDS: Anastrozole 1 MG Tablet PO (07:59)
--- NOTE | 2018-10-27 10:26 | CASEMGMT ---
Social Work Note VIDAL met with pt as pt was diagnosed with breast cancer in 2016. SW introduced self and role at [facility]. Pt is alert and orientated x3. Pt states that in 2016 she noticed a lump that was half the size of her thumb and decided to go to the doctor. Pt states that at the initial appointment she was told to just monitor the lump. Pt states that the lump increased in size to the size of her full thumb and then to the size of an egg. Pt states that once it was size of an egg pt went to a different doctor who informed her the other doctors should've acted sooner. Pt states that she got a double mastectomy at this time. Pt states that cancer runs in her family and she lost a nephew to stomach cancer. SW offered support to pt. Pt states that her boyfriend is supportive and she and her boyfriend have been together for 19 years. Pt also states that her animals are supportive. Pt states that she has dogs, horses, goats and chickens. Pt denied additional needs or concerns at this time. Abi Newsome BATON TEACHER, INFORMATION SCIENTIST
--- NOTE | 2018-10-27 11:16 | CASEMGMT ---
RN CM Assessment Presentation: I/D nonhealing ulcer abdominal wound with skin grafting. Intro role of CM and purpose of RN CM assessment. Demographics, PCP and Pharmacy verified. Pt states she has been doing well @ home. Plans to return with assist of S.O. Home Health is still active with her and RN CM let her know we plan to resume on dc. PCP: Dr. Nevaeh Hawkins Specialists: Dr. Murillo Preferred [facility]acy: [facility] Insurance: [facility] Community Plan Prescription Benefit: yes LNOK: YEYO, Jann Quinnsilvioronda. Living Arrangements: Lives independently. States she is independent in daily care. Her S.O. assists with dressing changes on days HHS is not coming out. Denies needs at this time. Transportation: S.O. drives DME: cane, crutches, nebulizer. (Had wound vac in past- not current) HHC: [facility]. Call to Lucrecia @ [facility] to update. Requested we contact on dc. PH: FX: Patient DC goals: Home DC PLAN: Home on dc with resumption of HHS. Sandrine ODELL RN ACM
[2018-10-27] MEDS: Acetaminophen 500 MG Tablet PO (12:42)
[2018-10-27] MEDS: Lactated Ringers 1,000 ML 60 ML IV (17:06)
--- NOTE | 2018-10-27 18:34 | PN.SURG_ITS ---
Subjective: Postop #2 Patient has incisional pain. She is a little unsteady on her feet with ambulation. - Physical Exam General: Alert, Oriented x3 HEENT: PERRLA, EOMI Oral: Moist Mucosa Neck: Supple Abdomen: Soft, Non-Distended Skin: Incision - Abdominal wall and left breast incisions are dry and intact. No clinical evidence of hematoma. Neurological: Cranial nerves II-XII grossly intact Psych/Mental Status: Normal Affect, Appropriate Vital Signs Temp Pulse Resp BP Pulse Ox 98.2 F 109 H 18 131/80 H 96 10/27/18 15:12 10/27/18 15:17 10/27/18 15:12 10/27/18 15:12 10/27/18 15:12 Oxygen Flow Rate (L/min) 1 Oxygen Delivery Method Room Air Weight: 129 lb 13.636 oz Body Mass Index (BMI) 25.3 Intake and Output for Last 24 Hours 10/25/18 10/26/18 10/27/18 23:59 23:59 23:59 Intake Total 4862 / 4862 3808 / 3808 2063 / 2063 Output Total 1548 / 1548 1667 / 1667 2682 / 2682 Balance 3314 / 3314 2141 / 2141 -619 / -619 Drainage 167 ml yesterday, 82 ml today. Microbiology Past 72 Hours 10/25/18 11:50 Gram Stain - Final Tissue - Abdominal Wound Culture - Preliminary Staphylococcus aureus Gram Positive Cocci Anaerobic Culture - Preliminary Checking for anaerobes, further studies to follow. 10/25/18 11:50 Gram Stain - Final Tissue - Breast Wound Culture - Final Staphylococcus aureus Anaerobic Culture - Preliminary Checking for anaerobes, further studies to follow. Laboratory Tests Past 24 Hrs 10/27/18 05:50 Vancomycin Trough 5.0 Medical Necessity - Tobacco Use Smoking Status: Never smoker Tobacco Use: Non-smoker Assessment/Plan All Active Problems (Last Reviewed 05/10/18 @ 13:24 by Alberto Dueñas MD) Staphylococcus epidermidis infection (Acute) Partial loss of skin graft (Acute) Abdominal wall hernia (Acute) 1. Invasive ductal carcinoma left breast, s/p mastectomy. 2. Ductal carcinoma in situ right breast, s/p mastectomy. 3. Nonhealing TRAM flap left breast reconstruction with painful fat necrosis laterally. 4. Nonhealing ulcer lower abdominal wall TRAM flap donor incision. 5. Acquired absence bilateral breasts. 6. Disproportion reconstructed breasts. 7. Deformity reconstructed breasts. 8. Late effect radiation left breast. 9. Soft tissue radionecrosis left breast. 10. Estrogen receptor positive status. 11. Family history of breast cancer. 12. Abdominal wall TRAM flap hernia. 13. s/p revision reconstructed left breast TRAM flap with excision nonhealing ulcer and excision painful fat necrosis deformity laterally and 10 cm complex secondary wound closure and surgical preparation abdominal wall with excision nonhealing ulcer and 45 cm complex secondary wound closure and repair of abdominal wall TRAM flap hernia with placement of Strattice Regenerative Tissue Matrix Graft (100 cm2) and 150 ml saline tissue expansion right breast recons truction (450 ml in 650 ml dog food shredder operator). Abdominal and left breast incisions are dry and intact. No clinical evidence of hematoma. Patient has incisional pain. Still needs IV analgesia. Will wean to po analgesia in preparation for discharge. Anticipate discharge tomorrow. Continue Vancomycin. Operative culture shows Staphylococcus aureus in both the abdomen and the left breast. Prealbumin was 22.9. Encourage nutritional supplementation with protein to help the healing process. Patient is a little less unsteady on her feet with ambulation. Continue to ambulate with assist. Will discharge home when tolerating po analgesia and being more steady on her feet with ambulation. Continue abdominal binder and breast ligia wrap compression. Keep head elevated. Will remove the drains in the office.
[2018-10-27] MEDS: Albuterol 2.5 MG/3 ML VIAL.NEB. INHALATION (18:41)
[2018-10-27] MEDS: Budesonide Respules 0.5 MG/2 ML AMPUL.NEB. INHALATION (18:41)
[2018-10-27] MEDS: Atorvastatin Calcium 20 MG Tablet PO (20:52)
[2018-10-27] MEDS: oxyCODONE 5 MG Tablet 10 MG PO (23:13)
[2018-10-28 01:59] VITALS: BP 135/83; PULSE 97; RESP 18; TEMP 36.4; O2SAT 94
[2018-10-28] MEDS: Vancomycin IV 1,000 MG/200 ML BAG 200 MG IV (06:11)
[2018-10-28] MEDS: Enoxaparin 40 MG/0.4 ML Syringe SC (06:14)
[2018-10-28] MEDS: Budesonide Respules 0.5 MG/2 ML AMPUL.NEB. INHALATION (06:48)
[2018-10-28 06:49] VITALS: PULSE 92; RESP 18; O2SAT 92
[2018-10-28] MEDS: Albuterol 2.5 MG/3 ML VIAL.NEB. INHALATION ×2 (06:49→13:25)
[2018-10-28] MEDS: DiphenhydrAMINE 25 MG Capsule PO (07:32)
[2018-10-28] MEDS: Calcium Carb/Vitamin D 1 TABLET Tablet PO (07:33)
[2018-10-28] MEDS: Venlafaxine HCl 75 MG Tablet 37.5 MG PO (07:33)
[2018-10-28] MEDS: Ezetimibe 10 MG Tablet PO (07:33)
[2018-10-28] MEDS: Anastrozole 1 MG Tablet PO (07:33)
[2018-10-28] MEDS: Iron Polysaccharide Complex 150 MG CAPSULE PO (07:34)
[2018-10-28] MEDS: Losartan Potassium 25 MG Tablet PO (07:34)
[2018-10-28] MEDS: Loratadine 10 MG Tablet PO (07:34)
[2018-10-28] MEDS: Acyclovir 200 MG Capsule PO (07:34)
[2018-10-28] MEDS: Docusate Sodium 100 MG Capsule PO (07:35)
[2018-10-28 07:40] VITALS: BP 129/68; PULSE 88; RESP 18; TEMP 36.6; O2SAT 99
--- NOTE | 2018-10-28 13:02 | PCM.PN.SRG ---
Subjective: Postop #3 Patient is resting comfortably. She is tolerating po analgesia. She is more steady on her feet with ambulation. - Physical Exam General: Alert, Oriented x3 HEENT: PERRLA, EOMI Oral: Moist Mucosa Neck: Supple Abdomen: Soft, Non-Distended Skin: Incision - abdominal wall and left breast incisions are dry and intact. No clinical evidence of hematoma. Neurological: Cranial nerves II-XII grossly intact Psych/Mental Status: Normal Affect, Appropriate Vital Signs Temp Pulse Resp BP Pulse Ox 97.9 F 88 18 129/68 H 99 10/28/18 07:40 10/28/18 07:40 10/28/18 07:40 10/28/18 07:40 10/28/18 07:40 Oxygen Flow Rate (L/min) 1 Oxygen Delivery Method Room Air Weight: 129 lb 13.636 oz Body Mass Index (BMI) 25.3 Intake and Output for Last 24 Hours 10/26/18 10/27/18 10/28/18 23:59 23:59 23:59 Intake Total 3808 / 3808 2063 / 3048 2480 / 2480 Output Total 1667 / 1667 2682 / 2682 1260 / 1260 Balance 2141 / 2141 -619 / 366 1220 / 1220 Drainage 82 ml yesterday, 60 ml today. Microbiology Past 72 Hours 10/25/18 11:50 Gram Stain - Final Tissue - Abdominal Wound Culture - Final Staphylococcus aureus Anaerobic Culture - Preliminary Checking for anaerobes, further studies to follow. 10/25/18 11:50 Gram Stain - Final Tissue - Breast Wound Culture - Final Staphylococcus aureus Anaerobic Culture - Preliminary Checking for anaerobes, further studies to follow. Medical Necessity - Tobacco Use Smoking Status: Never smoker Tobacco Use: Non-smoker Assessment/Plan All Active Problems (Last Reviewed 05/10/18 @ 13:24 by Alberto Dueñas MD) Staphylococcus epidermidis infection (Acute) Partial loss of skin graft (Acute) Abdominal wall hernia (Acute) 1. Invasive ductal carcinoma left breast, s/p mastectomy. 2. Ductal carcinoma in situ right breast, s/p mastectomy. 3. Nonhealing TRAM flap left breast reconstruction with painful fat necrosis laterally. 4. Nonhealing ulcer lower abdominal wall TRAM flap donor incision. 5. Acquired absence bilateral breasts. 6. Disproportion reconstructed breasts. 7. Deformity reconstructed breasts. 8. Late effect radiation left breast. 9. Soft tissue radionecrosis left breast. 10. Estrogen receptor positive status. 11. Family history of breast cancer. 12. Abdominal wall TRAM flap hernia. 13. s/p revision reconstructed left breast TRAM flap with excision nonhealing ulcer and excision painful fat necrosis deformity laterally and 10 cm complex secondary wound closure and surgical preparation abdominal wall with excision nonhealing ulcer and 45 cm complex secondary wound closure and repair of abdominal wall TRAM flap hernia with placement of Strattice Regenerative Tissue Matrix Graft (100 cm2) and 150 ml saline tissue expansion right breast reconstruction (450 ml in 650 ml inspector repairer). Abdominal and left breast incisions are dry and intact. No clinical evidence of hematoma. Patient has less incisional pain. She is tolerating po analgesia. Continue Vancomycin. Operative culture shows Staphylococcus aureus in both the abdomen and the left breast. Will change to po Doxycycline for discharge. Prealbumin was 22.9. Encourage nutritional supplementation with protein to help the healing process. Patient is more steady on her feet with ambulation. Continue abdominal binder and breast ligia wrap compression. Keep head elevated. Continue lifting restriction, 10 lbs. Discharge home today. Will remove the drains in the office. Wrote scripts for Doxycycline (42 tabs) and a refill and for Acidophilus Probiotic (60 tabs) and a refill. Wrote scripts for Percocet for pain (50 tabs) and for Valium for spasm (30 tabs). She has Phenergan and Colace at home. Followup office next week, 11/01/18.
--- NOTE | 2018-10-28 13:25 | PCM.DC ---
You will use the following diet at home:: No restrictions Discharge Activity: May not drive while taking narcotic pain medications., May Not Shower - until the drains are removed., - - keep head elevated. no heavy lifting. May shower in (days): 14 - when the drains are removed. May resume sexual activity in: 10-14 days Weight Bearing Status: Weight bearing as tolerated Lifting Restrictions: 10 lbs. Keep extremity elevated above heart level: - - elevate head. Call your doctor if your incision/area has: Continuous Slow Oozing, Sudden Increased Bleeding, Increased Pain/ Swelling, Increased Redness, Foul Smelling Discharge, Swelling at the incision site Call your doctor if you observe: Fever of 101 or Higher, Coldness, Increased Pain, Shortness of breath, Chest pain, Calf discomfort, Uncontrolled pain Suture Line Care: - - dry dressings daily. Change Dressing in (Days):: 1 - dry dressings daily. Cleanse incision/area with: - - may get the incisions wet after the drains are removed. Drain: Suction - sheridan drain x3 to bulb suction. empty and record output daily. Allergies/Adverse Reactions: Allergies lisinopril Allergy (Severe, Verified 10/18/18 09:50) tongue and face swelling Penicillins Allergy (Verified 10/18/18 09:50) Anaphylaxis Medications to take at Discharge Loratadine [Claritin] 10 mg PO DAILY 08/22/15 acyclovir 200 mg capsule 200 mg PO QDAY cap 07/03/17 anastrozole 1 mg tablet 1 mg PO QDAY 07/03/17 venlafaxine ER 37.5 mg capsule,extended release 24 hr 37.5 mg PO BID cap 07/03/17 fluticasone furoate 100 mcg-vilanterol 25 mcg/dose inhalation powder 1 puff INHALATION DAILY 07/06/17 calcium carbonate 500 mg (1,250 mg)-vitamin D3 200 unit tablet 1 tab PO BID 01/13/18 potassium chloride ER 20 mEq tablet,extended release 20 meq PO QDAY PRN 01/13/18 alendronate 70 mg tablet 70 mg PO QWEEK 03/28/18 atorvastatin 40 mg tablet 20 mg PO DAILY #30 tab 09/01/18 ezetimibe 10 mg tablet 10 mg PO DAILY 09/01/18 losartan 25 mg tablet 25 mg PO QDAY #90 tab 09/30/18 Albuterol Aerosols [Ventolin Aerosols] 2.5 mg INHALATION Q6HWA.RT vial.neb. 10/28/18 Budesonide Aerosol [Pulmicort Respules] 0.5 mg INHALATION Q12H.RT ampul.neb. 10/28/18 Diazepam [Valium] 5 mg PO 4X/DAY PRN PRN #30 tab 10/28/18 Docusate Sodium [Colace] 100 mg PO BID cap 10/28/18 Doxycycline [Vibramycin] 100 mg PO BID #42 cap 10/28/18 Lactobacillus Acidophilus/Fos [Acidophilus Probiotic Tablet] 1 ea PO BID #60 tab 10/28/18 Oxycodone HCl/Acetaminophen [Percocet 5/325] 1 - 2 tab PO 4X/DAY PRN PRN 7 Days #50 tab 10/28/18 proMETHazine tablet [Phenergan tablet] 25 mg PO Q4H PRN PRN tab 10/28/18 The following prescriptions were given: Lactobacillus Acidophilus/Fos [Acidophilus Probiotic Tablet] 1 ea PO BID #60 tab Prescription Printed Oxycodone HCl/Acetaminophen [Percocet 5/325] 1 - 2 tab PO 4X/DAY PRN PRN 7 Days #50 tab PRN Reason: Pain Prescription Printed Diazepam [Valium] 5 mg PO 4X/DAY PRN PRN #30 tab PRN Reason: Spasms Prescription Printed Doxycycline [Vibramycin] 100 mg PO BID #42 cap Prescription Printed Orders to be completed after discharge: Basic Metabolic Profile (BMP) Time Frame: 10/25/18, Facility: [facility], Location: Laboratory CBC-Complete Blood Cnt No Diff Time Frame: 10/25/18, Facility: [facility], Location: Laboratory Primary Care Physician: Nevaeh Hawkins DO [Primary Care Provider] - Test Results: Test results from this visit will be discussed in further detail at your follow-up appointment, if applicable. Please Follow Up With: Jann Murillo MD When: wednesday11/01/18. call [phone] for appt. Proposed Discharge Date: 10/28/18
[2018-10-28 13:40] VITALS: BP 140/79; PULSE 110; RESP 18; TEMP 36.8; O2SAT 100
== END 2018-10-28 15:40 | disposition home or self-care (01) | DRG 317 ==
LOC: SDC 12:06 → MS3 10-26 07:01
PROVIDERS: Admitting Provider Surgery; Referring Provider Surgery; Visit Provider Surgery
DX: T84.89XA Other specified complication of internal orthopedic prosthetic devices, implants and grafts, initial encounter (principal); D05.91 Unspecified type of carcinoma in situ of right breast; D05.92 Unspecified type of carcinoma in situ of left breast; L59.8 Other specified disorders of the skin and subcutaneous tissue related to radiation; Y84.2 Radiological procedure and radiotherapy as the cause of abnormal reaction of the patient, or of later complication, without mention of misadventure at the time of the procedure; Z80.3 Family history of malignant neoplasm of breast; Z17.0 Estrogen receptor positive status [ER+]; Z79.811 Long term (current) use of aromatase inhibitors; N64.1 Fat necrosis of breast
CPT/HCPCS: 36415; 80048; 80053; 80202; 84134; 85027; 85652; 86140; 87015; 87070; 87075; 87077; 87102; 87116; 87186; 87205; 87206; 88304; 88305; 94640; 94762; 97802; J7120; C1781; Q9968

== ENCOUNTER 2019-01-27 10:16 | Observation (INO) | payer MEDICAID, SELFPAY ==
[2018-12-21 15:58] VITALS: BMI 25.3
[2019-01-27] VITALS (13 sets, daily range): BP systolic 94–146; BP diastolic 52–77; PULSE 62–109; RESP 15–20; TEMP 36.3–36.8; O2SAT 96–100; BMI 25.4; BMI 26.0
--- NOTE | 2019-01-27 | BRBX_PTH ---
PATIENT: YULIYA KENDALL LOC: MS3 U#:[id number] AGE/SX: 58/F ROOM: MS312 RE01/27/[address]: Dr. Jann Murillo MD : 1960 BED: 1 DIS: 01/28/2019 SPEC #: [id number] RECD: 01/27/19 13:01 STATUS: GATITO REQ #: [id number] KISHOR: 01/27/19 00:[address]: Jann Murillo DEPT: SURGICAL PATHOLOGY RECD BY: Elie Braga ENTERED: 01/27/19 13:02 SP TYPE: BREAST BX OTHR DR: Dr. Nevaeh Hawkins DO Tissues: Left breast, NOS Procedures: Surgery Specimen Level IV HEADER OPERATION: Delayed breast reconstruction with placement of saline tissue PRE-OP DIAGNOSIS: Invasive ductal carcinoma left breast status post mastectomy; DCIS right breast status post mastectomy; nonhealing TRAM flap left breast TISSUE SUBMITTED: Left breast tissue MICROSCOPIC DIAGNOSIS Left breast, lumpectomy: Lobular fat necrosis. No evidence of malignancy. See comment. AM:peng 01/30/19 COMMENT Immunohistochemistry ([id number]) supports the above diagnosis. MICROSCOPIC DESCRIPTION Slides are reviewed. GROSS DESCRIPTION Received in fixative is one container labeled with the patient's name and designated left breast tissue. The specimen consists of multiple elongated fragments of torres-yellow fibroadipose tissue that in aggregate measure 5.5 x 5.5 x 2 cm. Sections do not reveal any mass lesions. Hand Endband Cutter sections are submitted in three cassettes. / SJ:peng 01/27/19 TC:3 CPT: 15481
--- NOTE | 2019-01-27 | IMM_PTH ---
PATIENT: YULIYA KENDALL LOC: MS3 U#:[id number] AGE/SX: 58/F ROOM: MS312 RE01/27/[address]: Dr. Jann Murillo MD : 1960 BED: 1 DIS: 01/28/2019 SPEC #: [id number] RECD: 01/30/19 12:20 STATUS: SOUT REQ #: [id number] KISHOR: 01/27/19 00:[address]: Jann Murillo DEPT: IMMUNOHISTOCHEMISTRY RECD BY: Maryam Johnston ENTERED: 01/30/19 12:20 SP TYPE: IMMUNO OTHR DR: Dr. Nevaeh Hawkins DO Tissues: Left breast, NOS Procedures: MACRO (add) Vimentin (add) Pankeratin (initial) PHYSICIAN & INSTITUTION [place] [id number] SPECIMEN INFORMATION: Tissue Source: Left breast tissue Clinical Info: Invasive ductal CA left breast; DCIS right breast Specimen Number: [id number] #3 CPT code: 27214, 78555 x2 METHODOLOGY: Deparaffinized sections of prefer/formalin-fixed tissue or PAP/DQ stained slides are incubated with monoclonal/polyclonal antibodies/oligonucleotide probes. Localization is made via biotin free immunoperoxidase method. Appropriate controls are performed and reacted as expected. Results on target cell population are indicated in the following table: RESULTS: ANTIBODY / CLONE RESULT Block 3 AE1-3 (AE1/AE3/PCK26) negative Vimentin (V9) positive Macro (HAM-56) positive These tests were developed and their performance characteristics determined by [facility]. They may not have been cleared or approved by the U.S. Food and Drug Administration. The FDA has determined that such clearance or approval is not necessary. The above immunohistochemical/dualISH markers are ordered and reviewed by the Pathologist. INTERPRETATION: Left breast tissue: Consistent with fat necrosis. AM:peng 01/31/19
--- NOTE | 2019-01-27 00:27 | PCM.HP.BLA ---
History and Physical Date of Admission: 01/27/19 HISTORY OF PRESENT ILLNESS 58 year old female initially presents for the next stage in her breast reconstruction process. She initially started her delayed bilateral breast reconstruction on 05/10/18 where she underwent first stage delayed left breast reconstruction with bipedicled TRAM flap delay and first stage delayed right breast reconstruction with placement of submuscular saline tissue lieutenant firefighter (650 ml). After waiting three weeks for the delay, she went back to surgery on 05/31/18 where she underwent revision left breast reconstruction with excision radiation fibrosis scar contour deformity and multiple W-plasty (18 cm2) and second stage delayed left breast reconstruction with bipedicled TRAM flap and complex abdominal wall reconstruction with repair of fascial defects with components separation technique using bilateral external oblique myofascial advancement flaps and placement MTF FlexHD acellular dermal matrix graft (320 cm2) and saline injection 300 ml into tissue lieutenant firefighter right breast reconstruction (650 ml lieutenant firefighter). She did well initially postop and was discharged from the hospital on 06/07/18. She developed some wound drainage issues in the abdominal wall with a seroma. She developed some compromise to the TRAM flap in the central aspect for the midline scar was. Wound culture showed MRSE. She was on Doxycycline and Levaquin. She failed outpatient therapy and was admitted to the hospital and started on IV Vancomycin. She was taken to surgery on 06/21/18 where she underwent incision and drainage complex abdominal wall infected seroma and surgical preparation left breast with excisional debridement and revision reconstructed compromised TRAM flap wound infection (156 cm2). Postop she had the VAC placed to both the abdominal wound and the left breast reconstruction wound. Later on the VAC was stopped and the wound care was changed to Dakin's dressing changes. Her wounds improved and she returned to the operating room on 10/25/18 where she underwent revision reconstructed left breast TRAM flap with excision nonhealing ulcer and excision painful fat necrosis deformity laterally and 10 cm complex secondary wound closure and surgical preparation abdominal wall with excision nonhealing ulcer (135 cm2) and 45 cm complex secondary wound closure and repair of abdominal wall TRAM flap hernia with placement of Strattice Regenerative Tissue Matrix Graft (100 cm2) and 150 ml saline tissue expansion right breast reconstruction (450 ml in 650 ml lieutenant firefighter). Satisfactory healing occurred. Today she presents for placement of a saline tissue lieutenant firefighter and to excise radiation scar contour deformity in the lateral aspect from soft tissue radionecrosis. PAST MEDICAL HISTORY Hypertension Hyperlipidemia Acute systolic congestive heart failure Bilateral pleural effusion Cardiomyopathy in diseases classified elsewhere Estrogen receptor positive status (ER+) Malignant neoplasm of left female breast Asthma Back problem Bone fracture GERD (gastroesophageal reflux disease) Hearing problem PAST SURGICAL HISTORY bilateral mastectomy first stage delayed left breast reconstruction with bipedicled TRAM flap delay and first stage delayed right breast reconstruction with placement of submuscular saline tissue lieutenant firefighter (650 ml) - 05/10/18 revision left breast reconstruction with excision radiation fibrosis scar contour deformity and multiple W-plasty (18 cm2) and second stage delayed left breast reconstruction with bipedicled TRAM flap and complex abdominal wall reconstruction with repair of fascial defects with components separation technique using bilateral external oblique myofascial advancement flaps and placement MTF FlexHD acellular dermal matrix graft (320 cm2) and saline injection 300 ml into tissue lieutenant firefighter right breast reconstruction (650 ml lieutenant firefighter) - 05/31/18 incision and drainage complex abdominal wall infected seroma and surgical preparation left breast with excisional debridement and revision reconstructed compromised TRAM flap wound infection (156 cm2) - 06/21/18 Revision reconstructed left breast TRAM flap with excision nonhealing ulcer and excision painful fat necrosis deformity laterally and 10 cm complex secondary wound closure and surgical preparation abdominal wall with excision nonhealing ulcer (135 cm2) and 45 cm complex secondary wound closure and repair of abdominal wall TRAM flap hernia with placement of Strattice Regenerative Tissue Matrix Graft (100 cm2) and 150 ml saline tissue expansion right breast reconstruction (450 ml in 650 ml lieutenant firefighter) - 10/25/18 ALLERGIES lisinopril Penicillins MEDICATIONS Loratadine [Claritin] acyclovir albuterol sulfate anastrozole venlafaxine ER fluticasone-vilanterol calcium carbonate furosemide metoprolol succinate ER potassium chloride ER losartan alendronate atorvastatin clopidogrel Vancomycin Percocet Valium FAMILY HISTORY Mother - Diabetes Sister - Breast cancer, Diabetes Sister - Cancer Other - Asthma SOCIAL HISTORY Smoking Status: Never smoker alcohol intake: never substance use type: does not use REVIEW OF SYSTEMS General - Denies fever, fatigue, and weight loss. Eyes - Denies cataracts and glaucoma. ENT - Denies nasal congestion. Has sore throat. Endocrine - Denies excessive thirst and urination. Has a history of left breast cancer with bilateral mastectomy 08/28. Has had chemotherapy and radiation therapy. Skin - Denies suspicious lesions and skin cancer. Musculoskeletal - Complains of joint pain, joint stiffness, weakness of muscles and joints, back pain. Denies arthritis. Neuro - Denies headaches. Cardiovascular - Denies chest pain, fatigue. Has a history of CHF, hypertension and hyperlipidemia. Has shortness of breath with activity. Psych - Denies anxiety and depression. Respiratory - Denies chronic cough. Has history of asthma and sleep apnea and shortness of breath. Gastrointestinal - Denies nausea, vomiting, diarrhea. Has a history of constipation and GERD. Hematologic - Has a history of easily bruising and bleeding easily. Is on Plavix. Genitourinary - Denies hematuria and urinary frequency. PHYSICAL EXAMINATION General - Alert and oriented. Bra size was 38 D prior to the mastectomies. HEENT - PERRL. EOMI. Throat is clear. Neck - Supple and non-tender. No cervical adenopathy. Breasts - Right breast incision healed. Left breast shows a TRAM flap that is healed. On the lateral aspect of the TRAM is an area of firm fat necrosis indicative of radiation deformity from soft tissue radionecrosis. Lungs- Clear to auscultation. Heart - Regular rate and rhythm. Abdomen - Soft and non distended. Abdominal incision is well healed with no evidence of hernia at this time. Extremities - FROM. No axillary adenopathy. Radial pulses are palpable. Neuro - CN II-XII grossly intact. Psych - Normal mood and affect. ASSESSMENT 1. Invasive ductal carcinoma left breast, s/p mastectomy. 2. Ductal carcinoma in situ right breast, s/p mastectomy. 3. Nonhealing TRAM flap left breast reconstruction with painful fat necrosis laterally. 4. Nonhealing ulcer lower abdominal wall TRAM flap donor incision. 5. Anemia of chronic disease, acute on chronic. 6. MRSE. 7. Acquired absence bilateral breasts. 8. Disproportion reconstructed breasts. 9. Deformity reconstructed breasts. 10. Late effect radiation left breast. 11. Soft tissue radionecrosis left breast. 12. Estrogen receptor positive status. 13. Family history of breast cancer. PLAN Recommend proceeding with the next stage in her breast reconstruction process with placement of a saline submuscular tissue lieutenant firefighter. A piece of acellular dermal matrix graft may be necessary. Will also excise the firm area of fat necrosis on the lateral aspect of the breast reconstruction indicative of radiation deformity from soft tissue radionecrosis. A drain will be necessary. If there is evidence of persistent infection, will send tissue to Microbiology to evaluate for culture. Otherwise will send tissue to Pathology for analysis to rule out carcinoma. After healing has occurred, will expand in the office. Depending on how much can be expanded on the left will determine if any more expansion on the right is indicated. When expansion is completed, will proceed with removal of the saline tissue expanders with replacement cohesive gel implants and placement of acellular dermal matrix graft. Surgery will be done under general anesthesia with a surgical observation overnight stay in the hospital. Patient was informed of the risks and complications of the procedure including alternatives to surgery. These were discussed with the patient personally. Patient voices understanding and wishes to proceed. Some of the risks and complications were included in a form from the [employer]. With her history of MRSE, will treat perioperatively with Vancomycin. Anticipate increased metabolic demands from the ulcers and from the surgery. Will check a Prealbumin and encourage nutritional supplementation with protein to help the healing process.
--- NOTE | 2019-01-27 05:52 | RAD_ITS ---
STUDY: X-RAY CHEST REASON FOR EXAM: Female, 58 years old. Preop TECHNIQUE: PA and lateral views of the chest. COMPARISON: 06/07/2018 FINDINGS: Status post left chest wall reconstruction, right-sided breast implant. There is no focal parenchymal abnormality. There is no demonstrated pleural abnormality. Normal size heart. Normal mediastinum and jeramie. Normal visualized pulmonary arteries. Normal visualized aortic arch and descending thoracic aorta. Bones appear osteopenic. Normal visualized ribs, clavicles, and shoulders. There is no demonstrated abnormality of the visualized soft tissue structures of the upper abdomen. RAD/Chest PA and Lateral IMPRESSION: Post surgical changes. No pulmonary edema, congestive heart failure or confluent pneumonia. Question of osteopenia. Electronically Signed: Judith Reed MD at 6:36 EST , Service support ,
--- NOTE | 2019-01-27 05:55 | EKG12_ITS ---
Test Reason : PRE-OP Blood Pressure : / mmHG Vent. Rate : 083 BPM Atrial Rate : 083 BPM P-R Int : 126 ms QRS Dur : 066 ms QT Int : 376 ms P-R-T Axes : 038 -06 027 degrees QTc Int : 441 ms Normal sinus rhythm Normal ECG Confirmed by FERNANDO AHUJA, JOSE RAMON ([id number]), television news video editor CHADWICK PERALTA ([id number]) on 01/31/2019 2:08:24 PM Referred By: Jann Murillo Confirmed By:JOS ERAMON KING MD
[2019-01-27] MEDS: Vancomycin IV 1,000 MG/200 ML BAG 200 MG IV (06:00)
[2019-01-27 06:10] LABS: Bedside Glucose 115 mg/dL (70-110)
[2019-01-27] MEDS: Acetaminophen 500 MG Tablet 1000 MG PO (06:24)
[2019-01-27] MEDS: Gabapentin 600 MG Tablet PO (06:24)
[2019-01-27] MEDS: Scopolamine 1mg/72hr Patch 1 PATCH TRANSDERM. (06:25)
[2019-01-27] MEDS: Lactated Ringers 1,000 ML 40 ML IV (06:28)
[2019-01-27] MEDS: Magnesium Sulfate 4gm/100mL 4 GM/100 ML IV.SOLN. IV (06:42)
[2019-01-27 07:00] LABS: Hematocrit 39.3 % (37-47); Hemoglobin 12.4 g/dL (12.0-15.0); Mean Corp Hgb Conc 31.6 g/dL (32-36); Mean Corpuscular Hgb 27.9 pg (27.0-32.0); Mean Corpuscular Volume 88.3 fL (81-99); Mean Platelet Vol. 10.7 fl (6.2-12.0); Platelet Count 222 K/mm3 (150-450); RBC Distribution Width CV 13.9 % (11.6-14.6); RBC Distribution Width SD 44.7 fl (35.1-43.9); Red Blood Count 4.45 M/mm3 (4.2-5.4); White Blood Count 7.4 K/mm3 (4.4-11.0)
[2019-01-27 07:12] LABS: Anion Gap 7 (5-15); BUN 31 mg/dL (7-18); BUN/Creat Ratio 42.8 RATIO (10-20); Calcium,Total 9.5 mg/dL (8.5-10.1); Chloride 108 mmol/L (98-107); Creatinine, Serum 0.72 mg/dL (0.55-1.02); EST Glomerular Filtration Rate 88 mL/min (>60); Est Glom Filt Rate - Afr Amer 106 mL/min (>60); Estimated Creatinine Clearance 64.27 ml/min; Glucose 104 mg/dL (74-106); Potassium 3.9 mmol/L (3.5-5.1); Sodium Level 140 mmol/L (136-145)
--- NOTE | 2019-01-27 10:07 | OP.PCM_ITS ---
Report of Operation Date of Procedure: 01/27/19 Pre-Operative Diagnosis: 1. Invasive ductal carcinoma left breast, s/p ma stectomy. 2. Ductal carcinoma in situ right breast, s/p mastectomy. 3. History of MRSE. 4. Acquired absence bilateral breasts. 5. Disproportion reconstructed breasts. 6. Deformity reconstructed left breast with firm radiation scar contour deformity lateral aspect. 7. Late effect radiation left breast. 8. Soft tissue radionecrosis left breast. 9. Estrogen receptor positive status. 10. Family history of breast cancer. Post-Operative Diagnosis: Same. Surgery/Procedure Performed:: 1. Delayed left breast reconstruction with placem ent of submuscular saline tissue counterintelligence analyst (300 ml). 2. Revision left breast reconstruction with excision firm radiation scar contour deformity lateral aspect. Description of Surgical Findings:: 58 year old female initially presents for the next stage in her breast reconstruction process. She initially started her delayed bilateral breast reconstruction on 05/10/18 where she underwent first stage delayed left breast reconstruction with bipedicled TRAM flap delay and first stage delayed right breast reconstruction with placement of submuscular saline tissue counterintelligence analyst (650 ml). After waiting three weeks for the delay, she went back to surgery on 05/31/18 where she underwent revision left breast reconstruction with excision radiation fibrosis scar contour deformity and multiple W-plasty (18 cm2) and second stage delayed left breast reconstruction with bipedicled TRAM flap and complex abdominal wall reconstruction with repair of fascial defects with components sep aration technique using bilateral external oblique myofascial advancement flaps and placement MTF FlexHD acellular dermal matrix graft (320 cm2) and saline injection 300 ml into tissue counterintelligence analyst right breast reconstruction (650 ml counterintelligence analyst). She did well initially postop and was discharged from the hospital on 06/07/18. She developed some wound drainage issues in the abdominal wall with a seroma. She developed some compromise to the TRAM flap in the central aspect for the midline scar was. Wound culture showed MRSE. She was on Doxycycline and Levaquin. She failed outpatient therapy and was admitted to the hospital and started on IV Vancomycin. She was taken to surgery on 06/21/18 where she underwent incision and drainage complex abdominal wall infected seroma and surgical preparation left breast with excisional debridement and revision reconstructed compromised TRAM flap wound infection (156 cm2). Postop she had the VAC placed to both the abdominal wound and the left breast reconstruction wound. Later on the VAC was stopped and the wound care was changed to Dakin's dressing changes. Her wounds improved and she returned to the operating room on 10/25/18 where she underwent revision reconstructed left breast TRAM flap with excision nonhealing ulcer and excision painful fat necrosis deformity laterally and 10 cm complex secondary wound closure and surgical preparation abdominal wall with excision nonhealing ulcer (135 cm2) and 45 cm complex secondary wound closure and repair of abdominal wall TRAM flap hernia with placement of Strattice Regenerative Tissue Matrix Graft (100 cm2) and 150 ml saline tissue expansion right breast reconstruction (450 ml in 650 ml counterintelligence analyst). Satisfactory healing occurred. Today she presents for placement of a saline tissue counterintelligence analyst and to excise radiation scar contour deformity in the lateral aspect from soft tissue radionecrosis. Patient was informed of the risks and complications of the procedure including alternatives to surgery. These were discussed with the patient personally. Patient voices understanding and wishes to proceed. Some of the risks and complications were included in a form from the [employer]. IV Fluids - 1000 ml. Urine Output - 250 ml. I used [place] Art[place]ra, High Profile, Smooth Breast Tissue Soot Blower, Suture Tabs, Integral Injection Dome, (300 ml). Reference Number - [id number]. Lot Number - [id number]. Serial Number - [id number]. Expiration - October 05, 2022. I used Rosina absorbable hemostat, (2 vials). [id number]. Lot Number - [id number]. Expiration - October 10, 2023. tents assembler: Bubba Carrasco. Type of Anesthesia:: General Specimen's removed: Left breast tissue to Pathology. Drains: Jemal. Estimated Blood Loss (mL): 50 ml. Fluids Replaced: 1250 ml (IV Fluids 1000 ml, Urine Output 250 ml). Description of Procedure: In the preop area, markings were made. Sternal midline was marked down to the umbilicus. The inframammary folds were marked bilaterally. I also marked the area of firm fat necrosis on the superolateral aspect of the left breast reconstruction. The patient was taken to operating room in supine position and placed under general anesthesia. Both breasts were prepped and draped in the usual fashion. A Miller catheter was placed. Using xylocaine with epinephrine, I infiltrated the inferior breast scar as well as the lateral breast scar superiorly where the firm area of radiation contour deformity indicative of soft tissue radionecrosis. Incision was made laterally on the inferior scar down through the subcutaneous tissue until the chest wall was seen. I dissected out a submuscular pocket superior toward the clavicle and medially to the sternal area and inferiorly to the inframammary fold. Hemostasis was obtained with electrocautery. The wound was irrigated with Irrisept 0.05% Chlorhexidine solution. This was followed by saline irrigation. A size 15 Jemal drain was placed through a separate stab incison laterally and secured to the skin with 3-0 Nylon suture. I sprayed the breast pocket with Rosina absorbable hemostat to minimize seroma formation. I used 2 vials. It is a tight pocket so there is no need for acellular dermal matrix graft at this time. Based on the width of the breast pocket, I decided on a 300 ml counterintelligence analyst, High Profile. Because of the radiation history, I didn't want to use an Ultra High Profile counterintelligence analyst which is what is in the right breast. I changed my gloves as I handled the counterintelligence analyst. I removed the air from the counterintelligence analyst and then filled it with 50 ml saline. I squeezed the counterintelligence analyst to make sure there is not any leaks present and there wasn't any noted. I then removed the saline. I placed the counterintelligence analyst in sterile Betadine and then placed the counterintelligence analyst into the breast pocket. I secured the counterintelligence analyst to the chest wall through the later suture tab with 3-0 Vicryl suture. I then made an incision through the superior scar in the area of the soft tissue radionecrosis. Dissection was carried down through the subcutaneous tissue. The firm mass was dissected free and sharply excised and sent to Pathology for analysis to rule out carcinoma. Hemostasis was obtained with electrocautery. I irrigated the wound with Irrisept 0.05% Chlorhexidine solution and this was followed by saline irrigation. I spraye the remaining Rosina absorbable hemostat into this wound. The superior wound was closed with 3-0 Monocryl interrupted sutures for the deep dermis and subcutaneous tissue. The skin was approximated with 3-0 Prolene simple interrupted sutures. The inferior incision was also closed in a layered fashion with 3-0 Monocryl interrupted sutures for the deep dermis and subcutaneous tissue. The skin was approximated with 3-0 Prolene vertical mattress interrupted sutures. There was no clinical evidence of hematoma. There was no evidence of vascular compromise to the breast skin flaps. Antibiotic ointment was applied to the suture line. This was followed by Kerlix gauze and ABD pad compression dressing. A compression ligia wrap was then applied. Patient tolerated the procedure well and was sent to PACU in satisfactory condition. Patient will be sent upstairs for continued postop care. With her history of MRSE, she will be treated perioperatively with Vancomycin. Will send her home when she is tolerating po analgesia. The drain will be removed in 10-14 days. Grafts/Implants Used: [place] Art[place]ra, High Profile, Smooth Breast Tissue Soot Blower - Complications None. - Admit VTE Documentation VTE Present on Admission: No VTE Mechan Device Prophylaxis: SCD's VTE Pharm Prophylaxis ordered?: Yes Code Visit Surgery Charges CPT - 88944 ICD-10 - C50.912, Z90.13, N65.1, N65.0, T66.xxxS, L59.8, Z17.0 38022 C50.912, N65.0, T66.xxxS, L59.8, N65.1, Z90.13, Z17.0
[2019-01-27] MEDS: Lactated Ringers 1,000 ML 60 ML IV ×2 (11:13→11:56)
--- NOTE | 2019-01-27 11:15 | PCM.RX.CS ---
Consult Pharmacy has been consulted to manage selected antiobiotic: Vancomycin Type of Consult: New start Prior Doses of Antibiotics Received/Current Regimen: Medications Discontinued Medications Vancomycin HCl (Vancomycin) 1,000 mg in 200 mls @ 200 mls/hr IV PREOP ONE Stop: 01/27/19 06:59 Last Admin: 01/27/19 10:27 Dose: Infused Documented by: Labs: Sodium 140 mmol/L (136-145) 01/27/19 06:47 Potassium 3.9 mmol/L (3.5-5.1) 01/27/19 06:47 Chloride 108 mmol/L (98-107) H 01/27/19 06:47 Carbon Dioxide 25.0 mmol/L (21.0-32.0) 01/27/19 06:47 Anion Gap 7 (5-15) 01/27/19 06:47 BUN 31 mg/dL (7-18) H 01/27/19 06:47 Creatinine 0.72 mg/dL (0.55-1.02) 01/27/19 06:47 Est GFR (MDRD) Af Amer 106 mL/min (>60) 01/27/19 06:47 Est GFR (MDRD) Non-Af 88 mL/min (>60) 01/27/19 06:47 BUN/Creatinine Ratio 42.8 RATIO (10-20) H 01/27/19 06:47 Glucose 104 mg/dL (74-106) 01/27/19 06:47 Weight used for dosin kg Estimated Creatinine Clearance: 64 mL/min Goal Trough: 10-15 mcg/mL Pharmacy Plan for Drug Dosing: Vancomycin 1000mg IV x1 prior to surgery, continue 500mg IV q12h with trough prior to 4th dose per policy. Pharmacy Service will continue to monitor and adjust dosing as required. Follow-Up Labs: Trough Vancomycin - 01/28 @ 1730
[2019-01-27] MEDS: Vancomycin IV 500 MG/100 ML BAG 100 MG IV (17:45)
[2019-01-27] MEDS: Docusate Sodium 100 MG Capsule PO (21:45)
[2019-01-27] MEDS: oxyCODONE 5 MG Tablet 10 MG PO (21:58)
[2019-01-28] VITALS (9 sets, daily range): BP systolic 137–155; BP diastolic 68–82; PULSE 99–111; RESP 16–18; TEMP 36.9–37.5; O2SAT 88–100
[2019-01-28] MEDS: Lactated Ringers 1,000 ML 60 ML IV (03:52)
[2019-01-28] MEDS: Vancomycin IV 500 MG/100 ML BAG 100 MG IV (05:43)
[2019-01-28] MEDS: Enoxaparin 40 MG/0.4 ML Syringe SC (05:46)
[2019-01-28 06:53] LABS: Hemoglobin 12.1 g/dL (12.0-15.0); Mean Corpuscular Hgb 27.9 pg (27.0-32.0); Mean Corpuscular Volume 90.1 fL (81-99); Mean Platelet Vol. 11.1 fl (6.2-12.0); Platelet Count 206 K/mm3 (150-450); RBC Distribution Width CV 14.3 % (11.6-14.6); RBC Distribution Width SD 46.7 fl (35.1-43.9); Red Blood Count 4.33 M/mm3 (4.2-5.4); White Blood Count 10.1 K/mm3 (4.4-11.0)
[2019-01-28 07:20] LABS: Erythrocyte Sedimentation Rate 33 mm/hr (0-30)
[2019-01-28 07:33] LABS: ALB/GLOB Ratio 0.8 RATIO (0.9-2.4); AST(SGOT) 21 U/L (15-37); Alanine Aminotransfer ALT/SGPT 23 U/L (13-56); Albumin, Serum 3.1 g/dL (3.2-5.0); Alkaline Phosphatase 90 U/L (45-117); Anion Gap 6 (5-15); BUN 19 mg/dL (7-18); BUN/Creat Ratio 23.3 RATIO (10-20); Calcium,Total 8.7 mg/dL (8.5-10.1); Chloride 108 mmol/L (98-107); Creatinine, Serum 0.82 mg/dL (0.55-1.02); EST Glomerular Filtration Rate 76 mL/min (>60); Est Glom Filt Rate - Afr Amer 92 mL/min (>60); Estimated Creatinine Clearance 56.43 ml/min; Glucose 132 mg/dL (74-106); Potassium 4.3 mmol/L (3.5-5.1); Prealbumin 24.9 mg/dL (20.0-40.0); Protein, Total 7.1 g/dL (6.4-8.2); Sodium Level 139 mmol/L (136-145)
--- NOTE | 2019-01-28 13:02 | DCINST_ITS ---
You will use the following diet at home:: No restrictions Discharge Activity: May not drive while taking narcotic pain medications., May Not Shower - until the drains are removed., - - keep head elevated. no heavy lifting. May shower in (days): 10 - when the drains are removed. May resume sexual activity in: 10-14 days Weight Bearing Status: Weight bearing as tolerated Lifting Restrictions: 10 lbs Keep extremity elevated above heart level: - - elevate head. Call your doctor if your incision/area has: Continuous Slow Oozing, Sudden Increased Bleeding, Increased Pain/ Swelling, Increased Redness, Foul Smelling Discharge, Swelling at the incision site Call your doctor if you observe: Fever of 101 or Higher, Coldness, Increased Pain, Shortness of breath, Chest pain, Calf discomfort, Uncontrolled pain Suture Line Care: - - apply antibiotic ointment to suture line daily. Change Dressing in (Days):: 1 - dry gauze daily. Cleanse incision/area with: - - may get incision wet in the shower after the drain is removed. Drain: Suction - sheridan drain to bulb suction. empty and recourd output daily. Allergies/Adverse Reactions: Allergies lisinopril Allergy (Severe, Verified 01/27/19 06:17) tongue and face swelling Milk Containing Products Allergy (Verified 01/27/19 06:17) Food Allergy Penicillins Allergy (Verified 01/27/19 06:17) Anaphylaxis wheat Allergy (Verified 01/27/19 06:17) Food Allergy Medications to take at Discharge Loratadine [Claritin] 10 mg PO DAILY 08/22/15 acyclovir 200 mg capsule 200 mg PO QDAY cap 07/03/17 anastrozole 1 mg tablet 1 mg PO QDAY 07/03/17 venlafaxine ER 37.5 mg capsule,extended release 24 hr 37.5 mg PO BID cap 07/03/17 fluticasone furoate 100 mcg-vilanterol 25 mcg/dose inhalation powder 1 puff INHALATION DAILY 07/06/17 alendronate 70 mg tablet 70 mg PO QWEEK 03/28/18 atorvastatin 40 mg tablet 40 mg PO DAILY #30 tab 09/01/18 ezetimibe 10 mg tablet 10 mg PO DAILY 09/01/18 losartan 25 mg tablet 25 mg PO QDAY #90 tab 09/30/18 Lactobacillus Acidophilus/Fos [Acidophilus Probiotic Tablet] 1 ea PO BID #60 tab 10/28/18 oxycodone-acetaminophen 5 mg-325 mg tablet 1 tab PO 4X/DAY PRN #28 tab 12/08/18 Albuterol Aerosols [Ventolin Aerosols] 2.5 mg INHALATION Q6HWA.RT 01/20/19 Cholecalciferol (Vitamin D3) [Vitamin D3] 500 unit PO BID 01/20/19 Docusate Sodium [Colace] 100 mg PO BID PRN 01/20/19 Metoprolol Tartrate [Lopressor (Beta Qi)] 25 mg PO DAILY 01/20/19 Diazepam [Valium] 5 mg PO 4X/DAY PRN PRN #30 tab 01/28/19 Doxycycline [Vibramycin] 100 mg PO BID #30 cap 01/28/19 Oxycodone HCl/Acetaminophen [Percocet 5/325] 1 tab PO Q4H PRN PRN 7 Days #40 tab 01/28/19 The following prescriptions were given: Oxycodone HCl/Acetaminophen [Percocet 5/325] 1 tab PO Q4H PRN PRN 7 Days #40 tab PRN Reason: Pain Score 4-5/10 Prescription Printed Diazepam [Valium] 5 mg PO 4X/DAY PRN PRN #30 tab PRN Reason: Spasms Prescription Printed Doxycycline [Vibramycin] 100 mg PO BID #30 cap Prescription Printed Primary Care Physician: Nevaeh Hawkins DO [Primary Care Provider] - Test Results: Test results from this visit will be discussed in further detail at your follow- up appointment, if applicable. Please Follow Up With: Jann Murillo MD When: one week. call [phone] for appt. Proposed Discharge Date: 01/28/19
--- NOTE | 2019-01-28 13:02 | PCM.PN.SRG ---
Subjective: Postop #1 Patient is resting comfortably. She is anxious to go home. She is tolerating po analgesia. - Physical Exam Vitals/I&O's: Vital Signs Temp Pulse Resp BP Pulse Ox 99.5 F H 111 H 16 138/68 H 97 01/28/19 11:26 01/28/19 08:51 01/28/19 08:51 01/28/19 08:51 01/28/19 08:51 Oxygen Flow Rate (L/min) 1 Oxygen Delivery Method Room Air Weight: 137 lb 12.623 oz Body Mass Index (BMI) 26.0 Intake and Output for Last 24 Hours 01/26/19 01/27/19 01/28/19 23:59 23:59 23:59 Intake Total 2507 / 2507 1053 / 1053 Output Total 1677 / 1677 960 / 960 Balance 830 / 830 93 / 93 Drainage 107 ml yesterday, 35 ml today. General: Alert, Oriented x3 HEENT: PERRLA, EOMI Oral: Moist Mucosa Neck: Supple Abdomen: Soft, Non-Distended Skin: Incision - left breast incision is dry and intact. No clinical evidence of hematoma. No vascular compromise noted on the breast flaps. Neurological: Cranial nerves II-XII grossly intact Psych/Mental Status: Normal Affect, Appropriate Laboratory Results 01/28/19 06:34: WBC 10.1, RBC 4.33, Hgb 12.1, Hct 39.0, MCV 90.1, MCH 27.9, MCHC 31.0 L, RDW Std Deviation 46.7 H, RDW Coeff of Guerrero 14.3, Plt Count 206, MPV 11.1, ESR 33 H 01/28/19 06:34: Sodium 139, Potassium 4.3, Chloride 108 H, Carbon Dioxide 25.0, Anion Gap 6, BUN 19 H, Creatinine 0.82, Estim Creat Clear Calc 56.43, Est GFR (MDRD) Af Amer 92, Est GFR (MDRD) Non-Af 76, BUN/Creatinine Ratio 23.3 H, Glucose 132 H, Calcium 8.7, Total Bilirubin 0.30, AST 21, ALT 23, Alkaline Phosphatase 90, C-React Prot Ext Range 15.00 H, Total Protein 7.1, Albumin 3.1 L, Globulin 4.0, Albumin/Globulin Ratio 0.8 L, Prealbumin 24.9 Current Medications Diazepam (Valium) 5 mg PO 4X/DAY PRN PRN PRN Reason: SPASMS Docusate Sodium (Colace) 100 mg PO BID [facility] Last Admin: 01/28/19 11:10 Dose: Not Given Documented by: Enoxaparin Sodium (Lovenox) 40 mg SC DAILY@0600 [facility] Last Admin: 01/28/19 05:46 Dose: 40 mg Documented by: Hydromorphone HCl (Dilaudid Inj) 1 mg IV Q4H PRN PRN PRN Reason: Pain Score 6-10/10 Lactated Ringer's () 1,000 mls @ 60 mls/hr IV .[id number] [facility] Last Infusion: 01/28/19 06:43 Dose: 60 mls/hr Documented by: Vancomycin IV Pharmacy to Dose (1 ea/ Sodium Chloride) 500 mls @ 250 mls/hr IV X1 PRN; Protocol PRN Reason: Rx to Dose Vancomycin HCl () 500 mg in 100 mls @ 100 mls/hr IV Q12H [facility] Last Infusion: 01/28/19 06:43 Dose: Infused Documented by: Sodium Chloride () 250 mls @ 15 mls/hr IV .[id number] PRN PRN Reason: Saline Flush Insulin Human Lispro (Humalog Kwikpen (Bkc)) 1 - 6 unit SC Q4H PRN PRN; Protocol PRN Reason: BG>/= 180, SEE PROTOCOL Nutritional Formula ([place]halif - Brule Flavor) [facility] Admin: 01/28/19 08:53 Dose: 1 packet Documented by: Ondansetron HCl (Zofran) 4 mg IV Q6H PRN PRN PRN Reason: NAUSEA Oxycodone HCl (Oxyir) 10 mg PO Q4H PRN PRN PRN Reason: Pain Score 6-10/10 Last Admin: 01/27/19 21:58 Dose: 10 mg Documented by: Promethazine HCl (Phenergan Tablet) 25 mg PO Q4H PRN PRN PRN Reason: NAUSEA/VOMITING Sodium Chloride () 10 - 40 ml IV UD PRN PRN Reason: SALINE FLUSH Medical Necessity - Tobacco Use Smoking Status: Never smoker Assessment/Plan All Active Problems (Last Reviewed 12/21/18 @ 15:56 by Pat William) Staphylococcus epidermidis infection (Acute) Partial loss of skin graft (Acute) Abdominal wall hernia (Acute) 1. Invasive ductal carcinoma left breast, s/p mastectomy. 2. Ductal carcinoma in situ right breast, s/p mastectomy. 3. History of MRSE. 4. Acquired absence bilateral breasts. 5. Disproportion reconstructed breasts. 6. Deformity reconstructed left breast with firm radiation scar contour deformity lateral aspect. 7. Late effect radiation left breast. 8. Soft tissue radionecrosis left breast. 9. Estrogen receptor positive status. 10. Family history of breast cancer. 11. s/p delayed left breast reconstruction with placement of submuscular saline tissue mechanical engineering advisor (300 ml) and revision left breast reconstruction with excision firm radiation scar contour deformity lateral aspect. Patient is tolerating po analgesia. Her left breast incisions are dry and intact. No clinical evidence of hematoma. Prealbumin was 24.9. Encourage nutritional supplementation with protein to help the healing process. She is steady on her feet with ambulation. Discharge home today. Continue lifting restriction of 10 lbs. Continue chest wall compression with ligia wrap. Keep head elevated. Shower after the drain is removed (approximately 10 days). Followup office one week. Wrote script for Doxycycline. Wrote scripts for Percocet for pain (40 tabs) and for Valium for spasm (30 tabs).
== END 2019-01-28 15:31 | disposition home or self-care (01) ==
LOC: SDC 12:17
PROVIDERS: Anesthesiology; Admitting Provider Surgery; Referring Provider Surgery; Visit Provider Surgery
PROC: (CPT 19357; principal; 2019-01-27 07:15)
DX: D05.11 Intraductal carcinoma in situ of right breast (principal); N65.1 Disproportion of reconstructed breast; Z17.0 Estrogen receptor positive status [ER+]; L59.8 Other specified disorders of the skin and subcutaneous tissue related to radiation; Y84.2 Radiological procedure and radiotherapy as the cause of abnormal reaction of the patient, or of later complication, without mention of misadventure at the time of the procedure; E78.5 Hyperlipidemia, unspecified; I10 Essential (primary) hypertension; J45.909 Unspecified asthma, uncomplicated; K21.9 Gastro-esophageal reflux disease without esophagitis; D63.8 Anemia in other chronic diseases classified elsewhere; Z80.3 Family history of malignant neoplasm of breast; Z79.899 Other long term (current) drug therapy; Z79.51 Long term (current) use of inhaled steroids
CPT/HCPCS: 00402; 19357; 36415; 71046; 80048; 80053; 82962; 84134; 85027; 85652; 86140; 88305; 88341; 88342; 93005; 94762; 96365; 96366; 96372; 99218; J7120; G0378; G0379; J2405; Q9968

== ENCOUNTER 2019-05-16 12:50 | Observation (INO) | payer MEDICAID, SELFPAY ==
[2019-04-06 15:25] VITALS: BMI 26.0
--- NOTE | 2019-05-15 17:38 | HP.PCM_ITS ---
History and Physical Date of Admission: 05/15/19 HISTORY OF PRESENT ILLNESS 58 year old female initially presents for the next stage in her breast reconstruction process. She initially started her delayed bilateral breast reconstruction on 05/10/18 where she underwent first stage delayed left breast reconstruction with bipedicled TRAM flap delay and first stage delayed right breast reconstruction with placement of submuscular saline tissue technician plant and maintenance (650 ml). After waiting three weeks for the delay, she went back to surgery on 05/31/18 where she underwent revision left breast reconstruction with excision radiation fibrosis scar contour deformity and multiple W-plasty (18 cm2) and second stage delayed left breast reconstruction with bipedicled TRAM flap and complex abdominal wall reconstruction with repair of fascial defects with components separation technique using bilateral external oblique myofascial advancement flaps and placement MTF FlexHD acellular dermal matrix graft (320 cm2) and saline injection 300 ml into tissue technician plant and maintenance right breast reconstruction (650 ml technician plant and maintenance). She did well initially postop and was discharged from the hospital on 06/07/18. She developed some wound drainage issues in the abdominal wall with a seroma. She developed some compromise to the TRAM flap in the central aspect for the midline scar was. Wound culture showed MRSE. She was on Doxycycline and Levaquin. She failed outpatient therapy and was admitted to the hospital and started on IV Vancomycin. She was taken to surgery on 06/21/18 where she underwent incision and drainage complex abdominal wall infected seroma and surgical preparation left breast with excisional debridement and revision reconstructed compromised TRAM flap wound infection (156 cm2). Postop she had the VAC placed to both the abdominal wound and the left breast reconstruction wound. Later on the VAC was stopped and the wound care was changed to Dakin's dressing changes. Her wounds improved and she returned to the operating room on 10/25/18 where she underwent revision reconstructed left breast TRAM flap with excision nonhealing ulcer and excision painful fat necrosis deformity laterally and 10 cm complex secondary wound closure and surgical preparation abdominal wall with excision nonhealing ulcer (135 cm2) and 45 cm complex secondary wound closure and repair of abdominal wall TRAM flap hernia with placement of Strattice Regenerative Tissue Matrix Graft (100 cm2) and 150 ml saline tissue expansion right breast reconstruction (450 ml in 650 ml technician plant and maintenance). Satisfactory healing occurred. She underwent further breast reconstruction on 01/27/19 where she underwent delayed left breast reconstruction with placement of submuscular saline tissue technician plant and maintenance (300 ml) and revision left breast reconstruction with excision firm radiation scar contour deformity lateral aspect. Satisfactory healing occurred and the tissue technician plant and maintenance was expanded without difficulty. PAST MEDICAL HISTORY Hypertension Hyperlipidemia Acute systolic congestive heart failure Bilateral pleural effusion Cardiomyopathy in diseases classified elsewhere Estrogen receptor positive status (ER+) Malignant neoplasm of left female breast Asthma Back problem Bone fracture GERD (gastroesophageal reflux disease) Hearing problem PAST SURGICAL HISTORY bilateral mastectomy first stage delayed left breast reconstruction with bipedicled TRAM flap delay and first stage delayed right breast reconstruction with placement of submuscular saline tissue technician plant and maintenance (650 ml) - 05/10/18 revision left breast reconstruction with excision radiation fibrosis scar contour deformity and multiple W-plasty (18 cm2) and second stage delayed left breast reconstruction with bipedicled TRAM flap and complex abdominal wall reconstruction with repair of fascial defects with components separation technique using bilateral external oblique myofascial advancement flaps and placement MTF FlexHD acellular dermal matrix graft (320 cm2) and saline injection 300 ml into tissue technician plant and maintenance right breast reconstruction (650 ml technician plant and maintenance) - 05/31/18 incision and drainage complex abdominal wall infected seroma and surgical preparation left breast with excisional debridement and revision reconstructed compromised TRAM flap wound infection (156 cm2) - 06/21/18 Revision reconstructed left breast TRAM flap with excision nonhealing ulcer and excision painful fat necrosis deformity laterally and 10 cm complex secondary wound closure and surgical preparation abdominal wall with excision nonhealing ulcer (135 cm2) and 45 cm complex secondary wound closure and repair of abdominal wall TRAM flap hernia with placement of Strattice Regenerative Tissue Matrix Graft (100 cm2) and 150 ml saline tissue expansion right breast reconstruction (450 ml in 650 ml technician plant and maintenance) - 10/25/18 Delayed left breast reconstruction with placement of submuscular saline tissue technician plant and maintenance (300 ml) and revision left breast reconstruction with excision firm radiation scar contour deformity lateral aspect - 01/27/19 ALLERGIES lisinopril Penicillins MEDICATIONS Loratadine [Claritin] acyclovir albuterol sulfate anastrozole venlafaxine ER fluticasone-vilanterol calcium carbonate furosemide metoprolol succinate ER potassium chloride ER losartan alendronate atorvastatin clopidogrel Percocet Valium FAMILY HISTORY Mother - Diabetes Sister - Breast cancer, Diabetes Sister - Cancer Other - Asthma SOCIAL HISTORY Smoking Status: Never smoker alcohol intake: never substance use type: does not use REVIEW OF SYSTEMS General - Denies fever, fatigue, and weight loss. Eyes - Denies cataracts and glaucoma. ENT - Denies nasal congestion. Has sore throat. Endocrine - Denies excessive thirst and urination. Has a history of left breast cancer with bilateral mastectomy 08/28. Has had chemotherapy and radiation therapy. Skin - Denies suspicious lesions and skin cancer. Musculoskeletal - Complains of joint pain, joint stiffness, weakness of muscles and joints, back pain. Denies arthritis. Neuro - Denies headaches. Cardiovascular - Denies chest pain, fatigue. Has a history of CHF, hypertension and hyperlipidemia. Has shortness of breath with activity. Psych - Denies anxiety and depression. Respiratory - Denies chronic cough. Has history of asthma and sleep apnea and shortness of breath. Gastrointestinal - Denies nausea, vomiting, diarrhea. Has a history of constipation and GERD. Hematologic - Has a history of easily bruising and bleeding easily. Is on Plavix. Genitourinary - Denies hematuria and urinary frequency. PHYSICAL EXAMINATION General - Alert and oriented. Bra size was 38 D prior to the mastectomies. HEENT - PERRL. EOMI. Throat is clear. Neck - Supple and non-tender. No cervical adenopathy. Breasts - Right breast incision healed. Left breast shows a TRAM flap that is healed. On the central aspect of the TRAM flap is a scar contour deformity with indentation. Palpable tissue expanders bilaterally. Palpable firmness noted bilaterally with some discomfort superiorly. Lungs- Clear to auscultation. Heart - Regular rate and rhythm. Abdomen - Soft and non distended. Abdominal incision is well healed with no evidence of hernia at this time. Extremities - FROM. No axillary adenopathy. Radial pulses are palpable. Neuro - CN II-XII grossly intact. Psych - Normal mood and affect. ASSESSMENT 1. Invasive ductal carcinoma left breast, s/p mastectomy. 2. Ductal carcinoma in situ right breast, s/p mastectomy. 3. Anemia of chronic disease. 4. History of MRSE. 5. Acquired absence bilateral breasts. 6. Disproportion reconstructed breasts. 7. Deformity reconstructed breasts. 8. Late effect radiation left breast. 9. Soft tissue radionecrosis left breast. 10. Estrogen receptor positive status. 11. Family history of breast cancer. 12. Capsular contracture. PLAN Recommend proceeding with the next stage in her breast reconstruction process with removal of the saline tissue expanders bilaterally with replacement cohesive gel implants and placement of acellular dermal matrix graft. Any areas of persistent radiation fibrosis will be excised. Any areas of excess mastectomy skin contour deformity will be excised. Depending on the severity of the radiation fibrosis leading to capsular contracture, a capsulectomy may be necessary on the left. Since the saline tissue technician plant and maintenance has been in the right breast for a while, will see if a capsular contracture is present in which case a capsulectomy will be done on the right. The TRAM flap scar contour deformity with indentation on the left will be excised and reconstructed with a W-plasty reconstruction. Drains will be necessary. If there is evidence of persistent infection, will send tissue to Microbiology to evaluate for culture. Otherwise will send tissue to Pathology for analysis to rule out carcinoma. Surgery will be done under general anesthesia with a surgical observation overnight stay in the hospital. Patient was informed of the risks and complications of the procedure including alternatives to surgery. These were discussed with the patient personally. Pa tient voices understanding and wishes to proceed. Some of the risks and complications were included in a form from the [employer]. With her history of MRSEduardo, will treat perioperatively with Vancomycin. Anticipate increased metabolic demands from the ulcers and from the surgery. Will check a Prealbumin and encourage nutritional supplementation with protein to help the healing process.
[2019-05-16] VITALS (13 sets, daily range): BP systolic 100–133; BP diastolic 59–87; PULSE 82–109; RESP 16–18; TEMP 36.2–37.1; O2SAT 92–100; BMI 24.1
[2019-05-16 06:49] LABS: Hematocrit 40.8 % (37-47); Mean Corp Hgb Conc 31.9 g/dL (32-36); Mean Corpuscular Volume 90.9 fL (81-99); Mean Platelet Vol. 10.5 fl (6.2-12.0); Platelet Count 225 K/mm3 (150-450); RBC Distribution Width CV 14.4 % (11.6-14.6); RBC Distribution Width SD 47.6 fl (35.1-43.9); Red Blood Count 4.49 M/mm3 (4.2-5.4); White Blood Count 6.4 K/mm3 (4.4-11.0)
[2019-05-16 06:58] LABS: Partial Thromboplast Time 27.7 Seconds (24.1-36.2); Prothrombin Time (Protime)PT. 13.3 SECONDS (11.7-14.9)
[2019-05-16] MEDS: Lactated Ringers 1,000 ML 40 ML IV (07:00)
[2019-05-16 07:03] LABS: AST(SGOT) 11 U/L (15-37); Alanine Aminotransfer ALT/SGPT 25 U/L (13-56); Albumin, Serum 3.2 g/dL (3.2-5.0); Alkaline Phosphatase 131 U/L (45-117); Anion Gap 2 (5-15); BUN 24 mg/dL (7-18); BUN/Creat Ratio 29.5 RATIO (10-20); Calcium,Total 9.3 mg/dL (8.5-10.1); Chloride 109 mmol/L (98-107); Creatinine, Serum 0.81 mg/dL (0.55-1.02); EST Glomerular Filtration Rate 77 mL/min (>60); Est Glom Filt Rate - Afr Amer 93 mL/min (>60); Estimated Creatinine Clearance 65.37 ml/min; Globulin 3.8 g/dL (2.2-4.2); Glucose 103 mg/dL (74-106); Magnesium 1.9 mg/dL (1.6-2.6); Potassium 4.3 mmol/L (3.5-5.1); Sodium Level 142 mmol/L (136-145)
[2019-05-16] MEDS: Scopolamine 1mg/72hr Patch 1 PATCH TRANSDERM. (07:03)
[2019-05-16] MEDS: Acetaminophen 500 MG Tablet 1000 MG PO ×3 (07:03→23:48)
[2019-05-16] MEDS: Gabapentin 600 MG Tablet PO (07:03)
[2019-05-16 07:30] LABS: Bedside Glucose 105 mg/dL (70-110)
--- NOTE | 2019-05-16 07:30 | BRBX_PTH ---
PATIENT: YULIYA KENDALL LOC: [facility] U#:[id number] AGE/SX: 58/F ROOM: [facility]315 RE05/16/[address]: Dr. Jann Murillo MD : 1960 BED: 1 DIS: 05/18/2019 SPEC #: [id number] RECD: 05/16/19 13:04 STATUS: GATITO REMara #: [id number] KISHOR: 05/16/19 07:[address]: Jann Murillo DEPT: SURGICAL PATHOLOGY RECD BY: Ricco Laughlin ENTERED: 05/16/19 13:38 SP TYPE: BREAST BX OTHR DR: Dr. Nevaeh Hawkins, DO Tissues: A - Left breast, NOS B - Right breast, NOS Procedures: Surgery Specimen Level IV HEADER OPERATION: Bilateral breast reconstruction with excision PRE-OP DIAGNOSIS: Invasive ductal carcinoma left breast status post mastectomy; DCIS right breast status post mastectomy; disproportion and deformity reconstructed breasts; ER positive TISSUE SUBMITTED: A - Left breast tissue and capsule, B - Right breast tissue MICROSCOPIC DIAGNOSIS A. Left breast tissue and capsule: Pieces of skin with fibroadipose tissue and skeletal muscle tissue with fibrosis, fat necrosis, chronic inflammation and foreign body giant cell reaction. Negative for malignancy. See comment. B. Right breast tissue: Pieces of skin with fibroadipose tissue with fibrosis and mild chronic inflammation. Negative for malignancy. See comment. SJ:peng 05/18/19 COMMENT A & B. Breast tissue is not identified in the sections examined. Please make reference to previous specimen ([id number]) left breast and axillary content with diagnosis of invasive ductal carcinoma and right breast, mastectomy with diagnosis of ductal carcinoma in situ. MICROSCOPIC DESCRIPTION Slides are reviewed. GROSS DESCRIPTION A - Received in fixative is one container labeled with the patient's name and designated left breast tissue and capsule. The specimen consists of multiple elongated fragments of torres-yellow fibroadipose tissue that in aggregate measure 8 x 7 x 2.5 cm. A piece of skin is also present measuring 7 x 0.5 cm and up to 1 cm in thickness. Sections do not reveal any mass lesion. No skin lesion is identified. Floor Service Worker [employer] sections are submitted in six cassettes. Cassette 1 contains the skin with underlying tissue. B - Received in fixative is one container labeled with the patient's name and designated right breast tissue. The specimen consists of two pieces of skin with underlying tissue measuring 11 x 3.5 cm and up to 3 cm in thickness and 10 x 2 cm and up to 2 cm in thickness. No skin lesion is identified. Sections reveal mostly adipose cut surfaces without any mass lesion. Floor Service Worker [employer] sections are submitted in six cassettes. Cassette 1 contains the skin with underlying tissue. Sections will be submitted after overnight fixation. / SJ:rg 05/16/19 TC:5 CPT: 40056 x2
[2019-05-16] MEDS: Magnesium Sulfate 1 GM in 0.9% Normal Saline 100 ML IV (07:53)
--- NOTE | 2019-05-16 12:30 | PCM.OPRPT ---
Report of Operation Date of Procedure: 05/16/19 Pre-Operative Diagnosis: 1. Invasive ductal carcinoma left breast, s/p mastectomy. 2. Ductal carcinoma in situ right breast, s/p mastectomy. 3. Anemia of chronic disease. 4. History of MRSE. 5. Acquired absence bilateral breasts. 6. Disproportion reconstructed breasts. 7. Deformity reconstructed breasts. 8. Late effect radiation left breast. 9. Soft tissue radionecrosis left breast. 10. Estrogen receptor positive status. 11. Family history of breast cancer. 12. Capsular contracture. Post-Operative Diagnosis: Same. Surgery/Procedure Performed:: 1. Delayed left breast reconstruction with removal saline tissue operations specialist and multiple capsulotomies with replacement cohesive gel implant (370 ml) and placement of Alloderm Select acelluar dermal matrix graft (96 cm2). 2. Revision left breast reconstruction with excision radiation fibrosis scar contour deformity and excision TRAM flap scar contour deformity. 3. Delayed right breast reconstruction with removal saline tissue operations specialist and multiple capsulotomies with replacement cohesive gel implant (430 ml) and placement of Alloderm Select Restore acelluar dermal matrix graft (327 cm2). 4. Revision right breast reconstruction with excision excess mastectomy skin scar contour deformity inferiorly and laterally. Description of Surgical Findings:: 58 year old female initially presents for the next stage in her breast reconstruction process. She initially started her delayed bilateral breast reconstruction on 05/10/18 where she underwent first stage delayed left breast reconstruction with bipedicled TRAM flap delay and first stage delayed right breast reconstruction with placement of submuscular saline tissue operations specialist (650 ml). After waiting three weeks for the delay, she went back to surgery on 05/31/18 where she underwent revision left breast reconstruction with excision radiation fibrosis scar contour deformity and multiple W-plasty (18 cm2) and second stage delayed left breast reconstruction with bipedicled TRAM flap and complex abdominal wall reconstruction with repair of fascial defects with components separation technique using bilateral external oblique myofascial advancement flaps and placement MTF FlexHD acellular dermal matrix graft (320 cm2) and saline injection 300 ml into tissue operations specialist right breast reconstruction (650 ml operations specialist). She did well initially postop and was discharged from the hospital on 06/07/18. She developed some wound drainage issues in the abdominal wall with a seroma. She developed some compromise to the TRAM flap in the central aspect for the midline scar was. Wound culture showed MRSE. She was on Doxycycline and Levaquin. She failed outpatient therapy and was admitted to the hospital and started on IV Vancomycin. She was taken to surgery on 06/21/18 where she underwent incision and drainage complex abdominal wall infected seroma and surgical preparation left breast with excisional debridement and revision reconstructed compromised TRAM flap wound infection (156 cm2). Postop she had the VAC placed to both the abdominal wound and the left breast reconstruction wound. Later on the VAC was stopped and the wound care was changed to Dakin's dressing changes. Her wounds improved and she returned to the operating room on 10/25/18 where she underwent revision reconstructed left breast TRAM flap with excision nonhealing ulcer and excision painful fat necrosis deformity laterally and 10 cm complex secondary wound closure and surgical preparation abdominal wall with excision nonhealing ulcer (135 cm2) and 45 cm complex secondary wound closure and repair of abdominal wall TRAM flap hernia with placement of Strattice Regenerative Tissue Matrix Graft (100 cm2) and 150 ml saline tissue expansion right breast reconstruction (450 ml in 650 ml operations specialist). Satisfactory healing occurred. She underwent further breast reconstruction on 01/27/19 where she underwent delayed left breast reconstruction with placement of submuscular saline tissue operations specialist (300 ml) and revision left breast reconstruction with excision firm radiation scar contour deformity lateral aspect. Satisfactory healing occurred and the tissue operations specialist was expanded without difficulty. Patient was informed of the risks and complications of the procedure including alternatives to surgery. These were discussed with the patient personally. Patient voices understanding and wishes to proceed. Some of the risks and complications were included in a form from the [employer]. IV Fluids - 2000 ml. Urine Output - 150 ml. I used [place] MemoryGel Breast Implant Smooth Round Ultra High Profile, (430 ml on the right). Reference Number - [id number]. Lot Number - [id number]. Serial Number - [id number]. Expiration - June 16, 2023. I used Alloderm Select Restore Acellular Dermal Matrix Graft, Contour Perforated Large, X-Thick, (327 cm2 on the right). Reference Number - [id number]. Lot Number - [id number]. Expiration - November,. I used Rosina absorbable hemostat, (one vial in right breast). Reference Number - [id number]. Lot Number - [id number]. Expiration - October. I used [place] Memory[employer]el Breast Implant Smooth Round Moderate Plus Xtra Profile, (370 ml on the left). Reference Number - [id number]. Lot Number - [id number]. Serial Number - [id number]. Expiration - December 29, 2023. I used Alloderm Select Acellular Dermal Matrix Graft, Thick, (6 x 16 cm or 96 cm2). Reference Number - [id number]. Lot Number - [id number]. Expiration - October,. I used Rosina absorbable hemostat, (2 vials in left breast). Reference Number - [id number]. Lot Number - [id number]. Expiration - November 10, 2023. window repairer: Bubba Carrasco. Type of Anesthesia:: General Specimen's removed: 1. Radiation fibrosis tissue left breast and capsule to Pathology. 2. Excess mastectomy skin scar contour deformity right breast to Pathology. Drains: Jemal x2 (one in each breast). Estimated Blood Loss (mL): 150 ml. Fluids Replaced: 2150 ml (IV Fluids 2000 ml, Urine Output 150 ml) Description of Procedure: While the patient was sitting in the preop area, markings were made from the sternal midline to the umbilicus. The inframammary folds were marked bilaterally. She was then taken to the OR in supine position and placed under general anesthesia. SCD's were placed for DVT prophylaxis. Perioperative antibiotics were given intravenously. Her breasts were prepped and draped in the usual fashion. Ioban draping was also used. A baker catheter was placed. Using xylocaine with epinephrine, the lateral mastectomy scars bilaterally was infiltrated. After waiting 5 minutes for the anesthetic to take effect, an incision was made in the left breast through the previous mastectomy scar laterally at the inferior aspect of the TRAM flap down through the subcutaneous tissue until the capsule was seen. A capsulotomy was performed and the saline tissue operations specialist was removed. No abnormal fluid collection was seen in the breast pocket. So no culture will be sent. Proceeding with multiple capsulotomies, I opened up the left breast pocket medially and superiorly. There was evidence of some capsular contracture. The capsulotomies helped to loosen the breast pocket which was tight because of previous radiation fibrosis. I then placed various sizers into the left breast pocket first starting with Moderate Classic profile and ending up with Moderate Plus Xtra profile 370 ml sizer. I closed the wound temporarily with surgical clips. The patient was placed in the sitting position. Good shape and contour was noted in the left breast thus far. Patient was then placed back in the supine position. At the time of the capsulotomies, there was some scattered areas of dense radiation fibrosis mostly inferiorly but some areas superiorly that were sharply excised. There was also a TRAM flap scar contour deformity that was sharply excised down into the subcutaneous tissue and loosening the scar tissue. I was able to close the TRAM flap wound in a layered fashion with 3-0 Monocryl interrupted sutures for the deep dermis and subcutaneous tissue. The skin was approximated with 4-0 Prolene vertical mattress interrupted sutures and simple interrupted sutures. Good contour was noted. I then went to the right breast. A horizontal incision was made through the previous mastectomy scar down through the subcutaneous tissue until the capsule was seen. A capsulotomy was performed and the saline tissue operations specialist was removed. No abnormal fluid collection was seen in the breast pocket. So no culture was sent. Proceeding with multiple capsulotomies, I opened up the right breast pocket superiorly. The right breast was slightly lower than the left breast probably secondary to the radiation. I tightened the inframammary crease on the right with internal capsular plication sutures with 2-0 Vicryl interrupted sutures and simple running sutures. I then placed a 430 ml Ultra High profile sizer into the breast pocket and closed the wound temporarily with surgical clips. The patient was placed in the sitting position. Good shape and contour was noted in the right breast and good symmetry noted between the left breast especially superiorly with superior pole fullness. Since the pocket was a little larger as compared to the left breast probably secondary to the presence of radiation, I excised excess mastectomy skin scar contour deformity both inferiorly and laterally. Tissue from both the left breast and the right breast were sent to Pathology for analysis to rule out carcinoma. This excess skin excision helped to tighten the pocket and improved the breast symmetry. The patient was placed back into the supine position. The surgical clips were removed. The sizers were removed. They were a 370 ml Moderate Plus Xtra profile on the left and a 430 ml Ultra High profile on the right. The wounds were irrigated with 0.05% Irrisept chlorhexidine solution which was followed by saline irrigation. Hemostasis was obtained with electrocautery. I placed a size 15 Jemal drain through a separate stab incision laterally into each breast pocket and secured them to the skin with 3-0 Nylon suture. I sprayed Rosina absorbable hemostat into the left breast wound to minimize seroma formation. I used two vials. I changed my gloves at this point before placing the implant. I then placed the [place] Memory[employer]el Breast Implant, Moderate Plus Xtra profile (370 ml), into the left breast pocket. Good shape and contour was noted in the left breast reconstruction. I placed a piece of Alloderm Select acellular dermal matrix graft into the left inferolateral area as a lateral sling. The graft was secured to the surrounding tissue and chest wall with 3-0 Vicryl interrupted sutures. I placed a malleable into the wound to protect the implant while suturing the acellular dermal matrix graft sling. I used a 6 x 16 cm piece of Alloderm or 96 cm2. The left breast wound was then closed. The deep dermis and subcutaneous tissue was approximated with 3-0 Monocryl interrupted sutures. The skin was approximated with 4-0 Prolene vertical mattress interrupted sutures and 4-0 Prolene simple interrupted sutures. This was followed by Histoacryl skin tissue adhesive. Going back to the right breast, I sprayed Rosina absorbable hemostat into the right breast wound to minimize seroma formation. I used one vial. I then placed the [place] MemoryGel Breast Implant, Ultra Alycia profile (430 ml), into the right breast pocket. Good shape and contour was noted in the right breast reconstruction. The implant was then removed. I then took a large contour perforated piece of Alloderm Select Restore acellular dermal matrix graft (327 cm2) and wrapped it around the implant. It was secured with 3-0 Vicryl suture. A small malleable was used to protect the implant during the suturing process. The graft and the implant were placed into the right breast pocket and the inferior aspect of the graft and lateral aspect of the graft were secured to the chest wall with 3-0 Vicryl interrupted sutures. The patient was once again placed in the sitting position and good shape and contour and symmetry were noted in the bilateral breast reconstruction. The right breast wound was then closed in a layered fashion with the deep dermis and subcutaneous tissue being approximated with 3-0 Monocryl interrupted sutures. The skin was approximated with 4-0 Prolene vertical mattress interrupted sutures and 4-0 Prolene simple interrupted sutures. This was followed by Histoacryl skin tissue adhesive. A Kerlix gauze dressing was applied to both breasts followed by ABD pads and a surgical bra followed by a compression ligia wrap. Patient tolerated the procedure well and was sent to PACU in satisfactory condition. She will be sent upstairs for postop care. The drains will be removed in 10-14 days. The sutures will be removed in 2-3 weeks. She will keep her head elevated during the initial postoperative period. She will have a lifting restriction as well. Grafts/Implants Used: [place] MemoryGel Breast Implants x2, Alloderm acellular tissue graft x2. - Complications None. - Admit VTE Documentation VTE Present on Admission: No VTE Mechan Device Prophylaxis: SCD's VTE Pharm Prophylaxis ordered?: Yes Surgery Charges CPT - 46323 ICD-10 - C50.912, D05.11, Z90.13, N65.1, N65.0, T66.xxxS, L59.8, Z17.0, Z80.3, T85.44xA [id number] C50.912, D05.11, Z90.13, N65.1, N65.0, T66.xxxS, L59.8, Z17.0, Z80.3, T85.44xA [id number] C50.912, D05.11, Z90.13, N65.1, N65.0, T66.xxxS, L59.8, Z17.0, Z80.3, T85.44xA [id number] C50.912, D05.11, Z90.13, N65.1, N65.0, T66.xxxS, L59.8, Z17.0, Z80.3, T85.44xA [id number] C50.912, D05.11, Z90.13, N65.1, N65.0, T66.xxxS, L59.8, Z17.0, Z80.3, T85.44xA
[2019-05-16] MEDS: Lactated Ringers 1,000 ML 60 ML IV (13:00)
[2019-05-16] MEDS: Vancomycin IV 1,000 MG/200 ML BAG 200 MG IV (18:26)
[2019-05-16] MEDS: Gabapentin 100 MG Capsule 200 MG PO (18:30)
[2019-05-16] MEDS: Ensure Surgery 237 ML LIQUID PO (18:34)
[2019-05-16] MEDS: Budesonide Respules 0.5 MG/2 ML AMPUL.NEB. INHALATION (19:23)
[2019-05-16] MEDS: Albuterol 2.5 MG/3 ML VIAL.NEB. INHALATION (19:23)
--- NOTE | 2019-05-16 19:54 | PCM.RX.CS ---
Consult Pharmacy has been consulted to manage selected antiobiotic: Vancomycin Type of Consult: New start Suspected Infection: Skin/Soft tissue, Other - post-op breast reconstruction Prior Doses of Antibiotics Received/Current Regimen: VANCOMYCIN IV 1000MG GIVEN 05/15 @ 1826 Labs: Sodium 142 mmol/L (136-145) 05/16/19 06:40 Potassium 4.3 mmol/L (3.5-5.1) 05/16/19 06:40 Chloride 109 mmol/L (98-107) H 05/16/19 06:40 Carbon Dioxide 31.0 mmol/L (21.0-32.0) 05/16/19 06:40 Anion Gap 2 (5-15) L 05/16/19 06:40 BUN 24 mg/dL (7-18) H 05/16/19 06:40 Creatinine 0.81 mg/dL (0.55-1.02) 05/16/19 06:40 Est GFR (MDRD) Af Amer 93 mL/min (>60) 05/16/19 06:40 Est GFR (MDRD) Non-Af 77 mL/min (>60) 05/16/19 06:40 BUN/Creatinine Ratio 29.5 RATIO (10-20) H 05/16/19 06:40 Glucose 103 mg/dL (74-106) 05/16/19 06:40 Weight used for dosin.9 kg Estimated Creatinine Clearance: 65 ML/MIN Goal Trough: 10-15 mcg/mL Pharmacy Plan for Drug Dosin. Will start 500mg IV Q12H based on weight and renal function 2. Trough scheduled prior to 4th dose 3. Pharmacy Service will continue to monitor and adjust dosing as required. Labs to be done on [date and time ordered]: 05/18/2019 @ 6868
[2019-05-16] MEDS: Docusate Sodium 100 MG Capsule PO (21:09)
[2019-05-16] MEDS: Atorvastatin Calcium 20 MG Tablet PO ×2 (21:09→21:10)
[2019-05-16] MEDS: Venlafaxine HCl 75 MG Tablet 37.5 MG PO (21:10)
[2019-05-17] VITALS (10 sets, daily range): BP systolic 110–144; BP diastolic 49–72; PULSE 111–118; RESP 16–18; TEMP 36.6–37.3; O2SAT 93–98
[2019-05-17] MEDS: Lactated Ringers 1,000 ML 60 ML IV ×2 (01:19→20:24)
[2019-05-17] MEDS: Acetaminophen 500 MG Tablet 1000 MG PO ×3 (05:43→18:35)
[2019-05-17] MEDS: Vancomycin IV 500 MG/100 ML BAG 100 MG IV ×2 (05:46→18:26)
[2019-05-17 06:28] LABS: Hematocrit 38.9 % (37-47); Hemoglobin 12.1 g/dL (12.0-15.0); Mean Corp Hgb Conc 31.1 g/dL (32-36); Mean Corpuscular Hgb 28.2 pg (27.0-32.0); Mean Corpuscular Volume 90.7 fL (81-99); Mean Platelet Vol. 10.7 fl (6.2-12.0); Platelet Count 199 K/mm3 (150-450); RBC Distribution Width CV 14.6 % (11.6-14.6); RBC Distribution Width SD 48.8 fl (35.1-43.9); Red Blood Count 4.29 M/mm3 (4.2-5.4); White Blood Count 8.2 K/mm3 (4.4-11.0)
[2019-05-17 06:29] LABS: Erythrocyte Sedimentation Rate 17 mm/hr (0-30)
[2019-05-17 06:50] LABS: Anion Gap 4 (5-15); BUN 11 mg/dL (7-18); BUN/Creat Ratio 14.4 RATIO (10-20); Calcium,Total 8.6 mg/dL (8.5-10.1); Chloride 106 mmol/L (98-107); Creatinine, Serum 0.76 mg/dL (0.55-1.02); EST Glomerular Filtration Rate 82 mL/min (>60); Est Glom Filt Rate - Afr Amer 100 mL/min (>60); Estimated Creatinine Clearance 69.67 ml/min; Glucose 120 mg/dL (74-106); Potassium 4.3 mmol/L (3.5-5.1); Sodium Level 139 mmol/L (136-145)
[2019-05-17] MEDS: Albuterol 2.5 MG/3 ML VIAL.NEB. INHALATION ×3 (07:16→21:08)
[2019-05-17] MEDS: Budesonide Respules 0.5 MG/2 ML AMPUL.NEB. INHALATION ×2 (07:16→21:08)
[2019-05-17] MEDS: oxyCODONE 5 MG Tablet PO ×2 (07:41→21:42)
[2019-05-17] MEDS: Gabapentin 100 MG Capsule 200 MG PO ×3 (07:42→16:41)
[2019-05-17] MEDS: Docusate Sodium 100 MG Capsule PO ×2 (07:43→21:42)
[2019-05-17] MEDS: Losartan Potassium 25 MG Tablet PO (07:43)
[2019-05-17] MEDS: Loratadine 10 MG Tablet PO (07:43)
[2019-05-17] MEDS: Metoprolol(XL)Succ 25 MG Tablet PO (07:44)
[2019-05-17] MEDS: Venlafaxine HCl 75 MG Tablet 37.5 MG PO ×2 (07:44→21:43)
[2019-05-17] MEDS: Ezetimibe 10 MG Tablet PO (07:45)
[2019-05-17] MEDS: Acyclovir 200 MG Capsule PO (07:45)
[2019-05-17] MEDS: Ensure Surgery 237 ML LIQUID PO ×3 (08:02→16:41)
[2019-05-17] MEDS: Enoxaparin 40 MG/0.4 ML Syringe SC (10:22)
--- NOTE | 2019-05-17 13:15 | NURSING ---
Student documentation reviewed.
[2019-05-17] MEDS: BENZOCAINE/MENTHOL 1 LOZENGE MUCOUS MEM ×2 (14:03→20:24)
[2019-05-17] MEDS: Anastrozole 1 MG Tablet PO (16:41)
--- NOTE | 2019-05-17 17:53 | PN.SURG_ITS ---
Subjective: Postop #1 Patient has incisional pain. Has some unsteadiness on her feet with ambulation. - Physical Exam Vitals/I&O's: Vital Signs Temp Pulse Resp BP Pulse Ox 98.8 F 114 H 18 110/49 L 95 05/17/19 13:59 05/17/19 13:59 05/17/19 13:59 05/17/19 13:59 05/17/19 13:59 Oxygen Flow Rate (L/min) 6 Oxygen Delivery Method Room Air Weight: 140 lb 14.006 oz Body Mass Index (BMI) 24.1 Intake and Output for Last 24 Hours 05/15/19 05/16/19 05/17/19 23:59 23:59 23:59 Intake Total 2408 / 3008 3531 / 3531 Output Total 1010 / 1845 2120 / 2120 Balance 1398 / 1163 1411 / 1411 Drainage 50 ml yesterday, 315 ml today. General: Alert, Oriented x3 HEENT: PERRLA, EOMI Oral: Moist Mucosa Neck: Supple Abdomen: Soft, Non-Distended Skin: Incision - Bilateral breast incisions are dry and intact. No vascular compromise noted on the TRAM flap. Breasts are soft and symmetrical. No clinical evidence of hematoma. Neurological: Cranial nerves II-XII grossly intact Psych/Mental Status: Normal Affect, Appropriate Laboratory Results 05/17/19 06:00: WBC 8.2, RBC 4.29, Hgb 12.1, Hct 38.9, MCV 90.7, MCH 28.2, MCHC 31.1 L, RDW Std Deviation 48.8 H, RDW Coeff of Guerrero 14.6, Plt Count 199, MPV 10.7 , ESR 17 05/17/19 06:00: Sodium 139, Potassium 4.3, Chloride 106, Carbon Dioxide 29.0, Anion Gap 4 L, BUN 11, Creatinine 0.76, Estim Creat Clear Calc 69.67, Est GFR (MDRD) Af Amer 100, Est GFR (MDRD) Non-Af 82, BUN/Creatinine Ratio 14.4, Glucose 120 H, Calcium 8.6, C-React Prot Ext Range 49.50 H, Prealbumin 19.0 L Current Medications Acetaminophen (Tylenol) 1,000 mg PO Q6 ADRIAN Last Admin: 05/17/19 12:42 Dose: 1,000 mg Documented by: Acyclovir (Zovirax) 200 mg PO DAILY [facility] Last Admin: 05/17/19 07:45 Dose: 200 mg Documented by: Albuterol Sulfate (Ventolin Aerosols) 2.5 mg INHALATION Q6HWA.RT PRN PRN Reason: Asthma Albuterol Sulfate (Ventolin Aerosols) 2.5 mg INHALATION Q6HWA.RT [facility] Last Admin: 05/17/19 13:34 Dose: 2.5 mg Documented by: Alendronate Sodium (Fosamax) 70 mg PO Mo@1000 [facility] Anastrozole (Arimidex) 1 mg PO DAILY [facility] Last Admin: 05/17/19 16:41 Dose: 1 mg Documented by: Atorvastatin Calcium (Lipitor) 20 mg PO QHS [facility] Last Admin: 05/16/19 21:10 Dose: 20 mg Documented by: Budesonide (Pulmicort Aerosol) 0.5 mg INHALATION Q12H.RT [facility] Last Admin: 05/17/19 07:16 Dose: 0.5 mg Documented by: Cholecalciferol (Vitamin D (25mcg)) 1,000 unit PO BIDCM [facility] Last Admin: 05/17/19 16:41 Dose: 1,000 unit Documented by: Diazepam (Valium) 5 mg PO 4X/DAY PRN PRN PRN Reason: SPASMS Docusate Sodium (Colace) 100 mg PO BID PRN PRN Reason: Constipation Docusate Sodium (Colace) 100 mg PO BID [facility] Last Admin: 05/17/19 07:43 Dose: 100 mg Documented by: Ezetimibe (Zetia) 10 mg PO DAILY [facility] Last Admin: 05/17/19 07:45 Dose: 10 mg Documented by: Enoxaparin Sodium (Lovenox) 40 mg SC DAILY [facility] Last Admin: 05/17/19 10:22 Dose: 40 mg Documented by: Enteral Nutritional Formula (Ensure Surgery) 237 ml PO TIDCM [facility] Last Admin: 05/17/19 16:41 Dose: 237 ml Documented by: Gabapentin (Neurontin) 200 mg PO TIDCM [facility] Last Admin: 05/17/19 16:41 Dose: 200 mg Documented by: Hydromorphone HCl (Dilaudid Inj) 0.5 - 1 mg IV Q3H PRN PRN PRN Reason: Pain Score 6-10/10 Lactated Ringer's () 1,000 mls @ 60 mls/hr IV .[id number] [facility] Last Infusion: 05/17/19 07:30 Dose: 60 mls/hr Documented by: Vancomycin IV Pharmacy to Dose (1 ea/ Sodium Chloride) 500 mls @ 250 mls/hr IV X1 PRN; Protocol PRN Reason: Rx to Dose Vancomycin HCl () 500 mg in 100 mls @ 100 mls/hr IV Q12H [facility] Last Infusion: 05/17/19 06:46 Dose: Infused Documented by: Insulin Human Lispro (Humalog Kwikpen (Bkc)) 1 - 6 unit SC Q4H PRN PRN; Protocol PRN Reason: BG>/= 180, SEE PROTOCOL Loratadine (Claritin) 10 mg PO DAILY [facility] Last Admin: 05/17/19 07:43 Dose: 10 mg Documented by: Losartan Potassium (Cozaar) 25 mg PO DAILY [facility] Last Admin: 05/17/19 07:43 Dose: 25 mg Documented by: Magnesium Oxide (Mag-Ox 400) 400 mg PO BID PRN PRN PRN Reason: Constipation Metoprolol Succinate (Toprol Xl (Beta Qi)) 25 mg PO DAILY [facility] Last Admin: 05/17/19 07:44 Dose: 25 mg Documented by: Ondansetron HCl (Zofran Odt) 4 mg PO Q6H PRN PRN PRN Reason: NAUSEA Oxycodone HCl (Oxyir) 5 - 10 mg PO Q4H PRN PRN PRN Reason: Pain Score 4-10/10 Last Admin: 05/17/19 07:41 Dose: 10 mg Documented by: Sodium Chloride () 10 - 40 ml IV UD PRN PRN Reason: SALINE FLUSH Throat Lozenges (Cepacol Sore Throat Lozenge) 1 lozenge MUCOUS MEM Q2H PRN PRN PRN Reason: SORE THROAT Last Admin: 05/17/19 14:03 Dose: 1 lozenge Documented by: Venlafaxine HCl (Effexor) 37.5 mg PO BID [facility] Last Admin: 05/17/19 07:44 Dose: 37.5 mg Documented by: Medical Necessity - Tobacco Use Smoking Status: Never smoker Tobacco Use: Non-smoker Assessment/Plan All Active Problems (Last Reviewed 04/08/19 @ 16:[address] Jann Murillo MD) Staphylococcus epidermidis infection (Acute) Partial loss of skin graft (Acute) Abdominal wall hernia (Acute) 1. Invasive ductal carcinoma left breast, s/p mastectomy. 2. Ductal carcinoma in situ right breast, s/p mastectomy. 3. Anemia of chronic disease. 4. History of MRSE. 5. Acquired absence bilateral breasts. 6. Disproportion reconstructed breasts. 7. Deformity reconstructed breasts. 8. Late effect radiation left breast. 9. Soft tissue radionecrosis left breast. 10. Estrogen receptor positive status. 11. Family history of breast cancer. 12. Capsular contracture. Patient has incisional pain. She is a little unsteady on her feet with ambulation. Incisions are dry and intact. Breasts are soft and symmetrical. No clinical evidence of hematoma. Continue Vancomycin perioperatively for previous culture of resistant Staph. Prealbumin was 19.0. Encourage nutritional supplementation with protein to help the healing process. Keep head elevated. Encourage ambulation with assist so she gets more steady on her feet in pr eparation for discharge. Anticipate tomorrow. Continue lifting restriction. Will send home on po antibiotics until the drains are removed.
[2019-05-18] MEDS: Acetaminophen 500 MG Tablet 1000 MG PO ×3 (00:19→12:43)
[2019-05-18 02:14] VITALS: BP 119/67; PULSE 105; RESP 16; TEMP 36.8; O2SAT 93
[2019-05-18] MEDS: oxyCODONE 5 MG Tablet PO (05:59)
[2019-05-18] MEDS: Vancomycin IV 500 MG/100 ML BAG 100 MG IV (05:59)
[2019-05-18 06:43] LABS: Vancomycin, Trough Level 6.9 ug/mL (5.0-15.0)
[2019-05-18 06:54] VITALS: PULSE 120; RESP 20; O2SAT 95
[2019-05-18] MEDS: Budesonide Respules 0.5 MG/2 ML AMPUL.NEB. INHALATION (06:54)
[2019-05-18] MEDS: Albuterol 2.5 MG/3 ML VIAL.NEB. INHALATION ×2 (06:54→13:27)
[2019-05-18 08:11] VITALS: BP 110/50; PULSE 106; RESP 18; TEMP 37.1; O2SAT 94
[2019-05-18] MEDS: Ezetimibe 10 MG Tablet PO (08:14)
[2019-05-18] MEDS: Gabapentin 100 MG Capsule 200 MG PO ×2 (08:14→11:20)
[2019-05-18] MEDS: Venlafaxine HCl 75 MG Tablet 37.5 MG PO (08:15)
[2019-05-18] MEDS: Docusate Sodium 100 MG Capsule PO (08:15)
[2019-05-18] MEDS: Loratadine 10 MG Tablet PO (08:15)
[2019-05-18 08:16] VITALS: PULSE 106
[2019-05-18] MEDS: Losartan Potassium 25 MG Tablet PO (08:16)
[2019-05-18] MEDS: Enoxaparin 40 MG/0.4 ML Syringe SC (08:16)
[2019-05-18] MEDS: Metoprolol(XL)Succ 25 MG Tablet PO (08:16)
[2019-05-18] MEDS: Acyclovir 200 MG Capsule PO (08:16)
[2019-05-18] MEDS: Anastrozole 1 MG Tablet PO (08:17)
[2019-05-18] MEDS: Ensure Surgery 237 ML LIQUID PO (08:52)
--- NOTE | 2019-05-18 08:57 | PCM.RX.CS ---
Consult Pharmacy has been consulted to manage selected antiobiotic: Vancomycin Type of Consult: Follow-up Suspected Infection: Skin/Soft tissue Prior Doses of Antibiotics Received/Current Regimen: Has been on 500mg iv q12h. Labs: Sodium 139 mmol/L (136-145) 05/17/19 06:00 Potassium 4.3 mmol/L (3.5-5.1) 05/17/19 06:00 Chloride 106 mmol/L (98-107) 05/17/19 06:00 Carbon Dioxide 29.0 mmol/L (21.0-32.0) 05/17/19 06:00 Anion Gap 4 (5-15) L 05/17/19 06:00 BUN 11 mg/dL (7-18) 05/17/19 06:00 Creatinine 0.76 mg/dL (0.55-1.02) 05/17/19 06:00 Est GFR (MDRD) Af Amer 100 mL/min (>60) 05/17/19 06:00 Est GFR (MDRD) Non-Af 82 mL/min (>60) 05/17/19 06:00 BUN/Creatinine Ratio 14.4 RATIO (10-20) 05/17/19 06:00 Glucose 120 mg/dL (74-106) H 05/17/19 06:00 Vancomycin Trough 6.9 ug/mL (5.0-15.0) 05/18/19 05:30 Weight used for dosin.9 kg Estimated Creatinine Clearance: ~70ml/min Goal Trough: 10-15 mcg/mL Pharmacy Plan for Drug Dosing: Trough level this am was 6.9 (goal 10-15mcg/ml). Renal function about same. Will change dose to 750mg iv q12h and get repeat trough level before 4th dose of new regimen. Pharmacy Service will continue to monitor and adjust dosing as required. Follow-Up Labs: Trough Vancomycin - 3.7.20 @0530 before 0600 dose
[2019-05-18] MEDS: DiphenhydrAMINE 25 MG Capsule 50 MG PO (11:20)
--- NOTE | 2019-05-18 12:07 | PCM.PN.SRG ---
Subjective: Postop #2 Patient is resting comfortably. Had some itching that responded to Benadryl. She is more steady on her feet with ambulation. - Physical Exam Vitals/I&O's: Vital Signs Temp Pulse Resp BP Pulse Ox 98.7 F 106 H 18 110/50 L 94 05/18/19 08:11 05/18/19 08:16 05/18/19 08:11 05/18/19 08:11 05/18/19 08:11 Oxygen Flow Rate (L/min) 6 Oxygen Delivery Method Room Air Weight: 140 lb 14.006 oz Body Mass Index (BMI) 24.1 Intake and Output for Last 24 Hours 05/16/19 05/17/19 05/18/19 23:59 23:59 23:59 Intake Total 2408 / 3008 4709 / 4709 919 / 919 Output Total 1010 / 1845 2175 / 2175 555 / 555 Balance 1398 / 1163 2534 / 2534 364 / 364 Drainage 315 ml yesterday, 55 ml today. General: Alert, Oriented x3 HEENT: PERRLA, EOMI Oral: Moist Mucosa Neck: Supple Abdomen: Soft, Non-Distended Skin: Incision - bilateral breast incisions are dry and intact. No vascular compromise noted on the TRAM flap. Breasts are soft and symmetrical. No clinical evidence of hematoma. Neurological: Cranial nerves II-XII grossly intact Psych/Mental Status: Normal Affect, Appropriate Laboratory Results 05/18/19 05:30: Vancomycin Trough 6.9 Current Medications Acetaminophen (Tylenol) 1,000 mg PO Q6 [facility] Last Admin: 05/18/19 06:00 Dose: 1,000 mg Documented by: Acyclovir (Zovirax) 200 mg PO DAILY [facility] Last Admin: 05/18/19 08:16 Dose: 200 mg Documented by: Albuterol Sulfate (Ventolin Aerosols) 2.5 mg INHALATION Q6HWA.RT PRN PRN Reason: Asthma Albuterol Sulfate (Ventolin Aerosols) 2.5 mg INHALATION Q6HWA.RT [facility] Last Admin: 05/18/19 06:54 Dose: 2.5 mg Documented by: Alendronate Sodium (Fosamax) 70 mg PO Mo@1000 [facility] Anastrozole (Arimidex) 1 mg PO DAILY [facility] Last Admin: 05/18/19 08:17 Dose: 1 mg Documented by: Atorvastatin Calcium (Lipitor) 20 mg PO QHS [facility] [place] Last Admin: 05/16/19 21:10 Dose: 20 mg Documented by: Budesonide (Pulmicort Aerosol) 0.5 mg INHALATION Q12H.RT [facility] [place] Last Admin: 05/18/19 06:54 Dose: 0.5 mg Documented by: Cholecalciferol (Vitamin D (25mcg)) 1,000 unit PO BIDCM [facility] [place] Last Admin: 05/18/19 08:14 Dose: 1,000 unit Documented by: Diazepam (Valium) 5 mg PO 4X/DAY PRN PRN PRN Reason: SPASMS Diphenhydramine HCl (Benadryl) 50 mg PO Q6H PRN PRN PRN Reason: ITCHING Last Admin: 05/18/19 11:20 Dose: 50 mg Documented by: Docusate Sodium (Colace) 100 mg PO BID PRN PRN Reason: Constipation Docusate Sodium (Colace) 100 mg PO BID [facility] Last Admin: 05/18/19 08:15 Dose: 100 mg Documented by: Ezetimibe (Zetia) 10 mg PO DAILY [facility] [place] Last Admin: 05/18/19 08:14 Dose: 10 mg Documented by: Enoxaparin Sodium (Lovenox) 40 mg SC DAILY [facility] [place] Last Admin: 05/18/19 08:16 Dose: 40 mg Documented by: Enteral Nutritional Formula (Ensure Surgery) 237 ml PO TIDCM [facility] [place] Last Admin: 05/18/19 11:21 Dose: Not Given Documented by: Gabapentin (Neurontin) 200 mg PO TIDCM [facility] [place] Last Admin: 05/18/19 11:20 Dose: 200 mg Documented by: Hydromorphone HCl (Dilaudid Inj) 0.5 - 1 mg IV Q3H PRN PRN PRN Reason: Pain Score 6-10/10 Vancomycin IV Pharmacy to Dose (1 ea/ Sodium Chloride) 500 mls @ 250 mls/hr IV X1 PRN; Protocol PRN Reason: Rx to Dose Vancomycin HCl 750 mg/ Sodium (Chloride) 265 mls @ 250 mls/hr IV Q12H [facility] [place] Insulin Human Lispro (Humalog Kwikpen (Bkc)) 1 - 6 unit SC Q4H PRN PRN; Protocol PRN Reason: BG>/= 180, SEE PROTOCOL Loratadine (Claritin) 10 mg PO DAILY [facility] [place] Last Admin: 05/18/19 08:15 Dose: 10 mg Documented by: Losartan Potassium (Cozaar) 25 mg PO DAILY [facility] [place] Last Admin: 05/18/19 08:16 Dose: 25 mg Documented by: Magnesium Oxide (Mag-Ox 400) 400 mg PO BID PRN PRN PRN Reason: Constipation Metoprolol Succinate (Toprol Xl (Beta Qi)) 25 mg PO DAILY [facility] [place] Last Admin: 05/18/19 08:16 Dose: 25 mg Documented by: Ondansetron HCl (Zofran Odt) 4 mg PO Q6H PRN PRN PRN Reason: NAUSEA Oxycodone HCl (Oxyir) 5 - 10 mg PO Q4H PRN PRN PRN Reason: Pain Score 4-10/10 Last Admin: 05/18/19 05:59 Dose: 10 mg Documented by: Sodium Chloride () 10 - 40 ml IV UD PRN PRN Reason: SALINE FLUSH Throat Lozenges (Cepacol Sore Throat Lozenge) 1 lozenge MUCOUS MEM Q2H PRN PRN PRN Reason: SORE THROAT Last Admin: 05/17/19 20:24 Dose: 1 lozenge Documented by: Venlafaxine HCl (Effexor) 37.5 mg PO BID [facility] Last Admin: 05/18/19 08:15 Dose: 37.5 mg Documented by: Medical Necessity - Tobacco Use Smoking Status: Never smoker Tobacco Use: Non-smoker Assessment/Plan All Active Problems (Last Reviewed 04/08/19 @ 16:[address] Jann Murillo MD) Staphylococcus epidermidis infection (Acute) Partial loss of skin graft (Acute) Abdominal wall hernia (Acute) 1. Invasive ductal carcinoma left breast, s/p mastectomy. 2. Ductal carcinoma in situ right breast, s/p mastectomy. 3. Anemia of chronic disease. 4. History of MRSE. 5. Acquired absence bilateral breasts. 6. Disproportion reconstructed breasts. 7. Deformity reconstructed breasts. 8. Late effect radiation left breast. 9. Soft tissue radionecrosis left breast. 10. Estrogen receptor positive status. 11. Family history of breast cancer. 12. Capsular contracture. Patient has less incisional pain. She is tolerating po analgesia. She is a more steady on her feet with ambulation. Incisions are dry and intact. Breasts are soft and symmetrical. No clinical evidence of hematoma. Continue Vancomycin perioperatively for previous culture of resistant Staph. Prealbumin was 19.0. Encourage nutritional supplementation with protein to help the healing process. Keep head elevated. She is tolerating po analgesia and is more steady on her feet with ambulation. Discharge home today. Continue lifting restriction. Keep head elevated. Continue ligia wrap compression. Will send home on po antibiotics until the drains are removed. Wrote scripts for Doxycycline and Acidophilus Probiotic until the drains are removed. Wrote scripts for Percocet for pain (40 tabs) and for Valium for spasm (30 tabs). Wrote script for Benadryl for itching (30 tabs) and a refill. Followup office one week.
--- NOTE | 2019-05-18 12:32 | DCINST_ITS ---
You will use the following diet at home:: No restrictions, Other - encourage nutritional supplementation with protein to help the healing process. Discharge Activity: May Not Shower - until the drains are removed., - - keep head elevated. no heavy lifting. May shower in (days): 14 - after the drains are removed. May resume sexual activity in: 10-14 days Weight Bearing Status: Weight bearing as tolerated Lifting Restrictions: 20 lbs. Keep extremity elevated above heart level: - - elevate head. Call your doctor if your incision/area has: Continuous Slow Oozing, Sudden Increased Bleeding, Increased Pain/ Swelling, Increased Redness, Foul Smelling Discharge, Swelling at the incision site Call your doctor if you observe: Fever of 101 or Higher, Coldness, Increased Pain, Shortness of breath, Chest pain, Calf discomfort, Uncontrolled pain Suture Line Care: - - dry dressings daily. Change Dressing in (Days):: 1 - dry dressings daily. Cleanse incision/area with: - - may get incisions wet in the shower after the drains are removed. Drain: Suction - sheridan drain x2 to bulb suction. empty and record output daily. Allergies/Adverse Reactions: Allergies lisinopril Allergy (Severe, Verified 05/16/19 06:29) tongue and face swelling Milk Containing Products Allergy (Verified 05/16/19 06:29) Food Allergy Penicillins Allergy (Verified 05/16/19 06:29) Anaphylaxis wheat Allergy (Verified 05/16/19 06:29) Food Allergy Medications to take at Discharge Loratadine [Claritin] 10 mg PO DAILY 08/22/15 acyclovir 200 mg capsule 200 mg PO QDAY cap 07/03/17 anastrozole 1 mg tablet 1 mg PO QDAY 07/03/17 venlafaxine 37.5 mg capsule,extended release 24 hr 37.5 mg PO BID cap 07/03/17 alendronate 70 mg tablet 70 mg PO QWEEK 03/28/18 atorvastatin 40 mg tablet 20 mg PO QHS #30 tab 09/01/18 ezetimibe 10 mg tablet 10 mg PO DAILY 09/01/18 losartan 25 mg tablet 25 mg PO QDAY #90 tab 09/30/18 Albuterol Aerosols [Ventolin Aerosols] 2.5 mg INHALATION Q6HWA.RT PRN 01/20/19 Cholecalciferol (Vitamin D3) [Vitamin D3] 1,000 unit PO BID 01/20/19 Docusate Sodium [Colace] 100 mg PO BID PRN 01/20/19 Metoprolol Tartrate [Lopressor (beta nell)] 25 mg PO DAILY 01/20/19 Fluticasone/Salmeterol [Fluticasone-Salmeterol 113-14] 1 ea IH DAILY 05/09/19 Albuterol Aerosols [Ventolin Aerosols] 2.5 mg INHALATION Q6HWA.RT vial.neb. 05/18/19 Budesonide Aerosol [Pulmicort Respules] 0.5 mg INHALATION Q12H.RT ampul.neb. 05/18/19 Diazepam [Valium] 5 mg PO 4X/DAY PRN PRN #30 tab 05/18/19 DiphenhydrAMINE [Benadryl] 50 mg PO Q6H PRN PRN #30 cap 05/18/19 Docusate Sodium [Colace] 100 mg PO BID cap 05/18/19 Doxycycline [Vibramycin] 100 mg PO BID #28 cap 05/18/19 Lactobacillus Acidophilus/Fos [Acidophilus Probiotic Tablet] 1 ea PO BID #30 tab 05/18/19 Oxycodone HCl/Acetaminophen [Percocet 5/325] 1 tablet PO Q4H PRN PRN 7 Days #40 tablet 05/18/19 The following prescriptions were given: Lactobacillus Acidophilus/Fos [Acidophilus Probiotic Tablet] 1 ea PO BID #30 tab Transmission Status: Pending to [address] DiphenhydrAMINE [Benadryl] 50 mg PO Q6H PRN PRN #30 cap PRN Reason: Itching Transmission Status: Pending to [address] Oxycodone HCl/Acetaminophen [Percocet 5/325] 1 tablet PO Q4H PRN PRN 7 Days #40 tablet PRN Reason: Pain Score 4-5/10 Transmission Status: Received by [address] Diazepam [Valium] 5 mg PO 4X/DAY PRN PRN #30 tab PRN Reason: Spasms Transmission Status: Received by [address] Doxycycline [Vibramycin] 100 mg PO BID #28 cap Transmission Status: Pending to [address] Primary Care Physician: Nevaeh Hawkins DO [Primary Care Provider] - Test Results: Test results from this visit will be discussed in further detail at your follow- up appointment, if applicable. Please Follow Up With: Jann Murillo MD When: one week. call [phone] for appt. Proposed Discharge Date: 05/18/19
[2019-05-18 13:27] VITALS: PULSE 102; RESP 20
[2019-05-18 14:00] VITALS: BP 111/59; PULSE 102; RESP 16; TEMP 37.2; O2SAT 98
== END 2019-05-18 17:21 | disposition home or self-care (01) ==
LOC: SDC 15:27 → MS3 15:27
PROVIDERS: Anesthesiology; Admitting Provider Surgery; Referring Provider Surgery; Visit Provider Surgery
PROC: (CPT 19371; principal; 2019-05-16 07:10)
DX: C50.912 Malignant neoplasm of unspecified site of left female breast (principal); D05.11 Intraductal carcinoma in situ of right breast; D63.8 Anemia in other chronic diseases classified elsewhere; Z17.0 Estrogen receptor positive status [ER+]; N65.1 Disproportion of reconstructed breast; T66.XXXS Radiation sickness, unspecified, sequela; Y84.2 Radiological procedure and radiotherapy as the cause of abnormal reaction of the patient, or of later complication, without mention of misadventure at the time of the procedure; Z80.3 Family history of malignant neoplasm of breast; T85.44XA Capsular contracture of breast implant, initial encounter; E78.5 Hyperlipidemia, unspecified; I10 Essential (primary) hypertension; J45.909 Unspecified asthma, uncomplicated; K21.9 Gastro-esophageal reflux disease without esophagitis; I42.9 Cardiomyopathy, unspecified; Z79.899 Other long term (current) drug therapy; Z79.51 Long term (current) use of inhaled steroids; Z79.02 Long term (current) use of antithrombotics/antiplatelets; F32.9 Major depressive disorder, single episode, unspecified
CPT/HCPCS: 00402; 11970; 19380; 36415; 80048; 80076; 80202; 82962; 83735; 84134; 85027; 85610; 85652; 85730; 86140; 88305; 94640; 96365; 96366; 96372; 99218; 99251; C1713; J7120; G0378; G0379; G0463; J2405; Q9968